=== PATIENT | female | born 1950 | race Caucasian/White ===

== ENCOUNTER 2019-07-22 17:00 | Emergency (ER) | payer MEDICARE, BC, SELFPAY ==
--- NOTE | ~2019-07-22 | XR_ITS ---
EXAMINATION: XR shoulder RT min 2V EXAM DATE: 07/22/2019 17:36 INDICATION: Initial encounter following injury, with pain of the right shoulder. Fell yesterday. TECHNIQUE: The following right shoulder projections obtained: frontal projection with internal rotati on, frontal projection with external rotation, Grashey, and scapular Y view (4+ views). Correlation i s made to chest x-ray from 2018. FINDINGS: No evidence of right shoulder rotator cuff calcific tendinosis. There is contour abnorm ality to the underside of the distal clavicle, suspicious for an acute distal clavicular closed postt raumatic fracture. This finding has been indicated, marked on the examination for review, clinical co rrelation. Glenohumeral joint is unremarkable. Sternotomy wires are present without findings to sugge st sternal dehiscence. IMPRESSION: Probable distal right clavicular fracture. Reviewed, dictated and finalized at location A.
--- NOTE | 2019-07-22 17:12 | ED.GENADULT ---
HPI - General Adult General Chief complaint: Extremity Injury, Upper Stated complaint: Injury to right shoulder Time Seen by Provider: 07/22/19 17:14 Source: patient Mode of arrival: ambulatory Limitations: no limitations History of Present Illness HPI narrative: 68-year-old female patient presents to the [facility] with complaints of right shoulder pain. Patient states that she fell yesterday. Patient states that she was trying to flop back in her recliner and missed and hit the arm of the chair and then fell over on the floor landing on her right shoulder. Patient does have a history of cerebral palsy and does have weakness of the right shoulder at baseline. Patient states it is more painful around the scapula and clavicle area on the right side. Patient states she has been taking some Tylenol which has helped a little with the pain along with heat. Patient states that the ice does make it worse. Related Data Home Medications Medication Instructions Recorded Confirmed citalopram 40 mg PO DAILY 07/22/19 07/22/19 insulin glargine [Lantus Solostar unit SUBCUT 07/22/19 U-100 Insulin] metoprolol tartrate 25 mg PO DAILY 07/22/19 07/22/19 Allergies Allergy/AdvReac Type Severity Reaction Status Date / Time Sulfa (Sulfonamide Allergy Mild Rash Verified 07/22/19 17:19 Antibiotics) Review of Systems Review of Systems: Narrative: CONSTITUTIONAL: Denies fever, chills, or sweats. EYES: Denies visual changes, redness, or discharge. ENT: Denies rhinorrhea, congestion, sore throat, or otalgia. CARDIOVASCULAR: Denies chest pain, palpitations, or edema. RESPIRATORY: Denies cough or dyspnea. GASTROINTESTINAL: Denies abdominal pain, nausea, vomiting, or diarrhea. GENITOURINARY: Denies dysuria or hematuria. SKIN: Denies rash or itching. MUSCULOSKELETAL: Denies back pain, joint pain, or myalgia. Positive right shoulder pain NEUROLOGIC: Denies headache, numbness, or weakness. PSYCHIATRIC: Denies anxiety or depression. FORMERLY [facility] Past Medical History Medical History (Updated 07/22/19 @ 18:01 by JUAN DAVID Cheek) Cerebral palsy Right side weak, right leg Heart attack Hypoglycemia Insulin pump status Retinopathy Type 1 diabetes Surgical History Surgical History (Updated 07/22/19 @ 17:17 by JUAN DAVID Cheek) H/O: hysterectomy Hx of CABG X6 in 1999, 6 vessels Family History Family History Other Family history of cardiovascular disease Family history of lung disease Family history of mental disorder Social History Social History Smoking status: Never smoker Alcohol intake: never Comments At the time of my signature I agree with nursing past medical history, surgical, social, and family history. There is no relevant family history pertinent to the presenting complaint. Exam Narrative: Exam Narrative: GENERAL: Well-appearing, well-nourished, and in no acute distress. HEAD: Normocephalic, atraumatic. EYES: PERRLA and EOMI. ENT: Nares clear, no rhinorrhea or epistaxis. Mucous membranes moist. NECK: Supple. No lymphadenopathy CHEST: Clear to auscultation. No respiratory distress. HEART: Regular rate and rhythm. No murmur heard. Normal peripheral pulses. ABDOMEN: Soft, nontender, nondistended, normal active bowel sounds. EXTREMITIES: The R shoulder is without obvious asymmetry or deformity when compared to the L shoulder. No surface trauma, ecchymosis, crepitus. No bony deformity or prominence of the humeral head No erythema, warmth, swelling. tenderness to palpation to right clavicle, no tenderness noted to the A to C joint, acromion, 100 is noted to palpation of the right scapula, no tenderness to the humeral head. No tenderness to palpation of the bicipital groove or soft tissues. No tenderness to palpation of the muscles of the sterncleidomastoid, pectorals, biceps/triceps, deltoid, trapezius, r
[2019-07-22 17:14] VITALS: BP 161/97; PULSE 99; RESP 18; TEMP 36.7; O2SAT 100
== END 2019-07-22 18:09 | disposition home or self-care (01) ==
PROVIDERS: Emergency Provider Nurse Practitioner Family; PCP Family Medicine
DX: S42.034A Nondisplaced fracture of lateral end of right clavicle, initial encounter for closed fracture (principal); W18.39XA Other fall on same level, initial encounter; G80.9 Cerebral palsy, unspecified; I25.2 Old myocardial infarction; E10.9 Type 1 diabetes mellitus without complications; Z95.1 Presence of aortocoronary bypass graft
CPT/HCPCS: 73030; 99214; A4565; G0463

== ENCOUNTER 2019-11-21 14:30 | Inpatient (IN) | payer MEDICARE, BC, SELFPAY ==
[2019-11-21] VITALS (8 sets, daily range): BP systolic 109–139; BP diastolic 54–83; PULSE 58–78; RESP 16–25; TEMP 36.4–37.1; O2SAT 96–100
--- NOTE | ~2019-11-21 | XR_ITS ---
EXAMINATION: XR chest 1V portable DATE: 11/21/2019 15:24 INDICATION: Coronary atherosclerosis. Diabetes. Preop. TECHNIQUE: A single frontal view of the chest was obtained. COMPARISON: Chest 2 views 12/17/2017 FINDINGS: The chest demonstrates clear lungs without pneumonia, pleural effusion, or pneumothorax. Th e heart size is normal. Median sternotomy wires and mediastinal surgical clips are seen, likely from prior coronary artery bypass grafting. Surgical clips in the right upper quadrant are likely from cho lecystectomy. IMPRESSION: 1. No acute cardiopulmonary disease. Reviewed, dictated and finalized at location B.
--- NOTE | ~2019-11-21 | XR_ITS ---
EXAMINATION: XR hip RT 2V w AP pelvis DATE: 11/21/2019 14:56 INDICATION: Right hip deformity. Fall. TECHNIQUE: An anteroposterior view of the pelvis and 3 views of right hip were obtained. COMPARISON: None. FINDINGS: There is a comminuted intertrochanteric and subtrochanteric fracture of proximal right femu r. The main distal fracture fragment demonstrates 1.8 cm anterior displacement and 18 degrees posteri or angulation. There is mild osteoarthritis of the hips. There is at least moderate lumbar spondylosi s. There are surgical clips in right thigh. IMPRESSION: 1. Comminuted intertrochanteric and subtrochanteric fracture of proximal right femur. 2. Mild osteoarthritis of the hips. Reviewed, dictated and finalized at location B.
--- NOTE | ~2019-11-21 | XR_ITS ---
EXAMINATION: XR hip LT 1V DATE: 11/21/2019 16:11 INDICATION: Pelvis injury. TECHNIQUE: A single view of left hip was obtained. COMPARISON: Pelvis and right hip radiographs 11/21/2019 FINDINGS: Bone alignment is normal. No fracture. There is mild left hip osteoarthritis. IMPRESSION: 1. Mild left hip osteoarthritis. Reviewed, dictated and finalized at location B.
--- NOTE | ~2019-11-21 | XR_ITS ---
EXAMINATION: XR surgery orthopedic DATE: 11/22/2019 13:26 INDICATION: Proximal right femur fracture. TECHNIQUE: 5 intraoperative fluoroscopic views of right femur were obtained. I was not present. Fluor oscopy exposure time was 334 seconds. COMPARISON: Right hip radiographs 11/21/2019 FINDINGS: There is a comminuted intertrochanteric and subtrochanteric fracture of proximal right femu r status post reduction internal fixation with long intramedullary cheryl, femoral head/neck screw, and 2 distal interlocking screws. There is mild right hip osteoarthritis. There are surgical clips in the thigh. IMPRESSION: 1. Comminuted intertrochanteric and subtrochanteric fracture of proximal right femur status post open reduction internal fixation. Reviewed, dictated and finalized at location A.
--- NOTE | ~2019-11-21 | XR_ITS ---
EXAMINATION: XR femur RT min 2V DATE: 11/22/2019 14:06 INDICATION: Proximal right femur fracture. TECHNIQUE: 2 views of right femur on 4 radiographs were obtained. COMPARISON: Right hip radiographs 11/21/2019 FINDINGS: There is a comminuted intertrochanteric and subtrochanteric fracture of proximal right femu r. The main distal fracture demonstrates near-anatomic alignment status post open reduction internal fixation with antegrade intramedullary cheryl, 2 distal interlocking screws, and femoral head/neck screw . There is mild right hip osteoarthritis. There is surgical clips in the medial thigh. There is gas i n the soft tissues, consistent with recent surgery. IMPRESSION: 1. Comminuted intertrochanteric and subtrochanteric fracture of proximal right femur status post open reduction internal fixation. 2. Mild right hip osteoarthritis. Reviewed, dictated and finalized at location A.
--- NOTE | 2019-11-21 15:09 | ECG_ITS ---
Measurements Intervals [place] Rate: 67 P: 7 [place]: 140 QRS: 10 QRSD: 109 T: 209 QT: 429 QTc: 455 Interpretive Statements SINUS RHYTHM LEFT VENTRICULAR HYPERTROPHY AND ST-T CHANGE ST-T WAVE ABNORMALITY IN ANTEROLAT/HIGH LAT LEADS- CONSIDER ISCHEMIA ABNORMAL ECG Electronically Signed On 11-21-2019 15:47:27 CDT by Gabriel Alvarado D.O.
[2019-11-21 15:42] LABS: Glucose Point of Care 250 (65-105)
[2019-11-21 15:45] LABS: Basophils Percent Auto 0.5 % (0.2-1.2); Eosinophils Absolute Auto 0.3 K/mm3 (0-0.3); Eosinophils Percent Auto 5.3 % (0-4.4); Hematocrit 31.1 % (37.0-47.0); Hemoglobin 10.5 g/dL (12.0-15.0); Immature Granulocyte Absolute 0.01 K/mm3 (0.00-0.031); Immature Granulocyte Percent A 0.2 % (0-0.5); Lymphocytes Absolute Auto 1.42 K/mm3 (0.9-3.2); Lymphocytes Percent Auto 23.6 % (18.3-44.2); Mean Corpuscular HGB Conc 33.8 g/dl (32-36); Mean Corpuscular Hemoglobin 30.1 pg (26-34); Mean Corpuscular Volume 89.1 fl (80-100); Mean Platelet Volume 8.8 fl (7.4-10.4); Monocytes Absolute Auto 0.5 K/mm3 (0.1-0.6); Monocytes Percent Auto 8.5 % (2.6-8.5); Neutrophils Absolute Auto 3.7 K/mm3 (1.3-6.7); Neutrophils Percent Auto 61.9 % (45.5-73.1); Platelet Count Result 228 k/mm3 (150-375); Red Blood Count 3.49 M/mm3 (4.2-5.4); Red Cell Distribution Width 12.6 % (11.5-14.5)
[2019-11-21 15:55] LABS: INR 1.2; Partial Thromboplastin Time 26.1 SECONDS (22.3-36.8); Prothrombin Time 14.8 Seconds (11.1-14.7)
[2019-11-21 15:56] LABS: Anion Gap 7 mmol/L (8-16); Blood Urea Nitrogen 31 mg/dL (7-17); Calcium 8.4 mg/dL (8.4-10.2); Carbon Dioxide 26 mmol/L (22-30); Chloride 97 mmol/L (98-107); Estimated CRCL calculation 47 ml/min; Estimated Glomerular Filt Rate > 60; Glucose 241 mg/dL (65-105); Potassium 4.5 mmol/L (3.4-5.0); Sodium 130 mmol/L (137-145)
--- NOTE | 2019-11-21 16:01 | ED.GENADULT ---
HPI - General Adult General Chief complaint: Fall Stated complaint: right hip injury - fall History of Present Illness HPI narrative: Patient is a 69-year-old female who presents ER with pain in her right hip. Patient was getting out of her car at a local store when she lost her balance and fell. Sudden onset pain the right hip. Unable to range at the hip due to pain. Patient has cerebral palsy that affects her right side and reports she cannot move her toes or ankle baseline. No new numbness or tingling. Did not strike her head or lose consciousness. Related Data Home Medications Medication Instructions Recorded Confirmed ascorbic acid (vitamin C) [Vitamin 100 mg PO DAILY 11/21/19 11/21/19 C] aspirin [Adult Low Dose Aspirin] 81 mg PO DAILY 11/21/19 11/21/19 carvedilol 12.5 mg PO BID 11/21/19 11/21/19 citalopram [Celexa] 40 mg PO DAILY 11/21/19 11/21/19 clopidogrel [Plavix] 75 mg PO DAILY 11/21/19 11/21/19 furosemide [Lasix] 40 mg PO DAILY 11/21/19 11/21/19 insulin glargine [Lantus U-100 23 unit SUBCUT DAILY 11/21/19 11/21/19 Insulin] insulin lispro [Humalog U-100 See Protocol SUBCUT ACHS 11/21/19 11/21/19 Insulin] isosorbide mononitrate 30 mg PO DAILY 11/21/19 11/21/19 losartan 12.5 mg PO DAILY 11/21/19 11/21/19 multivitamin with iron-mineral 1 tablet PO DAILY 11/21/19 11/21/19 ondansetron HCl [Zofran] 4 mg PO Q6H PRN 11/21/19 11/21/19 spironolactone 12.5 mg PO DAILY 11/21/19 11/21/19 Allergies Allergy/AdvReac Type Severity Reaction Status Date / Time Sulfa (Sulfonamide Allergy Mild Rash Verified 11/21/19 14:34 Antibiotics) Review of Systems Review of Systems: All systems reviewed & are unremarkable except as noted in HPI and below Constitutional: Constitutional: Denies chills, Denies fever(s) and Denies weakness ENT: Denies nasal congestion and Denies sore throat Respiratory: Respiratory: Denies cough and Denies dyspnea Gastrointestinal: Gastrointestinal: Denies abdominal pain, Denies nausea and Denies vomiting PMFSH Past Medical History Medical History (Updated 11/21/19 @ 23:23 by Aravind Zamora MD) Cerebral palsy Right side weak, right leg Heart attack Hypoglycemia Insulin pump status Retinopathy Type 1 diabetes Surgical History Surgical History (Updated 07/22/19 @ 17:17 by JUAN DAVID Cheek) H/O: hysterectomy Hx of CABG X6 in 1999, 6 vessels Social History Social History Smoking status: Never smoker Alcohol intake: never Substance use: never Spiritual care concerns: No Exam Narrative: Exam Narrative: GENERAL: Uncomfortable-appearing, well-nourished, and in mild distress. HEAD: Normocephalic, atraumatic. ENT: Mucous membranes moist. CHEST: Clear to auscultation. No respiratory distress. HEART: Regular rate and rhythm. Normal peripheral pulses. ABDOMEN: Soft, nontender, nondistended. EXTREMITIES: Right lower extremity shortened and externally rotated. Significant tenderness at the hip where there is a deformity. Patient has limited range of motion of the ankle and toes due to cerebral palsy at baseline. Sensation intact and normal distal pulses. SKIN: Warm, dry, no rash. NEURO: Alert and oriented x3. Course Course Emergency Course: Admit to hospitalist service. Cardiology consult ordered at request of fetus. Ortho feels comfortable caring for patient's injury here. Vital Signs Vital signs: Vital Signs Temperature 98.7 F 11/21/19 14:26 Pulse Rate 58 L 11/21/19 14:26 Respiratory Rate 25 H 11/21/19 14:26 Blood Pressure 121/66 11/21/19 14:26 Pulse Oximetry 97 11/21/19 14:26 Temperature 97.6 F 11/21/19 22:00 Pulse Rate 73 11/21/19 22:00 Respiratory Rate 20 11/21/19 22:00 Blood Pressure 109/63 11/21/19 22:00 Pulse Oximetry 96 11/21/19 22:00 Medical Decision Making Vital Signs Vital Signs: Vital Signs Temperature 98.7 F 11/21/19 14:26 Pulse Rate
--- NOTE | 2019-11-21 16:06 | PC.NURSE ---
ATTEMPTED TO CONTACT FAMILY AT THIS TIME FOR FURTHER MEDICAL HX, NO ANSWER BY PROVIDED NUMBER, VOICEMAIL LEFT TO CALL BACK TO ED.
[2019-11-21] MEDS: ONDANSETRON INJ 4 MG/2 ML VIAL IV PUSH ×3 (16:40→23:21)
--- NOTE | 2019-11-21 18:28 | PM.CNOR ---
Assessment and Plan Additional Plan Patient is a 69-year-old female who presents with a comminuted right intertrochanteric subtrochanteric femur fracture. This happened from a fall earlier today. X-rays demonstrate a comminuted subtrochanteric pattern with intertrochanteric extension minimal hip arthritis. She has a history of cerebral palsy that affects the right side. It is severe and she has minimal use of the right upper extremity and has distal paralysis of the right lower extremity. She has no active movement in the right foot or ankle. She has normal sensation clinically. The foot is of normal color there is no swelling in the leg her knee calf ankle foot are nontender and she has normal light touch sensation. Her pain is at the hip and proximal thigh on the right. She denies any other injury. She is alert and oriented. She lives with her niece who was present today. She has a trace posterior tibial artery pulse. I could not feel dorsalis pedis. Normal capillary refill. Her past medical history is significant for long history of heart disease. She states she had 6 way bypass in 1999 and did well until August of this year when she had a heart attack and had a stent placed in had some CHF complications associated with this. She has insulin dependent diabetes mellitus type 1.Retinopathy. Allergy to sulfa. She denies any history of thromboembolic problems. Impression: Patient has a severe subtroch intertroch fracture on the right. I have explained to her and her niece that open reduction and internal fixation of this fracture will be necessary. She was ambulatory before this. I have discussed that she is at increased risk for cardiac complications because of her history and we will need to have Cardiology see her and assess her cardiac risk and determine whether optimization is necessary before proceeding with surgery. She does take Plavix and we will hold this for today. Postoperatively we will use DVT prophylaxis with Lovenox and resume her Plavix. Her hemoglobin is only a 10.8 and it is very probable she will need transfusion at some point because of the blood loss that is associated with these fractures and we will check labs in the morning. I have discussed risks of complications from surgery such as infection blood clots nonunion and medical complications which can be severe. Her knees will not be able to provide 24/7 care for her and assist with transfers after surgery so patient will need to go to a rehabilitation facility for probably 8 weeks postoperatively. History of Present Illness HPI Consult date: 11/21/19 Chief complaint: hip fracture PMFSH Past Medical History Medical History (Updated 07/23/19 @ 00:00 by J Carlos Espinal) Cerebral palsy Right side weak, right leg Heart attack Hypoglycemia Insulin pump status Retinopathy Type 1 diabetes Surgical History Surgical History (Updated 07/22/19 @ 17:17 by JUAN DAVID Cheek) H/O: hysterectomy Hx of CABG X6 in 1999, 6 vessels Social History Social History Smoking status: Never smoker Alcohol intake: never Meds Home Medications and Allergies Home Medications Medication Instructions Recorded Confirmed Type carvedilol 12.5 mg PO BID 11/21/19 History citalopram [Celexa] 20 mg PO DAILY 11/21/19 History clopidogrel [Plavix] 75 mg PO DAILY 11/21/19 History furosemide [Lasix] 40 mg PO DAILY 11/21/19 History insulin glargine [Lantus U-100 23 unit SUBCUT DAILY 11/21/19 History Insulin] isosorbide mononitrate 30 mg PO DAILY 11/21/19 History lisinopril 5 mg PO DAILY 11/21/19 History losartan 12.5 mg PO DAILY 11/21/19 History ondansetron HCl [Zofran] 4 mg PO Q6H PRN 11/21/19 History Allergies Allergy/AdvReac Type Severity Reaction Status Date / Time Sulfa (Sulfonamide Allergy Mild Rash Verified 11/21/19 14:34 Antibiotics) Vital Signs Vital Signs - 24 hr 11/21/19 14:
--- NOTE | 2019-11-21 18:55 | ADMGEN ---
This patient, Ilana Kim, was admitted to [facility] Surg Room 325-01. Report received from KATHRINE Davis. Patient/family oriented to hospital policies and general routines including ID bracelet, bed and alarms, visiting hours, pain management, procedures, bathroom and other care routines, personal items, smoking policy, room service/diet, and visiting hours. Valuables list has been completed. Information on how to activate the Rapid Response Team has been discussed. Patient/Family are encouraged to report perceived risks to care and to ask questions if they do not understand what they are told or what they should do.
[2019-11-21 19:01] LABS: Glucose Point of Care 172 (65-105)
--- NOTE | 2019-11-21 19:42 | PM.CNCAR ---
Assessment and Plan Assessment and plan (1) Preop cardiovascular exam: Code(s): Z01.810 - Encounter for preprocedural cardiovascular examination Status: Acute Assessment and Plan: Preop Risk stratification- Risk profile: CAD/CABG/UT/stents, Mild LV systolic dysfunction, IDDM, hypertension. Surgical risk: Intermediate risk with hip surgery. Functional status <4 METs. Overall risk: Moderate cardiac risk. She is currently optimized for surgery and may proceed without further cardiac workup. Check Troponin. Hold Clopidogrel. Check EKG postop for any changes. (2) CAD (coronary artery disease), autologous vein bypass graft: Code(s): I25.810 - Atherosclerosis of coronary artery bypass graft(s) without angina pectoris Status: Acute (3) Systolic dysfunction: Code(s): I51.9 - Heart disease, unspecified Status: Acute (4) Hypertension: Code(s): I10 - Essential (primary) hypertension Status: Acute History of Present Illness History of Present Illness Consult date/time: 11/21/19 19:42 Reason for consult: Preop cardiovascular risk stratification 69 yr old woman admitted for right hip fracture. Most history obtained from chart and patient's niece who she lives with and is also her hearing healthcare practitioner. She has a history of CAD, CABG x 6 vessels in 1999 at [facility], [place] in August 2019 with 2 stent placement at [facility] in [place], [place], LV systolic dysfunction (Echocardiograms were done at [facility] in August 2019 showed EF 36%, then in October 2019 EF 45%, per patient's niece), IDDM, hypertension, cerebral palsy. Her regular jet inspector is Dr. Rea. She was doing some shopping today and as she exited her van she fell due to loss of balance, and had pain in right hip. It was found that she has a right hip fracture needing surgery and plan to have it done tomorrow with Dr. Price. She can normally walk up to 50 feet with a limp due to cerbral palsy before she has to rest due to fatigue or FRANKS. Denies chest pain, sob, orthopnea, PND, edema, palpitations, dizziness. She has right hip pain only if she moves or shifts her body. Reason For Visit: hip fracture Review of Systems Review of Systems: All systems reviewed & are unremarkable except as noted in HPI and below Constitutional: Constitutional: Reports as per HPI and Denies chills Cardiovascular: Cardiovascular: Reports as per HPI, Denies chest pain, Denies leg edema, Denies lightheadedness and Denies palpitations Respiratory: Respiratory: Reports as per HPI, Reports dyspnea on exertion and Denies wheezing Gastrointestinal: Gastrointestinal: Denies abdominal pain and Reports vomiting (In ED and again in her room) Comments: Belching this evening Genitourinary: Genitourinary: Reports as per HPI and Denies dysuria Musculoskeletal: Musculoskeletal: Reports as per HPI and Reports arthralgias Neurologic: Reports as per HPI and Denies confusion [facility] Past Medical History Medical History (Updated 11/21/19 @ 19:59 by Gabriel Alvarado DO) Cerebral palsy Right side weak, right leg Heart attack Hypoglycemia Insulin pump status Retinopathy Type 1 diabetes Surgical History Surgical History (Updated 07/22/19 @ 17:17 by JUAN DAVID Cheek) H/O: hysterectomy Hx of CABG X6 in 1999, 6 vessels Social History Social History Smoking status: Never smoker Alcohol intake: never Substance use: never Spiritual care concerns: No Meds Home Medications and Allergies Home Medications Medication Instructions Recorded Confirmed Type ascorbic acid (vitamin C) [Vitamin 100 mg PO DAILY 11/21/19 11/21/19 History C] aspirin [Adult Low Dose Aspirin] 81 mg PO DAILY 11/21/19 11/21/19 History carvedilol 12.5 mg PO BID 11/21/19 11/21/19 History citalopram [Celexa] 40 mg PO DAILY 11/21/19 11/21/19 History clopidogrel [Plavix] 75 mg PO DAILY 11/21/19 11/21/19 Histo
[2019-11-21 20:14] LABS: NT Pro B Type Natriuretic Pept 3890 PG/ML (5-100); Troponin I < 0.012 ng/mL (0.000-0.034)
[2019-11-21] MEDS: DEXTROSE 5%/0.45% SOD CHL 1,000 ML 100 ML IV CONT (20:45)
--- NOTE | 2019-11-21 23:40 | PM.IMHP ---
H&P: HPI History of Present Illness Date/Time: 11/21/19 23:40 Chief complaint: hip fracture Narrative: Ilana Kim is a 69 year old female who has a hx of cerebral palsy. And is weak on the right side. The patient recently started using a walker. The patient lives with her nephew and his . The patient stated that she was trying to get out of the car and was in her and did realize that she lost her balance. She said she saw that she had 1 ft from the other with somehow she lost her balance. She did not hit her head and is not on any blood thinners. She is answering questions without difficulty. She is belching and stated that she is nauseated at this time. She has severe pain in the right hip are. Patient had stated that she could not move her toes or ankle. She is a very brittle diabetic she is type 1 insulin-dependent. She also has systolic congestive heart failure with the EF of 45%. The niece was here earlier and was giving information to cardiology. She has has a history of having coronary artery disease with a 6 vessel CABG in 1999 at [facility]. She had a heart attack August of this year and had 2 more stents placed at [facility]. Dr. mann has seen the patient and evaluated the patient. He recommended that cardiology see the patient and she was evaluated by cardiology as well. The patient content Harlan walk approximately 50 ft before she has dyspnea on exertion. She currently has no chest pain or palpitations. She complained of no dizziness. No fever no chills. The hip and pelvis x-ray was read as comminuted intertrochanteric and subtrochanteric fracture of proximal right femur this is closed. Mild osteoarthritis of the hips. She was given morphine in the emergency room, for Zofran Tylenol. The patient was given Ancef and vancomycin per orthopedic physician. Approximately 1 hour in the patient's room. Date of service is 11/21/2019 Review of Systems Review of Systems: All systems reviewed & are unremarkable except as noted in HPI and below Constitutional: Constitutional: Reports as per HPI and Reports no additional constitutional complaints Eyes: Eyes: Reports as per HPI and Reports no additional eye complaints ENT: Reports system reviewed and no additional complaints, except as documented and Reports Normal hearing present Cardiovascular: Cardiovascular: Reports no additional cardiovascular complaints Respiratory: Respiratory: Reports no additional respiratory complaints and Reports no additional respiratory complaints Gastrointestinal: Gastrointestinal: Reports as per HPI and Reports no additional gastrointestinal complaints Musculoskeletal: Musculoskeletal: Reports no additional musculoskeletal complaints Integumentary/Breasts: Skin/Breast: Reports system reviewed and no additional complaints, except as docu and Reports as per HPI Neurologic: Reports system reviewed and no additional complaints, except as documented, Reports as per HPI and Reports Normal hearing present Psychiatric: Psychiatric: Reports no additional psychiatric complaints and Reports as per HPI Endocrine: Endocrine: Reports no additional endocrine complaints Hematologic/Lymphatic: Hematologic/Lymphatic: Reports no additional hematologic/lymphatic complaints Allergic/Immunologic: Allergic/Immunologic: Reports no additional allergic/immunologic complaints [facility] Past Medical History Medical History (Updated 11/22/19 @ 00:04 by Bre Garcia NP) Cerebral palsy Right side weak, right leg Depression Started after her of cancer and then she continued to take Celexa Heart attack Hypoglycemia Insulin pump status Retinopathy Type 1 diabetes Surgical History Surgical History (Updated 11/22/19 @ 00:01 by Bre Garcia NP) H/O: hysterectomy History of heart artery stent 2 cardiac stents 08/2019 Hx of CABG X6 in 1999, 6 vessels Family History Family
[2019-11-22] VITALS (19 sets, daily range): BP systolic 103–160; BP diastolic 38–86; PULSE 64–87; RESP 11–20; TEMP 36.1–37; O2SAT 90–100
[2019-11-22] MEDS: INSULIN ASPART (*BKC) 100 UNITS/ML SUB-Q ×2 (00:33→05:34)
[2019-11-22 00:39] LABS: Glucose Point of Care 257 (65-105)
[2019-11-22] MEDS: ONDANSETRON INJ 4 MG/2 ML VIAL IV PUSH ×2 (03:33→14:51)
[2019-11-22 06:01] LABS: Glucose Point of Care 318 (65-105)
[2019-11-22 07:03] LABS: Hematocrit 27.3 % (37.0-47.0); Hemoglobin 9.1 g/dL (12.0-15.0); Mean Corpuscular HGB Conc 33.3 g/dl (32-36); Mean Corpuscular Hemoglobin 29.8 pg (26-34); Mean Corpuscular Volume 89.5 fl (80-100); Mean Platelet Volume 9.5 fl (7.4-10.4); Platelet Count Result 180 k/mm3 (150-375); Red Blood Count 3.05 M/mm3 (4.2-5.4); Red Cell Distribution Width 12.6 % (11.5-14.5); White Blood Count 7.6 K/mm3 (4.5-10.0)
[2019-11-22 07:19] LABS: Alanine Aminotransferase 17 U/L (4-35); Albumin Level 3.3 g/dL (3.5-5.1); Alkaline Phosphatase 58 U/L (38-126); Anion Gap 7 mmol/L (8-16); Aspartate Amino Transferase 26 U/L (14-36); Bilirubin,Total 0.3 mg/dL (0.2-1.3); Blood Urea Nitrogen 36 mg/dL (7-17); Calcium 8.1 mg/dL (8.4-10.2); Carbon Dioxide 26 mmol/L (22-30); Chloride 97 mmol/L (98-107); Estimated CRCL calculation 39 ml/min; Estimated Glomerular Filt Rate 49; Glucose 284 mg/dL (65-105); Potassium 4.6 mmol/L (3.4-5.0); Sodium 130 mmol/L (137-145)
[2019-11-22] MEDS: DEXTROSE 5%/0.45% SOD CHL 1,000 ML 100 ML IV CONT (07:25)
[2019-11-22 08:11] LABS: Troponin I < 0.012 ng/mL (0.000-0.034)
[2019-11-22 08:15] LABS: Vitamin D 25 Hydroxy 47.9 ng/mL
[2019-11-22] MEDS: ISOSORBIDE MONONITRATE 30 MG TAB.ER.24H PO (08:28)
[2019-11-22] MEDS: LOSARTAN POTASSIUM 12.5 MG TABLET PO (08:28)
[2019-11-22] MEDS: CITALOPRAM HYDROBROMIDE 20 MG TABLET 40 MG PO (08:28)
[2019-11-22] MEDS: carvediloL 12.5 MG TABLET PO ×2 (08:28→17:12)
[2019-11-22] MEDS: SPIRONOLACTONE 12.5 MG TABLET PO (08:28)
[2019-11-22] MEDS: THERAPEUTIC MULTIVITAMINS/MINERALS TAB (*BKC) 1 TABLET PO (08:28)
[2019-11-22] MEDS: FUROSEMIDE 40 MG TABLET PO (08:28)
[2019-11-22] MEDS: INSULIN GLARGINE (*BKC) 100 UNITS/ML 23 UNITS SUB-Q (08:34)
[2019-11-22] MEDS: FAMOTIDINE 20 MG/2 ML VIAL IV PUSH (08:34)
--- NOTE | 2019-11-22 10:36 | WPDANESEPP ---
Anes - Eval Pre Procedure Procedure: Operation Date: 11/22/19 11:00 Proposed Procedures p Intertrochanteric Nail - Leif Price MD Date/Time: 11/22/19 10:36 Pre Op Diagnosis: hip fracture Patient Data Age: 69 Gender: F Height: 1.65 m Weight: 68.1 kg Last Vital Signs Temp 37.0 C 11/22/19 06:00 Pulse 84 11/22/19 08:28 Resp 20 11/22/19 06:00 BP 130/38 L 11/22/19 06:00 Pulse Ox 95 11/22/19 06:00 Allergies Allergy/AdvReac Type Severity Reaction Status Date / Time Sulfa (Sulfonamide Allergy Mild Rash Verified 11/21/19 14:34 Antibiotics) Home Medications Medication Instructions Recorded Confirmed Type ascorbic acid (vitamin C) [Vitamin 100 mg PO DAILY 11/21/19 11/21/19 History C] aspirin [Adult Low Dose Aspirin] 81 mg PO DAILY 11/21/19 11/21/19 History carvedilol 12.5 mg PO BID 11/21/19 11/21/19 History citalopram [Celexa] 40 mg PO DAILY 11/21/19 11/21/19 History clopidogrel [Plavix] 75 mg PO DAILY 11/21/19 11/21/19 History furosemide [Lasix] 40 mg PO DAILY 11/21/19 11/21/19 History insulin glargine [Lantus U-100 23 unit SUBCUT DAILY 11/21/19 11/21/19 History Insulin] insulin lispro [Humalog U-100 See Protocol SUBCUT ACHS 11/21/19 11/21/19 History Insulin] isosorbide mononitrate 30 mg PO DAILY 11/21/19 11/21/19 History losartan 12.5 mg PO DAILY 11/21/19 11/21/19 History multivitamin with iron-mineral 1 tablet PO DAILY 11/21/19 11/21/19 History ondansetron HCl [Zofran] 4 mg PO Q6H PRN 11/21/19 11/21/19 History spironolactone 12.5 mg PO DAILY 11/21/19 11/21/19 History Laboratory Tests 11/21/19 11/21/19 11/21/19 15:32 15:32 15:33 WBC 6.0 K/mm3 K/mm3 (4.5-10.0) RBC 3.49 M/mm3 L M/mm3 (4.2-5.4) Hgb 10.5 g/dL L g/dL (12.0-15.0) Hct 31.1 % L % (37.0-47.0) MCV 89.1 fl fl (80-100) MCH 30.1 pg pg (26-34) MCHC 33.8 g/dl g/dl (32-36) RDW 12.6 % % (11.5-14.5) Plt Count 228 k/mm3 k/mm3 (150-375) MPV 8.8 fl fl (7.4-10.4) Immature Gran % (Auto) 0.2 % % (0-0.5) Neut % (Auto) 61.9 % % (45.5-73.1) Lymph % (Auto) 23.6 % % (18.3-44.2) [place] % (Auto) 8.5 % % (2.6-8.5) Eos % (Auto) 5.3 % H % (0-4.4) Baso % (Auto) 0.5 % % (0.2-1.2) Lymph # (Auto) 1.42 K/mm3 K/mm3 (0.9-3.2) [place] # (Auto) 0.5 K/mm3 K/mm3 (0.1-0.6) Eos # (Auto) 0.3 K/mm3 K/mm3 (0-0.3) Baso # (Auto) 0.0 K/mm3 K/mm3 (0.0-0.1) Abs Immat Gran (auto) 0.01 K/mm3 K/mm3 (0.00-0.031) Absolute Neuts (auto) 3.7 K/mm3 K/mm3 (1.3-6.7) Absolute Nucleated RBC 0.0 K/mm3 K/mm3 (0.0-0.012) Nucleated RBC % 0.0 % % (0.0-0.2) PT INR APTT Sodium Potassium Chloride Carbon Dioxide Anion Gap BUN Creatinine Estim Creat Clear Calc Estimated GFR Glucose POC Capillary Glucose Hemoglobin A1c Calcium Total Bilirubin AST ALT Alkaline Phosphatase Troponin I < 0.012 ng/mL ng/mL (0.000-0.034) NT-Pro-B Natriuret Pep 3890 PG/ML H PG/ML Cancelled (5-100) Total Protein Albumin Vitamin D 25-Hydroxy Blood Type Antibody Screen 11/21/19 11/21/19 11/21/19 15:33 15:33 15:37 WBC RBC Hgb Hct MCV MCH MCHC RDW Plt Count MPV Immature Gran % (Auto) Neut % (Auto) Lymph % (Auto) [place] % (Auto) Eos % (Auto) Baso % (Auto) Lymph # (Auto) [place] # (Auto)
[2019-11-22 10:56] LABS: Hemoglobin A1C 8.9 % (<5.7)
--- NOTE | 2019-11-22 11:08 | PC.NURSE ---
Patient to pre-op at 1100.
--- NOTE | 2019-11-22 11:11 | P.PNAN_ITS ---
Anes - Eval Final PreProcedure Day of Procedure 11/22/19 11:11 Patient weight: normal Heart: regular rate and rhythm Lungs: decreased breath sounds Airway: Mallampati scale class II Neurological: other (alert) Last oral intake: >/= 8 hours ASA classification: III Emergent: no Anesthetic plan: proceed Anesthesia type and monitoring: general LMA and standard monitoring Informed Consent: The patient's anesthetic plan and its attendant risks and bene fits were discussed with the patient/family/POA. Questions were solicited and answers provided to the satisfaction of the patient/family/POA.
[2019-11-22] MEDS: LACTATED RINGERS 1,000 ML 30 ML IV CONT ×2 (11:20→13:54)
[2019-11-22] MEDS: ceFAZolin 2 GM/D5W 50 ML 2 GM/50 ML BAG IVPB (12:05)
[2019-11-22] MEDS: ceFAZolin SODIUM 1 GM VIAL IV PUSH (13:14)
--- NOTE | 2019-11-22 13:24 | PM.PROC ---
Procedure Note - Detailed Date of procedure: 11/22/19 Pre-op diagnosis: hip fracture Post-op diagnosis: same Procedure performed: open reduction internal fixation right intertrochanteric subtrochanteric femur fracture with long trochanteric nail device. Description of procedure: patient was brought to the operating room and general anesthesia was administered. She was carefully placed on the fracture table and the right foot padded with soft roll covered with Ioban placed in the traction boot the left hip flexed abducted out of the way. We scrubbed her lateral right hip and thigh with the chlorhexidine cloth before transferring her over and we brought in fluoro to assess the fracture. With longitudinal traction the fracture lined up nicely completely correcting the anterior translation of the shaft and giving very good congregational of alignment on the anterior posterior plane. The distal extent of the subtrochanteric comminution was more severe than I had thought. We placed the box with the 235 mm deep you troch nail over the thigh and with fluoro we could see that even with this long intermediate length nail, we would not have enough nail length to guarantee the secure stability and we decided a standard length full length intramedullary trochanteric cheryl was better. The right hip was prepped draped usual fashion. A 2-1/2 inch longitudinal incision was made proximal to the greater trochanter and a guide pin inserted into the tip of the greater trochanter under fluoroscopic guidance confirming the position on AP and lateral views and a starter Reamer was used to make a starter hole in the greater trochanter and a long guide cheryl inserted down the canal. The canal was reamed to 12.5 mm which gave significant chatter the proximal portion of the femur reamed to 16 mm and we chose the 36 cm by 11 mm tip you trochanteric nail device with the 130 degree neck angle and we inserted this. We could not get it fully inserted until we over reamed the proximal fragment another 0.5 mm and this allowed us to seat the nail to the appropriate depth. The nail was thoroughly irrigated with solution before insertion. She did received weight based vancomycin 2 g of Ancef preoperatively also. A guide pin was inserted into the center of the femoral head on the AP and lateral views and this was reamed and a 90 mm lag screw was inserted to about 7 mm some subchondral bone which left the screw prominent off the lateral cortex just a few mm the bevel up aligned appropriately we locked this with the locking screw tight and backed off half turn. We then distally interlocked with the freehand technique in the distal hole. To do the next more proximal hole we did abduct the leg a little bit. I should mention that we reduced the traction before placing the distal interlocking screw to eliminate any over distraction at the fracture site. A 2nd a interlocking screw was placed distally in the proximal aspect of the oval screw hole. Both interlocking screws obtained excellent purchase. Wounds were irrigated with antibiotic solution. The proximal wound was closed including the fascia opening with 0 Vicryl suture remaining incisions closed with to a subcutaneous Vicryl and skin glue EBL was 200 cc. There no complications. Anesthesia: GLMA Surgeon: Leif Price MD [place]: Low [place] Estimated blood loss (mL): 200 Drains: No Packing: No Pathology: none sent Complications: No immediate complications Condition: stable Disposition: PACU
[2019-11-22 13:58] LABS: Hepatitis B Surface Anti Res Negative
[2019-11-22 14:18] LABS: Glucose Point of Care 203 (65-105)
[2019-11-22 14:56] LABS: HIV 1/2 Ab P24 Ag Result Negative (Negative); Hepatitis C Virus Antibody Negative (Negative)
--- NOTE | 2019-11-22 15:10 | PC.NURSE ---
Back from PACU via bed . Report received from Ilnaa CHISHOLM
[2019-11-22 15:18] LABS: Hematocrit 24.7 % (37.0-47.0); Hemoglobin 8.3 g/dL (12.0-15.0)
[2019-11-22] MEDS: SODIUM CHLORIDE 0.9% IV 1,000 ML 125 ML IV CONT ×2 (15:39→23:52)
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
[2019-11-22] MEDS: SIMETHICONE 80 MG TAB.CHEW PO ×2 (17:08→21:17)
[2019-11-22] MEDS: ACETAMINOPHEN 500 MG TABLET 1000 MG PO ×2 (17:08→23:52)
[2019-11-22] MEDS: SENNA/DOCUSATE SODIUM TABLET 2 TAB PO (17:09)
[2019-11-22] MEDS: MORPHINE SULFATE 2 MG/ML INJ IV PUSH (17:14)
[2019-11-22 17:50] LABS: Glucose Point of Care 261 (65-105)
[2019-11-22 20:33] LABS: Glucose Point of Care 319 (65-105)
--- NOTE | 2019-11-22 21:15 | PC.NURSE ---
RN was present when blood pressure was taken
[2019-11-22] MEDS: FAMOTIDINE 20 MG TABLET PO (21:23)
--- NOTE | 2019-11-22 21:44 | PC.NURSE ---
Patient up to chair at 0. Tolerated well. Reports greatly reduced pain compared to pre surgery pain levels.
--- NOTE | 2019-11-22 22:13 | PC.NURSE ---
Patient returned to bed at 2210. Patient tolerated sitting and transfers well.
[2019-11-23] VITALS (19 sets, daily range): BP systolic 92–132; BP diastolic 26–62; PULSE 78–103; RESP 16–20; TEMP 36.5–37.1; O2SAT 93–100
[2019-11-23] MEDS: ACETAMINOPHEN 500 MG TABLET 1000 MG PO ×4 (06:09→23:54)
[2019-11-23] MEDS: SODIUM CHLORIDE 0.9% IV 500 ML 999 ML IV CONT (06:09)
[2019-11-23 06:32] LABS: Basophils Percent Auto 0.2 % (0.2-1.2); Immature Granulocyte Absolute 0.06 K/mm3 (0.00-0.031); Immature Granulocyte Percent A 0.6 % (0-0.5); Lymphocytes Absolute Auto 1.05 K/mm3 (0.9-3.2); Lymphocytes Percent Auto 10.6 % (18.3-44.2); Mean Corpuscular HGB Conc 33.5 g/dl (32-36); Mean Corpuscular Hemoglobin 29.9 pg (26-34); Mean Corpuscular Volume 89.3 fl (80-100); Mean Platelet Volume 9.4 fl (7.4-10.4); Monocytes Absolute Auto 1.3 K/mm3 (0.1-0.6); Monocytes Percent Auto 12.7 % (2.6-8.5); Neutrophils Absolute Auto 7.5 K/mm3 (1.3-6.7); Neutrophils Percent Auto 75.9 % (45.5-73.1); Platelet Count Result 155 k/mm3 (150-375); Red Blood Count 2.34 M/mm3 (4.2-5.4); Red Cell Distribution Width 12.9 % (11.5-14.5); White Blood Count 9.9 K/mm3 (4.5-10.0)
[2019-11-23 06:43] LABS: Anion Gap 6 mmol/L (8-16); Blood Urea Nitrogen 37 mg/dL (7-17); Calcium 7.6 mg/dL (8.4-10.2); Carbon Dioxide 23 mmol/L (22-30); Chloride 101 mmol/L (98-107); Estimated CRCL calculation 43 ml/min; Estimated Glomerular Filt Rate 55; Glucose 328 mg/dL (65-105); Magnesium 1.9 mg/dL (1.6-2.3); Potassium 4.7 mmol/L (3.4-5.0); Sodium 130 mmol/L (137-145)
--- NOTE | 2019-11-23 07:12 | PM.PNORT ---
Progress Note: A&P Additional Plan patient is now 1 day out after intramedullary cheryl fixation of comminuted right intertrochanteric and subtrochanteric femur fracture. She has had some what of a low blood pressure 92/28 earlier this morning and a 500 cc bolus was ordered. I suspect there is an element of significant anemia contributing to her hypotension and her labs this morning show a hemoglobin of 7.0. We will transfuse 1 unit of packed red blood cells this morning and check an H&H this afternoon. Platelets [id number]. Sodium remains unchanged at 130 creatinine is 1.0 GFR 55 creatinine clearance 43. On exam today she has moderate swelling in the proximal right thigh the wounds are dry dressings without drainage. Her foot is warm. She has a dopplerable dorsalis pedis pulse same as preoperatively. She reports she has sensation in the foot but she does have paralysis of the foot and ankle muscles because of her cerebral palsy. She is in very good spirits this morning cheerful and comfortable. She is alert and oriented. She denies feeling lightheaded or short of breath. She is supine in bed however. Impression acute postop anemia superimposed on chronic anemia inpatient on Plavix with comminuted femur fracture. We will order 1 unit of packed red blood cells today and check a hemoglobin this afternoon. We will try to keep her hemoglobin above 8 because of her cardiac history. Ambulation with 33% weight-bearing is going to be challenging because she has cerebral palsy involving the right upper extremity as well with significant lack of right hand function. She thinks she would be able to lean on the right forearm we will ask for a walker with forearm rest and see how that works for her. Subjective Subjective Date/Time Seen: 11/23/19 07:12 Objective Data Vital Signs Vital Signs: Vital Signs - 24 hr 11/22/19 08:00 11/22/19 08:28 11/22/19 13:41 Temperature 36.6 C Pulse Rate 77 84 64 Respiratory Rate 15 Blood Pressure 103/52 L Pulse Oximetry 100 11/22/19 14:00 11/22/19 14:15 11/22/19 14:30 Temperature 36.3 C L Pulse Rate 77 76 78 Respiratory Rate 14 16 18 Blood Pressure 137/66 140/47 L 140/80 Pulse Oximetry 100 95 95 11/22/19 14:45 11/22/19 15:10 11/22/19 15:25 Temperature 36.5 C 36.4 C L Pulse Rate 69 76 77 Respiratory Rate 11 L 16 18 Blood Pressure 160/53 H 140/82 106/50 L Pulse Oximetry 92 90 98 11/22/19 15:55 11/22/19 16:00 11/22/19 16:55 Temperature 36.4 C 36.1 C L Pulse Rate 72 69 70 Respiratory Rate 18 18 Blood Pressure 113/44 L 117/86 Pulse Oximetry 92 96 11/22/19 17:12 11/22/19 20:00 11/22/19 22:00 Temperature 37.0 C Pulse Rate 79 84 81 Respiratory Rate 16 Blood Pressure 115/41 L Pulse Oximetry 94 11/22/19 22:35 11/23/19 00:00 11/23/19 02:00 Temperature 36.7 C Pulse Rate 93 78 Respiratory Rate 18 Blood Pressure 127/53 L 123/62 Pulse Oximetry 93 11/23/19 04:00 11/23/19 06:43 11/23/19 06:44 Temperature 36.9 C Pulse Rate 95 88 Respiratory Rate 20 Blood Pressure 92/28 L 104/26 L Pulse Oximetry 94 Intake/Output Intake/Output: Intake & Output 11/20/19 11/21/19 11/22/19 11/23/19 23:59 23:59 23:59 23:59 Intake Total 100 3520 1050 Output Total 700 Balance 100 2820 1050 Meds/Results Medications: Active Medications Generic Name Dose Route Start Last Admin Trade Name Freq PRN Reason Stop Dose Admin Acetaminophen 1,000 mg 11/22/19 18:00 11/23/19 06:09 Tylenol Tablet PO 1,000 mg Q6HR VIKKI Administration Al Hydrox/Mg Hydrox/Simethicone 30 ml 11/22/19 15:03 Mylanta PO Q6H PRN Indigestion Aspirin 81 mg 11/23/19 09:00 Aspirin Ec PO DAILY [facility] Carvedilol 12.5 mg 11/22/19 09:00 11/22/19 17:12 Coreg PO 12.5 mg BID VIKKI Administration Citalopram Hydrobromide 40 mg 11/22/19 09:00 11/22/19 08:28 Celexa PO 40 mg DAILY [facility] Administration Clopidogrel Bisulfate 75 mg 11/22
[2019-11-23 07:14] LABS: Hematocrit 20.9 % (37.0-47.0)
--- NOTE | 2019-11-23 08:00 | ECG_ITS ---
Measurements Intervals [place] Rate: 94 P: 57 TN: 159 QRS: 19 QRSD: 106 T: 268 QT: 375 QTc: 471 Interpretive Statements SINUS RHYTHM LEFT VENTRICULAR HYPERTROPHY WITH ST-T CHANGE BORDERLINE ST-T WAVE ABNORMALITY- DIFFUSE LEADS BORDERLINE ECG Electronically Signed On 11-23-2019 8:09:28 CDT by Gabriel Alvarado D.O.
[2019-11-23] MEDS: ENOXAPARIN 40 MG/0.4 ML SYRINGE SUB-Q (09:14)
[2019-11-23] MEDS: THERAPEUTIC MULTIVITAMINS/MINERALS TAB (*BKC) 1 TABLET PO (09:15)
[2019-11-23] MEDS: ASPIRIN 81 MG ENTERIC TABLET PO (09:15)
[2019-11-23] MEDS: SENNA/DOCUSATE SODIUM TABLET 2 TAB PO ×2 (09:15→17:42)
[2019-11-23] MEDS: CITALOPRAM HYDROBROMIDE 20 MG TABLET 40 MG PO (09:15)
--- NOTE | 2019-11-23 09:15 | PM.PNCARD ---
Progress Note: A&P Assessment and Plan (1) CAD (coronary artery disease), autologous vein bypass graft: Code(s): I25.810 - Atherosclerosis of coronary artery bypass graft(s) without angina pectoris Status: Acute (2) Systolic dysfunction: Code(s): I51.9 - Heart disease, unspecified Status: Chronic Assessment and Plan: Mild with EF 45% in October at [facility] in [place], per patient's niece. (3) Hypertension: Code(s): I10 - Essential (primary) hypertension Status: Chronic (4) Anemia: Code(s): D64.9 - Anemia, unspecified Status: Acute (5) Preop cardiovascular exam: Code(s): Z01.810 - Encounter for preprocedural cardiovascular examination Status: Acute Assessment and Plan: Postop Day 1. Stable. EKG shows no acute changes. Relative hypotension. Could be related to blood loss and worsened anemia. Given IV fluids. Blood transfusion ordered and I agree to keep Hb>8. Will hold Losartan, Coreg and Spironolactone due to low BP. Will resume if BP trends back up. Subjective Date/time seen: 11/23/19 09:15 Denies chest pain or sob. No pain in her hip. Exam Const: General: comfortable and no acute distress Neck: Neck: no JVD Carotids: no bruits Resp: Auscultation: clear to auscultation bilaterally, no crackles, no rales, no rhonchi and no wheezes GI: Inspection: non-distended Extrem: Right lower extremity: no edema Left lower extremity: no edema Objective Data Vital Signs Vital Signs: Vital Signs - 24 hr 11/22/19 13:41 11/22/19 14:00 11/22/19 14:15 Temperature 98 F 97.3 F L Pulse Rate 64 77 76 Respiratory Rate 15 14 16 Blood Pressure 103/52 L 137/66 140/47 L Pulse Oximetry 100 100 95 11/22/19 14:30 11/22/19 14:45 11/22/19 15:10 Temperature 97.7 F Pulse Rate 78 69 76 Respiratory Rate 18 11 L 16 Blood Pressure 140/80 160/53 H 140/82 Pulse Oximetry 95 92 90 11/22/19 15:25 11/22/19 15:55 11/22/19 16:00 Temperature 97.5 F L 97.6 F Pulse Rate 77 72 69 Respiratory Rate 18 18 Blood Pressure 106/50 L 113/44 L Pulse Oximetry 98 92 11/22/19 16:55 11/22/19 17:12 11/22/19 20:00 Temperature 97.0 F L Pulse Rate 70 79 84 Respiratory Rate 18 Blood Pressure 117/86 Pulse Oximetry 96 11/22/19 22:00 11/22/19 22:35 11/23/19 00:00 Temperature 98.6 F Pulse Rate 81 93 Respiratory Rate 16 Blood Pressure 115/41 L 127/53 L Pulse Oximetry 94 11/23/19 02:00 11/23/19 04:00 11/23/19 06:43 Temperature 98.1 F 98.4 F Pulse Rate 78 95 88 Respiratory Rate 18 20 Blood Pressure 123/62 92/28 L Pulse Oximetry 93 94 11/23/19 06:44 11/23/19 07:25 Temperature Pulse Rate 94 Respiratory Rate 16 Blood Pressure 104/26 L 126/60 Pulse Oximetry 98 Intake/Output Intake/Output: Intake & Output 11/20/19 11/21/19 11/22/19 11/23/19 23:59 23:59 23:59 23:59 Intake Total 100 3520 1050 Output Total 700 Balance 100 2820 1050 Meds/Results Medications: Active Medications Generic Name Dose Route Start Last Admin Trade Name Freq PRN Reason Stop Dose Admin Acetaminophen 1,000 mg 11/22/19 18:00 11/23/19 06:09 Tylenol Tablet PO 1,000 mg Q6HR VIKKI Administration Al Hydrox/Mg Hydrox/Simethicone 30 ml 11/22/19 15:03 Mylanta PO Q6H PRN Indigestion Aspirin 81 mg 11/23/19 09:00 Aspirin Ec PO DAILY [facility] Carvedilol 12.5 mg 11/22/19 09:00 11/22/19 17:12 Coreg PO 12.5 mg BID VIKKI Administration Citalopram Hydrobromide 40 mg 11/22/19 09:00 11/22/19 08:28 Celexa PO 40 mg DAILY VIKKI Administration Clopidogrel Bisulfate 75 mg 11/23/19 09:00 Plavix PO DAILY [facility] Dextrose 12.5 gm 11/22/19 18:06 Dextrose 50% Syringe IV PUSH PRN PRN Hypoglycemia Protocol Enoxaparin Sodium 40 mg 11/23/19 09:00 Lovenox SUB-Q DAILY VIKKI Famotidine 20 mg 11/22/19 21:00 11/22/19 21:23 Pepcid PO 20 mg Q12HR VIKKI Admini
[2019-11-23] MEDS: CLOPIDOGREL BISULFATE 75 MG TABLET PO (09:16)
[2019-11-23] MEDS: FAMOTIDINE 20 MG TABLET PO ×2 (09:16→20:34)
[2019-11-23] MEDS: SODIUM CHLORIDE 0.9% IV 1,000 ML 75 ML IV CONT (09:19)
[2019-11-23] MEDS: polyethylene glycoL 3350 17 GM POWD.PACK PO (09:19)
[2019-11-23] MEDS: SIMETHICONE 80 MG TAB.CHEW PO ×4 (09:19→20:34)
[2019-11-23] MEDS: INSULIN ASPART (*BKC) 100 UNITS/ML SUB-Q ×2 (09:21→18:08)
[2019-11-23] MEDS: INSULIN GLARGINE (*BKC) 100 UNITS/ML 23 UNITS SUB-Q (09:26)
[2019-11-23 09:45] LABS: Glucose Point of Care 276 (65-105)
[2019-11-23] MEDS: SODIUM CHLORIDE 0.9% IV 250 ML 30 ML IV CONT (10:00)
--- NOTE | 2019-11-23 10:00 | WPDANESPN ---
Anes - Prog Note Post-Op Date/Time: 11/23/19 10:00 Cardiovascular status: normal Respiratory status: normal Airway patency: baseline Mental status: baseline Post-Op hydration status: normal Vital Signs: Last Vital Signs Temp 36.9 C 11/23/19 06:43 Pulse 94 11/23/19 07:25 Resp 16 11/23/19 07:25 BP 126/60 11/23/19 07:25 Pulse Ox 98 11/23/19 07:25 I/O: Intake & Output 11/22/19 11/23/19 11/23/19 23:59 07:59 15:59 Intake Total 1570 1050 400 Balance 1570 1050 400 Laboratory Tests 11/23/19 06:18 11/23/19 06:18 11/21/19 11/22/19 11/22/19 19:15 06:36 12:45 WBC RBC Hgb Hct MCV MCH MCHC RDW Plt Count MPV Immature Gran % (Auto) Neut % (Auto) Lymph % (Auto) [place] % (Auto) Eos % (Auto) Baso % (Auto) Lymph # (Auto) [place] # (Auto) Eos # (Auto) Baso # (Auto) Abs Immat Gran (auto) Absolute Neuts (auto) Absolute Nucleated RBC Nucleated RBC % Sodium Potassium Chloride Carbon Dioxide Anion Gap BUN Creatinine Estim Creat Clear Calc Estimated GFR Glucose POC Capillary Glucose Hemoglobin A1c 8.9 H Calcium Magnesium Hep Bs Antibody Negative Hepatitis C Ab Screen Negative HIV 1&2 Ab/P24 Ag 4thGn Negative SARS-CoV-2 RNA (RT-PCR) Blood Type O Positive Antibody Screen Negative Crossmatch See Detail 11/22/19 11/22/19 11/22/19 13:45 14:11 17:12 WBC RBC Hgb 8.3 L Hct 24.7 L MCV MCH MCHC RDW Plt Count MPV Immature Gran % (Auto) Neut % (Auto) Lymph % (Auto) [place] % (Auto) Eos % (Auto) Baso % (Auto) Lymph # (Auto) [place] # (Auto) Eos # (Auto) Baso # (Auto) Abs Immat Gran (auto) Absolute Neuts (auto) Absolute Nucleated RBC Nucleated RBC % Sodium Potassium Chloride Carbon Dioxide Anion Gap BUN Creatinine Estim Creat Clear Calc Estimated GFR Glucose POC Capillary Glucose 203 H 261 H Hemoglobin A1c Calcium Magnesium Hep Bs Antibody Hepatitis C Ab Screen HIV 1&2 Ab/P24 Ag 4thGn SARS-CoV-2 RNA (RT-PCR) Blood Type Antibody Screen Crossmatch 11/22/19 11/23/19 11/23/19 20:29 05:41 06:18 WBC 9.9 RBC 2.34 L Hgb 7.0 L Hct 20.9 L* MCV 89.3 MCH 29.9 MCHC 33.5 RDW 12.9 Plt Count 155 MPV 9.4 Immature Gran % (Auto) 0.6 H Neut % (Auto) 75.9 H Lymph % (Auto) 10.6 L [place] % (Auto) 12.7 H Eos % (Auto) 0.0 Baso % (Auto) 0.2 Lymph # (Auto) 1.05 [place] # (Auto) 1.3 H Eos # (Auto) 0.0 Baso # (Auto) 0.0 Abs Immat Gran (auto) 0.06 H Absolute Neuts (auto) 7.5 H Absolute Nucleated RBC 0.0 Nucleated RBC % 0.0 Sodium Potassium Chloride Carbon Dioxide Anion Gap BUN Creatinine Estim Creat Clear Calc Estimated GFR Glucose POC Capillary Glucose 319 H Hemoglobin A1c Calcium Magnesium Hep Bs Antibody Hepatitis C Ab Screen HIV 1&2 Ab/P24 Ag 4thGn SARS-CoV-2 RNA (RT-PCR) Pending Blood Type Antibody Screen Crossmatch 11/23/19 11/23/19 06:18 09:13 WBC RBC Hgb Hct MCV MCH MCHC RDW Plt Count MPV Immature Gran % (Auto) Neut % (Auto) Lymph % (Auto) [place] % (Auto) Eos % (Auto) Baso % (Auto) Lymph # (Auto) [place] # (Auto) Eos # (Auto) Baso # (Auto) Abs Immat Gran (auto) Absolute Neuts (auto) Absolute Nucleated RBC Nucleated RBC % Sodium 130 L Potassium 4.7 Chloride 101 Carbon Dioxide 23 Anion Gap 6 L BUN 37 H Creatinine 1.00 Estim Creat Clear Calc 43 Estimated GFR 55 L Glucose 328 H POC Capillary Glucose 276 H Hemoglobin A1c Calcium 7.6 L Magnesium 1.9 Hep Bs Antibody Hepatitis C Ab Screen HIV 1&2 Ab/P24 Ag 4thGn SARS-CoV-2 RNA (RT-PCR) Blood Type Antibody Screen
[2019-11-23] MEDS: VANCOMYCIN HCL 1,000 MG in SODIUM CHLORIDE 0.9% IV 250 ML 250 MG IVPB (10:30)
[2019-11-23 12:19] LABS: Glucose Point of Care 485 (65-105)
[2019-11-23] MEDS: FUROSEMIDE 40 MG TABLET PO (12:50)
[2019-11-23] MEDS: ceFAZolin 1 GM in SODIUM CHLORIDE 0.9% IV 50 ML IVPB (12:51)
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
[2019-11-23] MEDS: INSULIN ASPART (*BKC) 100 UNITS/ML 15 UNITS SUB-Q ×2 (13:25→16:12)
[2019-11-23 15:09] LABS: Hemoglobin 8.6 g/dL (12.0-15.0)
[2019-11-23 15:20] LABS: Anion Gap 8 mmol/L (8-16); Blood Urea Nitrogen 37 mg/dL (7-17); Calcium 7.5 mg/dL (8.4-10.2); Carbon Dioxide 21 mmol/L (22-30); Chloride 101 mmol/L (98-107); Estimated CRCL calculation 43 ml/min; Estimated Glomerular Filt Rate 55; Glucose 412 mg/dL (65-105); Potassium 4.3 mmol/L (3.4-5.0); Sodium 130 mmol/L (137-145)
[2019-11-23 15:25] LABS: Glucose Point of Care 423 (65-105)
[2019-11-23] MEDS: carvediloL 12.5 MG TABLET PO (17:43)
[2019-11-23 17:58] LABS: Glucose Point of Care 321 (65-105)
--- NOTE | 2019-11-23 18:59 | PC.NURSE ---
Patient ate all of her dinner. Tolerated well. IVF's dc'd per order.
[2019-11-23] MEDS: MORPHINE SULFATE 2 MG/ML INJ IV PUSH (20:35)
[2019-11-23 21:10] LABS: Glucose Point of Care 140 (65-105)
[2019-11-24] VITALS (18 sets, daily range): BP systolic 102–150; BP diastolic 43–72; PULSE 74–92; RESP 16; TEMP 36.4–37.1; O2SAT 96–100
[2019-11-24] MEDS: ACETAMINOPHEN 500 MG TABLET 1000 MG PO ×4 (05:46→23:56)
[2019-11-24 06:55] LABS: Basophils Percent Auto 0.3 % (0.2-1.2); Eosinophils Absolute Auto 0.2 K/mm3 (0-0.3); Eosinophils Percent Auto 2.1 % (0-4.4); Hematocrit 23.4 % (37.0-47.0); Hemoglobin 7.9 g/dL (12.0-15.0); Immature Granulocyte Absolute 0.04 K/mm3 (0.00-0.031); Immature Granulocyte Percent A 0.5 % (0-0.5); Lymphocytes Absolute Auto 1.43 K/mm3 (0.9-3.2); Mean Corpuscular HGB Conc 33.8 g/dl (32-36); Mean Corpuscular Hemoglobin 29.9 pg (26-34); Mean Corpuscular Volume 88.6 fl (80-100); Mean Platelet Volume 9.4 fl (7.4-10.4); Monocytes Absolute Auto 1.3 K/mm3 (0.1-0.6); Monocytes Percent Auto 16.4 % (2.6-8.5); Neutrophils Percent Auto 62.7 % (45.5-73.1); Platelet Count Result 151 k/mm3 (150-375); Red Blood Count 2.64 M/mm3 (4.2-5.4); Red Cell Distribution Width 13.9 % (11.5-14.5); White Blood Count 7.9 K/mm3 (4.5-10.0)
[2019-11-24 07:16] LABS: Anion Gap 4 mmol/L (8-16); Blood Urea Nitrogen 33 mg/dL (7-17); Calcium 7.6 mg/dL (8.4-10.2); Carbon Dioxide 25 mmol/L (22-30); Chloride 105 mmol/L (98-107); Estimated CRCL calculation 53 ml/min; Estimated Glomerular Filt Rate > 60; Glucose 59 mg/dL (65-105); Magnesium 2.1 mg/dL (1.6-2.3); Potassium 3.8 mmol/L (3.4-5.0); Sodium 134 mmol/L (137-145)
--- NOTE | 2019-11-24 08:01 | PM.PNCARD ---
Progress Note: A&P Assessment and Plan (1) CAD (coronary artery disease), autologous vein bypass graft: Code(s): I25.810 - Atherosclerosis of coronary artery bypass graft(s) without angina pectoris Status: Acute Assessment and Plan: Stable. (2) Systolic dysfunction: Code(s): I51.9 - Heart disease, unspecified Status: Chronic Assessment and Plan: Stable. Mild with EF 45% in October at [place], per patient's niece. (3) Hypertension: Code(s): I10 - Essential (primary) hypertension Status: Chronic Assessment and Plan: Stable. (4) Anemia: Code(s): D64.9 - Anemia, unspecified Status: Acute Assessment and Plan: Keep Hb>8 gm. (5) Preop cardiovascular exam: Code(s): Z01.810 - Encounter for preprocedural cardiovascular examination Status: Acute Assessment and Plan: Postop Day 2. Stable. EKG shows no acute changes. Resume home BP medications. Subjective Date/time seen: 11/24/19 08:01 Reports severe 10/10 right hip pain. No chest pain or sob. Exam Const: General: comfortable and no acute distress Neck: Neck: no JVD Carotids: no bruits Resp: Auscultation: clear to auscultation bilaterally, no crackles, no rales, no rhonchi and no wheezes Cardio: Rate: regular rate Rhythm: regular rhythm Heart sounds: no murmurs GI: Inspection: non-distended Neuro: Speech: normal speech Extrem: Right lower extremity: no edema Left lower extremity: no edema Objective Data Vital Signs Vital Signs: Vital Signs - 24 hr 11/23/19 09:55 11/23/19 10:15 11/23/19 11:15 Temperature 98.1 F 98.4 F 98.4 F Pulse Rate 92 97 94 Respiratory Rate 16 16 16 Blood Pressure 100/50 L 122/50 L 128/44 L Pulse Oximetry 97 100 98 11/23/19 12:00 11/23/19 12:15 11/23/19 12:50 Temperature 97.7 F 97.9 F Pulse Rate 100 103 H 99 Respiratory Rate 18 16 Blood Pressure 132/62 130/54 L Pulse Oximetry 98 100 11/23/19 14:00 11/23/19 16:00 11/23/19 16:48 Temperature 98.6 F 97.8 F Pulse Rate 103 H 100 91 Respiratory Rate 16 16 Blood Pressure 120/48 L 130/54 L Pulse Oximetry 98 99 11/23/19 17:43 11/23/19 20:00 11/23/19 22:00 Temperature 98.7 F Pulse Rate 91 89 86 Respiratory Rate 18 Blood Pressure 108/49 L Pulse Oximetry 99 11/24/19 00:00 11/24/19 04:00 11/24/19 06:00 Temperature 97.7 F Pulse Rate 83 88 83 Respiratory Rate 16 Blood Pressure 127/43 L Pulse Oximetry 99 Intake/Output Intake/Output: Intake & Output 11/21/19 11/22/19 11/23/19 11/24/19 23:59 23:59 23:59 23:59 Intake Total 100 3520 4749 250 Output Total 700 1025 500 Balance 100 2820 3724 -250 Meds/Results Medications: Active Medications Generic Name Dose Route Start Last Admin Trade Name Freq PRN Reason Stop Dose Admin Acetaminophen 1,000 mg 11/22/19 18:00 11/24/19 05:46 Tylenol Tablet PO 1,000 mg Q6HR VIKKI Administration Al Hydrox/Mg Hydrox/Simethicone 30 ml 11/22/19 15:03 Mylanta PO Q6H PRN Indigestion Aspirin 81 mg 11/23/19 09:00 11/23/19 09:15 Aspirin Ec PO 81 mg DAILY VIKKI Administration Carvedilol 12.5 mg 11/22/19 09:00 11/23/19 17:43 Coreg PO 12.5 mg BID VIKKI Administration Citalopram Hydrobromide 40 mg 11/22/19 09:00 11/23/19 09:15 Celexa PO 40 mg DAILY VIKKI Administration Clopidogrel Bisulfate 75 mg 11/23/19 09:00 11/23/19 09:16 Plavix PO 75 mg DAILY VIKKI Administration Dextrose 12.5 gm 11/22/19 18:06 Dextrose 50% Syringe IV PUSH PRN PRN Hypoglycemia Protocol Enoxaparin Sodium 40 mg 11/23/19 09:00 11/23/19 09:14 Lovenox SUB-Q 40 mg DAILY VIKKI Administration Famotidine 20 mg 11/22/19 21:00 11/23/19 20:34 Pepcid PO 20 mg Q12HR VIKKI Administration Furosemide 40 mg 11/22/19 09:00 11/23/19 12:50 Lasix Tablet PO 40 mg DAILY VIKKI Administration Glucagon 1 mg 11/22/19 18:06 Gluc
[2019-11-24] MEDS: FAMOTIDINE 20 MG TABLET PO ×2 (08:10→20:08)
[2019-11-24] MEDS: ASPIRIN 81 MG ENTERIC TABLET PO (08:10)
[2019-11-24] MEDS: CITALOPRAM HYDROBROMIDE 20 MG TABLET 40 MG PO (08:10)
[2019-11-24] MEDS: SENNA/DOCUSATE SODIUM TABLET 2 TAB PO ×2 (08:11→17:19)
[2019-11-24] MEDS: ENOXAPARIN 40 MG/0.4 ML SYRINGE SUB-Q (08:11)
[2019-11-24] MEDS: THERAPEUTIC MULTIVITAMINS/MINERALS TAB (*BKC) 1 TABLET PO (08:11)
[2019-11-24] MEDS: FUROSEMIDE 40 MG TABLET PO (08:11)
[2019-11-24] MEDS: CLOPIDOGREL BISULFATE 75 MG TABLET PO (08:12)
[2019-11-24 08:15] LABS: Glucose Point of Care 155 (65-105)
[2019-11-24] MEDS: INSULIN GLARGINE (*BKC) 100 UNITS/ML 23 UNITS SUB-Q (08:15)
[2019-11-24] MEDS: CEPHALEXIN 500 MG CAPSULE PO ×4 (09:38→23:56)
[2019-11-24] MEDS: carvediloL 12.5 MG TABLET PO ×2 (09:39→17:19)
[2019-11-24] MEDS: LOSARTAN POTASSIUM 12.5 MG TABLET PO (09:41)
[2019-11-24] MEDS: ISOSORBIDE MONONITRATE 30 MG TAB.ER.24H PO (09:41)
[2019-11-24] MEDS: SPIRONOLACTONE 12.5 MG TABLET PO (09:41)
[2019-11-24] MEDS: SIMETHICONE 80 MG TAB.CHEW PO ×4 (09:42→20:08)
[2019-11-24] MEDS: polyethylene glycoL 3350 17 GM POWD.PACK PO (09:45)
[2019-11-24] MEDS: SODIUM CHLORIDE 0.9% IV 250 ML 30 ML IV CONT (10:15)
[2019-11-24] MEDS: MORPHINE SULFATE 2 MG/ML INJ IV PUSH (10:27)
--- NOTE | 2019-11-24 11:31 | PM.PNORT ---
Progress Note: A&P Additional Plan POD 2 hgb-7.9pt getting unit of blood , mild to mod thigh swelling, wds-dry, pt working with PT, pain controlled.cont to follow <SRIKANTH Toure - Last Filed: 11/24/19 11:34> Subjective Subjective Date/Time Seen: 11/24/19 11:31 <SRIKANTH Toure - Last Filed: 11/24/19 11:34> Objective Data Vital Signs Vital Signs: Vital Signs - 24 hr 11/23/19 12:00 11/23/19 12:15 11/23/19 12:50 Temperature 36.5 C 36.6 C Pulse Rate 100 103 H 99 Respiratory Rate 18 16 Blood Pressure 132/62 130/54 L Pulse Oximetry 98 100 11/23/19 14:00 11/23/19 16:00 11/23/19 16:48 Temperature 37.0 C 36.6 C Pulse Rate 103 H 100 91 Respiratory Rate 16 16 Blood Pressure 120/48 L 130/54 L Pulse Oximetry 98 99 11/23/19 17:43 11/23/19 20:00 11/23/19 22:00 Temperature 37.1 C Pulse Rate 91 89 86 Respiratory Rate 18 Blood Pressure 108/49 L Pulse Oximetry 99 11/24/19 00:00 11/24/19 04:00 11/24/19 06:00 Temperature 36.5 C Pulse Rate 83 88 83 Respiratory Rate 16 Blood Pressure 127/43 L Pulse Oximetry 99 11/24/19 07:55 11/24/19 09:39 11/24/19 10:15 Temperature 36.7 C Pulse Rate 91 92 83 Respiratory Rate 16 16 Blood Pressure 150/60 H 128/56 L Pulse Oximetry 100 96 11/24/19 10:40 Temperature 36.8 C Pulse Rate 80 Respiratory Rate 16 Blood Pressure 116/46 L Pulse Oximetry 96 <SRIKANTH Toure - Last Filed: 11/24/19 11:34> Intake/Output Intake/Output: Intake & Output 11/21/19 11/22/19 11/23/19 11/24/19 23:59 23:59 23:59 23:59 Intake Total 100 3520 4749 250 Output Total 700 1025 500 Balance 100 2820 3724 -250 <SRIKANTH Toure - Last Filed: 11/24/19 11:34> Meds/Results Medications: Active Medications Generic Name Dose Route Start Last Admin Trade Name Freq PRN Reason Stop Dose Admin Acetaminophen 1,000 mg 11/22/19 18:00 11/24/19 05:46 Tylenol Tablet PO 1,000 mg Q6HR VIKKI Administration Al Hydrox/Mg Hydrox/Simethicone 30 ml 11/22/19 15:03 Mylanta PO Q6H PRN Indigestion Aspirin 81 mg 11/23/19 09:00 11/24/19 08:10 Aspirin Ec PO 81 mg DAILY VIKKI Administration Carvedilol 12.5 mg 11/22/19 09:00 11/24/19 09:39 Coreg PO 12.5 mg BID VIKKI Administration Cephalexin HCl 500 mg 11/24/19 08:35 11/24/19 09:38 Keflex Capsule PO 12/01/19 00:01 500 mg Q6HR VIKKI Administration Citalopram Hydrobromide 40 mg 11/22/19 09:00 11/24/19 08:10 Celexa PO 40 mg DAILY VIKKI Administration Clopidogrel Bisulfate 75 mg 11/23/19 09:00 11/24/19 08:12 Plavix PO 75 mg DAILY VIKKI Administration Dextrose 12.5 gm 11/22/19 18:06 Dextrose 50% Syringe IV PUSH PRN PRN Hypoglycemia Protocol Enoxaparin Sodium 40 mg 11/23/19 09:00 11/24/19 08:11 Lovenox SUB-Q 40 mg DAILY VIKKI Administration Famotidine 20 mg 11/22/19 21:00 11/24/19 08:10 Pepcid PO 20 mg Q12HR VIKKI Administration Furosemide 40 mg 11/22/19 09:00 11/24/19 08:11 Lasix Tablet PO 40 mg DAILY VIKKI Administration Glucagon 1 mg 11/22/19 18:06 Glucagon For Inj IM PRN PRN Hypoglycemia Protocol Glucose 15 gm 11/22/19 18:06 Glutose 15 PO PRN PRN Hypoglycemia Protocol Hydroxyzine HCl 50 mg 11/22/19 15:03 Atarax Tablet PO Q4H PRN Itching Dextrose 1,000 mls @ 100 mls/hr 11/22/19 18:06 Dextrose 5% 1,000 Ml IVPB PRN PRN Hypoglycemia Protocol Sodium Chloride 250 mls @ 30 mls/hr 11/24/19 08:25 11/24/19 10:15 Normal Saline Iv IV CONT 11/24/19 16:44 30 mls/hr .Q8H20M STA Administration Insulin Aspart 3 - 6 units 11/23/19 08:00 11/24/19 08:09 Novolog SUB-Q Not Given ACINSULIN [facility] Protocol Insulin Aspart 5 units 11/24/19 08:00 Novolog SUB-Q TIDWM [facility] Insulin Glargine 23 units 11/22/19 09:00 11/24/19 08:15 Lantus SUB-Q 23 units DAILY VIKKI
[2019-11-24 12:10] LABS: SARS-CoV-2 RNA PCR Negative
[2019-11-24] MEDS: GLUCOSE ORAL GEL 15 GM OF GLUCSE IN 37.5 GM TUBE PO (12:17)
--- NOTE | 2019-11-24 12:42 | P.CDI_ITS ---
CDI Query Clarification Request - bit hypotensive today, suspected from hypovolemia/blood loss documented - She has had some what of a low blood pressure 92/28 earlier this morning and a 500 cc bolus was ordered. I suspect there is an element of significant anemia contributing to her hypotension and her labs this morning show a hemoglobin of 7.0. We will transfuse 1 unit of packed red blood cells this morning and check an H&H this afternoon. documented by Dr Price. -11/20 H&H 10.5/31.1 EBL 200cc during OR 11/22 H&H 7.0/20.9 - 1 unit of blood transfused. Please clarify if there is a corresponding diagnosis for above findings: * Acute blood loss anemia * Acute anemia of other cause * Chronic anemia * Other * Unable to determine
[2019-11-24 12:44] LABS: Glucose Point of Care 254 (65-105)
[2019-11-24] MEDS: INSULIN ASPART (*BKC) 100 UNITS/ML SUB-Q ×3 (12:45→20:55)
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
[2019-11-24 17:56] LABS: Glucose Point of Care 326 (65-105)
[2019-11-24 20:43] LABS: Glucose Point of Care 362 (65-105)
[2019-11-25] VITALS: PULSE 76
[2019-11-25 00:01] LABS: Glucose Point of Care 275 (65-105)
[2019-11-25 04:00] VITALS: PULSE 76
[2019-11-25] MEDS: ACETAMINOPHEN 500 MG TABLET 1000 MG PO ×2 (05:26→12:26)
[2019-11-25] MEDS: CEPHALEXIN 500 MG CAPSULE PO ×2 (05:26→12:26)
[2019-11-25 06:00] VITALS: BP 132/76; PULSE 82; RESP 16; TEMP 36.8; O2SAT 100
[2019-11-25 06:40] LABS: Hematocrit 28.1 % (37.0-47.0); Hemoglobin 9.4 g/dL (12.0-15.0); Mean Corpuscular HGB Conc 33.5 g/dl (32-36); Mean Corpuscular Hemoglobin 29.9 pg (26-34); Mean Corpuscular Volume 89.5 fl (80-100); Mean Platelet Volume 9.9 fl (7.4-10.4); Platelet Count Result 191 k/mm3 (150-375); Red Blood Count 3.14 M/mm3 (4.2-5.4); Red Cell Distribution Width 14.6 % (11.5-14.5); White Blood Count 6.8 K/mm3 (4.5-10.0)
[2019-11-25 06:54] LABS: Anion Gap 4 mmol/L (8-16); Blood Urea Nitrogen 31 mg/dL (7-17); Calcium 7.8 mg/dL (8.4-10.2); Carbon Dioxide 26 mmol/L (22-30); Chloride 103 mmol/L (98-107); Estimated CRCL calculation 60 ml/min; Estimated Glomerular Filt Rate > 60; Glucose 245 mg/dL (65-105); Magnesium 2.2 mg/dL (1.6-2.3); Potassium 4.2 mmol/L (3.4-5.0); Sodium 133 mmol/L (137-145)
--- NOTE | 2019-11-25 07:54 | PM.PNCARD ---
Progress Note: A&P Assessment and Plan (1) CAD (coronary artery disease), autologous vein bypass graft: Code(s): I25.810 - Atherosclerosis of coronary artery bypass graft(s) without angina pectoris Status: Acute Assessment and Plan: Stable. (2) Systolic dysfunction: Code(s): I51.9 - Heart disease, unspecified Status: Chronic Assessment and Plan: Stable. Mild with EF 45% in October at [facility], per patient's niece. (3) Hypertension: Code(s): I10 - Essential (primary) hypertension Status: Chronic Assessment and Plan: Stable. (4) Anemia: Code(s): D64.9 - Anemia, unspecified Status: Acute Assessment and Plan: Keep Hb>8 gm. (5) Preop cardiovascular exam: Code(s): Z01.810 - Encounter for preprocedural cardiovascular examination Status: Acute Assessment and Plan: Postop Day 3. Stable. EKG shows no acute changes. Resumed home BP medications. Will sign off, please call with any questions. Keep regular f/u with her regular geodetic surveyor technologist, Dr. Rea at [facility] in [place] upon discharge. Subjective Date/time seen: 11/25/19 07:54 Denies chest pain or sob. No hip pain this morning. Exam Const: General: comfortable and no acute distress Neck: Neck: no JVD Carotids: no bruits Resp: Auscultation: clear to auscultation bilaterally, no crackles, no rales, no rhonchi and no wheezes Cardio: Rate: regular rate Rhythm: regular rhythm Heart sounds: no murmurs GI: Inspection: non-distended Neuro: Speech: normal speech Extrem: Right lower extremity: no edema Left lower extremity: no edema Objective Data Vital Signs Vital Signs: Vital Signs - 24 hr 11/24/19 07:55 11/24/19 08:00 11/24/19 09:39 Temperature Pulse Rate 91 91 92 Respiratory Rate 16 Blood Pressure 150/60 H Pulse Oximetry 100 11/24/19 10:15 11/24/19 10:40 11/24/19 11:40 Temperature 98.1 F 98.2 F 98.2 F Pulse Rate 83 80 75 Respiratory Rate 16 16 16 Blood Pressure 128/56 L 116/46 L 122/54 L Pulse Oximetry 96 96 100 11/24/19 12:00 11/24/19 12:40 11/24/19 12:55 Temperature 97.6 F 98.0 F Pulse Rate 80 74 92 Respiratory Rate 16 16 Blood Pressure 130/56 L 134/54 L Pulse Oximetry 100 100 11/24/19 14:00 11/24/19 16:00 11/24/19 17:15 Temperature 98.5 F Pulse Rate 84 87 89 Respiratory Rate 16 Blood Pressure 102/52 L 146/54 H Pulse Oximetry 96 11/24/19 17:19 11/24/19 20:00 11/24/19 22:00 Temperature 98.8 F Pulse Rate 89 84 79 Respiratory Rate 16 Blood Pressure 122/72 Pulse Oximetry 98 11/25/19 00:00 11/25/19 04:00 11/25/19 06:00 Temperature 98.3 F Pulse Rate 76 76 82 Respiratory Rate 16 Blood Pressure 132/76 Pulse Oximetry 100 Intake/Output Intake/Output: Intake & Output 11/22/19 11/23/19 11/24/19 11/25/19 23:59 23:59 23:59 23:59 Intake Total 3520 4749 1699 550 Output Total 700 1025 1500 500 Balance 2820 3724 199 50 Meds/Results Medications: Active Medications Generic Name Dose Route Start Last Admin Trade Name Freq PRN Reason Stop Dose Admin Acetaminophen 1,000 mg 11/22/19 18:00 11/25/19 05:26 Tylenol Tablet PO 1,000 mg Q6HR VIKKI Administration Al Hydrox/Mg Hydrox/Simethicone 30 ml 11/22/19 15:03 Mylanta PO Q6H PRN Indigestion Aspirin 81 mg 11/23/19 09:00 11/24/19 08:10 Aspirin Ec PO 81 mg DAILY VIKKI Administration Carvedilol 12.5 mg 11/22/19 09:00 11/24/19 17:19 Coreg PO 12.5 mg BID VIKKI Administration Cephalexin HCl 500 mg 11/24/19 08:35 11/25/19 05:26 Keflex Capsule PO 12/01/19 00:01 500 mg Q6HR VIKKI Administration Citalopram Hydrobromide 40 mg 11/22/19 09:00 11/24/19 08:10 Celexa PO 40 mg DAILY VIKKI Administration Clopidogrel Bisulfate 75 mg 11/23/19 09:00 11/24/19 08:12 Plavix PO 75 mg DAILY VIKKI Administration Dextrose 12.5 gm 11/22/19 18:06 Dextrose 50% Syri
[2019-11-25] MEDS: INSULIN GLARGINE (*BKC) 100 UNITS/ML 23 UNITS SUB-Q (08:17)
[2019-11-25] MEDS: INSULIN ASPART (*BKC) 100 UNITS/ML SUB-Q ×3 (08:19→12:26)
[2019-11-25 08:21] VITALS: PULSE 80
[2019-11-25] MEDS: CLOPIDOGREL BISULFATE 75 MG TABLET PO (08:21)
[2019-11-25] MEDS: SPIRONOLACTONE 12.5 MG TABLET PO (08:21)
[2019-11-25] MEDS: carvediloL 12.5 MG TABLET PO (08:21)
[2019-11-25] MEDS: CITALOPRAM HYDROBROMIDE 20 MG TABLET 40 MG PO (08:21)
[2019-11-25] MEDS: LOSARTAN POTASSIUM 12.5 MG TABLET PO (08:21)
[2019-11-25] MEDS: FUROSEMIDE 40 MG TABLET PO (08:22)
[2019-11-25] MEDS: ISOSORBIDE MONONITRATE 30 MG TAB.ER.24H PO (08:22)
[2019-11-25] MEDS: FAMOTIDINE 20 MG TABLET PO (08:22)
[2019-11-25] MEDS: THERAPEUTIC MULTIVITAMINS/MINERALS TAB (*BKC) 1 TABLET PO (08:22)
[2019-11-25] MEDS: SENNA/DOCUSATE SODIUM TABLET 2 TAB PO (08:22)
[2019-11-25] MEDS: ASPIRIN 81 MG ENTERIC TABLET PO (08:23)
[2019-11-25] MEDS: ENOXAPARIN 40 MG/0.4 ML SYRINGE SUB-Q (08:23)
[2019-11-25] MEDS: polyethylene glycoL 3350 17 GM POWD.PACK PO (08:23)
[2019-11-25] MEDS: SIMETHICONE 80 MG TAB.CHEW PO ×2 (08:24→13:40)
[2019-11-25 08:50] LABS: Glucose Point of Care 266 (65-105)
[2019-11-25 10:20] VITALS: O2SAT 93
--- NOTE | 2019-11-25 11:22 | PM.PNORT ---
Progress Note: A&P Additional Plan Patient is now postop day 3 after trochanteric long intramedullary cheryl fixation of comminuted right intertrochanteric subtrochanteric femur fracture. She was given her 2nd unit of packed red blood cells yesterday and her hemoglobin went up from 7.9 to 9.4. Her creatinine is down this 0.7 which is significantly better than preoperatively suggesting she is usually make and her GFR is now greater than 60. She has been afebrile with stable vital signs. O2 sat 100%. White count 6.8 1000 and platelets [id number]. Her 25 hydroxy vitamin-D level was normal at 47.9. Her albumin is slightly low at 3.3. Her hemoglobin A1c was markedly elevated at 8.9% which puts her at significantly elevated risk for infection and for this reason I have placed her on 1 week of Keflex prophylactically. She is doing very well today. She was able to get up with her walker with a forearm rest on the right side and take a couple of steps to get the chair today. Her pain is well controlled. Her incisions are dry no drainage on the dressings. She does have moderate swelling in the right hip and thigh and this is related to her acute blood-loss anemia which is currently stable. Transfer plans to rehabilitation facility are in progress. Subjective Subjective Date/Time Seen: 11/25/19 11:22 Objective Data Vital Signs Vital Signs: Vital Signs - 24 hr 11/24/19 11:40 11/24/19 12:00 11/24/19 12:40 Temperature 36.8 C 36.4 C Pulse Rate 75 80 74 Respiratory Rate 16 16 Blood Pressure 122/54 L 130/56 L Pulse Oximetry 100 100 11/24/19 12:55 11/24/19 14:00 11/24/19 16:00 Temperature 36.7 C 36.9 C Pulse Rate 92 84 87 Respiratory Rate 16 16 Blood Pressure 134/54 L 102/52 L Pulse Oximetry 100 96 11/24/19 17:15 11/24/19 17:19 11/24/19 20:00 Temperature Pulse Rate 89 89 84 Respiratory Rate Blood Pressure 146/54 H Pulse Oximetry 11/24/19 22:00 11/25/19 00:00 11/25/19 04:00 Temperature 37.1 C Pulse Rate 79 76 76 Respiratory Rate 16 Blood Pressure 122/72 Pulse Oximetry 98 11/25/19 06:00 11/25/19 08:21 11/25/19 10:20 Temperature 36.8 C Pulse Rate 82 80 Respiratory Rate 16 Blood Pressure 132/76 Pulse Oximetry 100 93 Intake/Output Intake/Output: Intake & Output 11/22/19 11/23/19 11/24/19 11/25/19 23:59 23:59 23:59 23:59 Intake Total 3520 4749 1699 670 Output Total 700 1025 1500 500 Balance 2820 3724 199 170 Meds/Results Medications: Active Medications Generic Name Dose Route Start Last Admin Trade Name Freq PRN Reason Stop Dose Admin Acetaminophen 1,000 mg 11/22/19 18:00 11/25/19 05:26 Tylenol Tablet PO 1,000 mg Q6HR VIKKI Administration Al Hydrox/Mg Hydrox/Simethicone 30 ml 11/22/19 15:03 Mylanta PO Q6H PRN Indigestion Aspirin 81 mg 11/23/19 09:00 11/25/19 08:23 Aspirin Ec PO 81 mg DAILY VIKKI Administration Carvedilol 12.5 mg 11/22/19 09:00 11/25/19 08:21 Coreg PO 12.5 mg BID VIKKI Administration Cephalexin HCl 500 mg 11/24/19 08:35 11/25/19 05:26 Keflex Capsule PO 12/01/19 00:01 500 mg Q6HR VIKKI Administration Citalopram Hydrobromide 40 mg 11/22/19 09:00 11/25/19 08:21 Celexa PO 40 mg DAILY VIKKI Administration Clopidogrel Bisulfate 75 mg 11/23/19 09:00 11/25/19 08:21 Plavix PO 75 mg DAILY VIKKI Administration Dextrose 12.5 gm 11/22/19 18:06 Dextrose 50% Syringe IV PUSH PRN PRN Hypoglycemia Protocol Enoxaparin Sodium 40 mg 11/23/19 09:00 11/25/19 08:23 Lovenox SUB-Q 40 mg DAILY VIKKI Administration Famotidine 20 mg 11/22/19 21:00 11/25/19 08:22 Pepcid PO 20 mg Q12HR VIKKI Administration Furosemide 40 mg 11/22/19 09:00 11/25/19 08:22 Lasix Tablet PO 40 mg DAILY VIKKI Administration Glucagon 1 mg 11/22/19 18:06 Glucagon For Inj IM PRN PRN Hypoglycemia Protocol Glucose 15 gm 11/22/19 18:06 11/24/19 12:17
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
[2019-11-25 12:59] LABS: Glucose Point of Care 290 (65-105)
[2019-11-25 14:00] VITALS: BP 117/53; PULSE 78; RESP 18; TEMP 36.8; O2SAT 99
== END 2019-11-25 15:20 | DRG 481 ==
LOC: ANHED 17:16 → ANH3MEDSUR 17:24
PROVIDERS: Family Medicine; Internal Medicine Cardiovascular Disease; Nurse Practitioner; Orthopaedic Surgery; Physician Assistant Surgical; Admitting Provider Family Medicine; Emergency Provider Emergency Medicine; PCP Family Medicine; Visit Provider Physician Assistant
PROC: 0QS636Z Reposition Right Upper Femur with Intramedullary Internal Fixation Device, Percutaneous Approach (ICD-10-PCS; CPT 27245; principal; 2019-11-22 11:00)
DX: S72.141A Displaced intertrochanteric fracture of right femur, initial encounter for closed fracture (principal); I25.810 Atherosclerosis of coronary artery bypass graft(s) without angina pectoris; D62 Acute posthemorrhagic anemia; E87.1 Hypo-osmolality and hyponatremia; I50.22 Chronic systolic (congestive) heart failure; S72.21XA Displaced subtrochanteric fracture of right femur, initial encounter for closed fracture; Z20.828 Contact with and (suspected) exposure to other viral communicable diseases; I11.0 Hypertensive heart disease with heart failure; G80.9 Cerebral palsy, unspecified; E10.319 Type 1 diabetes mellitus with unspecified diabetic retinopathy without macular edema; F32.9 Major depressive disorder, single episode, unspecified; Z95.1 Presence of aortocoronary bypass graft; Z95.5 Presence of coronary angioplasty implant and graft; I25.2 Old myocardial infarction; Z90.710 Acquired absence of both cervix and uterus; W17.89XA Other fall from one level to another, initial encounter
CPT/HCPCS: 36415; 36430; 51702; 71045; 73501; 73502; 73552; 80048; 80053; 82306; 82948; 83036; 83735; 83880; 84484; 85014; 85018; 85025; 85027; 85610; 85730; 86703; 86706; 86803; 86850; 86900; 86901; 86923; 87635; 93005; 96374; 96375; 96376; 97110; 97162; 97167; 97530; 97535; 99285; A9270; C1713; C1769; C9803; G0378; G0432; J0131; J0690; J1100; J1170; J1650; J1815; J2270; J2405; J2704; J3010; J3370; J7030; J7040; J7050; J7120; P9016; U0003

== ENCOUNTER 2020-04-06 11:26 | Emergency (ER) | payer MEDICARE, BC, SELFPAY ==
[2020-04-06] VITALS (19 sets, daily range): BP systolic 99–144; BP diastolic 50–110; PULSE 73–84; RESP 14–26; TEMP 36.6; O2SAT 96–100
--- NOTE | ~2020-04-06 | XR_ITS ---
XR chest 1V portable DATE: 04/06/2020 12:42 INDICATION: Cough TECHNIQUE: Portable upright AP chest on 04/06/2020 at 1236 hours COMPARISON: 11/21/2019 portable AP chest FINDINGS: Status post sternotomy/CABG. Status post cholecystectomy. Normal heart size. Aortic arch calcification. No pulmonary infiltrate or consolidation, pleural effusion or pulmonary vascular congestion or pneumo thorax. IMPRESSION: No active cardiopulmonary disease or significant change since 11/21/2019 Reviewed, dictated and finalized at location [facility]. ON LIBRARIAN IMPRESSION: No active cardiopulmonary disease or significant change since 2019
--- NOTE | ~2020-04-06 | CT_ITS ---
EXAMINATION: CTA chest PE protocol DATE: 04/06/2020 13:39 INDICATION: Shortness of breath TECHNIQUE: Computed tomography angiography (CTA) of the chest was performed with 100 mL Omnipaque-350 intravenous contrast timed to evaluate the pulmonary arteries. Coronal maximum intensity projection 3D-reconstructions were created by the technologist. Automated exposure control and iterative reconst ruction technique were employed. Exam dose: 270.99 mGy-cm total exam DLP. COMPARISON: 04/06/2020 portable AP chest FINDINGS: There is diagnostic contrast enhancement of the pulmonary arteries and no evidence of pulmo nary embolism. No thoracic aortic aneurysm. Normal heart size. No pericardial effusion. Status post sternotomy/coronary artery bypass graft surgery. Mild bilateral dependent lower lobe atelectasis. Nonspecific minimal bilateral hilar and mediastinal noel prominence. Degenerative changes of the thoracic spine. No suspicious osteolytic or osteoblastic lesions. IMPRESSION: No evidence of pulmonary embolism Bilateral lower lobe dependent atelectasis Status post sternotomy/CABG Reviewed, dictated and finalized at [facility]. Reviewed, dictated and finalized at location [facility]. ALE SECURITY OFFICER
--- NOTE | 2020-04-06 11:39 | ECG_ITS ---
Measurements Intervals [place] Rate: 83 P: 30 NV: 132 QRS: -22 QRSD: 154 T: 130 QT: 431 QTc: 508 Interpretive Statements SINUS RHYTHM LEFT BUNDLE BRANCH BLOCK BASELINE ARTIFACT- II, III, AVR, AVL, AVF, V1-V3 ABNORMAL ECG Electronically Signed On 04-06-2020 13:40:44 DOUGH MOLDER by Gabriel Alvarado D.O.
--- NOTE | 2020-04-06 12:09 | ED.GENADULT ---
HPI - General Adult General Chief complaint: Shortness of Breath/Dyspnea Stated complaint: SOB Time Seen by Provider: 04/06/20 11:34 Source: patient and EMS Mode of arrival: EMS Limitations: no limitations History of Present Illness HPI narrative: Patient is 69 years old white female came from longterm because of shortness of breath over the last 4 to 5 days. With intermittent sneezing and coughing. Patient is telling us that she was Covid +2 months ago. Patient denies any fever, chills, nausea, vomiting, diarrhea, chest pain, headache, sore throat. Patient is not on oxygen. Related Data Home Medications Medication Instructions Recorded Confirmed Lantus U-100 Insulin 23 unit SUBCUT DAILY 11/21/19 11/21/19 Vitamin C 100 mg PO DAILY 11/21/19 11/21/19 aspirin [Adult Low Dose Aspirin] 81 mg PO DAILY 11/21/19 11/21/19 carvedilol 12.5 mg PO BID 11/21/19 11/21/19 citalopram [Celexa] 40 mg PO DAILY 11/21/19 11/21/19 clopidogrel [Plavix] 75 mg PO DAILY 11/21/19 11/21/19 furosemide [Lasix] 40 mg PO DAILY 11/21/19 11/21/19 insulin lispro [Humalog U-100 See Protocol SUBCUT ACHS 11/21/19 11/21/19 Insulin] isosorbide mononitrate 30 mg PO DAILY 11/21/19 11/21/19 losartan 12.5 mg PO DAILY 11/21/19 11/21/19 multivitamin with iron-mineral 1 tablet PO DAILY 11/21/19 11/21/19 ondansetron HCl [Zofran] 4 mg PO Q6H PRN 11/21/19 11/21/19 spironolactone 12.5 mg PO DAILY 11/21/19 11/21/19 Allergies Allergy/AdvReac Type Severity Reaction Status Date / Time Sulfa (Sulfonamide Allergy Mild Rash Verified 04/06/20 13:15 Antibiotics) Review of Systems Review of Systems: Narrative: CONSTITUTIONAL: Denies fever, chills, or sweats. EYES: Denies visual changes, redness, or discharge. ENT: Denies rhinorrhea, congestion, sore throat, or otalgia. CARDIOVASCULAR: Denies chest pain, palpitations, or edema. RESPIRATORY: Shortness of breath and coughing GASTROINTESTINAL: Denies abdominal pain, nausea, vomiting, or diarrhea. GENITOURINARY: Denies dysuria or hematuria. SKIN: Denies rash or itching. MUSCULOSKELETAL: Denies back pain, joint pain, or myalgia. NEUROLOGIC: Denies headache, numbness, or weakness. PSYCHIATRIC: Denies anxiety or depression. [facility] Past Medical History Medical History Cerebral palsy Right side weak, right leg Depression Started after her of cancer and then she continued to take Celexa Heart attack Hypoglycemia Insulin pump status Retinopathy Type 1 diabetes Surgical History Surgical History H/O: hysterectomy History of heart artery stent 2 cardiac stents 08/2019 Hx of CABG X6 in 1999, 6 vessels Family History Family History Mother Cancer Father Asthma Sibling Lung cancer Lung disorder The other brother Other Family history of cardiovascular disease Family history of lung disease Family history of mental disorder Social History Social History Social History: The patient never had any children. She lives with her nephew aashish. Her her nephew Kb is her durable power claims attorney for healthcare. She desires to be a full code. She is lifelong nonsmoker does not drink greasy alcohol. No marijuana use Smoking status: Never smoker Alcohol intake: never Substance use: never Gender identity (if verbalized by the patient): Female Spiritual care concerns: No Exam Narrative: Exam Narrative: General appearance: Well-developed, well-nourished Skin: Normal color Head: Normocephalic, nontraumatic Eyes: Clear conjunctiva ENT: Oropharynx normal, ears normal, nose normal Neck: Supple, nontender Chest and respiratory: Airway patent, no respiratory distress, no accessory muscle use Heart: Regular rate/rhythm Abdomen: Soft, nontender, no organomegaly, quiet bowel
[2020-04-06 12:11] LABS: Basophils Percent Auto 0.3 % (0.2-1.2); Eosinophils Absolute Auto 0.3 K/mm3 (0-0.3); Eosinophils Percent Auto 3.3 % (0-4.4); Hematocrit 34.2 % (37.0-47.0); Hemoglobin 11.2 g/dL (12.0-15.0); Immature Granulocyte Absolute 0.05 K/mm3 (0.00-0.031); Immature Granulocyte Percent A 0.5 % (0-0.5); Lymphocytes Absolute Auto 0.85 K/mm3 (0.9-3.2); Mean Corpuscular HGB Conc 32.7 g/dl (32-36); Mean Corpuscular Hemoglobin 29.9 pg (26-34); Mean Corpuscular Volume 91.4 fl (80-100); Mean Platelet Volume 9.4 fl (7.4-10.4); Monocytes Absolute Auto 0.9 K/mm3 (0.1-0.6); Monocytes Percent Auto 9.4 % (2.6-8.5); Neutrophils Absolute Auto 7.3 K/mm3 (1.3-6.7); Neutrophils Percent Auto 77.5 % (45.5-73.1); Platelet Count Result 313 k/mm3 (150-375); Red Blood Count 3.74 M/mm3 (4.2-5.4); Red Cell Distribution Width 14.2 % (11.5-14.5); White Blood Count 9.5 K/mm3 (4.5-10.0)
[2020-04-06 12:21] LABS: INR 1.1; Prothrombin Time 15.1 Seconds (11.1-14.7)
[2020-04-06 12:22] LABS: Partial Thromboplastin Time 28.6 SECONDS (22.3-36.8)
[2020-04-06 12:23] LABS: Alveolar/Arterial O2 Gradient 30.6 mmHg; Base Excess ABG -1.2 mEq/l (+/-2.0); Fractional Inspired Oxygen 21 %; HCO3 ABG 22.8 mEq/l (22.0-26.0); Oxygen Content ABG 15.2 %vol (16.0-22.0); Oxygen Saturation ABG 95.7 % (95.0-100.0); Oxyhemoglobin 94.4 % THb (90.0-100.0); PCO2 ABG 35.5 mmHg (35.0-45.0); PO2 ABG 76.6 mmHg (80.0-100.0); PO2 FiO2 Ratio Arterial Blood 3.65 %; Total Hemoglobin 11.4 g/dL (12.0-18.0); pH ABG 7.425 (7.350-7.450)
[2020-04-06 12:24] LABS: Device ROOM AIR; Modified Allen's Test Pass; Site Drawn LEFT RADIAL
[2020-04-06 12:24] LABS: D Dimer 2.44 ug/mL (<0.48)
[2020-04-06 12:27] LABS: Alanine Aminotransferase 11 U/L (4-35); Albumin Level 3.4 g/dL (3.5-5.1); Alkaline Phosphatase 100 U/L (38-126); Anion Gap 6 mmol/L (8-16); Aspartate Amino Transferase 20 U/L (14-36); Bilirubin,Total 0.5 mg/dL (0.2-1.3); Blood Urea Nitrogen 28 mg/dL (7-17); CRP 0.5 mg/dL (<1.0); Calcium 8.4 mg/dL (8.4-10.2); Carbon Dioxide 29 mmol/L (22-30); Chloride 99 mmol/L (98-107); Estimated CRCL calculation 39 ml/min; Estimated Glomerular Filt Rate 49; Glucose 359 mg/dL (65-105); Potassium 4.2 mmol/L (3.4-5.0); Sodium 134 mmol/L (137-145)
[2020-04-06 12:38] LABS: NT Pro B Type Natriuretic Pept 4910 PG/ML (5-100)
[2020-04-06 12:42] LABS: Add Urine Microscopic? YES; Appearance Urine Clear (Clear); Bacteria Urine Trace /hpf; Bilirubin Urine Negative (Negative); Blood Urine Negative (Negative); Color Urine Yellow (Yellow); Glucose Urine UA 3+ mg/dL (Negative); Ketones Urine Negative (Negative); Leukocyte Esterase Ur Negative LEU/UL (Negative); Mucus Urine Rare /lpf; Nitrate Urine Negative (Negative); Protein Urine Negative (Negative); Specific Grav Ur 1.009 (1.001-1.035); Squamous Epithelial Cell Urine Rare /hpf (Few); Urobilinogen Urine Negative mg/dL (<2.0)
[2020-04-06 12:47] LABS: Lactic Acid Reflex 1.7 mmol/L (0.7-2.1)
[2020-04-06] MEDS: INSULIN HUMAN REGULAR (*BKC) 100 UNITS/ML 6 UNITS SUB-Q (14:36)
[2020-04-06 23:03] LABS: SARS-CoV-2 RNA PCR Negative
== END 2020-04-06 16:24 ==
PROVIDERS: Emergency Provider Emergency Medicine; PCP Family Medicine
DX: B34.9 Viral infection, unspecified (principal); E10.65 Type 1 diabetes mellitus with hyperglycemia; Z20.828 Contact with and (suspected) exposure to other viral communicable diseases; G80.9 Cerebral palsy, unspecified; I25.2 Old myocardial infarction; E10.319 Type 1 diabetes mellitus with unspecified diabetic retinopathy without macular edema; Z96.41 Presence of insulin pump (external) (internal); Z95.5 Presence of coronary angioplasty implant and graft; Z79.01 Long term (current) use of anticoagulants
CPT/HCPCS: 36415; 36600; 71045; 71275; 80053; 81001; 82805; 83605; 83880; 85025; 85380; 85610; 85730; 86140; 87040; 87635; 87804; 93005; 99284; C9803; J1815; Q9967; U0003

== ENCOUNTER 2020-04-30 12:28 | Outpatient (CLI) | payer MEDICARE, BC, MEDICAID, SELFPAY ==
--- NOTE | 2020-04-30 | ECHO_ITS ---
Patient Info Name: Ilana Kim Age: 69 years : 1950 Gender: Female Ht: 65 in Wt: 152 lbs BSA: 1.79 m2 HR: 81 bpm BP: 86 / 40 mmHg Technical Quality: Good Exam Date: 04/30/2020 1:18 PM Exam Location: [facility] Patient Status: Outpatient Admit Date: 04/30/2020 Staff Ordering Physician: Sudha Heart NP Sparmaker: Chrissy Saldivar RDCS Attending Provider: Sudha Heart NP Referring Physician: Una YEE; Exam Type: CA echo doppler color flow Study Info Indications R94.31 - Abnormal electrocardiogram ECG EKG R06.02 - Shortness of breath I50.9 - Heart failure, unspecified Complete two-dimensional, color flow and Doppler transthoracic echocardiogram is performed. Summary 1. Complete two-dimensional, color flow and Doppler transthoracic echocardiogram is performed. 2. Left ventricular chamber dimension is normal. 3. Left ventricular systolic function is moderately reduced, estimated at 40-45%. 4. There is moderately increased left ventricular wall thickness. 5. The left ventricular diastolic function is grade I diastolic dysfunction. 6. E/e' 9 is minimally elevated. 7. Global longitudinal strain is abnormal at -9.2%. 8. Left atrial chamber dimension is mildly enlarged. 9. The mitral valve has mildly calcified annulus. 10. There is mild mitral valve regurgitation. 11. There is trace tricuspid valve regurgitation. 12. No pulmonary hypertension, estimated pulmonary arterial systolic pressure is 27 mmHg. 13. Normal inferior vena cava with <50% collapse upon inspiration consistent with elevated right atrial pressure, 10 mmHg. 14. Rounded echogenic mass seen at the IVC and right atrial junction measured 1.1 cm x 1.4 cm which could be artifact. Consider CLIFFORD or Venogram for further evaluation if clinically indicated. Left Ventricle E/e' 9 is minimally elevated. Global longitudinal strain is abnormal at -9.2%. Left ventricular chamber dimension is normal. Left ventricular systolic function is moderately reduced, estimated at 40-45%. There is moderately increased left ventricular wall thickness. The left ventricular diastolic function is grade I diastolic dysfunction. Right Ventricle Right ventricular chamber dimension is normal. Right ventricular systolic function is normal. Left Atria Left atrial chamber dimension is mildly enlarged. Right Atria Right atrial chamber dimension is normal. Aortic Valve The aortic valve is trileaflet. There is no aortic valve stenosis. There is no aortic valve regurgitation. Pulmonic Valve There is no pulmonic regurgitation. Mitral Valve The mitral valve has mildly calcified annulus. There is no mitral valve stenosis. There is mild mitral valve regurgitation. Tricuspid Valve There is trace tricuspid valve regurgitation. No pulmonary hypertension, estimated pulmonary arterial systolic pressure is 27 mmHg. Pericardium/Pleural There is no pericardial effusion. Inferior Vena Cava Normal inferior vena cava with <50% collapse upon inspiration consistent with elevated right atrial pressure, 10 mmHg. Rounded echogenic mass seen at the IVC and right atrial junction measured 1.1 cm x 1.4 cm which could be artifact. Consider CLIFFORD or Venogram for further evaluation if clinically indicated. Aorta The aortic root size at the sinus of Valsalva is normal. Left Ventricular Outflow Tract Name
== END 2020-04-30 12:29 | disposition home or self-care (01) ==
PROVIDERS: Visit Provider Nurse Practitioner Family
DX: I50.9 Heart failure, unspecified (principal); R06.02 Shortness of breath; R94.31 Abnormal electrocardiogram [ECG] [EKG]; R93.1 Abnormal findings on diagnostic imaging of heart and coronary circulation
CPT/HCPCS: 93306

== ENCOUNTER 2020-09-26 21:31 | Inpatient (IN) | payer MEDICARE, BC, MEDICAID, SELFPAY ==
--- NOTE | ~2020-09-26 | XR_ITS ---
EXAMINATION: XR chest 2V DATE: 09/26/2020 22:39 INDICATION: Cough and shortness of breath TECHNIQUE: frontal and lateral views of the chest were obtained. COMPARISON: Chest radiograph and CT dated 04/06/2020 FINDINGS: Increased interstitial pattern in the bilateral lower lung zones. Additional linear and patchy airspa ce opacities in the lingula. Trace amount of pleural fluid along one of the major fissures. The cardi omediastinal silhouette is normal. Median sternotomy wires and mediastinal surgical clips are seen, l ikely from prior coronary artery bypass grafting. Cholecystectomy clips in the right upper quadrant. Severe lumbar spondylosis. IMPRESSION: 1. Opacities in the bilateral lower lung zones is prominent in the lingula which could represent pulm onary edema, atelectasis, pneumonia or some combination thereof. Reviewed, dictated and finalized at location A. IMPRESSION: 1. Opacities in the bilateral lower lung zones is prominent in the lingula whic h could represent pulmonary edema, atelectasis, pneumonia or some combination t hereof.
[2020-09-26 21:41] VITALS: BP 157/61; PULSE 93; RESP 36; TEMP 36.9; O2SAT 100
[2020-09-26 22:48] LABS: Basophils Percent Auto 0.5 % (0.2-1.2); Eosinophils Absolute Auto 0.5 K/mm3 (0-0.3); Hematocrit 34.4 % (37.0-47.0); Hemoglobin 11.2 g/dL (12.0-15.0); Immature Granulocyte Absolute 0.02 K/mm3 (0.00-0.031); Immature Granulocyte Percent A 0.3 % (0-0.5); Lymphocytes Percent Auto 21.7 % (18.3-44.2); Mean Corpuscular HGB Conc 32.6 g/dl (32-36); Mean Corpuscular Hemoglobin 29.2 pg (26-34); Mean Corpuscular Volume 89.6 fl (80-100); Mean Platelet Volume 8.7 fl (7.4-10.4); Monocytes Absolute Auto 0.6 K/mm3 (0.1-0.6); Monocytes Percent Auto 9.8 % (2.6-8.5); Neutrophils Absolute Auto 3.6 K/mm3 (1.3-6.7); Neutrophils Percent Auto 59.7 % (45.5-73.1); Platelet Count Result 247 k/mm3 (150-375); Red Blood Count 3.84 M/mm3 (4.2-5.4); Red Cell Distribution Width 13.3 % (11.5-14.5)
[2020-09-26 22:50] LABS: Fractional Inspired Oxygen 24 %
[2020-09-26 22:55] LABS: Device NASAL CANNULA; HCO3 VBG 20.5 mEq/l (24.0-30.0); PCO2 VBG 29.9 mmHg (42.0-48.0); PO2 VBG 71.3 mmHg (35.0-45.0); pH VBG 7.453 (7.300-7.400)
[2020-09-26 22:58] LABS: Alanine Aminotransferase 13 U/L (4-35); Albumin Level 3.4 g/dL (3.5-5.1); Alkaline Phosphatase 95 U/L (38-126); Anion Gap 7 mmol/L (8-16); Aspartate Amino Transferase 27 U/L (14-36); Bilirubin,Total 0.1 mg/dL (0.2-1.3); Blood Urea Nitrogen 33 mg/dL (7-17); Calcium 7.7 mg/dL (8.4-10.2); Carbon Dioxide 24 mmol/L (22-30); Chloride 105 mmol/L (98-107); Estimated CRCL calculation 42 ml/min; Estimated Glomerular Filt Rate 45; Glucose 169 mg/dL (65-105); Lipase 173 U/L (23-300); Potassium 3.5 mmol/L (3.4-5.0); Sodium 136 mmol/L (137-145)
[2020-09-26 23:17] VITALS: PULSE 85; RESP 20; O2SAT 100
[2020-09-26 23:18] VITALS: BP 131/49; PULSE 81; O2SAT 100
[2020-09-26 23:30] LABS: NT Pro B Type Natriuretic Pept 2320 pg/mL (5-100); Troponin I 0.161 ng/mL (0.000-0.034)
--- NOTE | 2020-09-26 23:40 | ED.SOB ---
HPI - SOB/Dyspnea General Chief Complaint: Shortness of Breath/Dyspnea Stated Complaint: CP/ SOB Time Seen by Provider: 09/26/20 21:47 Source: patient Mode of arrival: EMS Limitations: clinical condition History of Present Illness HPI Narrative: 69-year-old female She has multiple complaints Mainly she was short of breath earlier at her assisted living, however since oxygen was applied this has been greatly alleviated Very tired and fatigued and just does not feel good and has not for a long time She had complained of indigestion which is also relieved currently but she always feels bloated and burps a lot EMS reported her blood pressure was quite high on the order of 200/100 but here is about 150/60 History of diabetes, CHF, coronary artery disease with 2 stents placed a little over a year ago elsewhere Related Data Home Medications Medication Instructions Recorded Confirmed Lantus U-100 Insulin 23 unit SUBCUT DAILY 11/21/19 08/13/20 Vitamin C 100 mg PO DAILY 11/21/19 08/13/20 aspirin [Adult Low Dose Aspirin] 81 mg PO DAILY 11/21/19 08/13/20 carvedilol 12.5 mg PO BID 11/21/19 08/13/20 citalopram [Celexa] 40 mg PO DAILY 11/21/19 08/13/20 clopidogrel [Plavix] 75 mg PO DAILY 11/21/19 08/13/20 furosemide [Lasix] 40 mg PO DAILY 11/21/19 08/13/20 insulin lispro [Humalog U-100 See Protocol SUBCUT ACHS 11/21/19 08/13/20 Insulin] isosorbide mononitrate 30 mg PO DAILY 11/21/19 08/13/20 losartan 12.5 mg PO DAILY 11/21/19 08/13/20 multivitamin with iron-mineral 1 tablet PO DAILY 11/21/19 08/13/20 ondansetron HCl [Zofran] 4 mg PO Q6H PRN 11/21/19 08/13/20 spironolactone 12.5 mg PO DAILY 11/21/19 08/13/20 acetaminophen 325 mg capsule 325 mg PO Q6H PRN 08/13/20 08/13/20 albuterol sulfate 90 mcg/actuation 1 puff INHALATION Q4H g 05/07/21 05/07/21 aerosol inhaler budesonide-formoterol HFA 80 2 puff INHALATION Q12H 08/13/20 08/13/20 mcg-4.5 mcg/actuation aerosol inhaler simethicone 125 mg chewable tablet 125 mg PO BID PRN tablet 08/13/20 08/13/20 Allergies Allergy/AdvReac Type Severity Reaction Status Date / Time Sulfa (Sulfonamide Allergy Mild Rash Verified 08/13/20 14:27 Antibiotics) Review of Systems Review of Systems: All systems reviewed & are unremarkable except as noted in HPI and below Constitutional: Constitutional: Reports no additional constitutional complaints, Denies chills, Reports fatigue, Denies fever(s), Denies headache(s) and Reports weakness Eyes: Eyes: Reports no additional eye complaints and Denies change in vision ENT: Denies headache(s) and Denies sore throat Cardiovascular: Cardiovascular: Reports chest pain, Denies radiating jaw, neck or arm pain and Denies dyspnea Respiratory: Respiratory: Denies cough, Reports dyspnea and Denies wheezing Gastrointestinal: Gastrointestinal: Denies abdominal pain, Reports bloating, Denies constipation, Reports heartburn, Denies diarrhea, Reports nausea and Denies vomiting Genitourinary: Genitourinary: Denies urinary frequency, Reports nocturia and Denies dysuria Musculoskeletal: Musculoskeletal: Reports myalgias, Denies deformity, Denies arthralgias, Denies joint swelling and Denies numbness Integumentary/Breasts: Skin/Breast: Denies rash and Denies wounds Neurologic: Denies headache(s), Denies focal weakness, Reports numbness and Reports weakness Psychiatric: Psychiatric: Reports no additional psychiatric complaints Endocrine: Endocrine: Reports no additional endocrine complaints Hematologic/Lymphatic: Hematologic/Lymphatic: Reports no additional hematologic/lymphatic complaints Allergic/Immunologic: Allergic/Immunologic: Reports no additional allergic/immunologic complaints PMFSH Past Medical History Medical History Cerebral palsy Right side weak, right leg Depression Started after her of cancer and then she continued to take Celexa Heart attack Hypogly
--- NOTE | 2020-09-26 23:44 | ECG_ITS ---
Measurements Intervals [place] Rate: 81 P: 53 NV: 161 QRS: 23 QRSD: 106 T: 176 QT: 400 QTc: 466 Interpretive Statements SINUS RHYTHM LEFT VENTRICULAR HYPERTROPHY AND ST-T CHANGE BORDERLINE ST-T WAVE ABNORMALITY- LATERAL LEADS BASELINE ARTIFACT- I, II, III, AVF, V3-V6 BORDERLINE ECG Electronically Signed On 09-27-2020 6:21:54 CDT by Gabriel Alvaardo D.O.
[2020-09-27] VITALS (32 sets, daily range): BP systolic 106–157; BP diastolic 42–84; PULSE 72–93; RESP 14–21; TEMP 35.6–36.7; O2SAT 95–100; BMI 31.3
[2020-09-27] MEDS: NITROGLYCERIN OINTMENT 1 INCH DOSE TRANSDERM ×3 (00:01→17:20)
[2020-09-27] MEDS: ENOXAPARIN 80 MG/0.8 ML SYRINGE SUB-Q (00:01)
[2020-09-27] MEDS: ASPIRIN 81 MG CHEWABLE TABLET 324 MG PO (00:02)
[2020-09-27] MEDS: NITROGLYCERIN SL 0.4 MG TABLET SUBLINGUAL (00:02)
--- NOTE | 2020-09-27 01:06 | ADMGEN ---
This patient, Ilana Kim, was admitted to IMU Room 206-02. Patient/family oriented to hospital policies and general routines including ID bracelet, bed and alarms, visiting hours, pain management, procedures, bathroom and other care routines, personal items, smoking policy, room service/diet, and visiting hours. Information on how to activate the Rapid Response Team has been discussed. Patient/Family are encouraged to report perceived risks to care and to ask questions if they do not understand what they are told or what they should do.
[2020-09-27 01:23] LABS: Glucose Point of Care 112 mg/dl (65-105)
--- NOTE | 2020-09-27 02:21 | PM.IMHP ---
H&P: HPI History of Present Illness Date/Time: 09/27/20 02:21 Chief Complaint: Shortness of breath and chest pain Narrative: 69-year-old female who presents today with increasing shortness of breath since past 2 days. See also feels she has been having random chest pressors in her midsternal area radiating to her back and sometimes to her arm. She denies any increased swelling in her legs. She lives in an assisted living facility and does not use oxygen. See overall has not been feeling well since past few days with increased tiredness and weakness. EMS was called and her blood pressure was reported to be quite high at 200/100 mm Hg. She was brought to the ER for further evaluation. She has history of diabetes, congestive heart failure, coronary artery disease status post bypass x6 in 1999 with subsequent stent placement about 2 years ago. Review of Systems Review of Systems: Narrative: - CONSTITUTIONAL: Denies weight loss, fever and chills. - HEENT: Denies changes in vision and hearing - RESPIRATORY: Reports SOB and denies cough. - CV: Reports palpitations and CP. - GI: Denies abdominal pain, nausea, vomiting and diarrhea. - : Denies dysuria and urinary frequency. - MSK: Reports myalgia and joint pain. - SKIN: Denies rash and pruritus. - NEUROLOGICAL: Denies headache and syncope. - PSYCHIATRIC: Denies recent changes in mood. Denies anxiety and depression. All systems reviewed & are unremarkable except as noted in HPI and below Constitutional: Constitutional: Reports fatigue and Reports weakness Neurologic: Reports weakness Endocrine: Endocrine: Reports fatigue [facility] Past Medical History Medical History Cerebral palsy Right side weak, right leg Depression Started after her of cancer and then she continued to take Celexa Heart attack Hypoglycemia Insulin pump status Retinopathy Type 1 diabetes Surgical History Surgical History H/O: hysterectomy History of heart artery stent 2 cardiac stents 08/2019 Hx of CABG X6 in 1999, 6 vessels Family History Family History Mother Cancer Father Asthma Sibling Lung cancer Lung disorder The other brother Other Family history of cardiovascular disease Family history of lung disease Family history of mental disorder Social History Social History Social History: The patient never had any children. She lives with her nephew aashish. Her her nephew Kb is her durable power transactional attorney for healthcare. She desires to be a full code. She is lifelong nonsmoker does not drink greasy alcohol. No marijuana use Smoking status: Never smoker Alcohol intake: never Substance use: never Gender identity (if verbalized by the patient): Female Spiritual care concerns: No Meds Home Medications and Allergies Home Medications Medication Instructions Recorded Confirmed Type Lantus U-100 Insulin 23 unit SUBCUT DAILY 11/21/19 08/13/20 History Vitamin C 100 mg PO DAILY 11/21/19 08/13/20 History aspirin [Adult Low Dose Aspirin] 81 mg PO DAILY 11/21/19 08/13/20 History carvedilol 12.5 mg PO BID 11/21/19 08/13/20 History citalopram [Celexa] 40 mg PO DAILY 11/21/19 08/13/20 History clopidogrel [Plavix] 75 mg PO DAILY 11/21/19 08/13/20 History furosemide [Lasix] 40 mg PO DAILY 11/21/19 08/13/20 History insulin lispro [Humalog U-100 See Protocol SUBCUT ACHS 11/21/19 08/13/20 History Insulin] isosorbide mononitrate 30 mg PO DAILY 11/21/19 08/13/20 History losartan 12.5 mg PO DAILY 11/21/19 08/13/20 History multivitamin with iron-mineral 1 tablet PO DAILY 11/21/19 08/13/20 History ondansetron HCl [Zofran] 4 mg PO Q6H PRN 11/21/19 08/13/20 History spironolactone 12.5 mg PO DAILY 11/21/19
[2020-09-27 02:48] LABS: Troponin I 0.828 ng/mL (0.000-0.034)
[2020-09-27] MEDS: ONDANSETRON INJ 4 MG/2 ML VIAL IV PUSH (03:30)
[2020-09-27 07:27] LABS: Glucose Point of Care 186 mg/dl (65-105)
--- NOTE | 2020-09-27 07:41 | PM.CNCAR ---
Assessment and Plan Assessment and plan (1) Non-ST elevation DC (NSTEMI): Code(s): I21.4 - Non-ST elevation (NSTEMI) myocardial infarction Status: Acute Assessment and Plan: Troponin trending up, has not peaked at 1.2. On aspirin, Plavix, Coreg, Losartan, NTP, Lovenox dose at 11:49 pm last dose. Discussed risks/benefits/alternative treatment to left heart cath and she is agreeable for procedure. I will notify HCG for procedure today. Keep NPO. Echo today. (2) Systolic dysfunction: Code(s): I51.9 - Heart disease, unspecified Status: Chronic Assessment and Plan: Euvolemic. (3) CAD (coronary artery disease), autologous vein bypass graft: Code(s): I25.810 - Atherosclerosis of coronary artery bypass graft(s) without angina pectoris Status: Acute (4) Hypertension: Code(s): I10 - Essential (primary) hypertension Status: Chronic Assessment and Plan: Stable. (5) Dyslipidemia: Code(s): E78.5 - Hyperlipidemia, unspecified Status: Acute Assessment and Plan: Was on Pravastatin 10 mg daily. Start Atorvastatin 40 mg daily for NSTEMI. (6) Type 1 diabetes: Code(s): E10.9 - Type 1 diabetes mellitus without complications Status: Chronic Assessment and Plan: Managed per hospitalist. History of Present Illness History of Present Illness Consult date/time: 09/27/20 07:41 NSTEMI. 69 yr old woman who is my regular cardiology patient presents to ER with chest pain. She has a history of DM, hypertension, CAD/CABG x 6 vessels and subsequent stenting of SVG, cerebral palsy, covid infection in Feb 2020. Her regular paper roll machine operator was Dr. Rea. Reports that for the last 3 days she developed nausea and vomiting, and then yesterday she noted left arm pain and upper back pain associated with sob and sweating. She can normally walk up to 50 feet with a limp due to cerebral palsy and since her right hip fracture. Denies chest pain, sob, orthopnea, PND, edema, palpitations, dizziness. Cardiovascular Procedures [employer] Developer:: CABG x 6 vessel in 1999 at [facility] 08/25/19 [facility] in [place]: LM 100% occlusion, RCA 90-99% in mid vessel, 70% in prox segment 100% occluded PDA and 80% PL branch. TUTTLE to LAD patent, SVG to OM with prox 80% and distal 90-95%, SVG to PL and onto PDA are patent, SVG sequential from 1st to 2nd Diag are patent, PCI with stent to SVG supplying OM branch in distal and proximal segments of SVG graft. Echo/MUGA:: 04/30/20 Echo: EF 40-45%, mod LVH, grade I diastolic dysfunction (E/e' 9), mild LAE, mild MR, trace TR, round mass in RA/IVC junction, could be artifact. Electrophysiology:: 04/06/20 EKG: Sinus rhythm, LBBB. Reason For Visit: nstemi, chf Review of Systems Review of Systems: All systems reviewed & are unremarkable except as noted in HPI and below Constitutional: Constitutional: Reports as per HPI, Denies chills and Denies fever(s) Cardiovascular: Cardiovascular: Reports as per HPI, Denies irregular heart rhythm, Denies leg edema, Denies lightheadedness and Reports dyspnea Respiratory: Respiratory: Reports as per HPI and Reports dyspnea Gastrointestinal: Gastrointestinal: Reports as per HPI, Reports nausea and Reports vomiting Genitourinary: Genitourinary: Reports as per HPI and Denies dysuria Musculoskeletal: Musculoskeletal: Reports as per HPI and Reports arthralgias Neurologic: Reports as per HPI, Denies dizziness and Denies syncope PMFSH Past Medical History Medical History Cerebral palsy Right side weak, right leg Depression Started after her of cancer and then she continued to take Celexa Heart attack Hypoglycemia Insulin pump status Retinopathy Type 1 diabetes Surgical History Surgical History H/O: hysterectomy History of heart artery fredrick
[2020-09-27] MEDS: ISOSORBIDE MONONITRATE 30 MG TAB.ER.24H PO (08:59)
[2020-09-27] MEDS: ATORVASTATIN 40 MG TABLET PO (08:59)
[2020-09-27] MEDS: ASPIRIN 81 MG ENTERIC TABLET PO (08:59)
[2020-09-27] MEDS: LOSARTAN POTASSIUM 12.5 MG TABLET PO (08:59)
[2020-09-27] MEDS: CITALOPRAM HYDROBROMIDE 20 MG TABLET 40 MG PO (08:59)
[2020-09-27] MEDS: CLOPIDOGREL BISULFATE 75 MG TABLET PO (08:59)
[2020-09-27] MEDS: carvediloL 12.5 MG TABLET PO ×2 (08:59→17:20)
[2020-09-27] MEDS: FAMOTIDINE 20 MG/2 ML VIAL IV PUSH ×2 (08:59→20:27)
[2020-09-27] MEDS: POTASSIUM CHLORIDE 20 MEQ TABLET.ER PO (09:00)
--- NOTE | 2020-09-27 09:00 | PC.NURSE ---
Dr. Israel notified of Dr. Alvarado's request for cardiac cath. Dr. Beltre only does cardiac cath procedures on full code status patients. Spoke with patient regarding code status issue. Pt states I want the procedure done. I only want to be a DNR so if I , and become brain I'm not putting that burden on my nephew. I don't want to do that to him. I am willing to be a full code while I'm here so I can have the procedure done. Xochitl Perrin, RN in room with this RN to verify change in code status. Dr. Israel and Dr. Beltre notified of change in code status per pt request so that pt change proceed with cardiac cath.
--- NOTE | 2020-09-27 10:08 | PC.NURSE ---
[facility] flyer and cardiac catheterization information was given to patient.
--- NOTE | 2020-09-27 11:25 | WPDMODSED ---
Moderate Sedation Note-Pt Data Patient Data Diagnosis: Coronary artery disease Chest pain modest troponin elevation Previous coronary bypass grafting/previous PCI elsewhere Present Complaint: No active complaints Procedure to be performed/Plan: Left heart catheterization with coronary angiography and bypass graft angiography Allergies Allergy/AdvReac Type Severity Reaction Status Date / Time Sulfa (Sulfonamide Allergy Mild Rash Verified 08/13/20 14:27 Antibiotics) Home Medications Medication Instructions Recorded Confirmed Type Lantus U-100 Insulin 30 unit SUBCUT DAILY 11/21/19 09/27/20 History Vitamin C 500 mg PO DAILY 11/21/19 09/27/20 History aspirin [Adult Low Dose Aspirin] 81 mg PO DAILY 11/21/19 09/27/20 History carvedilol 12.5 mg PO BID 11/21/19 09/27/20 History citalopram [Celexa] 40 mg PO DAILY 11/21/19 09/27/20 History clopidogrel [Plavix] 75 mg PO DAILY 11/21/19 09/27/20 History furosemide [Lasix] 40 mg PO DAILY 11/21/19 09/27/20 History insulin lispro [Humalog U-100 See Protocol SUBCUT ACHS 11/21/19 09/27/20 History Insulin] isosorbide mononitrate 30 mg PO DAILY 11/21/19 09/27/20 History losartan 12.5 mg PO DAILY 11/21/19 09/27/20 History multivitamin with iron-mineral 1 tablet PO DAILY 11/21/19 09/27/20 History ondansetron HCl [Zofran] 4 mg PO Q6H PRN 11/21/19 09/27/20 History spironolactone 12.5 mg PO DAILY 11/21/19 09/27/20 History polyethylene glycol 3350 [Miralax] 17 g PO QAM #30 ea 11/25/19 09/27/20 Rx oxycodone 5 mg tablet 2.5 mg PO Q4H PRN #40 tablet 07/05/20 09/27/20 Rx acetaminophen 325 mg capsule 650 mg PO Q6H PRN 08/13/20 09/27/20 History albuterol sulfate 90 mcg/actuation 2 puff INHALATION Q4H PRN g 08/13/20 09/27/20 History aerosol inhaler budesonide-formoterol HFA 80 2 puff INHALATION Q12H 08/13/20 09/27/20 History mcg-4.5 mcg/actuation aerosol inhaler simethicone 125 mg chewable tablet 125 mg PO BID PRN tablet 08/13/20 09/27/20 History dextrose [Glucose Gel] 10 g PO Q15M PRN 09/27/20 09/27/20 History glucagon 1 mg IM ONCE 09/27/20 09/27/20 History insulin lispro 5 unit SUBCUT BID 09/27/20 09/27/20 History loperamide 2 mg PO Q4H PRN 09/27/20 09/27/20 History melatonin 1 mg PO HS 09/27/20 09/27/20 History jizgwbik-sriw-JG-calcium-mins 1 tablet PO DAILY 09/27/20 09/27/20 History [Thera M Plus (ferrous fumarat)] Current Medications: Active Medications Acetaminophen (Acetaminophen 325 Mg Tablet) 650 mg PO Q6H PRN PRN Reason: Fever Or Pain Albuterol (Albuterol Sulfate (*Sp) Aerosol 1 Puff) 2 puff INHALATION Q4H PRN PRN Reason: Shortness Of Breath Ascorbic Acid (Ascorbic Acid 500 Mg Tablet) 1,000 mg PO QAM [facility] Aspirin (Aspirin 81 Mg Enteric Tablet) 81 mg PO DAILY [facility] Last Admin: 09/27/20 08:59 Dose: 81 mg Documented by: Atorvastatin Calcium (Atorvastatin 40 Mg Tablet) 40 mg PO DAILY [facility] Last Admin: 09/27/20 08:59 Dose: 40 mg Documented by: Budesonide/Formoterol Fumarate (Budesonide/Form 80-4.5 Mcg (*Sp)) 2 puff INHALATION Q12HRT [facility] Last Admin: 09/27/20 08:54 Dose: 2 puff Documented by: Carvedilol (Carvedilol 12.5 Mg Tablet) 12.5 mg PO BIDWM [facility] Last Admin: 09/27/20 08:59 Dose: 12.5 mg Documented by: Citalopram Hydrobromide (Citalopram Hydrobromide 20 Mg Tablet) 40 mg PO DAILY [facility] Last Admin: 09/27/20 08:59 Dose: 40 mg Documented by: Clopidogrel Bisulfate (Clopidogrel Bisulfate 75 Mg Tablet) 75 mg PO DAILY [facility] Last Admin: 09/27/20 08:59 Dose: 75 mg Documented by: Dextrose (Dextrose 50% 25 Gm/50 Ml Syringe) 12.5 gm IV PUSH PRN PRN; Protocol PRN Reason: Hypoglycemia Famotidine (Famotidine 20 Mg/2 Ml Vial) 20 mg IV PUSH Q12HR [facility] Last Admin: 09/27/20 08:59 Dose: 20 mg Documented by: Furosemide (Furosemide 40 Mg Tablet) 40 mg PO DAILY [facility] Glucagon (Glucagon For Inj 1 Mg Vial) 1 mg IM PRN PRN; Protocol PRN Reason: Hypoglycemia Glucose (Glucose Oral Gel 15 Gm Of Glucse In 37.5 Gm Tube) 15 gm PO PRN PRN; Protocol PRN Reason: Hypoglycemia Dextros
--- NOTE | 2020-09-27 11:37 | PCOTNOTE ---
Attempted OT evaluation, per RN patient is going down for procedure, will complete evaluation tomorrow due to patient being on bed rest for the remainder of today.
--- NOTE | 2020-09-27 12:02 | PC.NURSE ---
Pt to lab systems analyst via stretcher
--- NOTE | 2020-09-27 12:44 | WPDCARDPROC ---
Cardiac Cath Procedure Note Date of procedure:: 09/27/20 Performing physician:: Rell Beltre MD Indication:: acute coronary syndrome Brief clinical history:: 69-year-old woman known to have coronary disease bypass grafting 20 years ago at another hospital. Patient underwent stenting of 1 of her vein grafts also at another hospital last year. She presents here with a variety of symptoms a my which include some interscapular back pain and left arm pain. There has been a modest troponin rise prompting the recommendation to perform an angiogram. Procedure Procedure performed:: Coronary angiography vein graft angiography internal mammary graft angiography Sedation/Medication given:: fentanyl 50 mg Versed 2 mg case start time 12:19 p.m. case end time 12:40 p.m. sedation provided by Ernestina Mcgill RN, trained observer Access site:: right femoral artery Estimated blood loss:: 10-15 cc Procedure note:: patient was brought to the cardiac catheterization lab in the postabsorptive state the right femoral triangle was prepared and draped in the usual fashion. Anesthesia was provided with 1% lidocaine infiltrated locally. Using the modified Seldinger technique a 5 Nigerien sheath was placed into the femoral artery. Left heart catheterization was then carried out. The patient has had recent echocardiography demonstrating mildly reduced LV systolic function. I elected to not perform an left ventriculogram during this procedure. The left coronary artery was engaged and injected using a standard 5 Nigerien FL4 catheter. The right coronary artery was engaged and injected using a standard 5 Nigerien JR4 catheter. The same JR4 catheter was used to inject the saphenous vein grafts as well as the internal mammary graft. Following this the cineangiograms were reviewed. An angiogram was done of the femoral artery through the sheath after which I elected to have the sheath removed with direct manual compression. Procedure was well tolerated without apparent complication. She left the cardiac catheterization lab with no evidence of a groin hematoma. Findings:: Central aortic pressure is 168/80 the left main coronary is small and diffusely disease there is about 70% stenosis in the mid left main the left anterior descending is 100% occluded after a very small proximal diagonal branch takes its origin. The LAD is extremely small and diffusely diseased the circumflex is also small and diffusely diseased and is 100% occluded about 10 mm from its origin. The right coronary artery is dominant to the posterior circulation it is diffusely diseased and very small. Proximally there is 80-90% RCA stenosis. In the 2nd portion there is 99% subtotal stenosis. Distal to this there is severe diffuse disease I do not see any antegrade filling into the RPDA and appears to be closed the RPL branches are diffusely diseased and very small. Arrington graft to the LAD: The left internal mammary is a smooth nice segment of arterial conduit with no degenerative lesions seen. Its anastomosis into the mid LAD is nicely patent the LAD to which it is anastomosed is a very small diffusely attenuated artery in all segments. Saphenous vein graft to the circumflex is a medium caliber segment of saphenous vein there is visible stent material in this graft from near the beginning down to near the end of the vessel. There is no stenosis in the trunk of the graft is remaining nicely patent following PCI 1 year ago. The obtuse marginal branches to which is anastomosed are small and diffusely diseased in all segments. Saphenous vein graft to the diagonal shows it to be a large segment of some saphenous vein without degenerative changes. It is anastomosed to 2 diagonal branches in a sequential fashion. Both of these diagonal branches are very small and diffusely diseased in all segments. Saphenous vein graft to the right coronary artery shows to be a relatively large segment
--- NOTE | 2020-09-27 13:00 | PCPTNOTE ---
Attempted PT eval. Pt gone for procedure. Will try again tomorrow.
--- NOTE | 2020-09-27 14:21 | PM.IMPN ---
Progress Note: A&P Assessment and Plan (1) Non-ST elevation SD (NSTEMI): Code(s): I21.4 - Non-ST elevation (NSTEMI) myocardial infarction Status: Acute Assessment and Plan: See below, pt is going for heart catheterization today (2) CHF (congestive heart failure): Code(s): I50.9 - Heart failure, unspecified Status: Acute (3) Dyslipidemia: Code(s): E78.5 - Hyperlipidemia, unspecified Status: Acute (4) CAD (coronary artery disease), autologous vein bypass graft: Code(s): I25.810 - Atherosclerosis of coronary artery bypass graft(s) without angina pectoris Status: Acute (5) Systolic dysfunction: Code(s): I51.9 - Heart disease, unspecified Status: Chronic (6) Hypertension: Code(s): I10 - Essential (primary) hypertension Status: Chronic (7) Depression: Code(s): F32.9 - Major depressive disorder, single episode, unspecified Status: Chronic (8) Type 1 diabetes: Code(s): E10.9 - Type 1 diabetes mellitus without complications Status: Chronic (9) Anemia: Code(s): D64.9 - Anemia, unspecified Status: Acute Additional Plan Non ST-elevation SD initial troponin 0.161. Will do serial cardiac enzymes. Cardiology consultation in a.m.. Chest pain free with nitroglycerin and nitro patch placed in the ER. Lovenox 80 mg subcu q.12 hours. Aspirin daily Plavix Hypertension Hyperlipidemia Congestive heart failure ejection fraction 40-45% 04/2020 with grade 1 diastolic dysfunction: BNP mildly elevated Cerebral palsy with right leg weakness Anxiety depression Coronary artery disease status post CABG x6 in 1999, cardiac stents 08/2019 Type 1 diabetes on insulin Retinopathy History of right hip fracture 2019 Subjective Date/time seen: 09/27/20 14:21 Interval history: She has history of diabetes, congestive heart failure, coronary artery disease status post bypass x6 in 1999 with subsequent stent placement about 2 years ago. Admitted with high BPs pt needs heart cath today. No chest pain described. Review of Systems Review of Systems: All systems reviewed & are unremarkable except as noted in HPI and below Exam Narrative: Exam Narrative: GENERAL: The patient is well developed HEENT: Nonicteric sclerae, PERRLA CHEST: Chest wall is nontender. HEART: Regular rate and rhythm without murmur, rubs, or gallops LUNGS: Clear to auscultation bilaterally. no respiratory distress ABDOMEN: Soft, positive bowel sounds, non-tender, no organomegaly. SKIN: No rash, no excessive bruising, petechiae, or purpura. NEUROLOGIC: Cranial nerves II-XII intact, alert and oriented x 3, no gross motor deficits EXTREMITIES: no edema, cyanosis or clubbing Objective Data Vital Signs Vital Signs: Vital Signs - 24 hr 09/26/20 21:41 09/26/20 23:17 09/26/20 23:18 Temperature 36.9 C Pulse Rate 93 85 81 Respiratory Rate 36 H 20 Blood Pressure 157/61 H 131/49 L Pulse Oximetry 100 100 100 09/27/20 00:57 09/27/20 01:10 09/27/20 01:15 Temperature 36.7 C 36.6 C Pulse Rate 81 85 84 Respiratory Rate 21 H 18 Blood Pressure 144/58 H 143/84 H Pulse Oximetry 100 100 09/27/20 02:00 09/27/20 04:00 09/27/20 06:00 Temperature 36.3 C L Pulse Rate 88 85 84 Respiratory Rate 16 Blood Pressure 106/42 L Pulse Oximetry 100 09/27/20 08:00 09/27/20 08:56 09/27/20 08:59 Temperature 36.7 C Pulse Rate 79 77 Respiratory Rate 16 Blood Pressure 128/50 L Pulse Oximetry 97 97 09/27/20 10:00 09/27/20 12:00 09/27/20 13:05 Temperature 35.6 C L Pulse Rate 78 78 76 Respiratory Rate 20 19 Blood Pressure 120/70 120/51 L Pulse Oximetry 100 95 09/27/20 13:11 09/27/20 13:15 09/27/20 13:20 Temperature Pulse Rate 75 77 76 Respiratory Rate 14 17 17 Blood Pressure 147/57 H 137/62 139/59 L Pulse Oximetry 97 95 95 09/27/20 13:25 09/27/20 13:30 09/27/20 13:35 Temperature Pulse Rate 77 77 76 Respiratory Rate 17
--- NOTE | 2020-09-27 14:38 | SUR.PHASEII ---
RN called report to Jaylin CHISHOLM on IMU
[2020-09-27 14:43] LABS: Glucose Point of Care 238 mg/dl (65-105)
--- NOTE | 2020-09-27 15:00 | PC.NURSE ---
Pt returned from cardiac cath lab technologist via bed
[2020-09-27] MEDS: SODIUM CHLORIDE 0.9% IV 1,000 ML 125 ML IV CONT (15:06)
[2020-09-27] MEDS: INSULIN ASPART (*BKC) 100 UNITS/ML SUB-Q (15:42)
[2020-09-27 17:54] LABS: Glucose Point of Care 257 mg/dl (65-105)
[2020-09-27 20:51] LABS: Glucose Point of Care > 500 mg/dl (65-105)
[2020-09-27] MEDS: INSULIN ASPART (*BKC) 100 UNITS/ML 6 UNITS SUB-Q (21:15)
[2020-09-27] MEDS: MELATONIN 3 MG TABLET PO (21:20)
[2020-09-27] MEDS: oxyCODONE HCL (*CRX) 2.5 MG TAB IR PO (21:29)
[2020-09-28] VITALS (13 sets, daily range): BP systolic 126–159; BP diastolic 56–70; PULSE 75–96; RESP 16–20; TEMP 36.1–36.6; O2SAT 95–100
--- NOTE | 2020-09-28 | ECHO_ITS ---
Patient Info Name: Ilana Kim Age: 69 years : 1950 Gender: Female Ht: 65 in Wt: 188 lbs BSA: 2.01 m2 HR: 90 bpm BP: 142 / 62 mmHg Exam Date: 09/28/2020 2:15 PM Exam Location: [facility] Patient Status: Inpatient Admit Date: 09/27/2020 Staff Ordering Physician: Gabriel Alvarado DO Breaker Machine Tender: Akil Johnson, AMBIKA, RT Attending Provider: Castro Hedrick MD Referring Physician: Christiano ANDREW; Exam Type: CA echo doppler color flow Study Info Indications I50.9 - Heart failure, unspecified Complete two-dimensional, color flow and Doppler transthoracic echocardiogram is performed. Summary 1. Complete two-dimensional, color flow and Doppler transthoracic echocardiogram is performed. 2. Left ventricular chamber dimension is mildly enlarged. 3. Left ventricular systolic function is mildly reduced, estimated at 45-50%. 4. The left ventricular diastolic function is abnormal. 5. E/e' 19 is elevated. 6. Global longitudinal strain is abnormal at -12.3%. 7. Right ventricular systolic function is mildly reduced with abnormal TAPSE 1.6 cm. 8. Left atrial chamber dimension is moderately enlarged. 9. The mitral valve has moderately calcified annulus. 10. There is moderate to severe mitral valve regurgitation. 11. There is trace tricuspid valve regurgitation. 12. There is mild pulmonic regurgitation. Left Ventricle E/e' 19 is elevated. Global longitudinal strain is abnormal at -12.3%. Left ventricular chamber dimension is mildly enlarged. Left ventricular systolic function is mildly reduced, estimated at 45-50%. The left ventricular diastolic function is abnormal. Right Ventricle Right ventricular systolic function is mildly reduced with abnormal TAPSE 1.6 cm. Right ventricular chamber dimension is not well visualized. Left Atria Left atrial chamber dimension is moderately enlarged. Right Atria Right atrial chamber dimension is normal. Aortic Valve The aortic valve is trileaflet. There is mild aortic valve sclerosis. There is no aortic valve stenosis. There is no aortic valve regurgitation. Pulmonic Valve There is mild pulmonic regurgitation. Mitral Valve The mitral valve has moderately calcified annulus. There is no mitral valve stenosis. There is moderate to severe mitral valve regurgitation. Tricuspid Valve RVSP is not calculated due to an inadequate TR jet. There is trace tricuspid valve regurgitation. Pericardium/Pleural There is no pericardial effusion. Inferior Vena Cava Normal inferior vena cava with >50% collapse upon inspiration consistent with normal right atrial pressure, 5 mmHg. Aorta The aortic root size at the sinus of Valsalva is normal. Left Ventricular Outflow Tract Name Value Normal LVOT 2D LVOT Diameter 1.9 cm LVOT Doppler LVOT Peak Velocity 102 cm/s LVOT Peak Gradient 4 mmHg LVOT Mean Gradient 2 mmHg LVOT VTI 23 cm LVOT VTI/AV VTI Ratio 0.6 LVOT Stroke Volume 64 ml
[2020-09-28] MEDS: NITROGLYCERIN OINTMENT 1 INCH DOSE TRANSDERM ×2 (00:57→05:43)
[2020-09-28 02:04] LABS: Glucose Point of Care 328 mg/dl (65-105)
[2020-09-28] MEDS: oxyCODONE HCL (*CRX) 2.5 MG TAB IR PO (03:27)
[2020-09-28 05:11] LABS: Potassium 4.8 mmol/L (3.4-5.0)
--- NOTE | 2020-09-28 06:50 | ECG_ITS ---
Measurements Intervals [place] Rate: 74 P: 13 MO: 152 QRS: 24 QRSD: 106 T: 227 QT: 434 QTc: 483 Interpretive Statements SINUS RHYTHM LEFT VENTRICULAR HYPERTROPHY WITH ST-T CHANGE BORDERLINE ST-T WAVE ABNORMALITY- DIFFUSE LEADS BORDERLINE ECG Electronically Signed On 09-28-2020 11:07:42 CDT by Gabriel Alvarado D.O.
--- NOTE | 2020-09-28 07:19 | P.CDI_ITS ---
CDI Query Clarification Request -CHF has been documented - ejection fraction 40-45% 04/2020 with grade 1 diastolic dysfunction: BNP mildly elevated has been documented Please further clarify type and acuity of CHF: * Systolic *Acute * Diastolic *Chronic * Both systolic and diastolic *Acute on chronic * Unable to determine *Unable to determine
--- NOTE | 2020-09-28 07:19 | WPDCDIQUERY2 ---
CDI Query Clarification Request -CHF has been documented - ejection fraction 40-45% 04/2020 with grade 1 diastolic dysfunction: BNP mildly elevated has been documented Please further clarify type and acuity of CHF: Systolic *Acute Diastolic *Chronic Both systolic and diastolic *Acute on chronic Unable to determine *Unable to determine
[2020-09-28 07:25] LABS: Anion Gap 7 mmol/L (8-16); Blood Urea Nitrogen 28 mg/dL (7-17); Calcium 8.8 mg/dL (8.4-10.2); Carbon Dioxide 22 mmol/L (22-30); Chloride 105 mmol/L (98-107); Estimated CRCL calculation 58 ml/min; Estimated Glomerular Filt Rate > 60; Glucose 337 mg/dL (65-105); Potassium 4.9 mmol/L (3.4-5.0); Sodium 134 mmol/L (137-145)
--- NOTE | 2020-09-28 07:46 | PM.PNCARD ---
Progress Note: A&P Assessment and Plan (1) Non-ST elevation [place] (NSTEMI): Code(s): I21.4 - Non-ST elevation (NSTEMI) myocardial infarction Status: Acute Assessment and Plan: Troponin trending up, has not peaked at 1.2. On aspirin, Plavix, Coreg, Losartan, NTP, Lovenox dose at 11:49 pm last dose. Discussed results of left heart cath which shows very small diffuse [place] coronaries with patient bypass grafts including TUTTLE to LAD, SVG to OM with long stent seen, SVG to Diag to Diag, SVG to right PL to right PDA. Echo today. Check Troponin and EKG today. Increase Isosorbide mononitrate 60 mg daily and aspirin EC 325 mg daily. Monitor on telemetry for 1 more day. (2) Systolic dysfunction: Code(s): I51.9 - Heart disease, unspecified Status: Chronic Assessment and Plan: Euvolemic. (3) CAD (coronary artery disease), autologous vein bypass graft: Code(s): I25.810 - Atherosclerosis of coronary artery bypass graft(s) without angina pectoris Status: Acute (4) Hypertension: Code(s): I10 - Essential (primary) hypertension Status: Chronic Assessment and Plan: Stable. (5) Dyslipidemia: Code(s): E78.5 - Hyperlipidemia, unspecified Status: Acute Assessment and Plan: Was on Pravastatin 10 mg daily. Start Atorvastatin 40 mg daily for NSTEMI. (6) Type 1 diabetes: Code(s): E10.9 - Type 1 diabetes mellitus without complications Status: Chronic Assessment and Plan: Managed per hospitalist. Subjective Date/time seen: 09/28/20 07:46 Denies chest pain or sob. Has upper back and left arm pain. Right groin cath access site without pain/tenderness/bruising. Exam Const: General: cooperative, healthy appearing and comfortable Resp: Auscultation: clear to auscultation bilaterally, no crackles, no rales, no rhonchi and no wheezes Cardio: Jugular venous distension: no JVD Rate: regular rate Rhythm: regular rhythm Heart sounds: no murmurs Peripheral pulses: dorsalis pedis present GI: GI Palp: No abdominal tenderness and Yes Soft to palpation Neuro: General: oriented to person, oriented to place and oriented to time Extrem: Right lower extremity: no edema Left lower extremity: no edema Objective Data Vital Signs Vital Signs: Vital Signs - 24 hr 09/27/20 08:00 09/27/20 08:56 09/27/20 08:59 Temperature 98.1 F Pulse Rate 79 77 Respiratory Rate 16 Blood Pressure 128/50 L Pulse Oximetry 97 97 09/27/20 10:00 09/27/20 12:00 09/27/20 13:05 Temperature 96.1 F L Pulse Rate 78 78 76 Respiratory Rate 20 19 Blood Pressure 120/70 120/51 L Pulse Oximetry 100 95 09/27/20 13:11 09/27/20 13:15 09/27/20 13:20 Temperature Pulse Rate 75 77 76 Respiratory Rate 14 17 17 Blood Pressure 147/57 H 137/62 139/59 L Pulse Oximetry 97 95 95 09/27/20 13:25 09/27/20 13:30 09/27/20 13:35 Temperature Pulse Rate 77 77 76 Respiratory Rate 17 16 16 Blood Pressure 147/60 H 144/59 H 145/57 H Pulse Oximetry 95 95 95 09/27/20 13:40 09/27/20 13:45 09/27/20 14:00 Temperature Pulse Rate 77 76 77 Respiratory Rate 15 16 15 Blood Pressure 146/55 H 157/59 H 142/62 H Pulse Oximetry 95 98 98 09/27/20 14:15 09/27/20 14:30 09/27/20 14:45 Temperature Pulse Rate 78 78 76 Respiratory Rate 16 16 16 Blood Pressure 142/55 H 153/68 H 141/67 H Pulse Oximetry 97 100 100 09/27/20 15:43 09/27/20 16:00 09/27/20 16:45 Temperature 97.5 F L 97.7 F 98 F Pulse Rate 81 81 76 Respiratory Rate 18 18 18 Blood Pressure 115/59 L 132/59 L 123/45 L Pulse Oximetry 100 98 98 09/27/20 17:20 09/27/20 17:57 09/27/20 20:00 Temperature 96.9 F L Pulse Rate 79 93 85 Respiratory Rate 18 Blood Pressure 147/59 H Pulse Oximetry 97 09/27/20 22:00 09/27/20 23:25 09/28/20 00:00 Temperature 97.1 F L Pulse Rate 93 92 89 Respiratory Rate 18 Blood Pressure 132/52 L Pulse Oximetry 95 95 09/28/20 02:00 09/28/20 03:53
[2020-09-28] MEDS: SPIRONOLACTONE 12.5 MG TABLET PO (08:14)
[2020-09-28] MEDS: ASPIRIN 325 MG ENTERIC TABLET PO (08:14)
[2020-09-28] MEDS: ASCORBIC ACID 500 MG TABLET 1000 MG PO (08:14)
[2020-09-28] MEDS: ISOSORBIDE MONONITRATE 60 MG TAB.ER.24H PO (08:14)
[2020-09-28] MEDS: CITALOPRAM HYDROBROMIDE 20 MG TABLET 40 MG PO (08:14)
[2020-09-28] MEDS: THERAPEUTIC MULTIVITAMINS/MINERALS TAB (*BKC) 1 TABLET PO (08:15)
[2020-09-28] MEDS: LOSARTAN POTASSIUM 12.5 MG TABLET PO (08:15)
[2020-09-28] MEDS: CLOPIDOGREL BISULFATE 75 MG TABLET PO (08:15)
[2020-09-28] MEDS: ATORVASTATIN 40 MG TABLET PO (08:16)
[2020-09-28] MEDS: FUROSEMIDE 40 MG TABLET PO (08:16)
[2020-09-28] MEDS: FAMOTIDINE 20 MG/2 ML VIAL IV PUSH ×2 (08:16→20:26)
[2020-09-28] MEDS: polyethylene glycoL 3350 17 GM POWD.PACK PO (08:16)
[2020-09-28] MEDS: carvediloL 12.5 MG TABLET PO ×2 (08:16→17:33)
[2020-09-28] MEDS: POTASSIUM CHLORIDE 20 MEQ TABLET.ER PO (08:16)
[2020-09-28 08:20] LABS: Glucose Point of Care 379 mg/dl (65-105)
[2020-09-28] MEDS: INSULIN GLARGINE (*BKC) 100 UNITS/ML 30 UNITS SUB-Q (08:22)
[2020-09-28] MEDS: INSULIN ASPART (*BKC) 100 UNITS/ML SUB-Q ×2 (08:23→17:33)
[2020-09-28 12:33] LABS: Glucose Point of Care 414 mg/dl (65-105)
[2020-09-28] MEDS: INSULIN GLARGINE (*BKC) 100 UNITS/ML 20 UNITS SUB-Q (13:02)
[2020-09-28] MEDS: INSULIN ASPART (*BKC) 100 UNITS/ML 15 UNITS SUB-Q (13:03)
--- NOTE | 2020-09-28 14:41 | PM.PNCARD ---
Progress Note: A&P Assessment and Plan (1) Non-ST elevation [place] (NSTEMI): Code(s): I21.4 - Non-ST elevation (NSTEMI) myocardial infarction Status: Acute Assessment and Plan: Admitted with SOB, noted to have elevated troponin. LHC performed yesterday revealed: 1. Severe 3 vessel coronary artery disease with moderate left main disease as well as 100% chronic occlusion of the proximal LAD and proximal circumflex 2. severe diffuse disease of the dominant right coronary artery with 99% stenosis in the 2nd portion, 100% stenosis of the RPDA severe diffuse disease throughout. 3. Patent TUTTLE to the LAD with no degenerative changes but anastomosed to a severely diffusely diseased and attenuated LAD .4 patent saphenous vein graft to the OM1/OM2 with visible stent material from previous PCI last year. This graft is nicely patent but the marginal branches to which it is anastomosed are small and diffusely diseased in all segments. 5. Patent saphenous vein graft to the diagonals which is a nice caliber segment of saphenous vein also anastomosed to 2 very small diffusely diseased diagonal branches 6. patent saphenous vein graft to the RCA sequentially to the RPDA into the RPL. There is 99% stenosis at the origin of the RPL at the point of the anastomosis. This is a very small diffusely diseased artery and the RPDA is also diffusely diseased but with ELLIE 3 flow in it. 7. There are no opportunities for further mechanical revascularization identified Patient today is free from chest pain. R groin catheter insertion site free from pain, bleeding, hematoma. On ASA, statin, Plavix as medical therapy for her CAD. She is being followed by Dr. Alvarado. We will sign off at this point. Subjective Date/time seen: 09/28/20 14:41 Cardiology follow up Date of service 09/28/2020: Patient is feeling fine today. She does not have any chest pain. She does say she has shortness of breath with exertion which she says is new for her. No pain, bleeding, hematoma at R groin catheter insertion site. She says Dr. Alvarado has ordered some more testing to be done on her today. Review of Systems Review of Systems: All systems reviewed & are unremarkable except as noted in HPI and below Constitutional: Constitutional: Denies fatigue and Denies weakness Eyes: Eyes: Denies blurry vision ENT: Reports Normal hearing present Cardiovascular: Cardiovascular: Denies chest pain, Denies pedal edema, Denies leg edema, Denies lightheadedness and Denies palpitations Respiratory: Respiratory: Denies dyspnea and Reports dyspnea on exertion Gastrointestinal: Gastrointestinal: Denies constipation, Denies diarrhea, Denies nausea and Denies vomiting Genitourinary: Genitourinary: Denies nocturia and Denies urinary urgency Musculoskeletal: Musculoskeletal: Denies back pain and Denies neck pain Neurologic: Denies confusion and Denies headache(s) Psychiatric: Psychiatric: Denies confusion Endocrine: Endocrine: Denies palpitations Exam Const: General: comfortable and no acute distress HENMT: Head: normal to inspection Eyes: General: appearance normal, both eyes and all related structures Sclera: sclerae normal Neck: Neck: supple and No no JVD Resp: Effort & Inspection: normal respiratory effort Auscultation: clear to auscultation bilaterally Cardio: Rate: regular rate Rhythm: regular rhythm GI: GI Palp: Yes Soft to palpation Auscultation: normal bowel sounds Skin: General skin exam: normal color Wounds: no wounds Neuro: Cognition (Neuro): normal cognition Extrem: General: normal to inspection, no edema and no pedal edema Psych: Mental Status: mental status grossly normal Affect: normal affect Objective Data Vital Signs Vital Signs: Vital Signs - 24 hr 09/27/20 14:45 09/27/20 15:43 09/27/20 16:00 Temperature 36.4 C L 36.5 C Pulse Rate 76 81 81 Respiratory Rate 16 18 18 Blood Pressure 141/67 H 115/59 L 132/59 L Puls
[2020-09-28 16:41] LABS: Glucose Point of Care 384 mg/dl (65-105)
--- NOTE | 2020-09-28 17:05 | PM.IMPN ---
Progress Note: A&P Assessment and Plan (1) Non-ST elevation [place] (NSTEMI): Code(s): I21.4 - Non-ST elevation (NSTEMI) myocardial infarction Status: Acute Assessment and Plan: See below, pt is going for heart catheterization today 09/28/20 17:[address]-elevation [place] initial troponin 0.161. Will do serial cardiac enzymes. Cardiology consultation in a.m.. Chest pain free with nitroglycerin and nitro patch placed in the ER. Lovenox 80 mg subcu q.12 hours. Aspirin daily Plavix Hypertension Hyperlipidemia Congestive heart failure ejection fraction 40-45% 04/2020 with grade 1 diastolic dysfunction: BNP mildly elevated Cerebral palsy with right leg weakness Anxiety depression Coronary artery disease status post CABG x6 in 1999, cardiac stents 08/2019 Type 1 diabetes on insulin Retinopathy History of right hip fracture 2019, patient had a cardiac catheterization which showed patient has severe diffuse coronary artery disease which is unamendable revascularization no further workup was recommended, will continue to monitor patient will be seen by her Dining Room Coordinator and further recommendation to follow. (2) CHF (congestive heart failure): Code(s): I50.9 - Heart failure, unspecified Status: Acute (3) Dyslipidemia: Code(s): E78.5 - Hyperlipidemia, unspecified Status: Acute (4) CAD (coronary artery disease), autologous vein bypass graft: Code(s): I25.810 - Atherosclerosis of coronary artery bypass graft(s) without angina pectoris Status: Acute (5) Systolic dysfunction: Code(s): I51.9 - Heart disease, unspecified Status: Chronic (6) Hypertension: Code(s): I10 - Essential (primary) hypertension Status: Chronic (7) Depression: Code(s): F32.9 - Major depressive disorder, single episode, unspecified Status: Chronic (8) Type 1 diabetes: Code(s): E10.9 - Type 1 diabetes mellitus without complications Status: Chronic (9) Anemia: Code(s): D64.9 - Anemia, unspecified Status: Acute Additional Plan Non ST-elevation NE initial troponin 0.161. Will do serial cardiac enzymes. Cardiology consultation in a.m.. Chest pain free with nitroglycerin and nitro patch placed in the ER. Lovenox 80 mg subcu q.12 hours. Aspirin daily Plavix Hypertension Hyperlipidemia Congestive heart failure ejection fraction 40-45% 04/2020 with grade 1 diastolic dysfunction: BNP mildly elevated Cerebral palsy with right leg weakness Anxiety depression Coronary artery disease status post CABG x6 in 1999, cardiac stents 08/2019 Type 1 diabetes on insulin Retinopathy History of right hip fracture 2019 Subjective Date/time seen: 09/28/20 17:[address]-elevation [place] initial troponin 0.161. Will do serial cardiac enzymes. Cardiology consultation in a.m.. Chest pain free with nitroglycerin and nitro patch placed in the ER. Lovenox 80 mg subcu q.12 hours. Aspirin daily Plavix Hypertension Hyperlipidemia Congestive heart failure ejection fraction 40-45% 04/2020 with grade 1 diastolic dysfunction: BNP mildly elevated Cerebral palsy with right leg weakness Anxiety depression Coronary artery disease status post CABG x6 in 1999, cardiac stents 08/2019 Type 1 diabetes on insulin Retinopathy History of right hip fracture 2019, patient had a cardiac catheterization which showed patient has severe diffuse coronary artery disease which is unamendable revascularization no further workup was recommended, will continue to monitor patient will be seen by her Dining Room Coordinator and further recommendation to follow. Review of Systems Review of Systems: All systems reviewed & are unremarkable except as noted in HPI and below Exam Narrative: Exam Narrative: elderly frail Patient is comfortable, NAD HEENT: eyes are clear and none icteric LUNGS:CTA HEART: RR S1S2 ABD: BS+, Soft and nontender Lower extremities: no edema SKIN: nonjaundiced Neuro: grossly in
[2020-09-28 21:12] LABS: Glucose Point of Care 299 mg/dl (65-105)
[2020-09-29] VITALS (7 sets, daily range): BP systolic 147–155; BP diastolic 71–80; PULSE 79–94; RESP 18; TEMP 36.2–36.4; O2SAT 95–98
[2020-09-29] MEDS: ACETAMINOPHEN 325 MG TABLET 650 MG PO (04:08)
--- NOTE | 2020-09-29 07:35 | PM.PNCARD ---
Progress Note: A&P Assessment and Plan (1) Non-ST elevation [place] (NSTEMI): Code(s): I21.4 - Non-ST elevation (NSTEMI) myocardial infarction Status: Acute Assessment and Plan: Mild. Troponin trending up, peaked at 1.2. On aspirin, Plavix, Coreg, Losartan. Discussed results of left heart cath which shows very small diffuse [place] coronaries with patient bypass grafts including TUTTLE to LAD, SVG to OM with long stent seen, SVG to Diag to Diag, SVG to right PL to right PDA. Echo shows EF improved to 45-50%, diastolic dysfunction (E/e' 19), mod LAE, mod-severe MR, trace TR, mild PI. May d/c home from cardiology standpoint and to f/u with me in 2 weeks. (2) Systolic dysfunction: Code(s): I51.9 - Heart disease, unspecified Status: Chronic Assessment and Plan: Euvolemic. Stop KCL as Potassium 4.9 today. (3) CAD (coronary artery disease), autologous vein bypass graft: Code(s): I25.810 - Atherosclerosis of coronary artery bypass graft(s) without angina pectoris Status: Acute (4) Hypertension: Code(s): I10 - Essential (primary) hypertension Status: Chronic Assessment and Plan: Mildly high. Increase Coreg 25 mg BID. (5) Dyslipidemia: Code(s): E78.5 - Hyperlipidemia, unspecified Status: Acute Assessment and Plan: On Atorvastatin 40 mg daily for NSTEMI. (6) Type 1 diabetes: Code(s): E10.9 - Type 1 diabetes mellitus without complications Status: Chronic Assessment and Plan: Managed per hospitalist. Subjective Date/time seen: 09/29/20 07:35 States back pain responded to Tylenol. No chest pain or sob. Exam Const: General: cooperative, healthy appearing and comfortable Resp: Auscultation: clear to auscultation bilaterally, no crackles, no rales, no rhonchi and no wheezes Cardio: Jugular venous distension: no JVD Rate: regular rate Rhythm: regular rhythm Heart sounds: no murmurs Peripheral pulses: dorsalis pedis present GI: GI Palp: No abdominal tenderness and Yes Soft to palpation Neuro: General: oriented to person, oriented to place and oriented to time Extrem: Right lower extremity: no edema Left lower extremity: no edema Objective Data Vital Signs Vital Signs: Vital Signs - 24 hr 09/28/20 08:00 09/28/20 08:16 09/28/20 12:00 Temperature 97.1 F L Pulse Rate 89 87 75 Respiratory Rate 16 Blood Pressure 159/64 H Pulse Oximetry 100 09/28/20 12:32 09/28/20 16:00 09/28/20 17:33 Temperature 97.4 F L 97.3 F L Pulse Rate 76 80 80 Respiratory Rate 20 18 Blood Pressure 126/70 135/56 L Pulse Oximetry 100 100 09/28/20 20:00 09/28/20 20:01 09/29/20 00:00 Temperature 96.9 F L Pulse Rate 84 93 84 Respiratory Rate 18 Blood Pressure 150/65 H Pulse Oximetry 99 09/29/20 04:00 09/29/20 04:29 Temperature 97.6 F Pulse Rate 93 90 Respiratory Rate 18 Blood Pressure 147/71 H Pulse Oximetry 98 Intake/Output Intake/Output: Intake & Output 09/26/20 09/27/20 09/28/20 09/29/20 23:59 23:59 23:59 23:59 Intake Total 2500.0 1320 Output Total 4350 700 900 Balance -1850.0 620 -900 Meds/Results Medications: Active Medications Generic Name Dose Route Start Last Admin Trade Name Freq PRN Reason Stop Dose Admin Acetaminophen 650 mg 09/27/20 02:35 09/29/20 04:08 Acetaminophen 325 Mg Tablet PO 650 mg Q6H PRN Administration Fever Or Pain Albuterol 2 puff 09/27/20 02:35 Albuterol Sulfate (*Sp) Aerosol 1 Puff INHALATION Q4H PRN Shortness Of Breath Ascorbic Acid 1,000 mg 09/27/20 09:00 09/28/20 08:14 Ascorbic Acid 500 Mg Tablet PO 1,000 mg QAM VIKKI Administration Aspirin 325 mg 09/28/20 09:00 09/28/20 08:14 Aspirin 325 Mg Enteric Tablet PO 325 mg QAM VIKKI Administration Atorvastatin Calcium 40 mg 09/27/20 09:00 09/28/20 08:16 Atorvastatin 40 Mg Tablet PO 40 mg DAILY VIKKI Administration Budesonide/Formoterol Fumar
[2020-09-29] MEDS: ASPIRIN 325 MG ENTERIC TABLET PO (08:01)
[2020-09-29] MEDS: ASCORBIC ACID 500 MG TABLET 1000 MG PO (08:01)
[2020-09-29] MEDS: FAMOTIDINE 20 MG/2 ML VIAL IV PUSH (08:02)
[2020-09-29] MEDS: CLOPIDOGREL BISULFATE 75 MG TABLET PO (08:02)
[2020-09-29] MEDS: CITALOPRAM HYDROBROMIDE 20 MG TABLET 40 MG PO (08:02)
[2020-09-29] MEDS: ATORVASTATIN 40 MG TABLET PO (08:02)
[2020-09-29] MEDS: LOSARTAN POTASSIUM 12.5 MG TABLET PO (08:03)
[2020-09-29] MEDS: FUROSEMIDE 40 MG TABLET PO (08:03)
[2020-09-29] MEDS: ISOSORBIDE MONONITRATE 60 MG TAB.ER.24H PO (08:03)
[2020-09-29] MEDS: SPIRONOLACTONE 12.5 MG TABLET PO (08:05)
[2020-09-29] MEDS: THERAPEUTIC MULTIVITAMINS/MINERALS TAB (*BKC) 1 TABLET PO (09:04)
[2020-09-29] MEDS: carvediloL 25 MG TABLET PO (09:05)
[2020-09-29] MEDS: INSULIN ASPART (*BKC) 100 UNITS/ML SUB-Q ×3 (09:06→11:49)
[2020-09-29] MEDS: INSULIN GLARGINE (*BKC) 100 UNITS/ML 30 UNITS SUB-Q (09:06)
[2020-09-29 09:17] LABS: Glucose Point of Care 128 mg/dl (65-105)
[2020-09-29 12:40] LABS: EDCOVIDSCREEN Negative (Negative)
--- NOTE | 2020-09-29 12:42 | PM.DS ---
DS: Admitting Diagnosis Admitting Diagnosis Admitting Diagnosis: Chief Complaint: Shortness of breath and chest pain DS: Discharge Diagnosis Discharge Diagnosis (1) Non-ST elevation [place] (NSTEMI): Code(s): I21.4 - Non-ST elevation (NSTEMI) myocardial infarction Status: Acute Assessment and Plan: See below, pt is going for heart catheterization today 09/28/20 17:[address]-elevation [place] initial troponin 0.161. Will do serial cardiac enzymes. Cardiology consultation in a.m.. Chest pain free with nitroglycerin and nitro patch placed in the ER. Lovenox 80 mg subcu q.12 hours. Aspirin daily Plavix Hypertension Hyperlipidemia Congestive heart failure ejection fraction 40-45% 04/2020 with grade 1 diastolic dysfunction: BNP mildly elevated Cerebral palsy with right leg weakness Anxiety depression Coronary artery disease status post CABG x6 in 1999, cardiac stents 08/2019 Type 1 diabetes on insulin Retinopathy History of right hip fracture 2019, patient had a cardiac catheterization which showed patient has severe diffuse coronary artery disease which is unamendable revascularization no further workup was recommended, will continue to monitor patient will be seen by her Die Barber and further recommendation to follow. (2) CHF (congestive heart failure): Code(s): I50.9 - Heart failure, unspecified Status: Acute (3) Dyslipidemia: Code(s): E78.5 - Hyperlipidemia, unspecified Status: Acute (4) CAD (coronary artery disease), autologous vein bypass graft: Code(s): I25.810 - Atherosclerosis of coronary artery bypass graft(s) without angina pectoris Status: Acute (5) Systolic dysfunction: Code(s): I51.9 - Heart disease, unspecified Status: Chronic (6) Hypertension: Code(s): I10 - Essential (primary) hypertension Status: Chronic (7) Depression: Code(s): F32.9 - Major depressive disorder, single episode, unspecified Status: Chronic (8) Type 1 diabetes: Code(s): E10.9 - Type 1 diabetes mellitus without complications Status: Chronic (9) Anemia: Code(s): D64.9 - Anemia, unspecified Status: Acute DS: Summary Hospital Course Reason for hospitalization: Chief Complaint: Shortness of breath and chest pain Narrative: 69-year-old female who presents today with increasing shortness of breath since past 2 days. See also feels she has been having random chest pressors in her midsternal area radiating to her back and sometimes to her arm. She denies any increased swelling in her legs. She lives in an assisted living facility and does not use oxygen. See overall has not been feeling well since past few days with increased tiredness and weakness. EMS was called and her blood pressure was reported to be quite high at 200/100 mm Hg. She was brought to the ER for further evaluation. Hospital Course: patient had a cardiac catheterization which showed patient has severe diffuse coronary artery disease which is unamendable revascularization no further workup was recommended, will continue to monitor patient will be seen by her Die Barber and further recommendation to follow. Patient is seen by her furnace helper, patient is clinically stable, will discharge back to her [place] today Status at Discharge Functional status at discharge: uses cane/walker Overall status at discharge: patient is back to baseline Time Spent with Patient Time attestation: Total time spent providing and/or coordinating discharge services:Patient was seen and examined at the time of the discharge Condition at discharge is stable Code status: Full code. Time spent preparing discharge summary, discharge medications, discussing discharge planning with mattress spring encaser and patient is 35 minutes. Time spent: Greater than 30 minutes Exam Narrative: Exam Narrative: elderly frail Patient is comfortable, NAD HEENT: eyes are clear and none icteric LUNGS:CTA HEART: RR
[2020-09-29 13:18] LABS: Glucose Point of Care 303 mg/dl (65-105)
[2020-09-29 14:22] LABS: Glucose Point of Care 271 mg/dl (65-105)
== END 2020-09-29 14:29 | DRG 282 ==
LOC: ANHED 09-27 00:04 → ANHIMU 09-27 02:30
PROVIDERS: Internal Medicine Cardiovascular Disease; Specialist; Admitting Provider Internal Medicine; Emergency Provider Emergency Medicine; PCP Family Medicine; Visit Provider Family Medicine
PROC: 4A023N7 Measurement of Cardiac Sampling and Pressure, Left Heart, Percutaneous Approach (ICD-10-PCS; principal; 2020-09-27 11:40)
DX: I21.4 Non-ST elevation (NSTEMI) myocardial infarction (principal); I25.10 Atherosclerotic heart disease of native coronary artery without angina pectoris; Z20.822 Contact with and (suspected) exposure to COVID-19; G80.9 Cerebral palsy, unspecified; I11.0 Hypertensive heart disease with heart failure; I50.9 Heart failure, unspecified; E10.319 Type 1 diabetes mellitus with unspecified diabetic retinopathy without macular edema; D64.9 Anemia, unspecified; E78.5 Hyperlipidemia, unspecified; F32.9 Major depressive disorder, single episode, unspecified; F41.9 Anxiety disorder, unspecified; Z66 Do not resuscitate; Z79.4 Long term (current) use of insulin; Z96.41 Presence of insulin pump (external) (internal); Z79.899 Other long term (current) drug therapy; Z88.2 Allergy status to sulfonamides; Z95.1 Presence of aortocoronary bypass graft; Z95.5 Presence of coronary angioplasty implant and graft
CPT/HCPCS: 36415; 71046; 80048; 80053; 82803; 82948; 83690; 83880; 84132; 84484; 85025; 87426; 93005; 93306; 93455; 94640; 96372; 97116; 97161; 97165; 97535; 99291; A9270; C1887; C1894; C9803; J0461; J1644; J1650; J1815; J2250; J2405; J3010; J7030; J7040

== ENCOUNTER 2022-10-25 06:57 | Inpatient (IN) | payer MEDICARE, BC, MEDICAID, SELFPAY ==
[2022-10-25] VITALS (14 sets, daily range): BP systolic 147–195; BP diastolic 56–97; PULSE 78–99; RESP 18–28; TEMP 35.6–36.6; O2SAT 91–96; BMI 29.9
--- NOTE | ~2022-10-25 | XR_ITS ---
EXAMINATION: XR chest 2V DATE: 10/25/2022 08:20 INDICATION: Cough. TECHNIQUE: Frontal and lateral views of the chest were obtained. COMPARISON: Chest 2 views 09/26/2020, chest CT 04/06/2020 FINDINGS: There are Zoie B-lines, consistent mild pulmonary edema. No pleural effusion or pneumotho rax. The heart size is normal. Median sternotomy wires and mediastinal surgical clips are seen, likel y from prior coronary artery bypass grafting. Surgical clips in the right upper quadrant are likely f rom cholecystectomy. IMPRESSION: 1. Mild pulmonary edema. Reviewed, dictated and finalized at location A. IMPRESSION: 1. Mild pulmonary edema.
--- NOTE | ~2022-10-25 | US_ITS ---
EXAMINATION: US renal BI DATE: 10/27/2022 12:17 INDICATION: Acute kidney injury. TECHNIQUE: Multiple ultrasound grayscale images of the kidneys were obtained. COMPARISON: Chest CT 04/06/2020 FINDINGS: The right kidney measures 10.6 x 4.8 x 5.8 cm. The left kidney measures 10.1 x 5.2 x 4.4 cm. The kidn eys demonstrate normal parenchymal echogenicity. There is no hydronephrosis. The bladder is decompres sed by a Warner catheter. IMPRESSION: 1. Normal kidneys. No hydronephrosis. Reviewed, dictated and finalized at location A.
--- NOTE | 2022-10-25 07:05 | ECG_ITS ---
Measurements Intervals [place] Rate: 83 P: 31 NV: 143 QRS: 18 QRSD: 100 T: -49 QT: 376 QTc: 442 Interpretive Statements SINUS RHYTHM CANNOT RULE OUT SEPTAL INFARCT, AGE INDETERMINATE BORDERLINE ST-T WAVE ABNORMALITY- INF/LAT LEADS ABNORMAL ECG COMPARED TO ECG 09/28/2020 11:05:12 MYOCARDIAL INFARCT FINDING NOW PRESENT Electronically Signed On 10-25-2022 7:41:46 CDT by Gabriel Alvarado D.O.
[2022-10-25 07:27] LABS: Basophils Absolute Auto 0.1 K/mm3 (0.0-0.1); Basophils Percent Auto 0.6 % (0.2-1.2); Eosinophils Absolute Auto 0.1 K/mm3 (0-0.3); Hematocrit 39.4 % (37.0-47.0); Hemoglobin 12.8 g/dL (12.0-15.0); Immature Granulocyte Absolute 0.02 K/mm3 (0.00-0.031); Immature Granulocyte Percent A 0.2 % (0-0.5); Lymphocytes Absolute Auto 0.75 K/mm3 (0.9-3.2); Lymphocytes Percent Auto 8.5 % (18.3-44.2); Mean Corpuscular HGB Conc 32.5 g/dl (32-36); Mean Corpuscular Hemoglobin 30.5 pg (26-34); Mean Platelet Volume 8.8 fl (7.4-10.4); Monocytes Absolute Auto 0.9 K/mm3 (0.1-0.6); Monocytes Percent Auto 10.5 % (2.6-8.5); Neutrophils Percent Auto 79.2 % (45.5-73.1); Platelet Count Result 207 k/mm3 (150-375); Red Blood Count 4.19 M/mm3 (4.2-5.4); Red Cell Distribution Width 12.7 % (11.5-14.5); White Blood Count 8.8 K/mm3 (4.5-10.0)
[2022-10-25] MEDS: IPRATROPIUM BR 0.02% INH SOLN 0.5 MG/2.5 ML VIAL INHALATION ×2 (07:28→20:30)
[2022-10-25] MEDS: ALBUTEROL SULFATE NEB 2.5 MG/3 ML INH INHALATION ×2 (07:29→20:30)
[2022-10-25 07:38] LABS: INR 1.1; Prothrombin Time 14.6 Seconds (11.1-14.7)
[2022-10-25 07:39] LABS: Partial Thromboplastin Time 29.3 SECONDS (22.3-36.8)
[2022-10-25 07:40] LABS: Alanine Aminotransferase 25 U/L (6-35); Albumin Level 4.2 g/dL (3.5-5.1); Alkaline Phosphatase 111 U/L (38-126); Anion Gap 4 mmol/L (8-16); Aspartate Amino Transferase 46 U/L (14-36); Bilirubin,Total 0.5 mg/dL (0.2-1.3); Blood Urea Nitrogen 32 mg/dL (7-17); Calcium 9.1 mg/dL (8.4-10.2); Carbon Dioxide 32 mmol/L (22-30); Chloride 101 mmol/L (98-107); Estimated CRCL calculation 41 ml/min; Estimated Glomerular Filt Rate 44; Glucose 187 mg/dL (65-110); Potassium 5.2 mmol/L (3.4-5.0); Sodium 137 mmol/L (137-145)
[2022-10-25 07:54] LABS: NT Pro B Type Natriuretic Pept 2210 pg/mL (19.9-100); Troponin I < 0.012 ng/mL (0.000-0.034)
[2022-10-25] MEDS: SODIUM CHLORIDE 0.9% IV 1,000 ML 999 ML IV CONT (07:55)
[2022-10-25] MEDS: ACETAMINOPHEN 325 MG TABLET 650 MG PO (07:55)
[2022-10-25] MEDS: FUROSEMIDE INJ 40 MG/4 ML VIAL IV PUSH ×2 (09:19→22:14)
--- NOTE | 2022-10-25 09:33 | ED.SOB ---
HPI - SOB/Dyspnea General Chief Complaint: Shortness of Breath/Dyspnea Stated Complaint: SOB, cough Time Seen by Provider: 10/25/22 07:01 History of Present Illness HPI Narrative: Patient is a 71-year-old female who presents ER with shortness of breath. Worsening over the last 2 days but worse today. No runny nose or sore throat. Has frequent cough related to the shortness of breath. Nonproductive. Patient has history of heart failure. No new swelling in her legs. She does endorse some orthopnea. No alleviating factors. Related Data Home Medications Medication Instructions Recorded Confirmed ascorbic acid (vitamin C) 100 mg 500 mg PO DAILY 11/21/19 10/25/22 tablet (Vitamin C) aspirin 81 mg tablet,delayed 81 mg PO DAILY 11/21/19 10/25/22 release (Adult Low Dose Aspirin) clopidogrel 75 mg tablet (Plavix) 75 mg PO DAILY 11/21/19 10/25/22 furosemide 40 mg tablet (Lasix) 40 mg PO DAILY 11/21/19 10/25/22 insulin glargine 100 unit/mL 28 unit subcut HS 11/21/19 10/25/22 subcutaneous solution (Lantus U-100 Insulin) isosorbide mononitrate 30 mg 30 mg PO DAILY 11/21/19 10/25/22 tablet,extended release 24 hr losartan 25 mg tablet 12.5 mg PO DAILY 11/21/19 10/25/22 multivitamin with iron-mineral 1 tablet PO DAILY 11/21/19 10/25/22 ondansetron HCl 4 mg tablet 4 mg PO Q8H PRN Nausea 11/21/19 10/25/22 (Zofran) spironolactone 25 mg tablet 12.5 mg PO DAILY 11/21/19 10/25/22 acetaminophen 325 mg capsule 1,000 mg PO Q6H PRN Fever Or Pain 08/13/20 10/25/22 budesonide-formoterol HFA 80 2 puff inhalation Q12H 08/13/20 10/25/22 mcg-4.5 mcg/actuation aerosol inhaler (Symbicort) simethicone 125 mg chewable tablet 125 mg PO BID 08/13/20 10/25/22 (Gas Relief (simethicone)) dextrose 40 % oral gel (Glucose 10 g PO Q15M PRN Hypoglycemia 09/27/20 10/25/22 Gel) glucagon 1 mg solution for 1 mg IM PRN PRN hypoglemcia 09/27/20 10/25/22 injection atorvastatin 40 mg tablet 40 mg PO HS 10/25/22 10/25/22 cetirizine 10 mg tablet (Zyrtec) 10 mg PO DAILY 10/25/22 10/25/22 cholecalciferol (vitamin D3) 125 125 mcg PO DAILY 10/25/22 10/25/22 mcg (5,000 unit) tablet cyclobenzaprine 5 mg tablet 5 mg PO DAILY PRN muscle spasms 10/25/22 10/25/22 escitalopram oxalate 20 mg tablet 20 mg PO DAILY 10/25/22 10/25/22 gabapentin 300 mg capsule 300 mg PO Q8H 10/25/22 10/25/22 guaifenesin 100 mg/5 mL oral syrup 300 mg PO Q6H PRN Cough 10/25/22 10/25/22 insulin aspart U-100 100 unit/mL 2 unit subcut QACDINNER 10/25/22 10/25/22 (3 mL) subcutaneous pen (Novolog FlexPen U-100 Insulin aspart) insulin aspart U-100 100 unit/mL 4 unit subcut QACBREAK 10/25/22 10/25/22 (3 mL) subcutaneous pen (Novolog FlexPen U-100 Insulin aspart) insulin aspart U-100 100 unit/mL See Rx Instructions .Route .COMPLEX 10/25/22 10/25/22 (3 mL) subcutaneous pen (Novolog FlexPen U-100 Insulin aspart) insulin aspart U-100 100 unit/mL See Rx Instructions .Route .COMPLEX 10/25/22 10/25/22 (3 mL) subcutaneous pen (Novolog FlexPen U-100 Insulin aspart) melatonin 10 mg tablet 10 mg PO HS 10/25/22 10/25/22 menthol 10 % topical cream 1 applic topical TID PRN Pain 10/25/22 10/25/22 (Biofreeze (menthol)) montelukast 10 mg tablet 10 mg PO HS 10/25/22 10/25/22 oxycodone 5 mg tablet 2.5 mg PO BID PRN Pain Rated 4-6 10/25/22 10/25/22 sodium chloride 0.65 % nasal spray 2 spray intranasal Q1H PRN 10/25/22 10/25/22 aerosol Congestion trazodone 50 mg tablet 50 mg PO HS 10/25/22 10/25/22 Allergies Allergy/AdvReac Type Severity Reaction Status Date / Time Sulfa (Sulfonamide Allergy Mild Rash Verified 10/25/22 11:32 Antibiotics) Review of Systems Review of Systems: All systems reviewed & are unremarkable except as noted in HPI and below Constitutional: Constitutional: Denies chills, Denies fatigue and Denies fever(s) Cardiovascular: Cardiovascular: Denies chest pain, Denies rapid heart rate and Denies radiating jaw, neck or arm pain Respiratory: Respiratory:
--- NOTE | 2022-10-25 11:19 | ADMGEN ---
This patient, Ilana Kim, was admitted to [facility] Surg Room 304-01. Patient/family oriented to hospital policies and general routines including ID bracelet, bed and alarms, visiting hours, pain management, procedures, bathroom and other care routines, personal items, smoking policy, room service/diet, and visiting hours. Information on how to activate the Rapid Response Team has been discussed. Patient/Family are encouraged to report perceived risks to care and to ask questions if they do not understand what they are told or what they should do.
[2022-10-25 11:28] LABS: Glucose Point of Care 115 mg/dl (65-105)
--- NOTE | 2022-10-25 12:49 | PM.IMHP ---
H&P: HPI History of Present Illness Date/Time: 10/25/22 12:49 Chief Complaint: Shortness of breath Narrative: This is a 71-year-old female patient who resides at [facility]. She has a history of congestive heart failure and COPD. She also has cerebral palsy and is wheelchair bound. The patient stated that she has had a significant cough but has been afebrile. Her potassium is mildly elevated at 5.2. BUN 32 and creatinine is 1.2. Her GFR is 44. Her blood glucose is 187. Her BNP is 2210. She denies any weight gain or edema to her lower extremities. Chest x-ray shows some mild pulmonary edema. The patient was given a nebulizer treatment, Tylenol and Lasix in the emergency room. The patient is being admitted to observation status on the date of service of 10/25/2022. Review of Systems Review of Systems: All systems reviewed & are unremarkable except as noted in HPI and below Constitutional: Constitutional: Reports as per HPI and Reports no additional constitutional complaints Eyes: Eyes: Reports as per HPI and Reports no additional eye complaints ENT: Reports system reviewed and no additional complaints, except as documented and Reports Normal hearing present Cardiovascular: Cardiovascular: Reports no additional cardiovascular complaints Respiratory: Respiratory: Reports no additional respiratory complaints and Reports no additional respiratory complaints Gastrointestinal: Gastrointestinal: Reports as per HPI and Reports no additional gastrointestinal complaints Musculoskeletal: Musculoskeletal: Reports no additional musculoskeletal complaints Integumentary/Breasts: Skin/Breast: Reports system reviewed and no additional complaints, except as docu and Reports as per HPI Neurologic: Reports system reviewed and no additional complaints, except as documented, Reports as per HPI and Reports Normal hearing present Psychiatric: Psychiatric: Reports no additional psychiatric complaints and Reports as per HPI Endocrine: Endocrine: Reports no additional endocrine complaints Hematologic/Lymphatic: Hematologic/Lymphatic: Reports no additional hematologic/lymphatic complaints Allergic/Immunologic: Allergic/Immunologic: Reports no additional allergic/immunologic complaints [facility] Past Medical History Medical History (Updated 10/25/22 @ 15:40 by Bre Garcia NP) Anxiety Cerebral palsy Right side weak, right leg COPD (chronic obstructive pulmonary disease) Depression Started after her of cancer and then she continued to take Celexa Heart attack Hypertension Hypoglycemia Retinopathy Right hip pain Type 1 diabetes Surgical History Surgical History H/O: hysterectomy History of heart artery stent 2 cardiac stents 08/2019 Hx of CABG X6 in 1999, 6 vessels Family History Family History Mother Cancer Father Asthma Sibling Lung cancer Lung disorder The other brother Other Family history of cardiovascular disease Family history of lung disease Family history of mental disorder Social History Social History (Updated 10/25/22 @ 15:41 by Bre Garcia NP) Social History: The patient never had any children. She is . She resides at [facility]. Her her nephew Kb is her durable power assistant district attorney for healthcare. She is lifelong nonsmoker does not drink any alcohol. No marijuana use. She is disabled. Code status DNR Smoking status: Never smoker Alcohol intake: never Substance use: never Lack of Transportation: No Lack of Food: Never True Current Housing: I Have Housing Concerned About Future Housing: No Difficulty Paying Gas/Electric Bills: No Difficulty Paying for Meds: No Currently Unemployed: No Education: Decline to Answer Difficulty w/ Childcare or Family Care: No Gender identity (if
[2022-10-25] MEDS: guaiFENesin/DEXTROMETHORPHAN 10 ML UDC PO ×2 (15:10→21:46)
[2022-10-25] MEDS: HYDROcodone/acetaminophen (*CRX) 5-325 MG TABLET 1 TAB PO (15:10)
[2022-10-25 16:45] LABS: Glucose Point of Care 296 mg/dl (65-105)
[2022-10-25] MEDS: INSULIN ASPART (*BKC) 100 UNITS/ML SUB-Q ×2 (17:05)
[2022-10-25] MEDS: SIMETHICONE 125 MG CHEW TAB PO (17:05)
--- NOTE | 2022-10-25 17:27 | PC.NURSE ---
Talked to director of rotc at [facility] to send over patient's advance directive to be put into paper chart. Per patient's POA and julienne Mota [place], patient is a DNR.
[2022-10-25] MEDS: carvediloL 25 MG TABLET PO (18:04)
[2022-10-25] MEDS: hydrALAZINE HCL 20 MG/ML VIAL 10 MG IV PUSH (18:05)
[2022-10-25] MEDS: FLUTICASONE/SALMETEROL 45-21 MCG INHALER 1 PUFF 2 PUFF INHALATION (20:30)
[2022-10-25 21:27] LABS: Glucose Point of Care 277 mg/dl (65-105)
[2022-10-25] MEDS: MELATONIN 5 MG TABLET 10 MG PO (21:56)
[2022-10-25] MEDS: ATORVASTATIN 40 MG TABLET PO (21:56)
[2022-10-25] MEDS: MONTELUKAST SODIUM 10 MG TABLET PO (21:57)
[2022-10-25] MEDS: GABAPENTIN 300 MG CAPSULE PO (21:57)
[2022-10-25] MEDS: traZODone HCL 50 MG TABLET PO (21:57)
[2022-10-25] MEDS: INSULIN GLARGINE (*BKC) 100 UNITS/ML 28 UNITS SUB-Q (22:16)
[2022-10-26] VITALS (11 sets, daily range): BP systolic 102–124; BP diastolic 48–59; PULSE 80–87; RESP 18–20; TEMP 36.5–37.2; O2SAT 93–98
--- NOTE | 2022-10-26 | ECHO_ITS ---
Patient Info Name: Ilana Kim Age: 71 years : 1950 Gender: Female Ht: 65 in Wt: 186 lbs BSA: 2.00 m2 HR: 84 bpm BP: 112 / 59 mmHg Heart Rhythm: Sinus Rhythm Technical Quality: Fair Exam Date: 10/26/2022 8:15 AM Exam Location: [facility]monary Patient Status: Outpatient Admit Date: 10/25/2022 Staff Ordering Physician: Bre Garcia NP Housekeeper And Laundry Assistant: Bhavya Gagnon RDCS Attending Provider: Zack Oreilly MD Referring Physician: Jose FISH; Exam Type: CA echo doppler color flow Study Info Indications - chf Complete two-dimensional, color flow and Doppler transthoracic echocardiogram is performed. Summary 1. Complete two-dimensional, color flow and Doppler transthoracic echocardiogram is performed. 2. Left ventricular chamber dimension is normal. 3. Left ventricular systolic function is normal, estimated at 55-60%. 4. There is mild concentric increased left ventricular wall thickness. 5. The left ventricular diastolic function is grade I diastolic dysfunction. 6. E/e' 17 is elevated. 7. Global longitudinal strain is abnormal at -12.0%. 8. Right ventricular systolic function is reduced based on abnormal TAPSE 1.6 cm. 9. There is mild aortic valve sclerosis. 10. The mitral valve has moderately calcified annulus. 11. There is mild mitral valve regurgitation. 12. No pulmonary hypertension, estimated pulmonary arterial systolic pressure is 28 mmHg. Left Ventricle E/e' 17 is elevated. Global longitudinal strain is abnormal at -12.0%. Left ventricular chamber dimension is normal. Left ventricular systolic function is normal, estimated at 55-60%. There is mild concentric increased left ventricular wall thickness. The left ventricular diastolic function is grade I diastolic dysfunction. Right Ventricle Right ventricular chamber dimension is not well visualized. Right ventricular systolic function is reduced based on abnormal TAPSE 1.6 cm. Left Atria Left atrial chamber dimension is normal. Right Atria Right atrial chamber dimension is normal. Aortic Valve The aortic valve is trileaflet. There is mild aortic valve sclerosis. There is no aortic valve stenosis. There is no aortic valve regurgitation. Pulmonic Valve There is no pulmonic regurgitation. Mitral Valve The mitral valve has moderately calcified annulus. There is no mitral valve stenosis. There is mild mitral valve regurgitation. Tricuspid Valve There is no tricuspid valve regurgitation. No pulmonary hypertension, estimated pulmonary arterial systolic pressure is 28 mmHg. Pericardium/Pleural There is no pericardial effusion. Inferior Vena Cava Normal inferior vena cava with >50% collapse upon inspiration consistent with normal right atrial pressure, 5 mmHg. Aorta The aortic root size at the sinus of Valsalva is normal. Left Ventricular Outflow Tract Name Value Normal LVOT 2D LVOT Diameter 2.0 cm LVOT Doppler LVOT Peak Gradient 3 mmHg LVOT Mean Gradient 2 mmHg LVOT VTI 15 cm LVOT VTI/AV VTI Ratio 0.6 LVOT Stroke Volume 45 ml LVOT CO
[2022-10-26 02:10] LABS: Glucose Point of Care 253 mg/dl (65-105)
[2022-10-26] MEDS: IPRATROPIUM BR 0.02% INH SOLN 0.5 MG/2.5 ML VIAL INHALATION ×4 (02:20→20:07)
[2022-10-26] MEDS: ALBUTEROL SULFATE NEB 2.5 MG/3 ML INH INHALATION ×4 (02:20→20:07)
[2022-10-26 06:17] LABS: Basophils Percent Auto 0.5 % (0.2-1.2); Eosinophils Percent Auto 0.7 % (0-4.4); Hemoglobin 12.9 g/dL (12.0-15.0); Immature Granulocyte Absolute 0.02 K/mm3 (0.00-0.031); Immature Granulocyte Percent A 0.4 % (0-0.5); Lymphocytes Absolute Auto 1.19 K/mm3 (0.9-3.2); Lymphocytes Percent Auto 21.2 % (18.3-44.2); Mean Corpuscular HGB Conc 33.1 g/dl (32-36); Mean Corpuscular Hemoglobin 30.5 pg (26-34); Mean Corpuscular Volume 92.2 fl (80-100); Mean Platelet Volume 9.3 fl (7.4-10.4); Monocytes Percent Auto 17.3 % (2.6-8.5); Neutrophils Absolute Auto 3.4 K/mm3 (1.3-6.7); Neutrophils Percent Auto 59.9 % (45.5-73.1); Platelet Count Result 208 k/mm3 (150-375); Red Blood Count 4.23 M/mm3 (4.2-5.4); Red Cell Distribution Width 13.2 % (11.5-14.5); White Blood Count 5.6 K/mm3 (4.5-10.0)
[2022-10-26] MEDS: guaiFENesin/DEXTROMETHORPHAN 10 ML UDC PO ×3 (06:19→20:50)
[2022-10-26] MEDS: GABAPENTIN 300 MG CAPSULE PO ×3 (06:20→21:09)
[2022-10-26 06:33] LABS: Alanine Aminotransferase 29 U/L (6-35); Albumin Level 3.9 g/dL (3.5-5.1); Alkaline Phosphatase 92 U/L (38-126); Anion Gap 6 mmol/L (8-16); Aspartate Amino Transferase 68 U/L (14-36); Bilirubin,Total 0.5 mg/dL (0.2-1.3); Blood Urea Nitrogen 30 mg/dL (7-17); Calcium 8.8 mg/dL (8.4-10.2); Carbon Dioxide 31 mmol/L (22-30); Chloride 100 mmol/L (98-107); Estimated CRCL calculation 45 ml/min; Estimated Glomerular Filt Rate 49; Glucose 217 mg/dL (65-110); Potassium 3.8 mmol/L (3.4-5.0); Sodium 137 mmol/L (137-145)
[2022-10-26 08:04] LABS: Glucose Point of Care 222 mg/dl (65-105)
[2022-10-26] MEDS: INSULIN ASPART (*BKC) 100 UNITS/ML SUB-Q ×4 (09:13→16:55)
[2022-10-26] MEDS: polyethylene glycoL 3350 17 GM POWD.PACK PO (09:19)
[2022-10-26] MEDS: LOSARTAN POTASSIUM 12.5 MG TABLET PO (09:22)
[2022-10-26] MEDS: FAMOTIDINE 20 MG TABLET PO (09:22)
[2022-10-26] MEDS: ASPIRIN 81 MG ENTERIC TABLET PO (09:23)
[2022-10-26] MEDS: SPIRONOLACTONE 12.5 MG TABLET PO (09:24)
[2022-10-26] MEDS: LORATADINE 10 MG TABLET PO (09:24)
[2022-10-26] MEDS: ISOSORBIDE MONONITRATE 30 MG TAB.ER.24H PO (09:24)
[2022-10-26] MEDS: CLOPIDOGREL BISULFATE 75 MG TABLET PO (09:24)
[2022-10-26] MEDS: CHOLECALCIFEROL 1,000 UNITS TABLET 5000 UNITS PO (09:25)
[2022-10-26] MEDS: carvediloL 25 MG TABLET PO ×2 (09:25→20:48)
[2022-10-26] MEDS: SIMETHICONE 125 MG CHEW TAB PO ×2 (09:25→16:53)
[2022-10-26] MEDS: ESCITALOPRAM OXALATE 10 MG TABLET 20 MG PO (09:25)
[2022-10-26] MEDS: ASCORBIC ACID 500 MG TABLET PO (09:26)
[2022-10-26] MEDS: THERAPEUTIC MULTIVITAMINS/MINERALS TAB (*BKC) 1 TABLET PO (09:26)
[2022-10-26] MEDS: FUROSEMIDE INJ 40 MG/4 ML VIAL IV PUSH ×2 (09:29→20:49)
[2022-10-26] MEDS: FLUTICASONE/SALMETEROL 45-21 MCG INHALER 1 PUFF 2 PUFF INHALATION ×2 (09:51→20:06)
[2022-10-26 10:33] LABS: SARS-CoV-2 RNA PCR Negative (Negative)
--- NOTE | 2022-10-26 11:07 | PM.IMPN ---
Progress Note: A&P Assessment and Plan (1) CHF (congestive heart failure): Code(s): I50.9 - Heart failure, unspecified Status: Acute Assessment and Plan: Patient presents with shortness of breath. Chest x-ray shows mild pulmonary edema. Pro-BNP was 2210. Was started on IV Lasix. Recent echocardiogram reviewed. Echocardiogram has been repeated with results pending. COVID test was negative. Renal function stable. Continue IV diuretics. Etiology of her acute flare is unclear. Continue with Coreg, Spironolactone and losartan. (2) COPD (chronic obstructive pulmonary disease): Code(s): J44.9 - Chronic obstructive pulmonary disease, unspecified Status: Acute Assessment and Plan: Some wheezing. She is a lifelong nonsmoker. Asthma? Continue with inhalers and nebulizer treatments. Consider steroids. (3) Hypertension: Code(s): I10 - Essential (primary) hypertension Status: Chronic Assessment and Plan: Patient's blood pressure was reviewed on 10/26 Blood pressure was elevated but better this morning. Will continue to monitor (4) Type 1 diabetes: Code(s): E10.9 - Type 1 diabetes mellitus without complications Status: Chronic Assessment and Plan: The patient's blood glucose was reviewed on 10/26 Glucose remains elevated Continue AccuCheks covering with sliding scale. Hypoglycemia protocol available as needed. Continue current medications. Resume breakfast insulin. Check A1c. Diabetic diet (5) Depression with anxiety: Code(s): F41.8 - Other specified anxiety disorders Status: Acute Assessment and Plan: Mood stable. Continue with Lexapro and trazodone Subjective Date/time seen: 10/26/22 11:07 Interval history: 71yo female with CHF, COPD, DM and cerebral palsy here for shortness of breath. Assuming care. Chart reviewed. Patient does have a nonproductive cough over the past week. She was given cough medicines but no antibiotics. She presents here with shortness of breath. She states her shortness of breath is better today. No chest pain. She does not wear oxygen home. She does not wear CPAP. She has no history of sleep apnea. She does not smoke. She has been compliant with her Lasix at the facility. She denies that she has had any dietary indiscretions recently. Exam Narrative: AF 98.0 112/59 84 20 93% ra Gen - NARD Chest - expiratory wheezes with inspiratory rhonchi. nml RR CV - RRR S1/S2 Abd - Soft, NT/ND, Positive BS Ext - No pedal edema. Negative Homans Psych - Nml mood and affect Skin - Warm and dry Objective Data Vital Signs Vital Signs: Vital Signs - 24 hr 10/25/22 11:10 10/25/22 13:43 10/25/22 14:00 Temperature 96.0 F L 96.5 F L Pulse Rate 85 87 Respiratory Rate 20 18 Blood Pressure 170/97 H 184/67 H Pulse Oximetry 95 93 Oxygen Delivery Room Air 10/25/22 17:39 10/25/22 20:30 10/25/22 20:30 Temperature Pulse Rate 95 95 Respiratory Rate 20 Blood Pressure 195/70 H Pulse Oximetry 91 Oxygen Delivery Room Air 10/25/22 20:40 10/25/22 21:50 10/26/22 02:20 Temperature 97.8 F Pulse Rate 92 99 87 Respiratory Rate 20 24 H 20 Blood Pressure 160/72 H Pulse Oximetry 91 Oxygen Delivery 10/26/22 02:35 10/26/22 06:00 10/26/22 09:25 Temperature 98.0 F Pulse Rate 85 84 80 Respiratory Rate 20 20 Blood Pressure 112/59 L Pulse Oximetry 96 Oxygen Delivery 10/26/22 09:51 10/26/22 09:56 10/26/22 10:03 Temperature Pulse Rate 81 81 84 Respiratory Rate 18 18 20 Blood Pressure Pulse Oximetry 93 Oxygen Delivery Room Air Intake/Output Intake/Output: Intake & Output 10/23/22 10/24/22 10/25/22 10/26/22 23:59 23:59 23:59 23:59 Intake Total 1712 300 Output Total 400 500 Balance 1312 -200 Meds/Results Medications: Active Medications Generic Name Dose Route Start Last Admin Trade Name Freq PRN Gisel
[2022-10-26 11:33] LABS: Glucose Point of Care 335 mg/dl (65-105)
[2022-10-26 16:47] LABS: Glucose Point of Care 350 mg/dl (65-105)
[2022-10-26] MEDS: ATORVASTATIN 40 MG TABLET PO (20:48)
[2022-10-26] MEDS: MELATONIN 5 MG TABLET 10 MG PO (20:48)
[2022-10-26] MEDS: MONTELUKAST SODIUM 10 MG TABLET PO (20:48)
[2022-10-26] MEDS: traZODone HCL 50 MG TABLET PO (20:49)
[2022-10-26] MEDS: INSULIN GLARGINE (*BKC) 100 UNITS/ML 28 UNITS SUB-Q (21:09)
[2022-10-26 21:20] LABS: Glucose Point of Care 158 mg/dl (65-105)
[2022-10-27] VITALS (13 sets, daily range): BP systolic 102–134; BP diastolic 48–72; PULSE 77–87; RESP 18; TEMP 36.2–36.8; O2SAT 92–100
[2022-10-27] MEDS: IPRATROPIUM BR 0.02% INH SOLN 0.5 MG/2.5 ML VIAL INHALATION ×4 (00:47→19:51)
[2022-10-27] MEDS: ALBUTEROL SULFATE NEB 2.5 MG/3 ML INH INHALATION ×4 (00:48→19:51)
[2022-10-27] MEDS: FLUTICASONE/SALMETEROL 45-21 MCG INHALER 1 PUFF 2 PUFF INHALATION ×2 (07:05→19:51)
[2022-10-27 07:46] LABS: Glucose Point of Care 94 mg/dl (65-105)
[2022-10-27 07:46] LABS: Alanine Aminotransferase 30 U/L (6-35); Albumin Level 3.7 g/dL (3.5-5.1); Alkaline Phosphatase 80 U/L (38-126); Anion Gap 9 mmol/L (8-16); Aspartate Amino Transferase 73 U/L (14-36); Bilirubin,Total 0.5 mg/dL (0.2-1.3); Blood Urea Nitrogen 51 mg/dL (7-17); Calcium 8.6 mg/dL (8.4-10.2); Carbon Dioxide 30 mmol/L (22-30); Chloride 97 mmol/L (98-107); Estimated CRCL calculation 19 ml/min; Estimated Glomerular Filt Rate 18; Glucose 111 mg/dL (65-110); Magnesium 2.4 mg/dL (1.6-2.3); Potassium 4.4 mmol/L (3.4-5.0); Sodium 136 mmol/L (137-145)
[2022-10-27] MEDS: polyethylene glycoL 3350 17 GM POWD.PACK PO (08:44)
[2022-10-27] MEDS: CHOLECALCIFEROL 1,000 UNITS TABLET 5000 UNITS PO (08:46)
[2022-10-27] MEDS: carvediloL 25 MG TABLET PO ×2 (08:46→21:03)
[2022-10-27] MEDS: LORATADINE 10 MG TABLET PO (08:46)
[2022-10-27] MEDS: FAMOTIDINE 20 MG TABLET PO (08:46)
[2022-10-27] MEDS: ISOSORBIDE MONONITRATE 30 MG TAB.ER.24H PO (08:47)
[2022-10-27] MEDS: ASCORBIC ACID 500 MG TABLET PO (08:47)
[2022-10-27] MEDS: ESCITALOPRAM OXALATE 10 MG TABLET 20 MG PO (08:47)
[2022-10-27] MEDS: THERAPEUTIC MULTIVITAMINS/MINERALS TAB (*BKC) 1 TABLET PO (08:47)
[2022-10-27] MEDS: LOSARTAN POTASSIUM 12.5 MG TABLET PO (08:47)
[2022-10-27] MEDS: SIMETHICONE 125 MG CHEW TAB PO ×2 (08:47→16:44)
[2022-10-27] MEDS: CLOPIDOGREL BISULFATE 75 MG TABLET PO (08:47)
[2022-10-27] MEDS: ASPIRIN 81 MG ENTERIC TABLET PO (08:47)
[2022-10-27] MEDS: SPIRONOLACTONE 12.5 MG TABLET PO (08:48)
[2022-10-27] MEDS: FUROSEMIDE INJ 40 MG/4 ML VIAL IV PUSH (08:50)
[2022-10-27] MEDS: SODIUM CHLORIDE 0.9% IV 1,000 ML 100 ML IV CONT (09:07)
[2022-10-27 10:30] LABS: Hemoglobin A1C 9.1 % (<5.7)
--- NOTE | 2022-10-27 10:31 | PM.IMPN ---
Progress Note: A&P Assessment and Plan (1) BLADE (acute kidney injury): Code(s): N17.9 - Acute kidney failure, unspecified Status: Acute Assessment and Plan: Renal function doubled with Cr 1.1 yesterday and now 2.6. Could be related to HARRIS and/or over diuresis. Stop Lasix. Hold Aldactone and Cozaar. Check renal US. NS x 1Liter. Repeat renal function later today. (2) CHF (congestive heart failure): Code(s): I50.9 - Heart failure, unspecified Status: Acute Assessment and Plan: Patient presents with shortness of breath felt to have acute/chronic diastolic CHF. Chest x-ray shows mild pulmonary edema. Pro-BNP was 2210. Was started on IV Lasix. Echo with 55% with Grade I diastolic dysfunction. COVID test was negative. Renal function much worse. Stop IV diuretics. Etiology of her acute flare is unclear. Continue with Coreg but hold Spironolactone and losartan. (3) Urine retention: Code(s): R33.9 - Retention of urine, unspecified Status: Acute Assessment and Plan: Urine retention noted and Warner placed. Not on anti-cholenergic meds. Warner voiding trial in a few days. Increase activity (4) COPD (chronic obstructive pulmonary disease): Code(s): J44.9 - Chronic obstructive pulmonary disease, unspecified Status: Acute Assessment and Plan: Some wheezing. She is a lifelong nonsmoker. Asthma? Continue with inhalers and nebulizer treatments. (5) Hypertension: Code(s): I10 - Essential (primary) hypertension Status: Chronic Assessment and Plan: Patient's blood pressure was reviewed on 10/27 Blood pressure better Will continue to monitor (6) Type 1 diabetes: Code(s): E10.9 - Type 1 diabetes mellitus without complications Status: Chronic Assessment and Plan: A1c 9.1. The patient's blood glucose was reviewed on 10/27 Glucose remains elevated Continue AccuCheks covering with sliding scale. Hypoglycemia protocol available as needed. Continue current medications. (7) Depression with anxiety: Code(s): F41.8 - Other specified anxiety disorders Status: Acute Assessment and Plan: Mood stable. Continue with Lexapro and trazodone Subjective Date/time seen: 10/27/22 10:31 Interval history: 71yo female with CHF, COPD, DM and cerebral palsy here for shortness of breath. Patient slept well. Cough is better. She had urine retention overnight with poor urine output. She had a Warner catheter placed this morning with 900 mL in bladder. No history of urine retention. Exam Narrative: AF 98.3 118/72 811 8 93% ra Gen - NARD Chest - Left base inspiratory crackles. Otherwise clear. CV - RRR S1/S2 Abd - Soft, NT/ND, Positive BS Ext - No pedal edema Psych - Nml mood and affect Skin - Warm and dry Objective Data Vital Signs Vital Signs: Vital Signs - 24 hr 10/26/22 14:04 10/26/22 14:00 10/26/22 20:08 Temperature 97.7 F Pulse Rate 82 80 84 Respiratory Rate 18 18 18 Blood Pressure 102/48 L Pulse Oximetry 98 Oxygen Delivery 10/26/22 22:00 10/27/22 00:49 10/27/22 00:50 Temperature 98.9 F Pulse Rate 80 86 84 Respiratory Rate 18 18 18 Blood Pressure 124/55 L Pulse Oximetry 96 93 Oxygen Delivery Room Air 10/27/22 06:00 10/27/22 07:05 10/27/22 07:05 Temperature 98.3 F Pulse Rate 77 82 82 Respiratory Rate 18 18 18 Blood Pressure 118/72 Pulse Oximetry 98 93 Oxygen Delivery Room Air 10/27/22 07:15 10/27/22 08:46 Temperature Pulse Rate 84 81 Respiratory Rate 18 Blood Pressure Pulse Oximetry Oxygen Delivery Intake/Output Intake/Output: Intake & Output 10/24/22 10/25/22 10/26/22 10/27/22 23:59 23:59 23:59 23:59 Intake Total 1712 980 Output Total 400 600 50 Balance 1312 380 -50 Meds/Results Medications: Active Medications Generic Name Dose Route Start Last Admin Trade Name Freq PRN [place]
[2022-10-27 11:20] LABS: Glucose Point of Care 244 mg/dl (65-105)
[2022-10-27] MEDS: INSULIN ASPART (*BKC) 100 UNITS/ML SUB-Q ×3 (12:18→17:20)
--- NOTE | 2022-10-27 13:05 | PCCCNOTE ---
On 10/27/22, the student, [Michelle Cristina ], provided care and [facility]. I have reviewed the student's documentation and agree with the findings.
[2022-10-27] MEDS: GABAPENTIN 300 MG CAPSULE PO ×2 (14:29→21:02)
[2022-10-27 17:02] LABS: Glucose Point of Care 371 mg/dl (65-105)
[2022-10-27] MEDS: MELATONIN 5 MG TABLET 10 MG PO (21:02)
[2022-10-27] MEDS: traZODone HCL 50 MG TABLET PO (21:02)
[2022-10-27] MEDS: MONTELUKAST SODIUM 10 MG TABLET PO (21:02)
[2022-10-27] MEDS: ATORVASTATIN 40 MG TABLET PO (21:03)
[2022-10-27] MEDS: INSULIN GLARGINE (*BKC) 100 UNITS/ML 28 UNITS SUB-Q (21:03)
[2022-10-27] MEDS: guaiFENesin/DEXTROMETHORPHAN 10 ML UDC PO (21:04)
[2022-10-27 21:11] LABS: Glucose Point of Care 304 mg/dl (65-105)
[2022-10-28] VITALS (12 sets, daily range): BP systolic 122–138; BP diastolic 44–50; PULSE 77–86; RESP 16–20; TEMP 36.6–37.1; O2SAT 90–96
[2022-10-28 00:11] LABS: Glucose Point of Care 298 mg/dl (65-105)
[2022-10-28] MEDS: ALBUTEROL SULFATE NEB 2.5 MG/3 ML INH INHALATION ×4 (02:25→20:12)
[2022-10-28] MEDS: IPRATROPIUM BR 0.02% INH SOLN 0.5 MG/2.5 ML VIAL INHALATION ×4 (02:25→20:12)
[2022-10-28] MEDS: GABAPENTIN 300 MG CAPSULE PO ×3 (06:23→21:51)
[2022-10-28 06:51] LABS: Hematocrit 34.4 % (37.0-47.0); Hemoglobin 11.6 g/dL (12.0-15.0); Mean Corpuscular HGB Conc 33.7 g/dl (32-36); Mean Corpuscular Hemoglobin 30.5 pg (26-34); Mean Corpuscular Volume 90.5 fl (80-100); Mean Platelet Volume 9.6 fl (7.4-10.4); Platelet Count Result 190 k/mm3 (150-375); Red Cell Distribution Width 12.7 % (11.5-14.5); White Blood Count 7.5 K/mm3 (4.5-10.0)
[2022-10-28 07:05] LABS: Alanine Aminotransferase 40 U/L (6-35); Albumin Level 3.7 g/dL (3.5-5.1); Alkaline Phosphatase 100 U/L (38-126); Anion Gap 9 mmol/L (8-16); Aspartate Amino Transferase 104 U/L (14-36); Bilirubin,Total 0.6 mg/dL (0.2-1.3); Blood Urea Nitrogen 46 mg/dL (7-17); Calcium 8.2 mg/dL (8.4-10.2); Carbon Dioxide 25 mmol/L (22-30); Chloride 98 mmol/L (98-107); Estimated CRCL calculation 35 ml/min; Estimated Glomerular Filt Rate 37; Glucose 246 mg/dL (65-110); Potassium 4.5 mmol/L (3.4-5.0); Sodium 132 mmol/L (137-145)
[2022-10-28 07:34] LABS: Glucose Point of Care 236 mg/dl (65-105)
[2022-10-28] MEDS: FLUTICASONE/SALMETEROL 45-21 MCG INHALER 1 PUFF 2 PUFF INHALATION ×2 (07:47→20:12)
[2022-10-28] MEDS: INSULIN ASPART (*BKC) 100 UNITS/ML SUB-Q ×5 (09:14→16:52)
[2022-10-28] MEDS: ASCORBIC ACID 500 MG TABLET PO (09:17)
[2022-10-28] MEDS: CLOPIDOGREL BISULFATE 75 MG TABLET PO (09:17)
[2022-10-28] MEDS: ESCITALOPRAM OXALATE 10 MG TABLET 20 MG PO (09:17)
[2022-10-28] MEDS: ISOSORBIDE MONONITRATE 30 MG TAB.ER.24H PO (09:17)
[2022-10-28] MEDS: CHOLECALCIFEROL 1,000 UNITS TABLET 5000 UNITS PO (09:18)
[2022-10-28] MEDS: FAMOTIDINE 20 MG TABLET PO (09:18)
[2022-10-28] MEDS: THERAPEUTIC MULTIVITAMINS/MINERALS TAB (*BKC) 1 TABLET PO (09:18)
[2022-10-28] MEDS: ASPIRIN 81 MG ENTERIC TABLET PO (09:19)
[2022-10-28] MEDS: LORATADINE 10 MG TABLET PO (09:19)
[2022-10-28] MEDS: carvediloL 25 MG TABLET PO ×2 (09:19→21:51)
[2022-10-28] MEDS: SIMETHICONE 125 MG CHEW TAB PO ×2 (09:19→16:51)
[2022-10-28 11:22] LABS: Glucose Point of Care 344 mg/dl (65-105)
--- NOTE | 2022-10-28 15:45 | PM.IMPN ---
Progress Note: A&P Assessment and Plan (1) BLADE (acute kidney injury): Code(s): N17.9 - Acute kidney failure, unspecified Status: Acute Assessment and Plan: Renal function doubled to 2.6. Could be related to HARRIS and/or over diuresis. Lasix, Aldactone and Cozaar on hold. Renal US was normal. NS x 1Liter given. Repeat renal function better. If normal tomorrow, resume some of her home meds. (2) CHF (congestive heart failure): Code(s): I50.9 - Heart failure, unspecified Status: Acute Assessment and Plan: Patient presents with shortness of breath felt to have acute/chronic diastolic CHF. Chest x-ray shows mild pulmonary edema. Pro-BNP was 2210. Was started on IV Lasix. Echo with 55% with Grade I diastolic dysfunction. COVID test was negative. Renal function much worse so IV diuretics stopped. Continue with Coreg but continue to hold Spironolactone and losartan. Irregular rhythm - check EKG. (3) Urine retention: Code(s): R33.9 - Retention of urine, unspecified Status: Acute Assessment and Plan: Urine retention noted and Warner placed. Not on anti-cholenergic meds. Warner voiding trial in a few days. Increase activity. Add Flomax. Plan for discharge with Warner. (4) COPD (chronic obstructive pulmonary disease): Code(s): J44.9 - Chronic obstructive pulmonary disease, unspecified Status: Acute Assessment and Plan: She had some wheezing. She is a lifelong nonsmoker. Asthma? Wheezing resolved. Continue with inhalers and nebulizer treatments. (5) Hypertension: Code(s): I10 - Essential (primary) hypertension Status: Chronic Assessment and Plan: Patient's blood pressure was reviewed on 10/28 Blood pressure well controlled Will continue to monitor (6) Type 1 diabetes: Code(s): E10.9 - Type 1 diabetes mellitus without complications Status: Chronic Assessment and Plan: A1c 9.1. The patient's blood glucose was reviewed on 10/28 Glucose remains elevated at times Continue AccuCheks covering with sliding scale. Hypoglycemia protocol available as needed. Continue current medications. (7) Depression with anxiety: Code(s): F41.8 - Other specified anxiety disorders Status: Acute Assessment and Plan: Mood stable. Continue with Lexapro and trazodone Subjective Date/time seen: 10/28/22 15:45 Interval history: 71yo female with CHF, COPD, DM and cerebral palsy here for shortness of breath. Feels well. No CP or SOB. Up to the chair. Exam Narrative: AF 98.8 122/44 79 18 96% ra Gen - NARD lying almost flat in bed Chest - bibasilar inspiratory crackles. Otherwise clear. CV - irregularly irregular Abd - Soft, NT/ND, Positive BS - Warner secured draining clear yellow urine Ext - No pedal edema Psych - Nml mood and affect Skin - Warm and dry Objective Data Vital Signs Vital Signs: Vital Signs - 24 hr 10/27/22 19:53 10/27/22 19:53 10/27/22 22:00 Temperature 97.1 F L Pulse Rate 86 86 87 Respiratory Rate 18 18 18 Blood Pressure 134/56 L Pulse Oximetry 93 94 Oxygen Delivery Room Air 10/28/22 02:27 10/27/22 20:15 10/28/22 06:00 Temperature 98 F Pulse Rate 84 82 84 Respiratory Rate 18 18 20 Blood Pressure 137/50 L Pulse Oximetry 90 Oxygen Delivery 10/28/22 07:49 10/28/22 07:49 10/28/22 08:05 Temperature Pulse Rate 80 85 Respiratory Rate 18 18 Blood Pressure Pulse Oximetry 90 Oxygen Delivery Room Air 10/28/22 09:19 10/28/22 08:00 10/28/22 13:51 Temperature Pulse Rate 85 77 Respiratory Rate 18 Blood Pressure Pulse Oximetry Oxygen Delivery Room Air 10/28/22 14:01 10/28/22 13:53 Temperature 98.8 F Pulse Rate 79 77 Respiratory Rate 18 18 Blood Pressure 122/44 L Pulse Oximetry 96 Oxygen Delivery Intake/Output Intake/Output: Intake & Output 10/25/22 10/26/22 10/27/22 10/28/22
--- NOTE | 2022-10-28 15:53 | ECG_ITS ---
Measurements Intervals [place] Rate: 82 P: 20 [place]: 176 QRS: 3 QRSD: 94 T: 215 QT: 378 QTc: 443 Interpretive Statements SINUS RHYTHM WITH SINUS ARRHYTHMIA LEFT VENTRICULAR HYPERTROPHY AND ST-T CHANGE CANNOT RULE OUT SEPTAL INFARCT, AGE INDETERMINATE BORDERLINE ST-T WAVE ABNORMALITY- INF/LAT LEADS ABNORMAL ECG COMPARED TO ECG 10/25/2022 07:07:49 SINUS ARRHYTHMIA NOW PRESENT Electronically Signed On 10-28-2022 21:54:52 CDT by Gabriel Alvarado D.O.
[2022-10-28 16:31] LABS: Glucose Point of Care 401 mg/dl (65-105)
[2022-10-28] MEDS: TAMSULOSIN HCL 0.4 MG CAPSULE PO (21:50)
[2022-10-28] MEDS: guaiFENesin/DEXTROMETHORPHAN 10 ML UDC PO (21:50)
[2022-10-28] MEDS: MONTELUKAST SODIUM 10 MG TABLET PO (21:50)
[2022-10-28] MEDS: INSULIN GLARGINE (*BKC) 100 UNITS/ML 28 UNITS SUB-Q (21:51)
[2022-10-28] MEDS: MELATONIN 5 MG TABLET 10 MG PO (21:51)
[2022-10-28] MEDS: traZODone HCL 50 MG TABLET PO (21:51)
[2022-10-28 23:00] LABS: Glucose Point of Care 399 mg/dl (65-105)
[2022-10-29] VITALS (9 sets, daily range): BP systolic 140–147; BP diastolic 39–57; PULSE 72–92; RESP 16–18; TEMP 36.3–36.4; O2SAT 96–100
[2022-10-29] MEDS: IPRATROPIUM BR 0.02% INH SOLN 0.5 MG/2.5 ML VIAL INHALATION ×3 (02:29→13:33)
[2022-10-29] MEDS: ALBUTEROL SULFATE NEB 2.5 MG/3 ML INH INHALATION ×3 (02:29→13:33)
[2022-10-29] MEDS: GABAPENTIN 300 MG CAPSULE PO ×2 (06:07→13:00)
[2022-10-29 07:17] LABS: Alanine Aminotransferase 39 U/L (6-35); Albumin Level 3.5 g/dL (3.5-5.1); Alkaline Phosphatase 98 U/L (38-126); Anion Gap 8 mmol/L (8-16); Aspartate Amino Transferase 83 U/L (14-36); Bilirubin,Total 0.5 mg/dL (0.2-1.3); Blood Urea Nitrogen 42 mg/dL (7-17); Calcium 8.5 mg/dL (8.4-10.2); Carbon Dioxide 27 mmol/L (22-30); Chloride 98 mmol/L (98-107); Estimated CRCL calculation 49 ml/min; Estimated Glomerular Filt Rate 55; Glucose 328 mg/dL (65-110); Potassium 4.5 mmol/L (3.4-5.0); Sodium 133 mmol/L (137-145)
[2022-10-29] MEDS: FLUTICASONE/SALMETEROL 45-21 MCG INHALER 1 PUFF 2 PUFF INHALATION (07:28)
[2022-10-29 07:34] LABS: Glucose Point of Care 343 mg/dl (65-105)
[2022-10-29] MEDS: INSULIN GLARGINE (*BKC) 100 UNITS/ML 8 UNITS SUB-Q (08:22)
[2022-10-29] MEDS: INSULIN ASPART (*BKC) 100 UNITS/ML SUB-Q ×3 (08:22→12:19)
[2022-10-29] MEDS: ISOSORBIDE MONONITRATE 30 MG TAB.ER.24H PO (08:23)
[2022-10-29] MEDS: CLOPIDOGREL BISULFATE 75 MG TABLET PO (08:23)
[2022-10-29] MEDS: polyethylene glycoL 3350 17 GM POWD.PACK PO (08:23)
[2022-10-29] MEDS: ASPIRIN 81 MG ENTERIC TABLET PO (08:23)
[2022-10-29] MEDS: CHOLECALCIFEROL 1,000 UNITS TABLET 5000 UNITS PO (08:23)
[2022-10-29] MEDS: FAMOTIDINE 20 MG TABLET PO (08:24)
[2022-10-29] MEDS: ASCORBIC ACID 500 MG TABLET PO (08:24)
[2022-10-29] MEDS: SIMETHICONE 125 MG CHEW TAB PO (08:24)
[2022-10-29] MEDS: ESCITALOPRAM OXALATE 10 MG TABLET 20 MG PO (08:24)
[2022-10-29] MEDS: carvediloL 25 MG TABLET PO (08:24)
[2022-10-29] MEDS: THERAPEUTIC MULTIVITAMINS/MINERALS TAB (*BKC) 1 TABLET PO (08:24)
[2022-10-29] MEDS: LORATADINE 10 MG TABLET PO (08:24)
[2022-10-29 09:41] LABS: SARS-CoV-2 RNA PCR Negative (Negative)
[2022-10-29 12:19] LABS: Glucose Point of Care 356 mg/dl (65-105)
--- NOTE | 2022-10-29 12:23 | PM.DS ---
DS: Admitting Diagnosis Discharge Date 10/29/22 Admitting Diagnosis Shortness of breath DS: Discharge Diagnosis Discharge Diagnosis (1) BLADE (acute kidney injury): Code(s): N17.9 - Acute kidney failure, unspecified Status: Acute (2) CHF (congestive heart failure): Code(s): I50.9 - Heart failure, unspecified Status: Acute (3) Urine retention: Code(s): R33.9 - Retention of urine, unspecified Status: Acute (4) COPD (chronic obstructive pulmonary disease): Code(s): J44.9 - Chronic obstructive pulmonary disease, unspecified Status: Acute (5) Hypertension: Code(s): I10 - Essential (primary) hypertension Status: Chronic (6) Type 1 diabetes: Code(s): E10.9 - Type 1 diabetes mellitus without complications Status: Chronic (7) Depression with anxiety: Code(s): F41.8 - Other specified anxiety disorders Status: Acute DS: Summary Hospital Course Reason for hospitalization: 71yo female with CHF, COPD, DM and cerebral palsy here for shortness of breath. Please see H&P for details Hospital Course: Patient presented with shortness of breath felt to have acute/chronic diastolic CHF.? Chest x-ray shows mild pulmonary edema.? Pro-BNP was 2210.? She was started on IV Lasix.? Echo with 55% with Grade I diastolic dysfunction. COVID test was negative.? We continued Coreg but had to hold Spironolactone and losartan due to worsening renal function. Cr was 1.2 on admission and jumped to 2.6. IV diuretics were stopped.?Urine retention noted and Warner placed. Not on anti-cholenergic meds.? Added Flomax. BLADE could be related to HARRIS and/or over diuresis. Lasix, Aldactone and Cozaar were held. Renal US was normal. Repeat renal function normalized quickly so suspect abrupt change in renal function related to obstruction. She has Type 1 diabetes with A1c 9.1. The patient's blood glucose was moniotred closely with AccuCheks covering with sliding scale.? Hypoglycemia protocol was available as needed.? She overall did well and was able to be discharged on 10/29/22. Status at Discharge Cognitive/behavioral status at discharge: stable Time Spent with Patient Time attestation: Total time spent providing and/or coordinating discharge services: 36 minutes Time spent: Greater than 30 minutes Exam Narrative: AF 97.4 147/57 88 18 96% ra Gen - NARD lying almost flat in bed Chest - few bibasilar inspiratory crackles CV - RRR S1/S2 Abd - Soft, NT/ND, Positive BS - Warner secured draining clear yellow urine Ext - No pedal edema Psych - Nml mood and affect Skin - Warm and dry DS: Data Data Completed and Pending Labs on day of discharge: Labs from last 24 hours 10/29/22 10/29/22 10/29/22 12:15 08:59 07:27 Sodium Potassium Chloride Carbon Dioxide Anion Gap BUN Creatinine Estim Creat Clear Calc Estimated GFR Glucose POC Capillary Glucose 356 H 343 H Calcium Total Bilirubin AST ALT Alkaline Phosphatase Total Protein Albumin SARS-CoV-2 RNA (RT-PCR) Negative 10/29/22 10/28/22 10/28/22 06:14 21:04 16:27 Sodium 133 L Potassium 4.5 Chloride 98 Carbon Dioxide 27 Anion Gap 8 BUN 42 H Creatinine 1.00 Estim Creat Clear Calc 49 Estimated GFR 55 L Glucose 328 H POC Capillary Glucose 399 H 401 H Calcium 8.5 Total Bilirubin 0.5 AST 83 H ALT 39 H Alkaline Phosphatase 98 Total Protein 6.0 L Albumin 3.5 SARS-CoV-2 RNA (RT-PCR) Discharge Plan Discharge Attending physician on discharge: Michael Couch Discharging Clinician: Michael Couch Anticipated Discharge Date/Time: 10/29/22 13:03 Patient Disposition: [facility] Activity: as tolerated Diet: heart healthy and diabetic Discharge Instructions: Please check glucose before meals and before bed. Record for the doctor's rev
[2022-10-29] MEDS: guaiFENesin/DEXTROMETHORPHAN 10 ML UDC PO (14:19)
[2022-10-29 16:44] LABS: Glucose Point of Care 312 mg/dl (65-105)
== END 2022-10-29 17:05 | DRG 291 ==
LOC: ANHED 07:45 → ANH3MEDSUR 10:27
PROVIDERS: Nurse Practitioner; Admitting Provider Family Medicine; Emergency Provider Emergency Medicine; PCP Family Medicine; Visit Provider Internal Medicine
DX: I11.0 Hypertensive heart disease with heart failure (principal); I50.33 Acute on chronic diastolic (congestive) heart failure; N17.9 Acute kidney failure, unspecified; D64.9 Anemia, unspecified; R33.9 Retention of urine, unspecified; E10.319 Type 1 diabetes mellitus with unspecified diabetic retinopathy without macular edema; F32.9 Major depressive disorder, single episode, unspecified; F41.8 Other specified anxiety disorders; G80.9 Cerebral palsy, unspecified; I25.2 Old myocardial infarction; J44.9 Chronic obstructive pulmonary disease, unspecified; Z90.710 Acquired absence of both cervix and uterus; Z95.1 Presence of aortocoronary bypass graft; Z95.5 Presence of coronary angioplasty implant and graft; Z66 Do not resuscitate; Z99.3 Dependence on wheelchair; Z20.822 Contact with and (suspected) exposure to COVID-19; Z79.4 Long term (current) use of insulin
CPT/HCPCS: 36415; 71046; 76775; 80053; 82948; 83036; 83735; 83880; 84100; 84443; 84484; 85025; 85027; 85610; 85730; 87635; 93005; 93306; 94640; 96361; 96374; 96375; 96376; 99285; A9270; G0378; J0360; J1815; J1940; J7030

== ENCOUNTER 2022-10-30 18:54 | Inpatient (IN) | payer MEDICARE, BC, MEDICAID, SELFPAY ==
[2022-10-30] VITALS (11 sets, daily range): BP systolic 100–172; BP diastolic 41–60; PULSE 88–110; RESP 17–26; TEMP 36.4–38.5; O2SAT 94–100
--- NOTE | ~2022-10-30 | XR_ITS ---
Portable chest x-ray Comparison: 10/26/2022 Clinical History: Shortness of breath Findings: There is mild bilateral perihilar haziness, with minimal diffuse interstitial prominence. Cardiomediastinal silhouette is stable. Bones and soft tissues are unremarkable. Impression: Bilateral perihilar haziness and mild interstitial prominence. Findings could reflect mild pulmonary edema versus infection. Correlate clinically. Reviewed, dictated and finalized at location . Impression: Bilateral perihilar haziness and mild interstitial prominence. Findings could r eflect mild pulmonary edema versus infection. Correlate clinically.
--- NOTE | ~2022-10-30 | CT_ITS ---
Non-contrast CT scan of the Abdomen and Pelvis Clinical indication: Abdominal pain Technique: 2.5 mm axial scans were obtained through the abdomen and pelvis without intravenous or or al contrast. Dose reduction technique was used on this scan by utilizing automated exposure control a nd iterative reconstruction technique. The dose-length product (DLP) was 863.93 mGy-cm. COMPARISON: 10/30/2022 Findings: Images through the lung bases reveal worsening bibasilar pulmonary consolidation, consiste nt with bibasilar pneumonia, left lower lobe worse than right.. The liver, spleen, pancreas, kidneys, and adrenals appear normal. Cholecystectomy clips are present. There are atherosclerotic calcifications of the aorta. There is no evidence of bowel obstruction. Images through the pelvis were performed. There is probable trace pelvic ascites. Warner catheter in p lace. No adnexal mass seen. Impression: Bilateral lower lobe pneumonia, worsened from prior exam. Trace pelvic ascites, nonspecific. Reviewed, dictated and finalized at location . Impression: Bilateral lower lobe pneumonia, worsened from prior exam. Trace pelvic ascites, nonspecific.
--- NOTE | ~2022-10-30 | XR_ITS ---
Portable chest x-ray Comparison: 10/31/2029 Clinical History: Pneumonia Findings: Left perihilar airspace consolidation is present. There is probable discoid right mid lung atelectasis. Probable minimal central congestive changes. Cardiomediastinal silhouette is stable. B ones and soft tissues are unremarkable. Impression: New left perihilar airspace consolidation. Correlate for pneumonia versus possibly pulmonary edema or atelectasis. Mild central congestive changes and linear right midlung atelectasis. Reviewed, dictated and finalized at [facility]. Impression: New left perihilar airspace consolidation. Correlate for pneumonia versus possi kadeem pulmonary edema or atelectasis. Mild central congestive changes and linear right midlung atelectasis.
--- NOTE | ~2022-10-30 | CT_ITS ---
CT of the Abdomen and Pelvis: Indication: Abdominal pain Technique: 2.5 mm axial scans were obtained through the abdomen and pelvis following intravenous adm inistration of 100 cc of Omnipaque 350. Dose reduction technique was used on this scan by utilizing a utomated exposure control and iterative reconstruction technique. The dose-length product (DLP) was 1 072.32 mGy-cm. Findings: Scans through the lung bases demonstrate patchy bilateral lower lobe airspace consolidatio n, left worse than right.. The liver, spleen, pancreas, adrenals and kidneys are within normal limits. Cholecystectomy clips are present. There are atherosclerotic calcifications of the aorta. No lymphadenopathy. No bowel obstruction or bowel wall thickening. There is no evidence to suggest acute appendicitis. Images through the pelvis were performed. Urinary bladder unremarkable. No pelvic mass evident. There is mild streak artifact from right hip arthroplasty. Impression: Bilateral lower lobe pneumonia, as detailed above. Reviewed, dictated and finalized at [facility]. Impression: Bilateral lower lobe pneumonia, as detailed above.
--- NOTE | ~2022-10-30 | XR_ITS ---
Portable chest x-ray Comparison: 10/25/2022 Clinical History: Altered mental status Findings: There is mild haziness in the left infrahilar region/left lower lobe. Right lung clear. C ardiomediastinal silhouette is stable. Bones and soft tissues are unremarkable. Impression: Mild haziness at the left lower lobe/left perihilar region. Correlate for pneumonia versus asymmetric pulmonary edema. Reviewed, dictated and finalized at location . Impression: Mild haziness at the left lower lobe/left perihilar region. Correlate for pneum onia versus asymmetric pulmonary edema.
--- NOTE | ~2022-10-30 | XR_ITS ---
EXAMINATION: XR chest 1V portable DATE: 10/31/2022 13:09 INDICATION: Shortness of breath TECHNIQUE: frontal view of the chest was obtained. COMPARISON: Chest radiograph and CT abdomen and pelvis dated 10/30/2022 FINDINGS: Persistent mild patchy airspace opacities in bilateral lower lung zones consistent with pneumonia. No pleural effusion or pneumothorax. Heart size is normal. Coronary artery stenting and median sternoto my wires and mediastinal surgical clips are seen, likely from prior coronary artery bypass grafting. IMPRESSION: 1. Persistent patchy airspace opacities in bilateral lower lung zones consistent with pneumonia. Reviewed, dictated and finalized at location A. IMPRESSION: 1. Persistent patchy airspace opacities in bilateral lower lung zones consisten t with pneumonia.
--- NOTE | 2022-10-30 19:20 | ECG_ITS ---
Measurements Intervals [place] Rate: 107 P: 33 [place]: 149 QRS: 15 QRSD: 93 T: 204 QT: 307 QTc: 411 Interpretive Statements SINUS TACHYCARDIA LEFT VENTRICULAR HYPERTROPHY AND ST-T CHANGE BORDERLINE ST-T WAVE ABNORMALITY- INFERIOR LEADS ABNORMAL ECG COMPARED TO ECG 10/28/2022 16:17:01 SINUS TACHYCARDIA NOW PRESENT Electronically Signed On 10-31-2022 6:49:49 CDT by Gabriel Alvarado D.O.
--- NOTE | 2022-10-30 19:32 | ED.AMS ---
HPI - Altered Mental Status General Chief Complaint: Altered Mental Status Stated Complaint: AMS, FEVER Time Seen by Provider: 10/30/22 19:05 History of Present Illness HPI narrative: HPI limited due to patient's altered mental status This is a 71-year-old female, with past history of diastolic heart failure, type 1 diabetes and urinary retention, just discharged from this facility after a acute on chronic CHF exacerbation, who returns to the emergency department from her snf ([facility]) for increased confusion and fever. The patient complains of chest and abdominal pain, and repeatedly apologizes. Related Data Home Medications Medication Instructions Recorded Confirmed ascorbic acid (vitamin C) 100 mg 500 mg PO DAILY 11/21/19 10/30/22 tablet (Vitamin C) aspirin 81 mg tablet,delayed 81 mg PO DAILY 11/21/19 10/30/22 release (Adult Low Dose Aspirin) clopidogrel 75 mg tablet (Plavix) 75 mg PO DAILY 11/21/19 10/30/22 furosemide 40 mg tablet (Lasix) 40 mg PO DAILY 11/21/19 10/30/22 insulin glargine 100 unit/mL 28 unit subcut HS 11/21/19 10/30/22 subcutaneous solution (Lantus U-100 Insulin) isosorbide mononitrate 30 mg 30 mg PO DAILY 11/21/19 10/30/22 tablet,extended release 24 hr losartan 25 mg tablet 12.5 mg PO DAILY 11/21/19 10/30/22 multivitamin with iron-mineral 1 tablet PO DAILY 11/21/19 10/30/22 ondansetron HCl 4 mg tablet 4 mg PO Q8H PRN Nausea 11/21/19 10/30/22 (Zofran) spironolactone 25 mg tablet 12.5 mg PO DAILY 11/21/19 10/30/22 acetaminophen 325 mg capsule 1,000 mg PO Q6H PRN Pain (Scale 08/13/20 10/30/22 Score 1-3) budesonide-formoterol HFA 80 2 puff inhalation Q12H 08/13/20 10/30/22 mcg-4.5 mcg/actuation aerosol inhaler (Symbicort) simethicone 125 mg chewable tablet 125 mg PO BID 08/13/20 10/30/22 (Gas Relief (simethicone)) dextrose 40 % oral gel (Glucose 10 g PO Q15M PRN Hypoglycemia 09/27/20 10/30/22 Gel) glucagon 1 mg solution for 1 mg IM PRN PRN hypoglemcia 09/27/20 10/30/22 injection atorvastatin 40 mg tablet 40 mg PO HS 10/25/22 10/30/22 cetirizine 10 mg tablet (Zyrtec) 10 mg PO DAILY 10/25/22 10/30/22 cholecalciferol (vitamin D3) 125 125 mcg PO DAILY 10/25/22 10/30/22 mcg (5,000 unit) tablet cyclobenzaprine 5 mg tablet 5 mg PO DAILY PRN muscle spasms 10/25/22 10/30/22 escitalopram oxalate 20 mg tablet 20 mg PO DAILY 10/25/22 10/30/22 gabapentin 300 mg capsule 300 mg PO Q8H 10/25/22 10/30/22 guaifenesin 100 mg/5 mL oral syrup 300 mg PO Q6H PRN Cough 10/25/22 10/30/22 insulin aspart U-100 100 unit/mL 2 unit subcut QACDINNER 10/25/22 10/30/22 (3 mL) subcutaneous pen (Novolog FlexPen U-100 Insulin aspart) insulin aspart U-100 100 unit/mL 4 unit subcut QACBREAK 10/25/22 10/30/22 (3 mL) subcutaneous pen (Novolog FlexPen U-100 Insulin aspart) insulin aspart U-100 100 unit/mL See Rx Instructions .Route .COMPLEX 10/25/22 10/30/22 (3 mL) subcutaneous pen (Novolog FlexPen U-100 Insulin aspart) insulin aspart U-100 100 unit/mL See Rx Instructions .Route .COMPLEX 10/25/22 10/30/22 (3 mL) subcutaneous pen (Novolog FlexPen U-100 Insulin aspart) melatonin 10 mg tablet 10 mg PO HS 10/25/22 10/30/22 menthol 10 % topical cream 1 applic topical TID PRN Pain 10/25/22 10/30/22 (Biofreeze (menthol)) montelukast 10 mg tablet 10 mg PO HS 10/25/22 10/30/22 sodium chloride 0.65 % nasal spray 2 spray intranasal Q1H PRN 10/25/22 10/30/22 aerosol Congestion trazodone 50 mg tablet 50 mg PO HS 10/25/22 10/30/22 carvedilol 25 mg tablet (Coreg) 25 mg PO BID 10/30/22 10/30/22 Allergies Allergy/AdvReac Type Severity Reaction Status Date / Time Sulfa (Sulfonamide Allergy Mild Rash Verified 10/25/22 11:32 Antibiotics) Review of Systems Review of Systems: Review of systems limited due to patient's altered mental status CONSTITUTIONAL: Fever denies chills, or sweats. CARDIOVASCULAR: Chest pain RESPIRATORY: Dyspnea GASTROINTESTINAL: Abdominal pain GENITOURINARY: Dys
[2022-10-30] MEDS: SODIUM CHLORIDE 0.9% IV 1,000 ML 999 ML IV CONT ×2 (19:38→21:30)
[2022-10-30 19:39] LABS: Hematocrit 36.2 % (37.0-47.0); Hemoglobin 12.1 g/dL (12.0-15.0); Mean Corpuscular HGB Conc 33.4 g/dl (32-36); Mean Corpuscular Hemoglobin 30.3 pg (26-34); Mean Corpuscular Volume 90.5 fl (80-100); Mean Platelet Volume 9.6 fl (7.4-10.4); Platelet Count Result 258 k/mm3 (150-375); Red Cell Distribution Width 12.4 % (11.5-14.5); White Blood Count 15.1 K/mm3 (4.5-10.0)
[2022-10-30] MEDS: ACETAMINOPHEN 500 MG TABLET 1000 MG PO (19:39)
[2022-10-30 19:55] LABS: Lactic Acid Reflex 1.7 mmol/L (0.7-2.0)
[2022-10-30 19:57] LABS: Alanine Aminotransferase 48 U/L (6-35); Albumin Level 4.4 g/dL (3.5-5.1); Alkaline Phosphatase 122 U/L (38-126); Anion Gap 10 mmol/L (8-16); Aspartate Amino Transferase 84 U/L (14-36); Bilirubin,Total 0.6 mg/dL (0.2-1.3); Blood Urea Nitrogen 39 mg/dL (7-17); Calcium 9.4 mg/dL (8.4-10.2); Carbon Dioxide 28 mmol/L (22-30); Chloride 96 mmol/L (98-107); Estimated CRCL calculation 44 ml/min; Estimated Glomerular Filt Rate 44; Glucose 265 mg/dL (65-110); Potassium 4.6 mmol/L (3.4-5.0); Sodium 134 mmol/L (137-145)
[2022-10-30 20:02] LABS: INR 1.1; Prothrombin Time 14.3 Seconds (11.1-14.7)
[2022-10-30 20:03] LABS: Partial Thromboplastin Time 27.5 SECONDS (22.3-36.8)
[2022-10-30 20:06] LABS: Troponin I < 0.012 ng/mL (0.000-0.034)
[2022-10-30] MEDS: CEFEPIME 2 GM/NS 50 ML 2 GM/50 ML BAG IVPB (20:15)
[2022-10-30 20:18] LABS: Band Neutrophils Percent 6 % (0-6); Eosinophils Percent Manual 2 % (0-4); Monocytes Absolute Manual 0.75 K/mm3 (0.1-0.90); Monocytes Percent Manual 5 % (3-9); Neutrophils Absolute Manual 13.74 K/mm3 (1.7-7.2); Neutrophils Percent Manual 85 % (46-73); Platelet Estimate Adequate (Adequate); Total Cells Counted 100
[2022-10-30 20:19] LABS: Schistocytes None Seen (NORMAL)
--- NOTE | 2022-10-30 20:50 | ECG_ITS ---
Measurements Intervals [place] Rate: 99 P: 57 [place]: 171 QRS: 11 QRSD: 110 T: 196 QT: 347 QTc: 445 Interpretive Statements SINUS RHYTHM LEFT VENTRICULAR HYPERTROPHY WITH ST-T CHANGE ST-T WAVE ABNORMALITY IN ANTEROLATERAL LEADS- CONSIDER ISCHEMIA ABNORMAL ECG COMPARED TO ECG 10/30/2022 19:26:25 SINUS RHYTHM NOW PRESENT Electronically Signed On 10-31-2022 6:51:13 CDT by Gabriel Alvarado D.O.
[2022-10-30] MEDS: VANCOMYCIN 1,000 MG/NS 250 ML 1,000 MG/250 ML BAG 250 MG IVPB (21:05)
--- NOTE | 2022-10-30 21:15 | ECG_ITS ---
Measurements Intervals [place] Rate: 96 P: 52 VT: 164 QRS: 3 QRSD: 110 T: 138 QT: 348 QTc: 440 Interpretive Statements SINUS RHYTHM POSTERIOR PRECORDIAL LEAD PLACEMENT LEFT VENTRICULAR HYPERTROPHY AND ST-T CHANGE BORDERLINE ECG COMPARED TO ECG 10/30/2022 20:55:45 NO SIGNIFICANT CHANGES Electronically Signed On 10-31-2022 6:52:40 CDT by Gabriel Alvarado D.O.
[2022-10-30 21:22] LABS: Appearance Urine Clear (Clear); Bacteria Urine None Seen /hpf; Bilirubin Urine Negative (Negative); Blood Urine Negative (Negative); Color Urine Yellow (Yellow); Glucose Urine UA 1+ mg/dL (Negative); Ketones Urine Negative (Negative); Leukocyte Esterase Ur 1+ LEU/UL (Negative); Need Manual Microscopic Reviewed; Nitrate Urine Negative (Negative); Non Pathogenic Casts 0-2; Protein Urine Negative (Negative); RBC Urine 0-2 /hpf (0-2); Specific Grav Ur 1.017 (1.001-1.035); Squamous Epithelial Cell Urine None seen /hpf (Few); Urobilinogen Urine 0.2 mg/dL (<2.0); WBC Urine 0-5 /hpf
--- NOTE | 2022-10-30 21:22 | PM.IMHP ---
H&P: HPI History of Present Illness Date/Time: 10/30/22 21:22 Chief Complaint: Altered mental status Narrative: This is a 71-year-old female with past medical history significant for congestive heart failure, coronary artery disease, hypertension, diabetes mellitus, insulin dependent, cerebral palsy, she has a assisted resident and [facility]. patient was brought for evaluation to the emergency room due to concerns for confusion and fever discharged the day before from the hospital after being treated for shortness of breath ,congestive heart failure COPD exacerbation and acute kidney injury. Patient is unable to give much history she is oriented to person and place however can not tell why she is in the hospital and has no recollection of been admitted to the hospital and discharged from hospital. Upon arrival to emergency room patient was found to have a temp of 101? preliminary workup was significant for patient found to have some urinary retention however small volume of urine, CT of abdomen and pelvis was significant for bilateral base infiltrates of the lungs a chest x-ray also showed haziness on the left lower lobe. Patient is been admitted for further evaluation management and treatment. CT of the Abdomen and Pelvis: Indication: Abdominal pain Technique:? 2.5 mm axial scans were obtained through the abdomen and pelvis following intravenous administration of 100 cc of Omnipaque 350. Dose reduction technique was used on this scan by utilizing automated exposure control and iterative reconstruction technique. The dose-length product (DLP) was 1072.32 mGy-cm. Findings:? Scans through the lung bases demonstrate patchy bilateral lower lobe airspace consolidation, left worse than right.. The liver, spleen, pancreas, adrenals and kidneys are within normal limits. Cholecystectomy clips are present. There are atherosclerotic calcifications of the aorta.? No lymphadenopathy. No bowel obstruction or bowel wall thickening. There is no evidence to suggest acute appendicitis. Images through the pelvis were performed. Urinary bladder unremarkable. No pelvic mass evident. There is mild streak artifact from right hip arthroplasty. Impression: Bilateral lower lobe pneumonia, as detailed above. Portable chest x-ray Comparison: 10/25/2022 Clinical History: Altered mental status Findings:? There is mild haziness in the left infrahilar region/left lower lobe. Right lung clear.? Cardiomediastinal silhouette is stable. Bones and soft tissues are unremarkable. ? Impression: ? Mild haziness at the left lower lobe/left perihilar region. Correlate for pneumonia versus asymmetric pulmonary edema. Review of Systems Review of Systems: ROS unobtainable: Yes unobtainable due to mental status (confusion, delirium.) [facility] Past Medical History Medical History Anxiety Cerebral palsy Right side weak, right leg COPD (chronic obstructive pulmonary disease) Depression Started after her of cancer and then she continued to take Celexa Heart attack Hypertension Hypoglycemia Retinopathy Right hip pain Type 1 diabetes Surgical History Surgical History H/O: hysterectomy History of heart artery stent 2 cardiac stents 08/2019 Hx of CABG X6 in 1999, 6 vessels Family History Family History Mother Cancer Father Asthma Sibling Lung cancer Lung disorder The other brother Other Family history of cardiovascular disease Family history of lung disease Family history of mental disorder Social History Social History Social History: The patient never had any children. She is . She resides at [facility]. Her her nephew Kb is her durable power attor
[2022-10-30 21:23] LABS: Add Urine Microscopic? YES
[2022-10-30] MEDS: AZITHROMYCIN 500 MG/NS 250 ML 500 MG/250 ML BAG 250 MG IVPB (22:19)
[2022-10-30] MEDS: VANCOMYCIN 1,250 MG/NS 250 ML 1,250 MG/250 ML BAG 166.67 MG IVPB (23:41)
[2022-10-31] VITALS (14 sets, daily range): BP systolic 116–147; BP diastolic 37–76; PULSE 84–94; RESP 16–20; TEMP 36.5–36.8; O2SAT 93–100
[2022-10-31 00:40] LABS: Troponin I < 0.012 ng/mL (0.000-0.034)
[2022-10-31 01:53] LABS: Troponin I 0.015 ng/mL (0.000-0.034)
[2022-10-31 04:49] LABS: Basophils Percent Auto 0.2 % (0.2-1.2); Eosinophils Percent Auto 0.2 % (0-4.4); Hematocrit 30.3 % (37.0-47.0); Immature Granulocyte Absolute 0.14 K/mm3 (0.00-0.031); Immature Granulocyte Percent A 0.8 % (0-0.5); Lymphocytes Percent Auto 7.1 % (18.3-44.2); Mean Corpuscular Hemoglobin 30.4 pg (26-34); Mean Corpuscular Volume 92.1 fl (80-100); Mean Platelet Volume 9.4 fl (7.4-10.4); Monocytes Absolute Auto 1.7 K/mm3 (0.1-0.6); Monocytes Percent Auto 10.3 % (2.6-8.5); Neutrophils Absolute Auto 13.8 K/mm3 (1.3-6.7); Neutrophils Percent Auto 81.4 % (45.5-73.1); Platelet Count Result 211 k/mm3 (150-375); Red Blood Count 3.29 M/mm3 (4.2-5.4); Red Cell Distribution Width 12.5 % (11.5-14.5)
[2022-10-31 04:58] LABS: Anion Gap 8 mmol/L (8-16); Blood Urea Nitrogen 31 mg/dL (7-17); Carbon Dioxide 22 mmol/L (22-30); Chloride 104 mmol/L (98-107); Estimated CRCL calculation 274 ml/min; Estimated Glomerular Filt Rate 55; Glucose 152 mg/dL (65-110); Potassium 4.2 mmol/L (3.4-5.0); Sodium 134 mmol/L (137-145)
[2022-10-31 07:42] LABS: Glucose Point of Care 134 mg/dl (65-105)
[2022-10-31] MEDS: polyethylene glycoL 3350 17 GM POWD.PACK PO (09:53)
[2022-10-31] MEDS: ASPIRIN 81 MG ENTERIC TABLET PO (09:54)
[2022-10-31] MEDS: THERAPEUTIC MULTIVITAMINS/MINERALS TAB (*BKC) 1 TABLET PO (09:54)
[2022-10-31] MEDS: FAMOTIDINE 20 MG TABLET PO (09:54)
[2022-10-31] MEDS: GABAPENTIN 300 MG CAPSULE PO ×3 (09:54→21:53)
[2022-10-31] MEDS: CLOPIDOGREL BISULFATE 75 MG TABLET PO (09:54)
[2022-10-31] MEDS: LORATADINE 10 MG TABLET PO (09:55)
[2022-10-31] MEDS: ASCORBIC ACID 500 MG TABLET PO (09:55)
[2022-10-31] MEDS: SIMETHICONE 125 MG CHEW TAB PO ×2 (09:56→16:52)
[2022-10-31] MEDS: CHOLECALCIFEROL 1,000 UNITS TABLET 5000 UNITS PO (09:56)
[2022-10-31] MEDS: ISOSORBIDE MONONITRATE 30 MG TAB.ER.24H PO (09:57)
[2022-10-31] MEDS: ESCITALOPRAM OXALATE 10 MG TABLET 20 MG PO (09:58)
[2022-10-31] MEDS: EMPAGLIFLOZIN 10 MG TABLET PO (09:59)
[2022-10-31] MEDS: SPIRONOLACTONE 12.5 MG TABLET PO (10:33)
[2022-10-31] MEDS: FUROSEMIDE 40 MG TABLET PO (10:34)
[2022-10-31] MEDS: LOSARTAN POTASSIUM 12.5 MG TABLET PO (10:34)
[2022-10-31 11:58] LABS: Glucose Point of Care 250 mg/dl (65-105)
[2022-10-31] MEDS: INSULIN ASPART (*BKC) 100 UNITS/ML SUB-Q ×2 (12:31→16:51)
[2022-10-31] MEDS: ONDANSETRON HCL ODT 4 MG TABLET PO (12:31)
[2022-10-31 13:34] LABS: Alveolar/Arterial O2 Gradient 74.2 mmHg; Base Excess ABG -1.1 mEq/l (+/-2.0); Fractional Inspired Oxygen 28 %; HCO3 ABG 20.6 mEq/l (22.0-26.0); Oxygen Content ABG 15.6 %vol (16.0-22.0); Oxyhemoglobin 96.6 % THb (90.0-100.0); PCO2 ABG 25.7 mmHg (35.0-45.0); PO2 ABG 95.1 mmHg (80.0-100.0); Total Hemoglobin 11.4 g/dL (12.0-18.0)
[2022-10-31 13:35] LABS: pH ABG 7.522 (7.350-7.450)
[2022-10-31 13:36] LABS: Device NASAL CANNULA; Modified Allen's Test Pass; Site Drawn RIGHT RADIAL
[2022-10-31] MEDS: ALPRAZolam (*CRX) 0.25 MG TABLET PO (14:06)
[2022-10-31] MEDS: FUROSEMIDE 20 MG TABLET PO (14:12)
--- NOTE | 2022-10-31 14:37 | WPDPN ---
Progress Note: A&P Assessment and Plan (1) Sepsis: Qualifiers: Sepsis acute organ dysfunction status: unspecified Sepsis type: sepsis due to unspecified organism Qualified Code(s): A41.9 - Sepsis, unspecified organism Code(s): A41.9 - Sepsis, unspecified organism Status: Acute Assessment and Plan: admit to IMU elevated lactic acid source is lungs bilateral bibasilar pneumonia altered mental status early goal-directed therapy ongoing supportive care continue to monitor 10/31/2022 interval history: 71-year-old female was just discharged to nursing and presented with fever and found to have pneumonia patient is being treated with Cefepime, doxycycline and vancomycin, earlier today patient was tachypneic repeat chest x-ray showed pneumonia an ABG showed respiratory alkalosis most likely patient is anxious will give the patient Xanax 0.25 mg times and monitor, will follow-up on the blood and sputum culture and further recommendation to follow, will have a PT OT evaluate the patient (2) Altered mental status: Qualifiers: Altered mental status type: delirium Qualified Code(s): R41.0 - Disorientation, unspecified Code(s): R41.82 - Altered mental status, unspecified Status: Acute Assessment and Plan: likely secondary to above supportive care continue to monitor (3) BLADE (acute kidney injury): Code(s): N17.9 - Acute kidney failure, unspecified Status: Acute Assessment and Plan: will hold diuretics will hold losartan gentle hydration daily intake and output continue to monitor (4) Urine retention: Code(s): R33.9 - Retention of urine, unspecified Status: Acute Assessment and Plan: straight cath as needed urinalysis was clean (5) Depression with anxiety: Code(s): F41.8 - Other specified anxiety disorders Status: Acute Assessment and Plan: continue home meds follow-up in outpatient setting (6) COPD (chronic obstructive pulmonary disease): Code(s): J44.9 - Chronic obstructive pulmonary disease, unspecified Status: Acute Assessment and Plan: continue budesonide p.r.n. breathing treatments q.6 hours (7) Type 1 diabetes: Code(s): E10.9 - Type 1 diabetes mellitus without complications Status: Chronic Assessment and Plan: Accu-Cheks AC and HS continue insulin regimen (8) CAD (coronary artery disease), autologous vein bypass graft: Code(s): I25.810 - Atherosclerosis of coronary artery bypass graft(s) without angina pectoris Status: Acute Assessment and Plan: chest pain-free restart home meds as needed patient had episode of hypotension Subjective Date/time seen: 10/31/22 14:37 Interval history: Altered mental status Narrative: ?This is a 71-year-old female with past medical history significant for congestive heart failure, coronary artery disease, hypertension, diabetes mellitus, insulin dependent, cerebral palsy, she has a [facility] resident and [facility]. patient was brought for evaluation to the emergency room due to concerns for confusion and fever discharged the day before from the hospital after being treated for shortness of breath ,congestive heart failure COPD exacerbation and acute kidney injury.? Patient is unable to give much history she is oriented to person and place however can not tell why she is in the hospital and has no recollection of been admitted to the hospital and discharged from hospital.? Upon arrival to emergency room patient was found to have a temp of 101? preliminary workup was significant for patient found to have some urinary retention however small volume of urine, CT of abdomen and pelvis was significant for bilateral base infiltrates of the lungs a chest x-ray also showed haziness on the left lower lobe.? Patient is been admitted for further evaluation management and treatment. 10/31/2022
[2022-10-31] MEDS: DOXYCYCLINE 100 MG/NS 100 ML 100 MG/100 ML BAG IVPB (14:54)
[2022-10-31] MEDS: CEFEPIME 2 GM/NS 50 ML 2 GM/50 ML BAG IVPB (14:55)
[2022-10-31 16:26] LABS: Glucose Point of Care 282 mg/dl (65-105)
--- NOTE | 2022-10-31 18:01 | PCRCNOTE ---
Window of time for administration has passed. See next scheduled administration.
[2022-10-31] MEDS: ATORVASTATIN 40 MG TABLET PO (19:59)
[2022-10-31] MEDS: MONTELUKAST SODIUM 10 MG TABLET PO (19:59)
[2022-10-31] MEDS: traZODone HCL 50 MG TABLET PO (19:59)
[2022-10-31] MEDS: MELATONIN 5 MG TABLET 10 MG PO (19:59)
[2022-10-31] MEDS: TAMSULOSIN HCL 0.4 MG CAPSULE PO (19:59)
[2022-10-31 20:17] LABS: Glucose Point of Care 347 mg/dl (65-105)
[2022-10-31] MEDS: INSULIN GLARGINE (*BKC) 100 UNITS/ML 13 UNITS SUB-Q (20:19)
[2022-10-31] MEDS: FLUTICASONE/SALMETEROL 45-21 MCG INHALER 1 PUFF 2 PUFF INHALATION (20:44)
[2022-11-01] VITALS (14 sets, daily range): BP systolic 122–150; BP diastolic 42–58; PULSE 79–98; RESP 18; TEMP 36.4–38.1; O2SAT 92–100
[2022-11-01] MEDS: CEFEPIME 2 GM/NS 50 ML 2 GM/50 ML BAG IVPB ×2 (03:39→14:23)
[2022-11-01] MEDS: DOXYCYCLINE 100 MG/NS 100 ML 100 MG/100 ML BAG IVPB ×2 (03:39→15:22)
[2022-11-01 04:57] LABS: Hematocrit 31.3 % (37.0-47.0); Mean Corpuscular HGB Conc 31.9 g/dl (32-36); Mean Corpuscular Hemoglobin 29.9 pg (26-34); Mean Corpuscular Volume 93.4 fl (80-100); Mean Platelet Volume 9.7 fl (7.4-10.4); Platelet Count Result 259 k/mm3 (150-375); Red Blood Count 3.35 M/mm3 (4.2-5.4); Red Cell Distribution Width 12.8 % (11.5-14.5); White Blood Count 15.3 K/mm3 (4.5-10.0)
[2022-11-01 05:08] LABS: Anion Gap 6 mmol/L (8-16); Blood Urea Nitrogen 33 mg/dL (7-17); Calcium 8.2 mg/dL (8.4-10.2); Carbon Dioxide 25 mmol/L (22-30); Chloride 101 mmol/L (98-107); Estimated CRCL calculation 41 ml/min; Estimated Glomerular Filt Rate 40; Glucose 277 mg/dL (65-110); Magnesium 2.3 mg/dL (1.6-2.3); Potassium 4.7 mmol/L (3.4-5.0); Sodium 132 mmol/L (137-145)
[2022-11-01] MEDS: HYDROmorphone HCL INJ (*CRX) 1 MG/ML SYR 0.5 MG IV PUSH (06:13)
[2022-11-01] MEDS: GABAPENTIN 300 MG CAPSULE PO ×3 (06:13→21:30)
[2022-11-01 06:30] LABS: Lactic Acid Reflex 1.2 mmol/L (0.7-2.0)
[2022-11-01 07:55] LABS: Glucose Point of Care 276 mg/dl (65-105)
[2022-11-01] MEDS: FLUTICASONE/SALMETEROL 45-21 MCG INHALER 1 PUFF 2 PUFF INHALATION ×2 (08:27→20:30)
[2022-11-01] MEDS: ASCORBIC ACID 500 MG TABLET PO (10:08)
[2022-11-01] MEDS: INSULIN ASPART (*BKC) 100 UNITS/ML SUB-Q ×3 (10:08→17:18)
[2022-11-01] MEDS: CHOLECALCIFEROL 1,000 UNITS TABLET 5000 UNITS PO (10:08)
[2022-11-01] MEDS: SIMETHICONE 125 MG CHEW TAB PO ×2 (10:08→17:17)
[2022-11-01] MEDS: ESCITALOPRAM OXALATE 10 MG TABLET 20 MG PO (10:08)
[2022-11-01] MEDS: LOSARTAN POTASSIUM 12.5 MG TABLET PO (10:08)
[2022-11-01] MEDS: ASPIRIN 81 MG ENTERIC TABLET PO (10:09)
[2022-11-01] MEDS: SPIRONOLACTONE 12.5 MG TABLET PO (10:09)
[2022-11-01] MEDS: FUROSEMIDE 40 MG TABLET PO (10:09)
[2022-11-01] MEDS: ISOSORBIDE MONONITRATE 30 MG TAB.ER.24H PO (10:09)
[2022-11-01] MEDS: LORATADINE 10 MG TABLET PO (10:09)
[2022-11-01] MEDS: THERAPEUTIC MULTIVITAMINS/MINERALS TAB (*BKC) 1 TABLET PO (10:09)
[2022-11-01] MEDS: EMPAGLIFLOZIN 10 MG TABLET PO (10:09)
[2022-11-01] MEDS: CLOPIDOGREL BISULFATE 75 MG TABLET PO (10:09)
[2022-11-01] MEDS: FAMOTIDINE 20 MG TABLET PO (10:09)
[2022-11-01] MEDS: polyethylene glycoL 3350 17 GM POWD.PACK PO (10:10)
[2022-11-01 12:06] LABS: Glucose Point of Care 329 mg/dl (65-105)
[2022-11-01] MEDS: INSULIN GLARGINE (*BKC) 100 UNITS/ML 10 UNITS SUB-Q (12:21)
[2022-11-01] MEDS: FUROSEMIDE 20 MG TABLET PO (14:23)
[2022-11-01] MEDS: CYCLOBENZAPRINE HCL 5 MG TABLET PO (15:22)
--- NOTE | 2022-11-01 17:10 | WPDPN ---
Progress Note: A&P Assessment and Plan (1) Sepsis: Qualifiers: Sepsis acute organ dysfunction status: unspecified Sepsis type: sepsis due to unspecified organism Qualified Code(s): A41.9 - Sepsis, unspecified organism Code(s): A41.9 - Sepsis, unspecified organism Status: Acute Assessment and Plan: admit to IMU elevated lactic acid source is lungs bilateral bibasilar pneumonia altered mental status early goal-directed therapy ongoing supportive care continue to monitor 11/01/2022 interval history: 71-year-old female was just discharged to nursing and presented with fever and found to have pneumonia patient is being treated with Cefepime, doxycycline and vancomycin, on 10/31 patient was tachypneic repeat chest x-ray showed pneumonia an ABG showed respiratory alkalosis most likely patient is anxious gave patient Xanax 0.25 mg 1x and monitor, today patient continued to complain epigastric with cough CT scan of the abdomen showed worsening pneumonia, discussed with ID pharmacist will discontinue vancomycin and cefepime and add Zosyn will follow-up on the blood and sputum culture and further recommendation to follow, will have a PT OT evaluate the patient (2) Altered mental status: Qualifiers: Altered mental status type: delirium Qualified Code(s): R41.0 - Disorientation, unspecified Code(s): R41.82 - Altered mental status, unspecified Status: Acute Assessment and Plan: likely secondary to above supportive care continue to monitor (3) BLADE (acute kidney injury): Code(s): N17.9 - Acute kidney failure, unspecified Status: Acute Assessment and Plan: will hold diuretics will hold losartan gentle hydration daily intake and output continue to monitor (4) Urine retention: Code(s): R33.9 - Retention of urine, unspecified Status: Acute Assessment and Plan: straight cath as needed urinalysis was clean (5) Depression with anxiety: Code(s): F41.8 - Other specified anxiety disorders Status: Acute Assessment and Plan: continue home meds follow-up in outpatient setting (6) COPD (chronic obstructive pulmonary disease): Code(s): J44.9 - Chronic obstructive pulmonary disease, unspecified Status: Acute Assessment and Plan: continue budesonide p.r.n. breathing treatments q.6 hours (7) Type 1 diabetes: Code(s): E10.9 - Type 1 diabetes mellitus without complications Status: Chronic Assessment and Plan: Accu-Cheks AC and HS continue insulin regimen (8) CAD (coronary artery disease), autologous vein bypass graft: Code(s): I25.810 - Atherosclerosis of coronary artery bypass graft(s) without angina pectoris Status: Acute Assessment and Plan: chest pain-free restart home meds as needed patient had episode of hypotension Subjective Date/time seen: 11/01/22 17:10 Interval history: Altered mental status Narrative: ?This is a 71-year-old female with past medical history significant for congestive heart failure, coronary artery disease, hypertension, diabetes mellitus, insulin dependent, cerebral palsy, she has [facility] and [facility]. patient was brought for evaluation to the emergency room due to concerns for confusion and fever discharged the day before from the hospital after being treated for shortness of breath ,congestive heart failure COPD exacerbation and acute kidney injury.? Patient is unable to give much history she is oriented to person and place however can not tell why she is in the hospital and has no recollection of been admitted to the hospital and discharged from hospital.? Upon arrival to emergency room patient was found to have a temp of 101? preliminary workup was significant for patient found to have some urinary retention however small volume of urine, CT of abdomen and pelvis was significant for bilateral ba
[2022-11-01] MEDS: oxyCODONE HCL (*CRX) 2.5 MG TAB IR PO (17:17)
[2022-11-01] MEDS: PIPERACILLIN/TAZ 4.5G/NS 100ML 4.5 GM/100 ML BAG IVPB (17:18)
[2022-11-01 17:23] LABS: Glucose Point of Care 291 mg/dl (65-105)
[2022-11-01 20:20] LABS: Glucose Point of Care 298 mg/dl (65-105)
[2022-11-01] MEDS: ACETAMINOPHEN 500 MG TABLET 1000 MG PO (21:05)
[2022-11-01] MEDS: MONTELUKAST SODIUM 10 MG TABLET PO (21:05)
[2022-11-01] MEDS: MELATONIN 5 MG TABLET 10 MG PO (21:05)
[2022-11-01] MEDS: ATORVASTATIN 40 MG TABLET PO (21:05)
[2022-11-01] MEDS: TAMSULOSIN HCL 0.4 MG CAPSULE PO (21:05)
[2022-11-01] MEDS: traZODone HCL 50 MG TABLET PO (21:05)
[2022-11-01] MEDS: INSULIN GLARGINE (*BKC) 100 UNITS/ML 13 UNITS SUB-Q (21:11)
[2022-11-02] VITALS (12 sets, daily range): BP systolic 126–143; BP diastolic 48–99; PULSE 69–97; RESP 16–20; TEMP 36.1–36.9; O2SAT 90–100
[2022-11-02] MEDS: PIPERACILLIN/TAZ 4.5G/NS 100ML 4.5 GM/100 ML BAG IVPB ×5 (00:14→23:10)
[2022-11-02] MEDS: DOXYCYCLINE 100 MG/NS 100 ML 100 MG/100 ML BAG IVPB ×2 (02:58→16:42)
[2022-11-02 05:15] LABS: Hematocrit 33.4 % (37.0-47.0); Mean Corpuscular HGB Conc 32.9 g/dl (32-36); Mean Corpuscular Hemoglobin 30.2 pg (26-34); Mean Corpuscular Volume 91.8 fl (80-100); Mean Platelet Volume 9.6 fl (7.4-10.4); Platelet Count Result 302 k/mm3 (150-375); Red Blood Count 3.64 M/mm3 (4.2-5.4); Red Cell Distribution Width 12.3 % (11.5-14.5); White Blood Count 12.9 K/mm3 (4.5-10.0)
[2022-11-02 05:28] LABS: Potassium 4.4 mmol/L (3.4-5.0)
[2022-11-02 05:34] LABS: Anion Gap 10 mmol/L (8-16); Blood Urea Nitrogen 35 mg/dL (7-17); Calcium 8.8 mg/dL (8.4-10.2); Carbon Dioxide 29 mmol/L (22-30); Chloride 97 mmol/L (98-107); Estimated CRCL calculation 33 ml/min; Estimated Glomerular Filt Rate 32; Glucose 193 mg/dL (65-110); Magnesium 2.4 mg/dL (1.6-2.3); Sodium 136 mmol/L (137-145)
[2022-11-02] MEDS: GABAPENTIN 300 MG CAPSULE PO ×3 (05:50→20:55)
[2022-11-02] MEDS: oxyCODONE HCL (*CRX) 2.5 MG TAB IR PO (05:52)
[2022-11-02 07:46] LABS: Glucose Point of Care 194 mg/dl (65-105)
[2022-11-02] MEDS: FLUTICASONE/SALMETEROL 45-21 MCG INHALER 1 PUFF 2 PUFF INHALATION ×2 (08:31→20:39)
[2022-11-02] MEDS: CHOLECALCIFEROL 1,000 UNITS TABLET 5000 UNITS PO (09:13)
[2022-11-02] MEDS: ISOSORBIDE MONONITRATE 30 MG TAB.ER.24H PO (09:13)
[2022-11-02] MEDS: polyethylene glycoL 3350 17 GM POWD.PACK PO (09:13)
[2022-11-02] MEDS: THERAPEUTIC MULTIVITAMINS/MINERALS TAB (*BKC) 1 TABLET PO (09:13)
[2022-11-02] MEDS: LOSARTAN POTASSIUM 12.5 MG TABLET PO (09:13)
[2022-11-02] MEDS: ASCORBIC ACID 500 MG TABLET PO (09:13)
[2022-11-02] MEDS: CLOPIDOGREL BISULFATE 75 MG TABLET PO (09:13)
[2022-11-02] MEDS: ESCITALOPRAM OXALATE 10 MG TABLET 20 MG PO (09:13)
[2022-11-02] MEDS: SPIRONOLACTONE 12.5 MG TABLET PO (09:13)
[2022-11-02] MEDS: SIMETHICONE 125 MG CHEW TAB PO ×2 (09:13→16:42)
[2022-11-02] MEDS: EMPAGLIFLOZIN 10 MG TABLET PO (09:14)
[2022-11-02] MEDS: LORATADINE 10 MG TABLET PO (09:14)
[2022-11-02] MEDS: ASPIRIN 81 MG ENTERIC TABLET PO (09:14)
[2022-11-02] MEDS: FAMOTIDINE 20 MG TABLET PO (09:14)
[2022-11-02] MEDS: FUROSEMIDE 40 MG TABLET PO (09:14)
[2022-11-02 12:04] LABS: Glucose Point of Care 317 mg/dl (65-105)
[2022-11-02] MEDS: INSULIN ASPART (*BKC) 100 UNITS/ML SUB-Q ×2 (12:30→16:41)
[2022-11-02] MEDS: FUROSEMIDE 20 MG TABLET PO (16:00)
--- NOTE | 2022-11-02 17:35 | WPDPN ---
Progress Note: A&P Assessment and Plan (1) Sepsis: Qualifiers: Sepsis acute organ dysfunction status: unspecified Sepsis type: sepsis due to unspecified organism Qualified Code(s): A41.9 - Sepsis, unspecified organism Code(s): A41.9 - Sepsis, unspecified organism Status: Acute Assessment and Plan: admit to IMU elevated lactic acid source is lungs bilateral bibasilar pneumonia altered mental status early goal-directed therapy ongoing supportive care continue to monitor 11/02/2022 interval history: 71-year-old female was just discharged to nursing and presented with fever and found to have pneumonia patient is being treated with Cefepime, doxycycline and vancomycin, on 10/31 patient was tachypneic repeat chest x-ray showed pneumonia an ABG showed respiratory alkalosis most likely patient is anxious gave patient Xanax 0.25 mg 1x and monitor, on 11/01 patient continued to complain epigastric with cough CT scan of the abdomen showed worsening pneumonia, discussed with ID pharmacist discontinued vancomycin and cefepime and added Zosyn and continued doxy, today patient stats feeling better and not requring any oxygen while at rest, the blood is growing Streptococcus haemolytics and epidermidis most likely contamination, will monitor and further recommendation to follow, will have a PT OT evaluate the patient (2) Altered mental status: Qualifiers: Altered mental status type: delirium Qualified Code(s): R41.0 - Disorientation, unspecified Code(s): R41.82 - Altered mental status, unspecified Status: Acute Assessment and Plan: likely secondary to above supportive care continue to monitor (3) BLADE (acute kidney injury): Code(s): N17.9 - Acute kidney failure, unspecified Status: Acute Assessment and Plan: will hold diuretics will hold losartan gentle hydration daily intake and output continue to monitor (4) Urine retention: Code(s): R33.9 - Retention of urine, unspecified Status: Acute Assessment and Plan: straight cath as needed urinalysis was clean (5) Depression with anxiety: Code(s): F41.8 - Other specified anxiety disorders Status: Acute Assessment and Plan: continue home meds follow-up in outpatient setting (6) COPD (chronic obstructive pulmonary disease): Code(s): J44.9 - Chronic obstructive pulmonary disease, unspecified Status: Acute Assessment and Plan: continue budesonide p.r.n. breathing treatments q.6 hours (7) Type 1 diabetes: Code(s): E10.9 - Type 1 diabetes mellitus without complications Status: Chronic Assessment and Plan: Accu-Cheks AC and HS continue insulin regimen (8) CAD (coronary artery disease), autologous vein bypass graft: Code(s): I25.810 - Atherosclerosis of coronary artery bypass graft(s) without angina pectoris Status: Acute Assessment and Plan: chest pain-free restart home meds as needed patient had episode of hypotension Subjective Date/time seen: 11/02/22 17:35 Interval history: Altered mental status Narrative: ?This is a 71-year-old female with past medical history significant for congestive heart failure, coronary artery disease, hypertension, diabetes mellitus, insulin dependent, cerebral palsy, she has a [facility] resident and [facility]. patient was brought for evaluation to the emergency room due to concerns for confusion and fever discharged the day before from the hospital after being treated for shortness of breath ,congestive heart failure COPD exacerbation and acute kidney injury.? Patient is unable to give much history she is oriented to person and place however can not tell why she is in the hospital and has no recollection of been admitted to the hospital and discharged from hospital.? Upon arrival to emergency room patient was found to have a temp of 101? prelimin
[2022-11-02 17:39] LABS: Glucose Point of Care 274 mg/dl (65-105)
--- NOTE | 2022-11-02 18:45 | ADMGEN ---
This patient, Ilana Kim, was admitted to 2 Medical Room 256-. Patient/family oriented to hospital policies and general routines including ID bracelet, bed and alarms, visiting hours, pain management, procedures, bathroom and other care routines, personal items, smoking policy, room service/diet, and visiting hours. Information on how to activate the Rapid Response Team has been discussed. Patient/Family are encouraged to report perceived risks to care and to ask questions if they do not understand what they are told or what they should do.
[2022-11-02] MEDS: ATORVASTATIN 40 MG TABLET PO (20:54)
[2022-11-02] MEDS: guaiFENesin/DEXTROMETHORPHAN 10 ML UDC PO (20:54)
[2022-11-02] MEDS: INSULIN GLARGINE (*BKC) 100 UNITS/ML 13 UNITS SUB-Q (20:54)
[2022-11-02] MEDS: MELATONIN 5 MG TABLET 10 MG PO (20:55)
[2022-11-02] MEDS: traZODone HCL 50 MG TABLET PO (20:55)
[2022-11-02] MEDS: TAMSULOSIN HCL 0.4 MG CAPSULE PO (20:55)
[2022-11-02] MEDS: MONTELUKAST SODIUM 10 MG TABLET PO (20:55)
[2022-11-02 21:08] LABS: Glucose Point of Care 360 mg/dl (65-105)
[2022-11-03] VITALS (13 sets, daily range): BP systolic 90–140; BP diastolic 44–70; PULSE 80–94; RESP 12–20; TEMP 35.8–37.6; O2SAT 92–100
[2022-11-03] MEDS: DOXYCYCLINE 100 MG/NS 100 ML 100 MG/100 ML BAG IVPB (02:28)
[2022-11-03] MEDS: PIPERACILLIN/TAZ 4.5G/NS 100ML 4.5 GM/100 ML BAG IVPB ×4 (05:39→23:08)
[2022-11-03] MEDS: GABAPENTIN 300 MG CAPSULE PO ×3 (05:39→21:06)
[2022-11-03 06:32] LABS: Hematocrit 33.5 % (37.0-47.0); Hemoglobin 11.1 g/dL (12.0-15.0); Mean Corpuscular HGB Conc 33.1 g/dl (32-36); Mean Corpuscular Hemoglobin 30.2 pg (26-34); Mean Platelet Volume 9.4 fl (7.4-10.4); Platelet Count Result 358 k/mm3 (150-375); Red Blood Count 3.68 M/mm3 (4.2-5.4); Red Cell Distribution Width 12.4 % (11.5-14.5); White Blood Count 13.1 K/mm3 (4.5-10.0)
[2022-11-03 06:44] LABS: Anion Gap 11 mmol/L (8-16); Blood Urea Nitrogen 33 mg/dL (7-17); Calcium 8.6 mg/dL (8.4-10.2); Carbon Dioxide 25 mmol/L (22-30); Chloride 98 mmol/L (98-107); Estimated CRCL calculation 36 ml/min; Estimated Glomerular Filt Rate 37; Glucose 207 mg/dL (65-110); Magnesium 2.3 mg/dL (1.6-2.3); Sodium 134 mmol/L (137-145)
[2022-11-03] MEDS: FLUTICASONE/SALMETEROL 45-21 MCG INHALER 1 PUFF 2 PUFF INHALATION ×2 (07:54→21:19)
[2022-11-03 08:26] LABS: Glucose Point of Care 213 mg/dl (65-105)
[2022-11-03] MEDS: INSULIN ASPART (*BKC) 100 UNITS/ML SUB-Q ×3 (08:52→17:18)
[2022-11-03] MEDS: FAMOTIDINE 20 MG TABLET PO (10:35)
[2022-11-03] MEDS: CLOPIDOGREL BISULFATE 75 MG TABLET PO (10:35)
[2022-11-03] MEDS: EMPAGLIFLOZIN 10 MG TABLET PO (10:35)
[2022-11-03] MEDS: ASPIRIN 81 MG ENTERIC TABLET PO (10:35)
[2022-11-03] MEDS: ASCORBIC ACID 500 MG TABLET PO (10:35)
[2022-11-03] MEDS: ESCITALOPRAM OXALATE 10 MG TABLET 20 MG PO (10:35)
[2022-11-03] MEDS: THERAPEUTIC MULTIVITAMINS/MINERALS TAB (*BKC) 1 TABLET PO (10:35)
[2022-11-03] MEDS: SIMETHICONE 125 MG CHEW TAB PO ×2 (10:36→17:14)
[2022-11-03] MEDS: LORATADINE 10 MG TABLET PO (10:36)
[2022-11-03] MEDS: polyethylene glycoL 3350 17 GM POWD.PACK PO (10:36)
[2022-11-03] MEDS: CHOLECALCIFEROL 1,000 UNITS TABLET 5000 UNITS PO (10:36)
[2022-11-03] MEDS: FUROSEMIDE 40 MG TABLET PO (10:48)
[2022-11-03] MEDS: ISOSORBIDE MONONITRATE 30 MG TAB.ER.24H PO (10:48)
[2022-11-03 12:06] LABS: Glucose Point of Care 296 mg/dl (65-105)
--- NOTE | 2022-11-03 13:08 | WPDPN ---
Progress Note: A&P Assessment and Plan (1) Sepsis: Qualifiers: Sepsis acute organ dysfunction status: unspecified Sepsis type: sepsis due to unspecified organism Qualified Code(s): A41.9 - Sepsis, unspecified organism Code(s): A41.9 - Sepsis, unspecified organism Status: Acute Assessment and Plan: admit to IMU elevated lactic acid source is lungs bilateral bibasilar pneumonia altered mental status early goal-directed therapy ongoing supportive care continue to monitor 11/03/2022 interval history: 71-year-old female was just discharged to nursing and presented with fever and found to have pneumonia patient is being treated with Cefepime, doxycycline and vancomycin, on 10/31 patient was tachypneic repeat chest x-ray showed pneumonia an ABG showed respiratory alkalosis most likely patient is anxious gave patient Xanax 0.25 mg 1x and monitor, on 11/01 patient continued to complain epigastric with cough CT scan of the abdomen showed worsening pneumonia, discussed with ID pharmacist discontinued vancomycin and cefepime and added Zosyn and continued doxy, repeat chest x-ray still showed persistent pneumonia and pulmonary edema, will continue IV antibiotic and diuresis the patient, today patient stats does not feel better and and has a wet cough, the blood is growing Streptococcus haemolytics and epidermidis most likely contamination, will monitor and further recommendation to follow, today patient participated in physical therapy, patient will benefit going to rehab t (2) Altered mental status: Qualifiers: Altered mental status type: delirium Qualified Code(s): R41.0 - Disorientation, unspecified Code(s): R41.82 - Altered mental status, unspecified Status: Acute Assessment and Plan: likely secondary to above supportive care continue to monitor (3) BLADE (acute kidney injury): Code(s): N17.9 - Acute kidney failure, unspecified Status: Acute Assessment and Plan: will hold diuretics will hold losartan gentle hydration daily intake and output continue to monitor (4) Urine retention: Code(s): R33.9 - Retention of urine, unspecified Status: Acute Assessment and Plan: straight cath as needed urinalysis was clean (5) Depression with anxiety: Code(s): F41.8 - Other specified anxiety disorders Status: Acute Assessment and Plan: continue home meds follow-up in outpatient setting (6) COPD (chronic obstructive pulmonary disease): Code(s): J44.9 - Chronic obstructive pulmonary disease, unspecified Status: Acute Assessment and Plan: continue budesonide p.r.n. breathing treatments q.6 hours (7) Type 1 diabetes: Code(s): E10.9 - Type 1 diabetes mellitus without complications Status: Chronic Assessment and Plan: Accu-Cheks AC and HS continue insulin regimen (8) CAD (coronary artery disease), autologous vein bypass graft: Code(s): I25.810 - Atherosclerosis of coronary artery bypass graft(s) without angina pectoris Status: Acute Assessment and Plan: chest pain-free restart home meds as needed patient had episode of hypotension Subjective Date/time seen: 11/03/22 13:08 Interval history: Altered mental status Narrative: ?This is a 71-year-old female with past medical history significant for congestive heart failure, coronary artery disease, hypertension, diabetes mellitus, insulin dependent, cerebral palsy, she has a retirement resident and [facility]. patient was brought for evaluation to the emergency room due to concerns for confusion and fever discharged the day before from the hospital after being treated for shortness of breath ,congestive heart failure COPD exacerbation and acute kidney injury.? Patient is unable to give much history she is oriented to person and place however can not tell why she is in the hospital and h
[2022-11-03] MEDS: FUROSEMIDE 20 MG TABLET PO (15:10)
[2022-11-03 17:15] LABS: Glucose Point of Care 383 mg/dl (65-105)
[2022-11-03] MEDS: ONDANSETRON HCL ODT 4 MG TABLET PO (18:31)
[2022-11-03] MEDS: guaiFENesin/DEXTROMETHORPHAN 10 ML UDC PO (18:31)
[2022-11-03 20:14] LABS: Glucose Point of Care 425 mg/dl (65-105)
[2022-11-03] MEDS: traZODone HCL 50 MG TABLET PO (21:06)
[2022-11-03] MEDS: TAMSULOSIN HCL 0.4 MG CAPSULE PO (21:06)
[2022-11-03] MEDS: ATORVASTATIN 40 MG TABLET PO (21:06)
[2022-11-03] MEDS: DOXYCYCLINE HYCLATE 100 MG TABLET PO (21:06)
[2022-11-03] MEDS: INSULIN GLARGINE (*BKC) 100 UNITS/ML 13 UNITS SUB-Q (21:06)
[2022-11-03] MEDS: MONTELUKAST SODIUM 10 MG TABLET PO (21:06)
[2022-11-03] MEDS: MELATONIN 5 MG TABLET 10 MG PO (21:06)
[2022-11-04] VITALS (11 sets, daily range): BP systolic 109–144; BP diastolic 43–70; PULSE 82–95; RESP 16–20; TEMP 36.4–37.1; O2SAT 94–98
[2022-11-04] MEDS: GABAPENTIN 300 MG CAPSULE PO ×3 (05:21→21:18)
[2022-11-04] MEDS: PIPERACILLIN/TAZ 4.5G/NS 100ML 4.5 GM/100 ML BAG IVPB ×3 (05:21→17:51)
[2022-11-04 06:01] LABS: Hematocrit 32.5 % (37.0-47.0); Hemoglobin 10.7 g/dL (12.0-15.0); Mean Corpuscular HGB Conc 32.9 g/dl (32-36); Mean Corpuscular Hemoglobin 29.7 pg (26-34); Mean Corpuscular Volume 90.3 fl (80-100); Mean Platelet Volume 9.4 fl (7.4-10.4); Platelet Count Result 362 k/mm3 (150-375); Red Cell Distribution Width 12.4 % (11.5-14.5); White Blood Count 13.8 K/mm3 (4.5-10.0)
[2022-11-04 06:26] LABS: Anion Gap 7 mmol/L (8-16); Blood Urea Nitrogen 39 mg/dL (7-17); Calcium 8.9 mg/dL (8.4-10.2); Carbon Dioxide 28 mmol/L (22-30); Chloride 95 mmol/L (98-107); Estimated CRCL calculation 32 ml/min; Estimated Glomerular Filt Rate 32; Glucose 300 mg/dL (65-110); Magnesium 2.4 mg/dL (1.6-2.3); Sodium 130 mmol/L (137-145)
--- NOTE | 2022-11-04 08:33 | PM.IMPN ---
Progress Note: A&P Assessment and Plan (1) Sepsis: Qualifiers: Sepsis acute organ dysfunction status: unspecified Sepsis type: sepsis due to unspecified organism Qualified Code(s): A41.9 - Sepsis, unspecified organism Code(s): A41.9 - Sepsis, unspecified organism Status: Acute Assessment and Plan: admit to IMU elevated lactic acid source is lungs bilateral bibasilar pneumonia altered mental status early goal-directed therapy ongoing supportive care continue to monitor 11/03/2022 interval history: 71-year-old female was just discharged to nursing and presented with fever and found to have pneumonia patient is being treated with Cefepime, doxycycline and vancomycin, on 10/31 patient was tachypneic repeat chest x-ray showed pneumonia an ABG showed respiratory alkalosis most likely patient is anxious gave patient Xanax 0.25 mg 1x and monitor, on 11/01 patient continued to complain epigastric with cough CT scan of the abdomen showed worsening pneumonia, discussed with ID pharmacist discontinued vancomycin and cefepime and added Zosyn and continued doxy, repeat chest x-ray still showed persistent pneumonia and pulmonary edema, will continue IV antibiotic and diuresis the patient, today patient stats does not feel better and and has a wet cough, the blood is growing Streptococcus haemolytics and epidermidis most likely contamination, will monitor and further recommendation to follow, today patient participated in physical therapy, patient will benefit going to rehab t 11/04/2022: 71-year-old female just discharged to nursing facility presented back with fever found to have pneumonia. Patient being treated with cefepime doxycycline and vancomycin. On 10/31 patient was tachypneic repeat chest x-ray showed pneumonia on ABG showed respiratory alkalosis most likely patient is anxious give patient Xanax 0.25 mg x 1 and monitored. On 11/01 patient continued to complain of epigastric pain with cough. CT scan of the abdomen showed worsening pneumonia. Discontinued vancomycin and cefepime and added Zosyn and continue doxycycline. Repeat chest x-ray still showed persistent pneumonia and pulmonary edema. Will continue IV antibiotics and started on diuresis. Blood culture is growing Streptococcus haemolyticus and epidermidis which is most likely contamination. However was positive in both bottles patient participating in physical therapy. Remains afebrile overnight. Vitals stable. Remains on 1 L oxygen by nasal cannula. Labs were reviewed. Mild leukocytosis of 13.8. Has underlying CKD stage 3 creatinine 1.6 ranging in between 1.3-1.6. Renal ultrasound with normal kidneys with no hydronephrosis on 10/27/2022. Mild hyponatremia noted chronic. Blood glucose were reviewed. CT scan reviewed. Bilateral lower lobe pneumonia versus asymmetric pulmonary edema on the left perihilar area. On Lantus. Diuresis with 40 mg in a.m. and 20 mg in the evening. Zosyn and doxycycline to continue. Speech to see to rule out aspiration add incentive spirometry. Check BNP will repeat blood culture pending. (2) Altered mental status: Qualifiers: Altered mental status type: delirium Qualified Code(s): R41.0 - Disorientation, unspecified Code(s): R41.82 - Altered mental status, unspecified Status: Acute Assessment and Plan: likely secondary to above supportive care continue to monitor (3) BLADE (acute kidney injury): Code(s): N17.9 - Acute kidney failure, unspecified Status: Acute Assessment and Plan: will hold diuretics will hold losartan gentle hydration daily intake and output continue to monitor (4) Urine retention: Code(s): R33.9 - Retention of urine, unspecified Status: Acute Assessment and Plan: straight cath as needed urinalysis was clean (5) Depression with anxiety: Code(s): F41.8 - Other specified anxiety disorders Status:
[2022-11-04 09:08] LABS: Glucose Point of Care 258 mg/dl (65-105)
[2022-11-04] MEDS: FUROSEMIDE 40 MG TABLET PO (09:34)
[2022-11-04] MEDS: SPIRONOLACTONE 12.5 MG TABLET PO (09:34)
[2022-11-04] MEDS: ASPIRIN 81 MG ENTERIC TABLET PO (09:34)
[2022-11-04] MEDS: THERAPEUTIC MULTIVITAMINS/MINERALS TAB (*BKC) 1 TABLET PO (09:34)
[2022-11-04] MEDS: LORATADINE 10 MG TABLET PO (09:34)
[2022-11-04] MEDS: CLOPIDOGREL BISULFATE 75 MG TABLET PO (09:34)
[2022-11-04] MEDS: DOXYCYCLINE HYCLATE 100 MG TABLET PO ×2 (09:35→21:18)
[2022-11-04] MEDS: ISOSORBIDE MONONITRATE 30 MG TAB.ER.24H PO (09:35)
[2022-11-04] MEDS: ASCORBIC ACID 500 MG TABLET PO (09:35)
[2022-11-04] MEDS: FAMOTIDINE 20 MG TABLET PO (09:35)
[2022-11-04] MEDS: EMPAGLIFLOZIN 10 MG TABLET PO (09:35)
[2022-11-04] MEDS: LOSARTAN POTASSIUM 12.5 MG TABLET PO (09:35)
[2022-11-04] MEDS: SIMETHICONE 125 MG CHEW TAB PO ×2 (09:35→17:51)
[2022-11-04] MEDS: polyethylene glycoL 3350 17 GM POWD.PACK PO (09:35)
[2022-11-04] MEDS: ESCITALOPRAM OXALATE 10 MG TABLET 20 MG PO (09:35)
[2022-11-04] MEDS: INSULIN ASPART (*BKC) 100 UNITS/ML SUB-Q (09:39)
[2022-11-04] MEDS: CHOLECALCIFEROL 1,000 UNITS TABLET 5000 UNITS PO (09:39)
[2022-11-04 09:57] LABS: NT Pro B Type Natriuretic Pept 2070 pg/mL (19.9-100)
[2022-11-04] MEDS: FLUTICASONE/SALMETEROL 45-21 MCG INHALER 1 PUFF 2 PUFF INHALATION ×2 (10:52→20:21)
--- NOTE | 2022-11-04 11:21 | PCSTNOTE ---
Bedside swallowing evaluation. Patient seen sitting upright in chair at side of bed. Oral peripheral examination completed, results within functional limits. Trials of thin liquid by spoon, cup, and straw were within normal limits, no signs of aspiration, also no signs of aspiration with mildly thickened liquids by cup, pureed consistency by spoon, and solid consistency by hand. Swallowing functional ability appears to be within functional limits. Patient was observed to be coughing when I entered her room before we began the evaluation. There was one episode of coughing during the evaluation that was not during or following swallowing. Per nursing, patient coughs at times but there appears to be no correlation with swallowing. A modified barium swallow study can evaluate whether aspiration is occurring. Silent aspiration cannot be ruled out at bedside. Recommendations: regular diet texture with thin liquids. Thank you for the referral of this patient.
[2022-11-04 12:17] LABS: Glucose Point of Care 492 mg/dl (65-105)
[2022-11-04 12:17] LABS: Glucose Point of Care > 500 mg/dl (65-105)
[2022-11-04] MEDS: INSULIN ASPART (*BKC) 100 UNITS/ML 15 UNITS SUB-Q ×2 (12:49→17:51)
[2022-11-04] MEDS: FUROSEMIDE 20 MG TABLET PO (14:56)
[2022-11-04 15:05] LABS: Glucose Point of Care 452 mg/dl (65-105)
--- NOTE | 2022-11-04 17:19 | PC.NURSE ---
Talked to Dr. Cummings and Dr. Renee and they decided to hold the second unit of blood until tomorrow morning.
[2022-11-04 17:21] LABS: Glucose Point of Care 367 mg/dl (65-105)
[2022-11-04] MEDS: INSULIN GLARGINE (*BKC) 100 UNITS/ML 20 UNITS SUB-Q (21:17)
[2022-11-04] MEDS: ATORVASTATIN 40 MG TABLET PO (21:17)
[2022-11-04] MEDS: MELATONIN 5 MG TABLET 10 MG PO (21:18)
[2022-11-04] MEDS: TAMSULOSIN HCL 0.4 MG CAPSULE PO (21:18)
[2022-11-04] MEDS: traZODone HCL 50 MG TABLET PO (21:18)
[2022-11-04] MEDS: MONTELUKAST SODIUM 10 MG TABLET PO (21:18)
[2022-11-04 21:28] LABS: Glucose Point of Care 215 mg/dl (65-105)
[2022-11-04 22:23] LABS: Glucose Point of Care 190 mg/dl (65-105)
[2022-11-05] VITALS (15 sets, daily range): BP systolic 98–136; BP diastolic 42–55; PULSE 77–96; RESP 16–20; TEMP 36.1–36.8; O2SAT 93–99
[2022-11-05] MEDS: PIPERACILLIN/TAZ 4.5G/NS 100ML 4.5 GM/100 ML BAG IVPB ×4 (01:19→17:55)
[2022-11-05] MEDS: GABAPENTIN 300 MG CAPSULE PO ×3 (05:15→21:47)
[2022-11-05 05:51] LABS: Basophils Absolute Auto 0.1 K/mm3 (0.0-0.1); Basophils Percent Auto 0.4 % (0.2-1.2); Eosinophils Absolute Auto 0.4 K/mm3 (0-0.3); Eosinophils Percent Auto 2.5 % (0-4.4); Hematocrit 35.4 % (37.0-47.0); Hemoglobin 11.5 g/dL (12.0-15.0); Immature Granulocyte Absolute 0.17 K/mm3 (0.00-0.031); Immature Granulocyte Percent A 1.1 % (0-0.5); Lymphocytes Absolute Auto 1.85 K/mm3 (0.9-3.2); Lymphocytes Percent Auto 12.1 % (18.3-44.2); Mean Corpuscular HGB Conc 32.5 g/dl (32-36); Mean Corpuscular Hemoglobin 29.7 pg (26-34); Mean Corpuscular Volume 91.5 fl (80-100); Mean Platelet Volume 9.1 fl (7.4-10.4); Monocytes Absolute Auto 1.6 K/mm3 (0.1-0.6); Monocytes Percent Auto 10.6 % (2.6-8.5); Neutrophils Absolute Auto 11.2 K/mm3 (1.3-6.7); Neutrophils Percent Auto 73.3 % (45.5-73.1); Platelet Count Result 411 k/mm3 (150-375); Red Blood Count 3.87 M/mm3 (4.2-5.4); Red Cell Distribution Width 12.3 % (11.5-14.5); White Blood Count 15.3 K/mm3 (4.5-10.0)
[2022-11-05 06:06] LABS: Anion Gap 7 mmol/L (8-16); Blood Urea Nitrogen 48 mg/dL (7-17); Carbon Dioxide 33 mmol/L (22-30); Chloride 97 mmol/L (98-107); Estimated CRCL calculation 26 ml/min; Estimated Glomerular Filt Rate 25; Glucose 132 mg/dL (65-110); Magnesium 2.4 mg/dL (1.6-2.3); Potassium 3.7 mmol/L (3.4-5.0); Sodium 137 mmol/L (137-145)
[2022-11-05] MEDS: FLUTICASONE/SALMETEROL 45-21 MCG INHALER 1 PUFF 2 PUFF INHALATION ×2 (08:08→23:11)
[2022-11-05 08:44] LABS: Glucose Point of Care 182 mg/dl (65-105)
[2022-11-05] MEDS: EMPAGLIFLOZIN 10 MG TABLET PO (08:54)
[2022-11-05] MEDS: DOXYCYCLINE HYCLATE 100 MG TABLET PO (08:54)
[2022-11-05] MEDS: FAMOTIDINE 20 MG TABLET PO (08:54)
[2022-11-05] MEDS: ASCORBIC ACID 500 MG TABLET PO (08:54)
[2022-11-05] MEDS: CHOLECALCIFEROL 1,000 UNITS TABLET 5000 UNITS PO (08:54)
[2022-11-05] MEDS: ASPIRIN 81 MG ENTERIC TABLET PO (08:54)
[2022-11-05] MEDS: CLOPIDOGREL BISULFATE 75 MG TABLET PO (08:54)
[2022-11-05] MEDS: THERAPEUTIC MULTIVITAMINS/MINERALS TAB (*BKC) 1 TABLET PO (08:55)
[2022-11-05] MEDS: SIMETHICONE 125 MG CHEW TAB PO ×2 (08:55→17:55)
[2022-11-05] MEDS: ESCITALOPRAM OXALATE 10 MG TABLET 20 MG PO (08:55)
[2022-11-05] MEDS: ISOSORBIDE MONONITRATE 30 MG TAB.ER.24H PO (08:55)
[2022-11-05] MEDS: LORATADINE 10 MG TABLET PO (08:55)
[2022-11-05] MEDS: INSULIN ASPART (*BKC) 100 UNITS/ML 8 UNITS SUB-Q ×3 (08:57→17:45)
[2022-11-05 12:11] LABS: Glucose Point of Care 247 mg/dl (65-105)
[2022-11-05] MEDS: INSULIN ASPART (*BKC) 100 UNITS/ML SUB-Q (12:18)
--- NOTE | 2022-11-05 14:31 | PM.IMPN ---
Progress Note: A&P Assessment and Plan (1) Sepsis: Qualifiers: Sepsis acute organ dysfunction status: unspecified Sepsis type: sepsis due to unspecified organism Qualified Code(s): A41.9 - Sepsis, unspecified organism Code(s): A41.9 - Sepsis, unspecified organism Status: Acute Assessment and Plan: admit to IMU elevated lactic acid source is lungs bilateral bibasilar pneumonia altered mental status early goal-directed therapy ongoing supportive care continue to monitor 11/03/2022 interval history: 71-year-old female was just discharged to nursing and presented with fever and found to have pneumonia patient is being treated with Cefepime, doxycycline and vancomycin, on 10/31 patient was tachypneic repeat chest x-ray showed pneumonia an ABG showed respiratory alkalosis most likely patient is anxious gave patient Xanax 0.25 mg 1x and monitor, on 11/01 patient continued to complain epigastric with cough CT scan of the abdomen showed worsening pneumonia, discussed with ID pharmacist discontinued vancomycin and cefepime and added Zosyn and continued doxy, repeat chest x-ray still showed persistent pneumonia and pulmonary edema, will continue IV antibiotic and diuresis the patient, today patient stats does not feel better and and has a wet cough, the blood is growing Streptococcus haemolytics and epidermidis most likely contamination, will monitor and further recommendation to follow, today patient participated in physical therapy, patient will benefit going to rehab t 11/04/2022: 71-year-old female just discharged to nursing facility presented back with fever found to have pneumonia. Patient being treated with cefepime doxycycline and vancomycin. On 10/31 patient was tachypneic repeat chest x-ray showed pneumonia on ABG showed respiratory alkalosis most likely patient is anxious give patient Xanax 0.25 mg x 1 and monitored. On 11/01 patient continued to complain of epigastric pain with cough. CT scan of the abdomen showed worsening pneumonia. Discontinued vancomycin and cefepime and added Zosyn and continue doxycycline. Repeat chest x-ray still showed persistent pneumonia and pulmonary edema. Will continue IV antibiotics and started on diuresis. Blood culture is growing Streptococcus haemolyticus and epidermidis which is most likely contamination. However was positive in both bottles patient participating in physical therapy. Remains afebrile overnight. Vitals stable. Remains on 1 L oxygen by nasal cannula. Labs were reviewed. Mild leukocytosis of 13.8. Has underlying CKD stage 3 creatinine 1.6 ranging in between 1.3-1.6. Renal ultrasound with normal kidneys with no hydronephrosis on 10/27/2022. Mild hyponatremia noted chronic. Blood glucose were reviewed. CT scan reviewed. Bilateral lower lobe pneumonia versus asymmetric pulmonary edema on the left perihilar area. On Lantus. Diuresis with 40 mg in a.m. and 20 mg in the evening. Zosyn and doxycycline to continue. Speech to see to rule out aspiration add incentive spirometry. Check BNP will repeat blood culture pending. 11/05/2022:71-year-old female just discharged to nursing facility presented back with fever found to have pneumonia. Patient being treated with cefepime doxycycline and vancomycin. On 10/31 patient was tachypneic repeat chest x-ray showed pneumonia on ABG showed respiratory alkalosis most likely patient is anxious give patient Xanax 0.25 mg x 1 and monitored. On 11/01 patient continued to complain of epigastric pain with cough. CT scan of the abdomen showed worsening pneumonia. Discontinued vancomycin and cefepime and added Zosyn and continue doxycycline. Repeat chest x-ray still showed persistent pneumonia and pulmonary edema. Will continue IV antibiotics and started on diuresis. Blood culture is growing Streptococcus haemolyticus and epidermidis which is most likely contamination. However was positive in both bottles patient participati
[2022-11-05 17:23] LABS: Glucose Point of Care 198 mg/dl (65-105)
[2022-11-05] MEDS: ATORVASTATIN 40 MG TABLET PO (21:46)
[2022-11-05] MEDS: traZODone HCL 50 MG TABLET PO (21:47)
[2022-11-05] MEDS: MELATONIN 5 MG TABLET 10 MG PO (21:47)
[2022-11-05] MEDS: INSULIN GLARGINE (*BKC) 100 UNITS/ML 20 UNITS SUB-Q (21:47)
[2022-11-05] MEDS: TAMSULOSIN HCL 0.4 MG CAPSULE PO (21:47)
[2022-11-05] MEDS: MONTELUKAST SODIUM 10 MG TABLET PO (21:47)
[2022-11-05 22:06] LABS: Glucose Point of Care 269 mg/dl (65-105)
[2022-11-06] VITALS (13 sets, daily range): BP systolic 102–152; BP diastolic 47–65; PULSE 78–101; RESP 17–20; TEMP 36.2–37.1; O2SAT 94–100
[2022-11-06] MEDS: PIPERACILLIN/TAZ 4.5G/NS 100ML 4.5 GM/100 ML BAG IVPB ×3 (00:50→12:19)
[2022-11-06] MEDS: GABAPENTIN 300 MG CAPSULE PO ×3 (05:19→21:10)
[2022-11-06 06:01] LABS: Hematocrit 32.1 % (37.0-47.0); Hemoglobin 10.7 g/dL (12.0-15.0); Mean Corpuscular HGB Conc 33.3 g/dl (32-36); Mean Corpuscular Hemoglobin 30.3 pg (26-34); Mean Corpuscular Volume 90.9 fl (80-100); Platelet Count Result 403 k/mm3 (150-375); Red Blood Count 3.53 M/mm3 (4.2-5.4); Red Cell Distribution Width 12.3 % (11.5-14.5); White Blood Count 11.1 K/mm3 (4.5-10.0)
[2022-11-06 06:13] LABS: Anion Gap 3 mmol/L (8-16); Blood Urea Nitrogen 44 mg/dL (7-17); Calcium 8.4 mg/dL (8.4-10.2); Carbon Dioxide 30 mmol/L (22-30); Chloride 96 mmol/L (98-107); Estimated CRCL calculation 30 ml/min; Estimated Glomerular Filt Rate 30; Glucose 211 mg/dL (65-110); Magnesium 2.4 mg/dL (1.6-2.3); Potassium 3.6 mmol/L (3.4-5.0); Sodium 129 mmol/L (137-145)
[2022-11-06 08:52] LABS: Glucose Point of Care 173 mg/dl (65-105)
[2022-11-06] MEDS: FLUTICASONE/SALMETEROL 45-21 MCG INHALER 1 PUFF 2 PUFF INHALATION ×2 (09:05→20:05)
[2022-11-06] MEDS: INSULIN ASPART (*BKC) 100 UNITS/ML 8 UNITS SUB-Q ×3 (09:31→17:42)
[2022-11-06] MEDS: ISOSORBIDE MONONITRATE 30 MG TAB.ER.24H PO (09:32)
[2022-11-06] MEDS: ASPIRIN 81 MG ENTERIC TABLET PO (09:32)
[2022-11-06] MEDS: FAMOTIDINE 20 MG TABLET PO (09:32)
[2022-11-06] MEDS: ESCITALOPRAM OXALATE 10 MG TABLET 20 MG PO (09:32)
[2022-11-06] MEDS: ASCORBIC ACID 500 MG TABLET PO (09:32)
[2022-11-06] MEDS: THERAPEUTIC MULTIVITAMINS/MINERALS TAB (*BKC) 1 TABLET PO (09:32)
[2022-11-06] MEDS: CLOPIDOGREL BISULFATE 75 MG TABLET PO (09:32)
[2022-11-06] MEDS: CHOLECALCIFEROL 1,000 UNITS TABLET 5000 UNITS PO (09:32)
[2022-11-06] MEDS: SIMETHICONE 125 MG CHEW TAB PO ×2 (09:32→17:42)
[2022-11-06] MEDS: EMPAGLIFLOZIN 10 MG TABLET PO (09:33)
[2022-11-06] MEDS: LORATADINE 10 MG TABLET PO (09:33)
[2022-11-06 12:10] LABS: Glucose Point of Care 178 mg/dl (65-105)
[2022-11-06 16:55] LABS: Glucose Point of Care 179 mg/dl (65-105)
--- NOTE | 2022-11-06 19:42 | PC.NURSE ---
Spoke with RN from [facility] about patient's urinary catheter as we have orders to discontinue it. She said it is not a chronic anglin. RN will discontinue.
[2022-11-06] MEDS: INSULIN GLARGINE (*BKC) 100 UNITS/ML 20 UNITS SUB-Q (21:10)
[2022-11-06] MEDS: MONTELUKAST SODIUM 10 MG TABLET PO (21:10)
[2022-11-06] MEDS: AMOXICILLIN/CLAVULANATE K 875-125 MG TAB 1 TABLET PO (21:10)
[2022-11-06] MEDS: traZODone HCL 50 MG TABLET PO (21:11)
[2022-11-06] MEDS: ATORVASTATIN 40 MG TABLET PO (21:11)
[2022-11-06] MEDS: TAMSULOSIN HCL 0.4 MG CAPSULE PO (21:11)
[2022-11-06] MEDS: MELATONIN 5 MG TABLET 10 MG PO (21:11)
[2022-11-07] VITALS (8 sets, daily range): BP systolic 123–149; BP diastolic 48–63; PULSE 94–104; RESP 16–18; TEMP 36.2–36.4; O2SAT 96–100
[2022-11-07 04:00] LABS: Glucose Point of Care 195 mg/dl (65-105)
[2022-11-07] MEDS: GABAPENTIN 300 MG CAPSULE PO ×2 (05:32→14:19)
[2022-11-07 05:36] LABS: Basophils Percent Auto 0.4 % (0.2-1.2); Eosinophils Absolute Auto 0.5 K/mm3 (0-0.3); Eosinophils Percent Auto 4.8 % (0-4.4); Hematocrit 33.6 % (37.0-47.0); Hemoglobin 11.2 g/dL (12.0-15.0); Immature Granulocyte Absolute 0.12 K/mm3 (0.00-0.031); Immature Granulocyte Percent A 1.1 % (0-0.5); Lymphocytes Absolute Auto 1.24 K/mm3 (0.9-3.2); Lymphocytes Percent Auto 11.6 % (18.3-44.2); Mean Corpuscular HGB Conc 33.3 g/dl (32-36); Mean Corpuscular Hemoglobin 30.3 pg (26-34); Mean Corpuscular Volume 90.8 fl (80-100); Monocytes Percent Auto 9.5 % (2.6-8.5); Neutrophils Absolute Auto 7.8 K/mm3 (1.3-6.7); Neutrophils Percent Auto 72.6 % (45.5-73.1); Platelet Count Result 439 k/mm3 (150-375); Red Cell Distribution Width 11.8 % (11.5-14.5); White Blood Count 10.7 K/mm3 (4.5-10.0)
[2022-11-07 05:51] LABS: Alanine Aminotransferase 23 U/L (6-35); Albumin Level 3.3 g/dL (3.5-5.1); Alkaline Phosphatase 142 U/L (38-126); Anion Gap 4 mmol/L (8-16); Aspartate Amino Transferase 32 U/L (14-36); Bilirubin,Total 0.4 mg/dL (0.2-1.3); Blood Urea Nitrogen 31 mg/dL (7-17); Calcium 8.6 mg/dL (8.4-10.2); Carbon Dioxide 29 mmol/L (22-30); Chloride 97 mmol/L (98-107); Estimated CRCL calculation 42 ml/min; Estimated Glomerular Filt Rate 44; Glucose 197 mg/dL (65-110); Magnesium 2.4 mg/dL (1.6-2.3); Sodium 130 mmol/L (137-145)
--- NOTE | 2022-11-07 08:50 | PCNWS ---
Weekly nutritional screen. Patient is tolerating current diet with adequate intake. No weight loss reported. No nutritional needs at this time.
[2022-11-07 08:57] LABS: Glucose Point of Care 209 mg/dl (65-105)
[2022-11-07] MEDS: FLUTICASONE/SALMETEROL 45-21 MCG INHALER 1 PUFF 2 PUFF INHALATION (09:05)
[2022-11-07] MEDS: ESCITALOPRAM OXALATE 10 MG TABLET 20 MG PO (09:30)
[2022-11-07] MEDS: LORATADINE 10 MG TABLET PO (09:30)
[2022-11-07] MEDS: CLOPIDOGREL BISULFATE 75 MG TABLET PO (09:30)
[2022-11-07] MEDS: LOSARTAN POTASSIUM 12.5 MG TABLET PO (09:30)
[2022-11-07] MEDS: FUROSEMIDE 40 MG TABLET PO (09:31)
[2022-11-07] MEDS: ASCORBIC ACID 500 MG TABLET PO (09:31)
[2022-11-07] MEDS: THERAPEUTIC MULTIVITAMINS/MINERALS TAB (*BKC) 1 TABLET PO (09:31)
[2022-11-07] MEDS: ISOSORBIDE MONONITRATE 30 MG TAB.ER.24H PO (09:31)
[2022-11-07] MEDS: FAMOTIDINE 20 MG TABLET PO (09:31)
[2022-11-07] MEDS: AMOXICILLIN/CLAVULANATE K 875-125 MG TAB 1 TABLET PO (09:32)
[2022-11-07] MEDS: EMPAGLIFLOZIN 10 MG TABLET PO (09:32)
[2022-11-07] MEDS: CHOLECALCIFEROL 1,000 UNITS TABLET 5000 UNITS PO (09:33)
[2022-11-07] MEDS: ASPIRIN 81 MG ENTERIC TABLET PO (09:33)
[2022-11-07] MEDS: SIMETHICONE 125 MG CHEW TAB PO (09:35)
[2022-11-07] MEDS: INSULIN ASPART (*BKC) 100 UNITS/ML SUB-Q ×2 (09:37→12:17)
[2022-11-07] MEDS: INSULIN ASPART (*BKC) 100 UNITS/ML 8 UNITS SUB-Q ×2 (09:37→12:17)
[2022-11-07 12:02] LABS: Glucose Point of Care 220 mg/dl (65-105)
[2022-11-07] MEDS: FUROSEMIDE 20 MG TABLET PO (14:19)
[2022-11-07 15:02] LABS: SARS-CoV-2 RNA PCR Negative (Negative)
--- NOTE | 2022-11-07 15:17 | P.DS_ITS ---
DS: Admitting Diagnosis Discharge Date 11/03/2022 Admitting Diagnosis Altered mental status DS: Discharge Diagnosis Discharge Diagnosis (1) Sepsis: Qualifiers: Sepsis acute organ dysfunction status: unspecified Sepsis type: sepsis due to unspecified organism Qualified Code(s): A41.9 - Sepsis, unspecified organism Code(s): A41.9 - Sepsis, unspecified organism Status: Acute Assessment and Plan: admit to IMU elevated lactic acid source is lungs bilateral bibasilar pneumonia altered mental status early goal-directed therapy ongoing supportive care continue to monitor 11/03/2022 interval history: 71-year-old female was just discharged to nursing and presented with fever and found to have pneumonia patient is being treated with Cefepime, doxycycline and vancomycin, on 10/31 patient was tachypneic repeat chest x-ray showed pneumonia an ABG showed respiratory alkalosis most likely patient is anxious gave patient Xanax 0.25 mg 1x and monitor, on 11/01 patient continued to complain epigastric with cough CT scan of the abdomen showed worsening pneumonia, discussed with ID pharmacist discontinued vancomycin and c efepime and added Zosyn and continued doxy, repeat chest x-ray still showed persistent pneumonia and pulmonary edema, will continue IV antibiotic and diuresis the patient, today patient stats does not feel better and and has a wet cough, the blood is growing Streptococcus haemolytics and epidermidis most likely contamination, will monitor and further recommendation to follow, today patient participated in physical therapy, patient will benefit going to rehab t 11/04/2022: 71-year-old female just discharged to nursing facility presented back with fever found to have pneumonia. Patient being treated with cefepime doxycycline and vancomycin. On 10/31 patient was tachypneic repeat chest x-ray showed pneumonia on ABG showed respiratory alkalosis most likely patient is anxious give patient Xanax 0.25 mg x 1 and monitored. On 11/01 patient continued to complain of epigastric pain with cough. CT scan of the abdomen showed worsening pneumonia. Discontinued vancomycin and cefepime and added Zosyn and continue doxycycline. Repeat chest x-ray still showed persistent pneumonia and pulmonary edema. Will continue IV antibiotics and started on diuresis. Blood culture is growing Streptococcus haemolyticus and epidermidis which is most likely contamination. However was positive in both bottles patient participating in physical therapy. Remains afebrile overnight. Vitals stable. Remains on 1 L oxygen by nasal cannula. Labs were reviewed. Mild leukocytosis of 13.8. Has underlying CKD stage 3 creatinine 1.6 ranging in between 1.3-1.6. Renal ultrasound with normal kidneys with no hydronephrosis on 10/27/2022. Mild hyponatremia noted chronic. Blood glucose were reviewed. CT scan reviewed. Bilateral lower lobe pneumonia versus asymmetric pulmonary edema on the left perihilar area. On Lantus. Diuresis with 40 mg in a.m. and 20 mg in the evening. Zosyn and doxycycline to continue. Speech to see to rule out aspiration add incentive spirometry. Check BNP will repeat blood culture pending. 11/05/2022:71-year-old female just discharged to nursing facility presented back with fever found to have pneumonia. Patient being treated with cefepime doxycycline and vancomycin. On 10/31 patient was tachypneic repeat chest x-ray showed pneumonia on ABG showed respiratory alkalosis most likely patient is anxious give patient Xanax 0.25 mg x 1 and monitored. On 11/01 patient continued to complain of epigastric pain with cough. CT scan of the abdomen showed worsening pneumonia. Discontinued vancomycin a
[2022-11-07 16:45] LABS: Glucose Point of Care 243 mg/dl (65-105)
== END 2022-11-07 17:00 | DRG 871 ==
LOC: ANHED 19:40 → ANHIMU 22:12 → ANH2MED 11-02 18:42
PROVIDERS: Internal Medicine; Admitting Provider Internal Medicine; Emergency Provider Preventive Medicine Aerospace Medicine; PCP Family Medicine; Visit Provider Family Medicine
DX: A41.9 Sepsis, unspecified organism (principal); J18.9 Pneumonia, unspecified organism; I50.32 Chronic diastolic (congestive) heart failure; J44.0 Chronic obstructive pulmonary disease with (acute) lower respiratory infection; E87.1 Hypo-osmolality and hyponatremia; I13.0 Hypertensive heart and chronic kidney disease with heart failure and stage 1 through stage 4 chronic kidney disease, or unspecified chronic kidney disease; N17.9 Acute kidney failure, unspecified; N18.30 Chronic kidney disease, stage 3 unspecified; E10.22 Type 1 diabetes mellitus with diabetic chronic kidney disease; E10.319 Type 1 diabetes mellitus with unspecified diabetic retinopathy without macular edema; Y95 Nosocomial condition; R33.9 Retention of urine, unspecified; G80.9 Cerebral palsy, unspecified; F32.A Depression, unspecified; F41.9 Anxiety disorder, unspecified; Z20.822 Contact with and (suspected) exposure to COVID-19; I25.2 Old myocardial infarction; Z95.5 Presence of coronary angioplasty implant and graft; Z95.1 Presence of aortocoronary bypass graft; Z79.4 Long term (current) use of insulin; Z79.02 Long term (current) use of antithrombotics/antiplatelets; Z79.82 Long term (current) use of aspirin
CPT/HCPCS: 36415; 36600; 71045; 74176; 74177; 80048; 80053; 81001; 82805; 82948; 83605; 83735; 83880; 84484; 85025; 85027; 85610; 85730; 86140; 87040; 87081; 87147; 87181; 87186; 87635; 92610; 93005; 94640; 96361; 96365; 96367; 96375; 96376; 97110; 97161; 97165; 97530; 99285; A9270; G0378; J0456; J0692; J1170; J1815; J2543; J3370; J7030; Q9967

== ENCOUNTER 2025-03-05 08:01 | Inpatient (IN) | payer MEDICARE, MEDICAID, SELFPAY ==
[2025-03-05] VITALS (25 sets, daily range): BP systolic 87–158; BP diastolic 40–78; PULSE 71–93; RESP 12–25; TEMP 36.4–36.6; O2SAT 85–100; BMI 32.5
--- NOTE | ~2025-03-05 | XR_ITS ---
Examination: XR chest 1V portable Clinical History: Hypoxia, CHF Comparison: Earlier same day Technique: Portable AP Findings: Heart size normal. Developing diffuse interstitial markings. Left basilar opacity persists. No acute bony abnormality. IMPRESSION: 1. Developing interstitial pulmonary edema and/or pneumonitis. 2. Persistent retrocardiac atelectasis and/or airspace disease. Reviewed, dictated and finalized at location R. E ENGINEER
--- NOTE | ~2025-03-05 | XR_ITS ---
EXAMINATION: XR chest 2V, 03/05/2025 9:03 WEB MARKETING ASSISTANT HISTORY: weak, confusion COMPARISON: No comparisons available. Technique: 2 views obtained. Findings: Mild pulmonary venous congestion. Small basilar infiltrates. No pneumothorax. Mild cardiomegaly. Mediastinal and hilar contours are within normal limits. Post sternotomy. Impression: CHF. Reviewed, dictated and finalized at location P. MARKETING ASSISTANT Impression: CHF.
--- NOTE | 2025-03-05 08:15 | ECG_ITS ---
Test Date: 2025-03-05 08:22:50 Measurements Intervals [place] Rate: 81 P: 28 ME: 180 QRS: 4 QRSD: 98 T: -24 QT: 360 QTc: 418 Interpretive Statements SINUS RHYTHM WITH SINUS ARRHYTHMIA NONSPECIFIC ST AND T-WAVE ABNORMALITY ABNORMAL ECG No previous ECG available for comparison Electronically Signed On 03-05-2025 08:54:34 [employer] by Huy Buckner M.D.
[2025-03-05 08:40] LABS: Hematocrit 38.9 % (37.0-47.0); Hemoglobin 12.6 g/dL (12.0-15.0); Immature Granulocyte Percent A 0.2 % (0-0.5); Lymphocytes Absolute Auto 0.99 K/mm3 (0.9-3.2); Mean Corpuscular HGB Conc 32.4 g/dl (32-36); Mean Corpuscular Hemoglobin 31.0 pg (26-34); Mean Corpuscular Volume 95.8 fl (80-100); Nucleated Red Blood Cells Absolute Auto 0.000 K/mm3 (0.0-0.012); Nucleated Red Blood Cells Perc 0.0 % (0.0-0.2); Platelet Count Result 233 k/mm3 (150-375); Red Blood Count 4.06 M/mm3 (4.2-5.4); White Blood Count 8.9 K/mm3 (4.5-10.0)
[2025-03-05 08:53] LABS: Alanine Aminotransferase 23 U/L (6-35); Albumin Level 4.4 g/dL (3.5-5.1); Alkaline Phosphatase 183 U/L (38-126); Anion Gap 8 mmol/L (4-12); Aspartate Amino Transferase 32 U/L (14-36); Bilirubin,Total 0.6 mg/dL (0.2-1.3); Blood Urea Nitrogen 67 mg/dL (7-17); Calcium 9.2 mg/dL (8.4-10.2); Carbon Dioxide 28 mmol/L (22-30); Chloride 98 mmol/L (98-107); Estimated CRCL calculation 19 ml/min; Estimated Glomerular Filt Rate 18; Glucose 313 mg/dL (65-110); Potassium 4.9 mmol/L (3.4-5.0); Sodium 134 mmol/L (137-145); Total Protein 7.8 g/dL (6.3-8.2)
[2025-03-05 09:11] LABS: Add Urine Microscopic? YES; Appearance Urine Clear (Clear); Glucose Urine UA 3+ mg/dL (Negative); Leukocyte Esterase Ur 2+ LEU/UL (Negative); Need Manual Microscopic Reviewed; Nitrate Urine Positive (Negative); Non Pathogenic Casts 0-2; Specific Grav Ur 1.023 (1.001-1.035)
[2025-03-05] MEDS: LACTATED RINGERS 1,000 ML 150 ML IV CONT (09:52)
[2025-03-05] MEDS: LACTATED RINGERS 1,000 ML 999 ML IV CONT (09:53)
--- NOTE | 2025-03-05 09:54 | ED.GENADULT ---
HPI - General Adult General Chief complaint: Recheck/Abnormal Lab/Rx Stated complaint: abnormal labs Time Seen by Provider: 03/05/25 08:03 History of Present Illness HPI narrative: This is a 74-year-old female presenting ED for abnormal labs. She was sent from detention because they had noticed an up trending in her sugar despite insulin administration. Additionally she was having episodes of hypoxia and hypotension. The patient herself is A&O x3 and complaining of dysuria. She is denying fevers chest pain difficulty breathing abdominal pain nausea vomiting or diarrhea. She is requesting water. Related Data Home Medications ?Medication ?Instructions ?Recorded ?Confirmed ?Last Taken ?Type ascorbic acid (vitamin C) 100 mg 500 mg PO DAILY 11/21/19 01/18/25 10/24/22 08:00 History tablet (Vitamin C) aspirin 81 mg tablet,delayed 81 mg PO DAILY 11/21/19 01/18/25 10/24/22 08:00 History release (Adult Low Dose Aspirin) clopidogrel 75 mg tablet (Plavix) 75 mg PO DAILY 11/21/19 01/18/25 10/24/22 08:04 History furosemide 40 mg tablet (Lasix) 40 mg PO DAILY 11/21/19 01/18/25 10/24/22 08:04 History isosorbide mononitrate 30 mg 30 mg PO DAILY 11/21/19 01/18/25 10/24/22 08:04 History tablet,extended release 24 hr losartan 25 mg tablet 12.5 mg PO DAILY 11/21/19 01/18/25 10/24/22 08:04 History ondansetron HCl 4 mg tablet 4 mg PO Q8H PRN Nausea 11/21/19 01/18/25 10/20/22 12:23 History (Zofran) spironolactone 25 mg tablet 12.5 mg PO DAILY 11/21/19 01/18/25 10/24/22 08:04 History acetaminophen 325 mg capsule 1,000 mg PO Q6H PRN Pain (Scale 08/13/20 01/18/25 10/25/22 05:56 History Score 1-3) simethicone 125 mg chewable tablet 125 mg PO BID 08/13/20 01/18/25 10/24/22 09:25 History (Gas Relief (simethicone)) dextrose 40 % oral gel (Glucose 10 g PO Q15M PRN Hypoglycemia 09/27/20 01/18/25 10/05/22 06:23 History Gel) glucagon 1 mg solution for 1 mg IM PRN PRN hypoglemcia 09/27/20 01/18/25 07/01/22 04:53 History injection atorvastatin 40 mg tablet 40 mg PO HS 10/25/22 01/18/25 10/24/22 21:25 History cetirizine 10 mg tablet (Zyrtec) 10 mg PO DAILY 10/25/22 01/18/25 10/24/22 08:04 History escitalopram oxalate 20 mg tablet 20 mg PO DAILY 10/25/22 01/18/25 10/24/22 08:04 History insulin aspart U-100 100 unit/mL 2 unit subcut QACDINNER 10/25/22 01/18/25 10/24/22 17:10 History (3 mL) subcutaneous pen (Novolog FlexPen U-100 Insulin aspart) insulin aspart U-100 100 unit/mL See Rx Instructions .Route .COMPLEX 10/25/22 01/18/25 10/24/22 17:10 History (3 mL) subcutaneous pen (Novolog FlexPen U-100 Insulin aspart) insulin aspart U-100 100 unit/mL See Rx Instructions .Route .COMPLEX 10/25/22 01/18/25 10/24/22 21:39 History (3 mL) subcutaneous pen (Novolog FlexPen U-100 Insulin aspart) menthol 10 % topical cream 1 applic topical TID PRN Pain 10/25/22 01/18/25 10/23/22 23:10 History (Biofreeze (menthol)) montelukast 10 mg tablet 10 mg PO HS 10/25/22 01/18/25 10/24/22 21:25 History sodium chloride 0.65 % nasal spray 2 spray intranasal Q1H PRN 10/25/22 01/18/25 06/30/22 20:31 History aerosol Congestion carvedilol 25 mg tablet (Coreg) 25 mg PO BID 10/30/22 01/18/25 Unknown History buspirone 7.5 mg tablet 7.5 mg PO BID 01/14/24 01/18/25 Unknown History melatonin 5 mg capsule 5 mg PO QHS 01/14/24 01/18/25 Unknown History trazodone 100 mg tablet 100 mg PO QHS PRN 01/14/24 01/18/25 Unknown History benzocaine 20 %-menthol 0.26 ea mucous membrane 01/15/25 01/18/25 Unknown History %-zinc chloride 0.15 % mucosal gel (Orajel 3X Toothache-Gum) bupropion HCl 100 mg tablet 100 mg PO BID 01/15/25 01/18/25 Unknown History dextromethorphan-guaifenesin ER 60 1 tablet PO Q12H 01/15/25 01/18/25 Unknown History mg-1,200 mg tab,extend release,12hr (Mucinex DM) duloxetine 60 mg capsule,delayed 60 mg PO DAILY 01/15/25 01/18/25 Unknown History release empagliflozin 25 mg tablet 25 mg PO DAILY 01/15/25 01/18/25 Unknown History fluticasone fur. 100 mcg-umeclid 1 inh inhalation DAILY 01/15/25 01/18/25 Unknown History 62.5 mcg-vilant 25 mcg inhalat.powder (Trelegy Ellipta) gabapentin 300 mg capsule 600 mg PO TID 01/15/25 01/18/25 Unknown History insulin aspart U-100 100 unit/mL 6 unit subcut QACBREAK 01/15/25 01/18/25 Unknown History (3 mL) subcutaneous pen (Novolog FlexPen U-100 Insulin aspart) insulin glargine 100 unit/mL 36 unit subcut HS 01/15/25 01/18/25 Unknown History subcutaneous solution (Lantus U-100 Insulin) multivitamin with iron 1 tablet PO DAILY 01/15/25 01/18/25 Unknown History tizanidine 2 mg tablet 2 mg PO TID PRN 01/15/25 01/18/25 Unknown History Allergies Allergy/AdvReac Type Severity Reaction Status Date / Time Sulfa (Sulfonamide Allergy Mild Rash Verified 01/15/25 11:59 Antibiotics) [facility] Past Medical History Medical History Right hip pain Anxiety COPD (chronic obstructive pulmonary disease) Depression Started after her of cancer and then she continued to take Celexa Hypertension Hypoglycemia Type 1 diabetes Heart attack Cerebral palsy Right side weak, right leg Retinopathy Surgical History Surgical History History of heart artery stent 2 cardiac stents 08/2019 H/O: hysterectomy Hx of CABG X6 in 1999, 6 vessels Family History Family History Mother Cancer Father Asthma Sibling Lung cancer Lung disorder The other brother Other Family history of cardiovascular disease Family history of lung disease Family history of mental disorder Social History Social History Social History: The patient never had any children. She is . She resides at [facility]. Her her nephew Kb is her durable power attorney general for healthcare. She is lifelong nonsmoker does not drink any alcohol. No marijuana use. She is disabled. Code status DNR Smoking status: Never smoker Alcohol intake: never Substance use: never Lack of Transportation: No Lack of Food: Never True Current Housing: I Have Housing Concerned About Future Housing: No Difficulty Paying Gas/Electric Bills: No Difficulty Paying for Meds: No Currently Unemployed: No Education: High School Diploma/GED Difficulty w/ Childcare or Family Care: No Gender identity (if verbalized by the patient): Female Spiritual care concerns: No Exam Narrative: APPEARANCE: No apparent distress. A&O x3. Head: Dry mucous membranes EYES: EOMI, NOSE: Atraumatic NECK: Trachea midline RESPIRATORY: No increased rate of breathing clear to auscultation CARDIOVASCULAR: RRR, no peripheral edema ABDOMINAL: Non-distended soft nontender MUSCULOSKELETAl: No obvious deformities NEURO: Alert. Moving 4/4 extremities SKIN:: Warm, dry. Normal color PSYCHIATRIC: Normal affect Course Vital Signs Vital signs: Vital Signs Temperature 97.9 F 03/05/25 07:57 Pulse Rate 82 03/05/25 07:57 Respiratory Rate 15 03/05/25 07:57 Blood Pressure 113/41 L 03/05/25 07:57 Pulse Oximetry 94 03/05/25 07:57 Oxygen Delivery Room Air 03/05/25 07:57 Temperature 97.9 F 03/05/25 07:57 Pulse Rate 83 03/05/25 09:46 Respiratory Rate 13 03/05/25 09:46 Blood Pressure 114/46 L 03/05/25 09:46 Pulse Oximetry 93 03/05/25 09:46 Oxygen Delivery Room Air 03/05/25 07:57 Medical Decision Making MDM Narrative Medical decision making narrative: -Course: 74-year-old female presenting detention for abnormal labs including elevated glucose, abnormal UA and intermittent low blood pressures and hypoxia. Patient's blood pressure in triage was 87/60 although this improved 110/80 without intervention. Patient has dry mucous membranes and no peripheral edema. Clinically she is trying we will trial L LR and start on 150 cc maintenance given her history of diastolic heart failure. Sepsis workup obtained. Patient found have a urinary tract infection which was treated with ceftriaxone. She also has acute kidney injury with a creatinine of 2.62 from a very baseline of 1.2-1.8 issues. Glucose is elevated but no evidence of DKA/HHS. Patient was monitored throughout her stay in the ED and was having intermittent episodes of hypoxia into the 80s although when I evaluated her she was 95% on room air with no clear respiratory distress. She will be placed on 2 L nasal cannula. Case was discussed with Dr. Couch. Will add doxycycline to cover pneumonia. BNP and procalcitonin added. Further management per the inpatient team. -DDX includes but is not limited to:uti, sepsis, pna dehydration Vital Signs Vital Signs: Vital Signs Temperature 97.9 F 03/05/25 07:57 Pulse Rate 82 03/05/25 07:57 Respiratory Rate 15 03/05/25 07:57 Blood Pressure 113/41 L 03/05/25 07:57 Pulse Oximetry 94 03/05/25 07:57 Oxygen Delivery Room Air 03/05/25 07:57 Temperature 97.9 F 03/05/25 07:57 Pulse Rate 83 03/05/25 09:46 Respiratory Rate 13 03/05/25 09:46 Blood Pressure 114/46 L 03/05/25 09:46 Pulse Oximetry 93 03/05/25 09:46 Oxygen Delivery Room Air 03/05/25 07:57 Lab Data 03/05/25 08:32 03/05/25 08:32 Labs: Lab Results 03/05/25 03/05/25 03/05/25 Range/Units 08:16 08:32 08:38 WBC 8.9 (4.5-10.0) K/mm3 RBC 4.06 L (4.2-5.4) M/mm3 Hgb 12.6 (12.0-15.0) g/dL Hct 38.9 (37.0-47.0) % MCV 95.8 (80-100) fl MCH 31.0 (26-34) pg MCHC 32.4 (32-36) g/dl RDW 13.0 (11.5-14.5) % Plt Count 233 (150-375) k/mm3 MPV 9.3 (7.4-10.4) fl Immature Gran % (Auto) 0.2 (0-0.5) % Neut % (Auto) 79.5 H (45.5-73.1) % Lymph % (Auto) 11.1 L (18.3-44.2) % [place] % (Auto) 5.8 (2.6-8.5) % Eos % (Auto) 3.1 (0-4.4) % Baso % (Auto) 0.3 (0.2-1.2) % Lymph # (Auto) 0.99 (0.9-3.2) K/mm3 [place] # (Auto) 0.5 (0.1-0.6) K/mm3 Eos # (Auto) 0.3 (0-0.3) K/mm3 Baso # (Auto) 0.0 (0.0-0.1) K/mm3 Abs Immat Gran (auto) 0.02 (0.00-0.031) K/mm3 Absolute Neuts (auto) 7.1 H (1.3-6.7) K/mm3 Absolute Nucleated RBC 0.000 (0.0-0.012) K/mm3 Nucleated RBC % 0.0 (0.0-0.2) % Sodium 134 L (137-145) mmol/L Potassium 4.9 (3.4-5.0) mmol/L Chloride 98 (98-107) mmol/L Carbon Dioxide 28 (22-30) mmol/L Anion Gap 8 (4-12) mmol/L BUN 67 H D (7-17) mg/dL Creatinine 2.62 H (0.7-1.0) mg/dL Estim Creat Clear Calc 19 ml/min Estimated GFR 18 L (59 - ) Glucose 313 H (65-110) mg/dL POC Capillary Glucose 349 H (65-105) mg/dl Lactic Acid 1.2 (0.7-2.0) mmol/L Calcium 9.2 (8.4-10.2) mg/dL Total Bilirubin 0.6 (0.2-1.3) mg/dL AST 32 (14-36) U/L ALT 23 (6-35) U/L Alkaline Phosphatase 183 H (38-126) U/L Total Protein 7.8 (6.3-8.2) g/dL Albumin 4.4 (3.5-5.1) g/dL Urine Color Yellow (Yellow) Urine Appearance Clear (Clear) Urine pH 5.0 (5.0-9.0) Ur Specific [place] 1.023 (1.001-1.035) Urine Protein Negative (Negative) mg/dL Urine Glucose (UA) 3+ H (Negative) mg/dL Urine Ketones Trace H (Negative) mg/dL Ur Blood (Man) Negative (Negative) Urine Nitrate Positive H (Negative) Urine Bilirubin Negative (Negative) Urine Urobilinogen 1.0 (<2.0) mg/dL Add Ur Microanalysis Reviewed Leukocyte Esterase Rfl 2+ H (Negative) ANDER/UL Urine RBC 0-2 (0-2) /hpf Urine WBC 51-100 H (0-3) /hpf Ur Squamous Epith Cells Few (Few) /hpf Urine Bacteria 3+ H /hpf Urine Casts 0-2 Hyaline Casts 0-2 (None) /lpf Discharge Plan Discharge Clinical Impression: Acute UTI, Hypoxic respiratory failure, Dehydration, Acute kidney injury Patient Disposition: Still a Patient Condition: Stable Patient Language: German Prescriptions: No Action acetaminophen 325 mg capsule 1,000 mg PO Q6H PRN (Reason: Pain (Scale Score 1-3)) simethicone [Gas Relief (simethicone)] 125 mg tablet,chewable 125 mg PO BID buspirone 7.5 mg tablet 7.5 mg PO BID melatonin 5 mg capsule 5 mg PO QHS trazodone 100 mg tablet 100 mg PO QHS PRN bupropion HCl 100 mg tablet 100 mg PO BID duloxetine 60 mg capsule,delayed release(DR/EC) 60 mg PO DAILY empagliflozin 25 mg tablet 25 mg PO DAILY insulin glargine [Lantus U-100 Insulin] 100 unit/mL solution 36 unit SUBCUT HS tizanidine 2 mg tablet 2 mg PO TID PRN multivitamin with iron Tablet 1 tablet PO DAILY Trelegy Ellipta 100-62.5-25 mcg blister with device 1 inh inhalation DAILY Orajel 3X Toothache-Gum 20-0.26-0.15 % gel mucous membrane dextromethorphan-guaifenesin [Mucinex DM] 60-1,200 mg tablet extended release 12 hr 1 tablet PO Q12H dextrose [Glucose Gel] 40 % Gel 10 g PO Q15M PRN (Reason: Hypoglycemia) Rx Instructions: if blood sugar 50 or below glucagon 1 mg Recon Soln 1 mg IM PRN PRN (Reason: hypoglemcia) nitroglycerin [Nitrostat] 0.4 mg Tablet, Sublingual 0.4 mg sublingual Q5MIN PRN (Reason: Chest Pain) Qty: 25 0RF famotidine [Pepcid] 20 mg tablet 20 mg PO DAILY Qty: 30 0RF furosemide [Lasix] 40 mg Tablet 40 mg PO DAILY ondansetron HCl [Zofran] 4 mg Tablet 4 mg PO Q8H PRN (Reason: Nausea) isosorbide mononitrate 30 mg Tablet Extended Release 24 Hr 30 mg PO DAILY clopidogrel [Plavix] 75 mg Tablet 75 mg PO DAILY losartan 25 mg Tablet 12.5 mg PO DAILY aspirin [Adult Low Dose Aspirin] 81 mg Tablet,Delayed Release (Dr/Ec) 81 mg PO DAILY spironolactone 25 mg Tablet 12.5 mg PO DAILY Vitamin C 100 mg Tablet 500 mg PO DAILY polyethylene glycol 3350 [Miralax] 17 gram Powder In Packet 17 g PO QAM Qty: 30 0RF cetirizine [Zyrtec] 10 mg Tablet 10 mg PO DAILY montelukast 10 mg tablet 10 mg PO HS escitalopram oxalate 20 mg tablet 20 mg PO DAILY insulin aspart U-100 [Novolog FlexPen U-100 Insulin] 100 unit/mL (3 mL) insulin pen See Rx Instructions .ROUTE .COMPLEX Rx Instructions: if blood sugar 200-249, give 3 units. 250-300 give 6 units. 301-350 give 9 units. 351-400 give 12 units. 401-450 give 15 units. if greater than 450 give 20 units and call MD insulin aspart U-100 [Novolog FlexPen U-100 Insulin] 100 unit/mL (3 mL) insulin pen 2 unit SUBCUT QACDINNER insulin aspart U-100 [Novolog FlexPen U-100 Insulin] 100 unit/mL (3 mL) insulin pen See Rx Instructions .ROUTE .COMPLEX Rx Instructions: per sliding scale, at bedtime, if BS less than 60, call MD. if blood sugar 250-300 give 3 units. 301-350 give 6 units. 351-400 give 9 units. if 401-450, give 12 units sodium chloride 0.65 % Aerosol,[place] 2 spray INTRANASAL Q1H PRN (Reason: Congestion) Biofreeze (menthol) 10 % Cream 1 applic TOPICAL TID PRN (Reason: Pain) Rx Instructions: apply to painful areas atorvastatin 40 mg tablet 40 mg PO HS tamsulosin 0.4 mg Capsule 0.4 mg PO HS Qty: 30 0RF furosemide 20 mg tablet 20 mg PO 1400 Qty: 30 0RF gabapentin 300 mg capsule 600 mg PO TID insulin aspart U-100 [Novolog FlexPen U-100 Insulin] 100 unit/mL (3 mL) insulin pen 6 unit SUBCUT QACBREAK Rx Instructions: along with SSI carvedilol [Coreg] 25 mg tablet 25 mg PO BID oxycodone 5 mg tablet 5 mg PO Q8H Qty: 90 0RF Follow-up/Referrals: Todd Lobo MD [Primary Care Provider, Family Practice]
[2025-03-05] MEDS: DOXYCYCLINE IV 100 MG in SODIUM CHLORIDE 0.9% IV 100 ML IVPB ×2 (10:19→21:26)
--- NOTE | 2025-03-05 11:03 | PC.NURSE ---
pt intermittently goes hypoxic and drops to 88% on room air but goes back up to 90s. EDP aware, verbal order for 2L NC. pt fighting and attempting to hit this RN when attempting to put oxygen on pt. EDP aware, no oxygen administered at this time. pt belligerent and wants to go back to [facility], this RN educated the pt that she needs to be admitted due to her illness.
--- NOTE | 2025-03-05 11:06 | WPCEDHO ---
ED Hand Off Checklist All vitals saved: yes IV Site documented: yes All med administrations documented: yes Triage Note Triage Note pt to ED from [facility] via 03/05/25 07:57 [facility] for c/o increased blood sugars since Sunday and lethargic. facility reports her BG has been running in the 400s, today it was 330, facility gave 15units insulin sliding scale. facility also reports a BP of 88/ 50 at 0730 and O2 87% on room air . facility says pt had labs done yesterday and found a UTI, >1000 BG. EMS reports a BG of 377 and VSS. pt is A&OX3 HX T1DM, heart failure, COPD, HTN Allergies Sulfa (Sulfonamide Antibiotics) Allergy (Mild, Verified 01/15/25 11:59) Rash Family History (Last Reviewed 01/15/25 @ 12:18 by Keegan Smith MD) Mother Cancer Father Asthma Sibling Lung cancer Lung disorder Other Family history of cardiovascular disease Family history of lung disease Family history of mental disorder Active Medications including assessments/comments Lactated Ringer's (Lr - Lactated Ringers Iv) 1,000 mls @ 150 mls/hr IV CONT .Q6H40M STA Stop: 03/05/25 16:23 Last Admin: 03/05/25 09:52 Dose: 150 mls/hr Documented By: JASON Infusion/Titration Document 03/05/25 09:52 JASON (Rec: 03/05/25 09:53 JASON [id number]) Intake IV Site Peripheral Access Right Wrist Container Volume 1,000 Waste Amount 0 Dosing Infusion Rate 150 Cumulative Dose Not Applicable Increase/Decrease Started Elapsed Time Elapsed Time ( 0m minutes) Administered/Completed Medications Discontinued Medications Lactated Ringer's (Lr - Lactated Ringers Iv) 1,000 mls @ 999 mls/hr IV CONT .Q1H1M STA Stop: 03/05/25 10:44 Last Infusion: 03/05/25 10:54 Dose: Infused Documented By: Admin: 03/05/25 09:53 Dose: 999 mls/hr Documented By: JASON Doxycycline Hyclate 100 mg/ (Sodium Chloride) 100 mls @ 100 mls/hr IVPB ONCE STA Stop: 03/05/25 11:06 Last Admin: 03/05/25 10:19 Dose: 100 mls/hr Documented By: JASON Notes 03/05/25 11:03 Nurse Note by Alesia Aponte pt intermittently goes hypoxic and drops to 88% on room air but goes back up to 90s. EDP aware, verbal order for 2L NC. pt fighting and attempting to hit this RN when attempting to put oxygen on pt. EDP aware, no oxygen administered at this time. pt belligerent and wants to go back to [facility], this RN educated the pt that she needs to be admitted due to her illness. Initialized on 03/05/25 11:03 - END OF NOTE Interventions/Assessments Cardiac Monitoring Start: 03/05/25 09:55 Freq: Status: Active Protocol: Document 03/05/25 09:55 KNW (Rec: 03/05/25 09:55 KNW [id number]) Computer Discovery Teacher Assessment Computer Discovery Teacher Yes Applied Pulse Rate (60-100 82 beats/min) EKG Rythm Sinus Rhythm General Assessment Start: 03/05/25 07:53 Freq: Status: Active Protocol: Document 03/05/25 08:46 KNW (Rec: 03/05/25 08:47 KNW [id number]) GA Neurological Assessment Neurological No Assessment WNL Level of Drowsy Consciousness Arousable to Verbal Orientation Oriented to Person,Disoriented to Place,Disoriented to Time Behavior Cooperative Patient Unable to Comprehend Comprehension IV / Saline Lock, Insert Start: 03/05/25 08:15 Freq: ONCE Status: Active Protocol: Document 03/05/25 09:53 KNW (Rec: 03/05/25 09:53 KNW [id number]) IV Assessment Peripheral Access Left Wrist IV Catheter Access Initiated IV Insertion Date 03/05/25 IV Insertion Time 09:53 Catheter Gauge 18 IV Insertion 1 Attempts Ultrasound Used for No Placement IV Site Assessment WNL IV Care and WNL Maintenance Last Vital Signs Temperature 97.9 F 03/05/25 07:57 Pulse Rate 78 03/05/25 10:02 Respiratory Rate 15 03/05/25 10:02 Pulse Oximetry 93 03/05/25 10:02 Blood Pressure 103/78 03/05/25 10:02 Blood Pressure Mean 86 03/05/25 10:02 Blood Pressure Position Supine 03/05/25 08:17 Oxygen Delivery Room Air 03/05/25 09:54 Weight 86 kg 03/05/25 07:57 Last Result - Abnormals Only RBC 4.06 M/mm3 (4.2-5.4) L 03/05/25 08:32 Neut % (Auto) 79.5 % (45.5-73.1) H 03/05/25 08:32 Lymph % (Auto) 11.1 % (18.3-44.2) L 03/05/25 08:32 Absolute Neuts (auto) 7.1 K/mm3 (1.3-6.7) H 03/05/25 08:32 Sodium 134 mmol/L (137-145) L 03/05/25 08:32 BUN 67 mg/dL (7-17) H D 03/05/25 08:32 Creatinine 2.62 mg/dL (0.7-1.0) H 03/05/25 08:32 Estimated GFR 18 (59-) L 03/05/25 08:32 Glucose 313 mg/dL (65-110) H 03/05/25 08:32 POC Capillary Glucose 349 mg/dl (65-105) H 03/05/25 08:16 Alkaline Phosphatase 183 U/L (38-126) H 03/05/25 08:32 Urine Glucose (UA) 3+ mg/dL (Negative) H 03/05/25 08:38 Urine Ketones Trace mg/dL (Negative) H 03/05/25 08:38 Urine Nitrate Positive (Negative) H 03/05/25 08:38 Leukocyte Esterase Rfl 2+ ANDER/UL (Negative) H 03/05/25 08:38 Urine WBC 51-100 /hpf (0-3) H 03/05/25 08:38 Urine Bacteria 3+ /hpf H 03/05/25 08:38
[2025-03-05 11:11] LABS: NT Pro B Type Natriuretic Pept 2450 pg/mL (19.9-100)
[2025-03-05 11:30] LABS: Procalcitonin 0.6 ng/mL
--- NOTE | 2025-03-05 11:39 | ADMGEN ---
This patient, Ilana Kim, was admitted to 2 Medical Room 253-01. Patient/family oriented to hospital policies and general routines including ID bracelet, bed and alarms, visiting hours, pain management, procedures, bathroom and other care routines, personal items, smoking policy, room service/diet, and visiting hours. Information on how to activate the Rapid Response Team has been discussed. Patient/Family are encouraged to report perceived risks to care and to ask questions if they do not understand what they are told or what they should do.
--- NOTE | 2025-03-05 12:20 | P.HP_ITS ---
H&P: HPI History of Present Illness Date/Time: 03/05/25 12:20 Chief Complaint: Hyperglycemia Narrative: 74-year-old female past medical history of CABG, presents to hospital with hyperglycemia. Patient was at a assisted may notice that her sugars were trending up even though she was getting her insulin. They also found that she was hypoxic and hypotensive so they called EMS. HPI is limited as patient is severely confused. On bedside assessment patient's breath sounds are diminished and she has 1+ pedal edema. Patient denies all complaints Lab work in the ED shows normal white count and hemoglobin, sodium of 134, BUN of 67, creatinine of 2.62 with previous creatinine is being under 2, GFR 18, glucose of 113, lactic acid of 1.2, proBNP of 2450, UA positive for nitrates 2+ leukocyte esterase 50-100 wbc's and 3 pelvis bacteria. Chest x-ray shows mild pulmonary venous congestion and small infiltrates, EKG shows sinus rhythm with sinus arrhythmia rate of 81, blood cultures and urine cultures pending patient was started on doxy and Rocephin. Review of Systems Review of Systems: ROS unobtainable: Yes unobtainable due to mental status PMF Past Medical History Medical History Right hip pain Anxiety COPD (chronic obstructive pulmonary disease) Depression Started after her of cancer and then she continued to take Celexa Hypertension Hypoglycemia Type 1 diabetes Heart attack Cerebral palsy Right side weak, right leg Retinopathy Surgical History Surgical History History of heart artery stent 2 cardiac stents 08/2019 H/O: hysterectomy Hx of CABG X6 in 1999, 6 vessels Family History Family History Mother Cancer Father Asthma Sibling Lung cancer Lung disorder The other brother Other Family history of cardiovascular disease Family history of lung disease Family history of mental disorder Social History Social History Social History: The patient never had any children. She is . She resides at he [facility]. Her her nephew Kb is her durable power transactional attorney for healthcare. She is lifelong nonsmoker does not drink any alcohol. No marijuana use. She is disabled. Code status DNR Smoking status: Never smoker Alcohol intake: never Substance use: never Lack of Transportation: No Lack of Food: Never True Current Housing: I Have Housing Concerned About Future Housing: No Difficulty Paying Gas/Electric Bills: No Difficulty Paying for Meds: No Currently Unemployed: No Education: High School Diploma/GED Difficulty w/ Childcare or Family Care: No Gender identity (if verbalized by the patient): Female Spiritual care concerns: No Meds Home Medications and Allergies Home Medications ?Medication ?Instructions ?Recorded ?Confirmed ?Type ascorbic acid (vitamin C) 100 mg 500 mg PO DAILY 11/2003/05/25 History tablet (Vitamin C) aspirin 81 mg tablet,delayed 81 mg PO DAILY 11/21/1905/05/24 History release (Adult Low Dose Aspirin) clopidogrel 75 mg tablet (Plavix) 75 mg PO DAILY 11/2003/05/25 History furosemide 40 mg tablet (Lasix) 40 mg PO DAILY 0 03/05/25 History isosorbide mononitrate 30 mg 30 mg PO DAILY 11/21/1905/05/24 History tablet,extended release 24 hr losartan 25 mg tablet 12.5 mg PO DAILY 11/21/19 History ondansetron HCl 4 mg tablet 4 mg PO Q8H PRN Nausea 03/05/25 History (Zofran) spironolactone 25 mg tablet 12.5 mg PO DAILY 11/21/19 03/05/25 History polyethylene glycol 3350 17 gram 17 g PO QAM #30 ea 03/05/25 Rx oral powder packet (Miralax) acetaminophen 325 mg capsule 650 mg PO Q6H PRN Pain (S danish 08/13/20 03/05/25 History Score 1-3) simethicone 125 mg chewable tablet 125 mg PO BID 08/1303/05/25 History (Gas Relief (simethicone)) dextrose 40 % oral gel (Glucose 10 g PO Q15M PRN Hypog lycemia 09/27/20 03/05/25 History Gel) glucagon 1 mg solution for 1 mg IM PRN PRN hypoglemcia 09/27/20 03/05/25 History injection famotidine 20 mg tablet (Pepcid) 20 mg PO DAILY #30 ta bs 09/29/20 03/05/25 Rx nitroglycerin 0.4 mg sublingual 0.4 mg sublingual Q5MI N PRN Chest 09/29/20 03/05/25 Rx tablet (Nitrostat) Pain #25 tabs atorvastatin 40 mg tablet 40 mg PO HS 10/25/22 5 History cetirizine 10 mg tablet (Zyrtec) 10 mg PO DAILY 03/05/25 History insulin aspart U-100 100 unit/mL 2 unit subcut QACDINN ER 10/25/22 03/05/25 History (3 mL) subcutaneous pen (Novolog FlexPen U-100 Insulin aspart) insulin aspart U-100 100 unit/mL See Rx Instructions . Route .COMPLEX 10/25/22 03/05/25 History (3 mL) subcutaneous pen (Novolog FlexPen U-100 Insulin aspart) insulin aspart U-100 100 unit/mL See Rx Instructions . Route .COMPLEX 10/25/22 03/05/25 History (3 mL) subcutaneous pen (Novolog FlexPen U-100 Insulin aspart) menthol 10 % topical cream 1 applic topical TID PRN Pa in 10/25/22 03/05/25 History (Biofreeze (menthol)) montelukast 10 mg tablet 10 mg PO HS 10/25/22 5 History sodium chloride 0.65 % nasal spray 2 spray intranasal Q1H PRN 10/25/22 03/05/25 History aerosol Congestion furosemide 20 mg tablet 20 mg PO 1400 #30 tabs 10/2903/05/25 Rx tamsulosin 0.4 mg capsule 0.4 mg PO HS #30 caps 03/05/25 Rx carvedilol 25 mg tablet (Coreg) 25 mg PO BID 10/30/22 03/05/25 History buspirone 7.5 mg tablet 7.5 mg PO BID 01/14/2403/05 History melatonin 5 mg capsule 5 mg PO QHS 01/14/24 5 History trazodone 100 mg tablet 100 mg PO QHS PRN insomnia 1 03/05/25 History benzocaine 20 %-menthol 0.26 See Rx Instructions mucou s 01/15/25 03/05/25 History %-zinc chloride 0.15 % mucosal gel membrane .COMPLEX P RN gum (Orajel 3X Toothache-Gum) discomfort bupropion HCl 100 mg tablet 100 mg PO .q12hr 01/15/25 03/05/25 History duloxetine 60 mg capsule,delayed 60 mg PO DAILY 03/05/25 History release empagliflozin 25 mg tablet 25 mg PO DAILY 01/15/25 History fluticasone fur. 100 mcg-umeclid 1 inh inhalation VANNESSA Y 01/15/25 03/05/25 History 62.5 mcg-vilant 25 mcg inhalat.powder (Trelegy Ellipta) gabapentin 300 mg capsule 600 mg PO TID 01/15/2503/05 History insulin aspart U-100 100 unit/mL 6 unit subcut QACBREA K 01/15/25 03/05/25 History (3 mL) subcutaneous pen (Novolog FlexPen U-100 Insulin aspart) insulin glargine 100 unit/mL 36 unit subcut HS 5 03/05/25 History subcutaneous solution (Lantus U-100 Insulin) multivitamin with iron 1 tablet PO DAILY 01/15/25 1 05/05/24 History tizanidine 2 mg tablet 2 mg PO TID PRN muscle spast icity 01/15/25 03/05/25 History insulin aspart U-100 100 unit/mL 2 unit subcut QACLUNC H 03/05/25 03/05/25 History subcutaneous solution (Novolog U-100 Insulin aspart) oxycodone 5 mg tablet 5 mg PO Q6H pain 03/05/25 History Allergies Allergy/AdvReac Type Severity Reaction Status Date / Time Sulfa (Sulfonamide Allergy Mild Rash Verified 03/05/25 11:55 Antibiotics) Vital Signs Vital Signs - 24 hr 03/05/25 07:57 03/05/25 08:11 03/05/25 08:16 Temperature 97.9 F Pulse Rate 82 78 81 Respiratory Rate 15 13 12 Blood Pressure 113/41 L 113/41 L 87/47 L Pulse Oximetry 94 96 93 Oxygen Delivery Room Air 03/05/25 08:17 03/05/25 08:31 03/05/25 08:46 Temperature Pulse Rate 81 79 81 Respiratory Rate 25 H 14 17 Blood Pressure 87/47 L 103/41 L 105/52 L Pulse Oximetry 93 93 100 Oxygen Delivery 03/05/25 08:58 03/05/25 09:01 03/05/25 09:29 Temperature Pulse Rate 78 79 82 Respiratory Rate 13 12 18 Blood Pressure 105/40 L 107/41 L 100/40 L Pulse Oximetry 91 94 90 Oxygen Delivery 03/05/25 09:31 03/05/25 09:46 03/05/25 09:54 Temperature Pulse Rate 83 83 Respiratory Rate 14 13 Blood Pressure 109/44 L 114/46 L Pulse Oximetry 89 L 93 95 Oxygen Delivery Room Air 03/05/25 09:55 03/05/25 10:01 03/05/25 10:02 Temperature Pulse Rate 82 82 78 Respiratory Rate 17 15 Blood Pressure 103/78 103/78 Pulse Oximetry 90 93 Oxygen Delivery 03/05/25 11:19 Temperature Pulse Rate 77 Respiratory Rate 16 Blood Pressure 107/61 Pulse Oximetry 92 Oxygen Delivery Exam Narrative: General: Chronically ill-appearing HEENT: normocephalic, atraumatic. Mucous membranes moist. EOMI, PERRLA, bilateral sclera anicteric, no conjunctival injection. Neck supple without JVD, lymphadenopathy, or bruit. Respiratory: Diminished. Cardiovascular: Regular rate and rhythm, normal S1-S2. No murmurs, rubs, or clicks. PMI is nondisplaced, capillary refill less than 3 second. Abdomen: Soft, round, no pulsatile masses, nondistended and nontender. No rebound, no guarding. Bowel sounds present to all four quadrants. No high pitch or tinkling sounds, resonant to percussion. Extremities: No cyanosis, clubbing, or edema present. Pulses are palpable 2/2. Active ROM to all four extremities. 1+ pedal edema Neuro: Alert and orientated x 1. PERRLA. Cranial nerves 2-12 intact without focal deficit. Skin: Warm, dry, and intact, without rash, erythema, or lesion. Psych: pleasant, cooperative, normal speech, normal affect, no hallucinations, no dysarthia H&P: Results Labs Labs: Short CBC 03/05/25 Range/Units 08:32 WBC 8.9 (4.5-10.0) K/mm3 Hgb 12.6 (12.0-15.0) g/dL Hct 38.9 (37.0-47.0) % Plt Count 233 (150-375) k/mm3 BMP 03/05/25 08:32 Sodium 134 L Potassium 4.9 Chloride 98 Carbon Dioxide 28 BUN 67 H D Creatinine 2.62 H Glucose 313 H Calcium 9.2 Liver Function 03/05/25 Range/Units 08:32 Total Bilirubin 0.6 (0.2-1.3) mg/dL AST 32 (14-36) U/L ALT 23 (6-35) U/L Alkaline Phosphatase 183 H (38-126) U/L Albumin 4.4 (3.5-5.1) g/dL Urine 03/05/25 Range/Units 08:38 Urine Color Yellow (Yellow) Urine Appearance Clear (Clear) Urine pH 5.0 (5.0-9.0) Ur Specific [place] 1.023 (1.001-1.035) Urine Protein Negative (Negative) mg/dL Urine Glucose (UA) 3+ H (Negative) mg/dL Assessment and Plan Assessment and plan (1) Systolic dysfunction: Code(s): I51.9 - Heart disease, unspecified Status: Chronic Assessment and Plan: Monitor for fluid overload Patient does have some pulmonary edema on x-ray however she looks dry due to infection so she was given fluids in the emergency room Patient hypoxic on floor will repeat chest x-ray with worsening pulmonary edema No IV fluids due to overload IV Lasix x1 Reassess fluid status in a.m. to determine if patient needs IV or p.o. Lasix (2) Acute UTI: Code(s): N39.0 - Urinary tract infection, site not specified Status: Acute Assessment and Plan: IV Rocephin No IV fluids due to CHF on chest x-ray and pedal edema Culture and sensitivity pending (3) BLADE (acute kidney injury): Code(s): N17.9 - Acute kidney failure, unspecified Status: Acute Assessment and Plan: Currently holding home Lasix due to BLADE Gentle hydration A.m. labs Avoid nephrotoxic medications Holding gabapentin for now (4) CAD (coronary artery disease), autologous vein bypass graft: Code(s): I25.810 - Atherosclerosis of coronary artery bypass graft(s) without angina pectoris Status: Acute Assessment and Plan: Continue Plavix, aspirin, Coreg and Lipitor (5) Type 2 diabetes mellitus without complications: Code(s): E11.9 - Type 2 diabetes mellitus without complications Status: Acute Assessment and Plan: Varsha-Fermin guamancPamela HS Home dose Lantus SSI Diabetic diet (6) COPD (chronic obstructive pulmonary disease): Code(s): J44.9 - Chronic obstructive pulmonary disease, unspecified Status: Acute Assessment and Plan: Continue home inhalers (7) Hypertension: Code(s): I10 - Essential (primary) hypertension Status: Chronic Assessment and Plan: Continue home antihypertensives (8) Depression: Code(s): F32.9 - Major depressive disorder, single episode, unspecified Status: Chronic Assessment and Plan: Continue home medications Quality VTE Prophylaxis VTE prophylaxis: mechanical ordered and pharmacologic ordered Hospitalist MIPS Advance Care Plan I have confirmed that the patient's Advanced Care Plan is present, code status is documented, or surrogate decision maker is listed in patient medical record.: Yes Medication Reconciliation I have utilized all available resources to obtain, update and review the patients current medications (includes all prescriptions, OTC, herbals, cannabis, and nutritional supplements).: Yes
[2025-03-05] MEDS: IPRATROPIUM 0.5 MG/ALBUTEROL SULFATE 2.5 MG (BASE) AMPUL.NEB 3 ML INHALATION ×2 (14:20→21:05)
[2025-03-05] MEDS: GABAPENTIN 300 MG CAPSULE 600 MG PO (14:29)
[2025-03-05] MEDS: cefTRIAXone 1 GM in SODIUM CHLORIDE 0.9% IV 50 ML 100 ML IVPB (14:29)
[2025-03-05] MEDS: busPIRone HCL 2.5 MG TABLET PO (17:25)
[2025-03-05] MEDS: DOCUSATE SODIUM 100 MG CAPSULE PO (17:25)
[2025-03-05] MEDS: INSULIN ASPART (*BKC) 100 UNITS/ML SUB-Q (17:25)
[2025-03-05] MEDS: TAMSULOSIN HCL 0.4 MG CAPSULE PO (21:19)
[2025-03-05] MEDS: MELATONIN 5 MG TABLET PO (21:20)
[2025-03-05] MEDS: ATORVASTATIN 40 MG TABLET PO (21:25)
[2025-03-05] MEDS: buPROPion HCL SR (12HR) 100 MG TABCR PO (21:25)
[2025-03-05] MEDS: guaiFENesin 12 HR 600 MG TABCR 1200 MG PO (21:25)
[2025-03-05] MEDS: INSULIN GLARGINE (*BKC) 100 UNITS/ML 29 UNITS SUB-Q (21:26)
[2025-03-05] MEDS: FUROSEMIDE INJ 40 MG/4 ML VIAL IV PUSH (22:57)
[2025-03-06] VITALS (8 sets, daily range): BP systolic 128–143; BP diastolic 61–73; PULSE 86–88; RESP 14–20; TEMP 36.2–36.7; O2SAT 88–100
[2025-03-06] MEDS: IPRATROPIUM 0.5 MG/ALBUTEROL SULFATE 2.5 MG (BASE) AMPUL.NEB 3 ML INHALATION ×2 (02:07→08:24)
[2025-03-06 05:08] LABS: Hematocrit 40.2 % (37.0-47.0); Hemoglobin 13.2 g/dL (12.0-15.0); Immature Granulocyte Percent A 0.3 % (0-0.5); Lymphocytes Absolute Auto 1.11 K/mm3 (0.9-3.2); Mean Corpuscular HGB Conc 32.8 g/dl (32-36); Mean Corpuscular Hemoglobin 30.4 pg (26-34); Mean Corpuscular Volume 92.6 fl (80-100); Nucleated Red Blood Cells Absolute Auto 0.000 K/mm3 (0.0-0.012); Nucleated Red Blood Cells Perc 0.0 % (0.0-0.2); Platelet Count Result 222 k/mm3 (150-375); Red Blood Count 4.34 M/mm3 (4.2-5.4); White Blood Count 6.5 K/mm3 (4.5-10.0)
[2025-03-06 05:28] LABS: Anion Gap 6 mmol/L (4-12); Blood Urea Nitrogen 48 mg/dL (7-17); Calcium 9.0 mg/dL (8.4-10.2); Carbon Dioxide 28 mmol/L (22-30); Chloride 104 mmol/L (98-107); Estimated CRCL calculation 28 ml/min; Estimated Glomerular Filt Rate 29; Glucose 193 mg/dL (65-110); Potassium 4.4 mmol/L (3.4-5.0); Sodium 138 mmol/L (137-145)
[2025-03-06] MEDS: FLUTICASONE/UMECLIDIN/VILANTER 100-62.5-25 MCG ELLIPTA 1 PUFF INHALATION (08:24)
[2025-03-06] MEDS: INSULIN ASPART (*BKC) 100 UNITS/ML SUB-Q ×3 (08:26→17:02)
[2025-03-06] MEDS: CLOPIDOGREL BISULFATE 75 MG TABLET PO (08:27)
[2025-03-06] MEDS: guaiFENesin 12 HR 600 MG TABCR 1200 MG PO ×2 (08:27→20:05)
[2025-03-06] MEDS: ASPIRIN 81 MG ENTERIC TABLET PO (08:30)
[2025-03-06] MEDS: DOCUSATE SODIUM 100 MG CAPSULE PO ×2 (08:30→17:03)
[2025-03-06] MEDS: LOSARTAN POTASSIUM 12.5 MG TABLET PO (08:30)
[2025-03-06] MEDS: busPIRone HCL 2.5 MG TABLET PO ×2 (08:30→17:03)
[2025-03-06] MEDS: ISOSORBIDE MONONITRATE 30 MG TAB.ER.24H PO (08:30)
[2025-03-06] MEDS: buPROPion HCL SR (12HR) 100 MG TABCR PO ×2 (08:30→20:05)
[2025-03-06] MEDS: DULoxetine HCL 60 MG CAPSULE.DR PO (08:30)
[2025-03-06] MEDS: LORATADINE 10 MG TABLET PO (08:31)
[2025-03-06] MEDS: FAMOTIDINE 20 MG TABLET PO (08:32)
[2025-03-06] MEDS: DOXYCYCLINE IV 100 MG in SODIUM CHLORIDE 0.9% IV 100 ML IVPB ×2 (11:10→21:16)
[2025-03-06] MEDS: cefTRIAXone 1 GM in SODIUM CHLORIDE 0.9% IV 50 ML 100 ML IVPB (12:35)
--- NOTE | 2025-03-06 13:41 | P.PNIM_ITS ---
Progress Note: A&P Assessment and Plan (1) Systolic dysfunction: Code(s): I51.9 - Heart disease, unspecified Status: Chronic Assessment and Plan: Monitor for fluid overload Patient does have some pulmonary edema on x-ray however she looks dry due to infection so she was given fluids in the emergency room received 1 L bolus in the ED Patient hypoxic on floor repeat chest x-ray with worsening pulmonary edema No IV fluids due to overload Received IV Lasix x1 03/05/2025 Resume oral Lasix home doses (2) Acute UTI: Code(s): N39.0 - Urinary tract infection, site not specified Status: Acute Assessment and Plan: IV Rocephi No IV fluids due to CHF on chest x-ray and pedal edema Culture and sensitivity pending (3) BLADE (acute kidney injury): Code(s): N17.9 - Acute kidney failure, unspecified Status: Acute Assessment and Plan: Currently holding home Lasix due to BLADE Received IV fluid bolus 1 L 03/05/2025 Creatinine improving Baseline creatinine mid 1s Avoid nephrotoxic medications Holding gabapentin for now (4) CAD (coronary artery disease), autologous vein bypass graft: Code(s): I25.810 - Atherosclerosis of coronary artery bypass graft(s) without angina pectoris Status: Acute Assessment and Plan: Continue Plavix, aspirin, Coreg and Lipitor (5) Type 2 diabetes mellitus without complications: Code(s): E11.9 - Type 2 diabetes mellitus without complications Status: Acute Assessment and Plan: Varsha-Fermin da silva HS Home dose Lantus SSI Diabetic diet (6) COPD (chronic obstructive pulmonary disease): Code(s): J44.9 - Chronic obstructive pulmonary disease, unspecified Status: Acute Assessment and Plan: Continue home inhalers L (7) Hypertension: Code(s): I10 - Essential (primary) hypertension Status: Chronic Assessment and Plan: Continue home antihypertensives (8) Depression: Code(s): F32.9 - Major depressive disorder, single episode, unspecified Status: Chronic Assessment and Plan: Continue home medications L Subjective Date/time seen: 03/06/25 13:41 Interval history: Feels well. No new complaints. Wants to go back home. Review of Systems Review of Systems: All systems reviewed & are unremarkable except as noted in HPI and below Exam Narrative: General: Chronically ill-appearing not in acute distress HEENT: normocephalic, atraumatic. Mucous membranes moist. Respiratory: Diminished breath sounds bilaterally. No respiratory distress. Cardiovascular: Regular rate and rhythm, normal S1-S2. No murmurs, rubs, or clicks. Abdomen: Soft, round, no pulsatile masses, nondistended and nontender. Extremities: No cyanosis, clubbing, or edema present. Pulses are palpable 2/2. Active ROM to all four extremities. 1+ pedal edema Neuro: Alert and orientated x 1. PERRLA. Cranial nerves 2-12 intact without focal deficit. Skin: Warm, dry, and intact, without rash, erythema, or lesion. Psych: pleasant, cooperative, normal speech, normal affect, no hallucinations, no dysarthia Objective Data Vital Signs Vital Signs: Vital Signs - 24 hr 03/05/25 14:22 03/05/25 14:24 03/05/25 14:28 Temperature Pulse Rate 78 77 Respiratory Rate 18 18 Blood Pressure Pulse Oximetry 91 Oxygen Delivery Room Air Oxygen Flow Rate Fraction of Inspired Oxygen 03/05/25 19:34 03/05/25 20:00 03/05/25 21:05 Temperature 97.6 F Pulse Rate 88 93 Respiratory Rate 18 18 Blood Pressure 158/55 H Pulse Oximetry 94 93 85 L Oxygen Delivery Nasal Cannula Room Air Oxygen Flow Rate 1 Fraction of Inspired Oxygen 21 03/05/25 21:05 03/05/25 21:06 03/05/25 23:00 Temperature Pulse Rate 93 Respiratory Rate 16 Blood Pressure Pulse Oximetry 95 91 Oxygen Delivery Room Air Oxygen Flow Rate 2 Fraction of Inspired Oxygen 03/06/25 02:07 03/06/25 02:07 03/06/25 04:45 Temperature 97.6 F Pulse Rate 88 88 86 Respiratory Rate 14 14 18 Blood Pressure 128/73 Pulse Oximetry 88 L 100 Oxygen Delivery Room Air Oxygen Flow Rate Fraction of Inspired Oxygen 21 03/06/25 08:00 03/06/25 08:26 03/06/25 08:26 Temperature Pulse Rate 86 86 Respiratory Rate 20 20 Blood Pressure Pulse Oximetry 93 Oxygen Delivery Room Air Room Air Oxygen Flow Rate Fraction of Inspired Oxygen 21 03/06/25 08:30 03/06/25 08:31 Temperature Pulse Rate 86 86 Respiratory Rate 20 Blood Pressure Pulse Oximetry Oxygen Delivery Oxygen Flow Rate Fraction of Inspired Oxygen Intake/Output Intake/Output: Intake & Output 03/03/25 03/04/25 03/05/25 03/06/25 23:59 23:59 23:59 23:59 Intake Total 1632 240 Output Total 400 3100 Balance 3472 -0580 Meds/Results Medications: Active Medications Generic Name Dose Route Start Last Admin Trade Name Freq PRN Reason Stop Dose Admin Acetaminophen 650 mg 03/05/25 12:30 Acetaminophen 325 Mg Tablet PO Q4H PRN Mild Pain (1-3) or Fever Albuterol/Ipratropium 3 ml 03/06/25 12:36 Ipratropium 0.5 Mg/Albuterol Sulfate 2.5 Mg (Base) Ampul.Neb 3 Ml INHALATION Q6HRT PRN Wheezing Aspirin 81 mg 03/06/25 09:00 03/06/25 08:30 Aspirin 81 Mg Enteric Tablet PO 81 mg DAILY VIKKI Administration Atorvastatin Calcium 40 mg 03/05/25 21:00 03/05/25 21:25 Atorvastatin 40 Mg Tablet PO 40 mg HS VIKKI Administration Bupropion HCl 100 mg 03/05/25 21:00 03/06/25 08:30 Bupropion Hcl Sr (12hr) 100 Mg Tabcr PO 100 mg Q12HR VIKKI Administration Buspirone HCl 2.5 mg 03/05/25 17:00 03/06/25 08:30 Buspirone Hcl 2.5 Mg Tablet PO 2.5 mg BID VIKKI Administration Buspirone HCl 5 mg 03/05/25 17:00 03/06/25 08:30 Buspirone Hcl 5 Mg Tablet PO 5 mg BID VIKKI Administration Carvedilol 25 mg 03/05/25 21:00 03/06/25 08:30 Carvedilol 25 Mg Tablet PO 25 mg Q12HR VIKKI Administration Clopidogrel Bisulfate 75 mg 03/06/25 09:00 03/06/25 08:27 Clopidogrel Bisulfate 75 Mg Tablet PO 75 mg DAILY VIKKI Administration Dextrose 12.5 gm 03/05/25 12:28 Dextrose 50% 25 Gm/50 Ml Syringe IV PUSH PRN PRN Hypoglycemia Protocol Docusate Sodium 100 mg 03/05/25 17:00 03/06/25 08:30 Docusate Sodium 100 Mg Capsule PO 100 mg BID VIKKI Administration Duloxetine HCl 60 mg 03/06/25 09:00 03/06/25 08:30 Duloxetine Hcl 60 Mg Capsule.Dr PO 60 mg DAILY VIKKI Administration Famotidine 20 mg 03/06/25 09:00 03/06/25 08:32 Famotidine 20 Mg Tablet PO 20 mg DAILY VIKKI Administration Fluticasone/Umeclidinium/Vilanterol 1 puff 03/06/25 08:00 03/06/25 08:24 Fluticasone/Umeclidin/Vilanter 100-62.5-25 Mcg Ellipta INHALATION 1 puff DAILYRT VIKKI Administration Gabapentin 600 mg 03/05/25 13:00 03/05/25 17:10 Gabapentin 300 Mg Capsule PO Not Given On Hold: 03/05/25 17:01 TID VIKKI Glucagon 1 mg 03/05/25 12:28 Glucagon For Inj 1 Mg Vial IM PRN PRN Hypoglycemia Protocol Glucose 15 gm 03/05/25 12:28 Glucose Oral Gel 15 Gm Of Glucse In 37.5 Gm Tube PO PRN PRN Hypoglycemia Protocol Guaifenesin 1,200 mg 03/05/25 21:00 03/06/25 08:27 Guaifenesin 12 Hr 600 Mg Tabcr PO 1,200 mg Q12HR VIKKI Administration Doxycycline Hyclate 100 mg/ 100 mls @ 100 mls/hr 03/05/25 22:00 03/06/25 11:10 Sodium Chloride IVPB 03/09/25 22:59 100 mls/hr Q12H VIKKI Administration Ceftriaxone Sodium 1 gm/ 50 mls @ 100 mls/hr 03/06/25 13:00 03/06/25 12:35 Sodium Chloride IVPB 100 mls/hr QAM VIKKI Administration Dextrose 1,000 mls @ 100 mls/hr 03/05/25 12:28 Dextrose 5% 1,000 Ml IVPB PRN PRN Hypoglycemia Protocol Insulin Aspart 3 - 6 units 03/05/25 17:00 03/06/25 12:35 Insulin Aspart (*Bkc) 100 Units/Ml SUB-Q 4 units TIDWM VIKKI Administration Protocol Insulin Glargine 29 units 03/05/25 21:00 03/05/25 21:26 Insulin Glargine (*Bkc) 100 Units/Ml SUB-Q 29 units HS VIKKI Administration Isosorbide Mononitrate 30 mg 03/06/25 09:00 03/06/25 08:30 Isosorbide Mononitrate 30 Mg Tab.Er.24h PO 30 mg DAILY VIKKI Administration Loratadine 10 mg 03/06/25 09:00 03/06/25 08:31 Loratadine 10 Mg Tablet PO 10 mg QAM VIKKI Administration Losartan Potassium 12.5 mg 03/06/25 09:00 03/06/25 08:30 Losartan Potassium 12.5 Mg Tablet PO 12.5 mg DAILY VIKKI Administration Melatonin 5 mg 03/05/25 21:00 03/05/25 21:20 Melatonin 5 Mg Tablet PO 5 mg QHS VIKKI Administration Nitroglycerin 0.4 mg 03/05/25 12:30 Nitroglycerin Sl 0.4 Mg Tablet SUBLINGUAL Q5MIN PRN Chest Pain Oxycodone HCl 5 mg 03/05/25 12:30 Oxycodone Hcl (*Crx) 5 Mg Tab Ir PO Q6H PRN Moderate Pain (4-6) Polyethylene Glycol 17 gm 03/06/25 09:00 03/06/25 08:27 Polyethylene Glycol 3350 17 Gm Powd.Pack PO 17 gm QAM VIKKI Administration Tamsulosin HCl 0.4 mg 03/05/25 21:00 03/05/25 21:19 Tamsulosin Hcl 0.4 Mg Capsule PO 0.4 mg HS VIKKI Administration Tizanidine HCl 2 mg 03/05/25 12:30 Tizanidine Hcl 2 Mg Tablet PO TID PRN Muscle Spasticity Trazodone HCl 100 mg 03/05/25 12:30 Trazodone Hcl 50 Mg Tablet PO QHS PRN Insomnia Radiology Results: ITS Impressions Chest X-Ray 03/06/25 06:22 IMPRESSION: 1. Developing interstitial pulmonary edema and/or pneumonitis. 2. Persistent retrocardiac atelectasis and/or airspace disease. Labs Labs: Laboratory Results - last 24 hr 03/05/25 03/05/25 03/06/25 17:08 19:39 04:43 WBC 6.5 RBC 4.34 Hgb 13.2 Hct 40.2 MCV 92.6 MCH 30.4 MCHC 32.8 RDW 12.9 Plt Count 222 MPV 9.2 Immature Gran % (Auto) 0.3 Neut % (Auto) 68.9 Lymph % (Auto) 17.1 L [place] % (Auto) 10.6 H Eos % (Auto) 2.8 Baso % (Auto) 0.3 Lymph # (Auto) 1.11 [place] # (Auto) 0.7 H Eos # (Auto) 0.2 Baso # (Auto) 0.0 Abs Immat Gran (auto) 0.02 Absolute Neuts (auto) 4.5 Absolute Nucleated RBC 0.000 Nucleated RBC % 0.0 Sodium 138 Potassium 4.4 Chloride 104 Carbon Dioxide 28 Anion Gap 6 BUN 48 H D Creatinine 1.72 H Estim Creat Clear Calc 28 Estimated GFR 29 L Glucose 193 H POC Capillary Glucose 273 H 322 H Calcium 9.0 03/06/25 03/06/25 07:39 11:36 WBC RBC Hgb Hct MCV MCH MCHC RDW Plt Count MPV Immature Gran % (Auto) Neut % (Auto) Lymph % (Auto) [place] % (Auto) Eos % (Auto) Baso % (Auto) Lymph # (Auto) [place] # (Auto) Eos # (Auto) Baso # (Auto) Abs Immat Gran (auto) Absolute Neuts (auto) Absolute Nucleated RBC Nucleated RBC % Sodium Potassium Chloride Carbon Dioxide Anion Gap BUN Creatinine Estim Creat Clear Calc Estimated GFR Glucose POC Capillary Glucose 220 H 284 H Calcium
[2025-03-06] MEDS: FUROSEMIDE 20 MG TABLET PO (14:40)
[2025-03-06] MEDS: INSULIN ASPART (*BKC) 100 UNITS/ML 6 UNITS SUB-Q (17:02)
[2025-03-06] MEDS: oxyCODONE HCL (*CRX) 5 MG TAB IR PO (20:04)
[2025-03-06] MEDS: MELATONIN 5 MG TABLET PO (20:05)
[2025-03-06] MEDS: MONTELUKAST SODIUM 10 MG TABLET PO (20:05)
[2025-03-06] MEDS: TAMSULOSIN HCL 0.4 MG CAPSULE PO (20:05)
[2025-03-06] MEDS: ATORVASTATIN 40 MG TABLET PO (20:05)
[2025-03-06] MEDS: INSULIN GLARGINE (*BKC) 100 UNITS/ML 29 UNITS SUB-Q (20:08)
[2025-03-06] MEDS: SALINE 0.65% NAS SOLN 44 ML BTL 2 SPRAY NASAL (20:10)
[2025-03-07 05:15] VITALS: BP 141/68; PULSE 79; RESP 17; TEMP 36.3; O2SAT 98
[2025-03-07 05:40] LABS: Hematocrit 41.3 % (37.0-47.0); Hemoglobin 13.4 g/dL (12.0-15.0); Immature Granulocyte Percent A 0.2 % (0-0.5); Lymphocytes Absolute Auto 1.37 K/mm3 (0.9-3.2); Mean Corpuscular HGB Conc 32.4 g/dl (32-36); Mean Corpuscular Hemoglobin 30.2 pg (26-34); Mean Corpuscular Volume 93.2 fl (80-100); Nucleated Red Blood Cells Absolute Auto 0.000 K/mm3 (0.0-0.012); Nucleated Red Blood Cells Perc 0.0 % (0.0-0.2); Platelet Count Result 226 k/mm3 (150-375); Red Blood Count 4.43 M/mm3 (4.2-5.4); White Blood Count 6.5 K/mm3 (4.5-10.0)
[2025-03-07 06:06] LABS: Alanine Aminotransferase 16 U/L (6-35); Albumin Level 3.6 g/dL (3.5-5.1); Alkaline Phosphatase 151 U/L (38-126); Anion Gap 4 mmol/L (4-12); Aspartate Amino Transferase 28 U/L (14-36); Bilirubin,Total 0.6 mg/dL (0.2-1.3); Blood Urea Nitrogen 38 mg/dL (7-17); Calcium 8.9 mg/dL (8.4-10.2); Carbon Dioxide 31 mmol/L (22-30); Chloride 102 mmol/L (98-107); Estimated CRCL calculation 35 ml/min; Estimated Glomerular Filt Rate 38; Glucose 112 mg/dL (65-110); Magnesium 2.5 mg/dL (1.6-2.3); Potassium 3.8 mmol/L (3.4-5.0); Sodium 137 mmol/L (137-145); Total Protein 6.7 g/dL (6.3-8.2)
[2025-03-07] MEDS: FLUTICASONE/UMECLIDIN/VILANTER 100-62.5-25 MCG ELLIPTA 1 PUFF INHALATION (08:05)
[2025-03-07 08:07] VITALS: PULSE 84; RESP 18; O2SAT 95
[2025-03-07] MEDS: INSULIN ASPART (*BKC) 100 UNITS/ML 6 UNITS SUB-Q ×3 (08:58→17:08)
[2025-03-07] MEDS: ASPIRIN 81 MG ENTERIC TABLET PO (08:59)
[2025-03-07] MEDS: DULoxetine HCL 60 MG CAPSULE.DR PO (09:00)
[2025-03-07] MEDS: busPIRone HCL 2.5 MG TABLET PO ×2 (09:00→17:09)
[2025-03-07] MEDS: buPROPion HCL SR (12HR) 100 MG TABCR PO ×2 (09:00→20:50)
[2025-03-07 09:02] VITALS: PULSE 85
[2025-03-07] MEDS: cefTRIAXone 1 GM in SODIUM CHLORIDE 0.9% IV 50 ML 100 ML IVPB (09:02)
[2025-03-07] MEDS: guaiFENesin 12 HR 600 MG TABCR 1200 MG PO ×2 (09:03→20:49)
[2025-03-07] MEDS: FAMOTIDINE 20 MG TABLET PO (09:03)
[2025-03-07] MEDS: CLOPIDOGREL BISULFATE 75 MG TABLET PO (09:03)
[2025-03-07] MEDS: FUROSEMIDE 40 MG TABLET PO (09:03)
[2025-03-07] MEDS: DOCUSATE SODIUM 100 MG CAPSULE PO (09:03)
[2025-03-07] MEDS: ISOSORBIDE MONONITRATE 30 MG TAB.ER.24H PO (09:04)
[2025-03-07] MEDS: LOSARTAN POTASSIUM 12.5 MG TABLET PO (09:04)
[2025-03-07] MEDS: LORATADINE 10 MG TABLET PO (09:04)
[2025-03-07] MEDS: THERAPEUTIC MULTIVITAMINS/MINERALS TAB (*BKC) 1 TABLET PO (09:04)
[2025-03-07] MEDS: DOXYCYCLINE IV 100 MG in SODIUM CHLORIDE 0.9% IV 100 ML IVPB ×2 (11:00→21:23)
[2025-03-07] MEDS: ONDANSETRON HCL ODT 4 MG TABLET PO ×2 (11:28→20:48)
[2025-03-07] MEDS: INSULIN ASPART (*BKC) 100 UNITS/ML SUB-Q ×2 (12:20→17:07)
--- NOTE | 2025-03-07 12:33 | P.PNIM_ITS ---
Progress Note: A&P Assessment and Plan (1) Systolic dysfunction: Code(s): I51.9 - Heart disease, unspecified Status: Chronic Assessment and Plan: Monitor for fluid overload Patient does have some pulmonary edema on x-ray however she looks dry due to infection so she was given fluids in the emergency room received 1 L bolus in the ED Patient hypoxic on floor repeat chest x-ray with worsening pulmonary edema No IV fluids due to overload Received IV Lasix x1 03/05/2025 Resume oral Lasix home doses (2) Acute UTI: Code(s): N39.0 - Urinary tract infection, site not specified Status: Acute Assessment and Plan: IV Rocephin No IV fluids due to CHF on chest x-ray and pedal edema Culture and sensitivity pending (3) BLADE (acute kidney injury): Code(s): N17.9 - Acute kidney failure, unspecified Status: Acute Assessment and Plan: Currently holding home Lasix due to BLADE Received IV fluid bolus 1 L 03/05/2025 Creatinine improving Baseline creatinine mid 1s Avoid nephrotoxic medications Holding gabapentin for now Back to baseline (4) CAD (coronary artery disease), autologous vein bypass graft: Code(s): I25.810 - Atherosclerosis of coronary artery bypass graft(s) without angina pectoris Status: Acute Assessment and Plan: Continue Plavix, aspirin, Coreg and Lipitor (5) Type 2 diabetes mellitus without complications: Code(s): E11.9 - Type 2 diabetes mellitus without complications Status: Acute Assessment and Plan: John DAILEY Home dose Lantus SSI Diabetic diet (6) COPD (chronic obstructive pulmonary disease): Code(s): J44.9 - Chronic obstructive pulmonary disease, unspecified Status: Acute Assessment and Plan: Continue home inhalers (7) Hypertension: Code(s): I10 - Essential (primary) hypertension Status: Chronic Assessment and Plan: Continue home antihypertensives (8) Depression: Code(s): F32.9 - Major depressive disorder, single episode, unspecified Status: Chronic Assessment and Plan: Continue home medications Subjective Date/time seen: 03/07/25 12:33 Interval history: No overnight events. Feels well. Wants to go back home. Review of Systems Review of Systems: All systems reviewed & are unremarkable except as noted in HPI and below Exam Narrative: General: Chronically ill-appearing not in acute distress HEENT: normocephalic, atraumatic. Mucous membranes moist. Respiratory: Diminished breath sounds bilaterally. No respiratory distress. Cardiovascular: Regular rate and rhythm, normal S1-S2. No murmurs, rubs, or clicks. Abdomen: Soft, round, no pulsatile masses, nondistended and nontender. Extremities: No cyanosis, clubbing, or edema present. Pulses are palpable 2/2. Active ROM to all four extremities. 1+ pedal edema Neuro: Alert and orientated x 1. PERRLA. Cranial nerves 2-12 intact without focal deficit. Skin: Warm, dry, and intact, without rash, erythema, or lesion. Psych: pleasant, cooperative, normal speech, normal affect, no hallucinations, no dysarthia Objective Data Vital Signs Vital Signs: Vital Signs - 24 hr 03/06/25 14:00 03/06/25 19:57 03/06/25 20:04 Temperature 97.2 F L 98.0 F Pulse Rate 86 87 86 Respiratory Rate 18 17 Blood Pressure 143/66 H 130/61 Pulse Oximetry 95 97 Oxygen Delivery 03/07/25 05:15 03/07/25 08:07 03/07/25 08:07 Temperature 97.4 F L Pulse Rate 79 84 84 Respiratory Rate 17 18 Blood Pressure 141/68 H Pulse Oximetry 98 95 Oxygen Delivery Room Air 03/07/25 09:02 Temperature Pulse Rate 85 Respiratory Rate Blood Pressure Pulse Oximetry Oxygen Delivery Intake/Output Intake/Output: Intake & Output 03/04/25 03/05/25 03/06/25 03/07/25 23:59 23:59 23:59 23:59 Intake Total 1632 830 390 Output Total 400 4200 Balance 1232 -2240 390 Meds/Results Medications: Active Medications Generic Name Dose Route Start Last Admin Trade Name Freq PRN Reason Stop Dose Admin Acetaminophen 650 mg 03/05/25 12:30 Acetaminophen 325 Mg Tablet PO Q4H PRN Mild Pain (1-3) or Fever Albuterol/Ipratropium 3 ml 03/06/25 12:36 Ipratropium 0.5 Mg/Albuterol Sulfate 2.5 Mg (Base) Ampul.Neb 3 Ml INHALATION Q6HRT PRN Wheezing Aspirin 81 mg 03/06/25 09:00 03/07/25 08:59 Aspirin 81 Mg Enteric Tablet PO 81 mg DAILY VIKKI Administration Atorvastatin Calcium 40 mg 03/05/25 21:00 03/06/25 20:05 Atorvastatin 40 Mg Tablet PO 40 mg HS VIKKI Administration Bupropion HCl 100 mg 03/05/25 21:00 03/07/25 09:00 Bupropion Hcl Sr (12hr) 100 Mg Tabcr PO 100 mg Q12HR VIKKI Administration Buspirone HCl 2.5 mg 03/05/25 17:00 03/07/25 09:00 Buspirone Hcl 2.5 Mg Tablet PO 2.5 mg BID VIKKI Administration Buspirone HCl 5 mg 03/05/25 17:00 03/07/25 08:59 Buspirone Hcl 5 Mg Tablet PO 5 mg BID VIKKI Administration Carvedilol 25 mg 03/05/25 21:00 03/07/25 09:02 Carvedilol 25 Mg Tablet PO 25 mg Q12HR VIKKI Administration Clopidogrel Bisulfate 75 mg 03/06/25 09:00 03/07/25 09:03 Clopidogrel Bisulfate 75 Mg Tablet PO 75 mg DAILY VIKKI Administration Dextrose 12.5 gm 03/05/25 12:28 Dextrose 50% 25 Gm/50 Ml Syringe IV PUSH PRN PRN Hypoglycemia Protocol Docusate Sodium 100 mg 03/05/25 17:00 03/07/25 09:03 Docusate Sodium 100 Mg Capsule PO 100 mg BID VIKKI Administration Duloxetine HCl 60 mg 03/06/25 09:00 03/07/25 09:00 Duloxetine Hcl 60 Mg Capsule.Dr PO 60 mg DAILY VIKKI Administration Famotidine 20 mg 03/06/25 09:00 03/07/25 09:03 Famotidine 20 Mg Tablet PO 20 mg DAILY VIKKI Administration Fluticasone/Umeclidinium/Vilanterol 1 puff 03/06/25 08:00 03/07/25 08:05 Fluticasone/Umeclidin/Vilanter 100-62.5-25 Mcg Ellipta INHALATION 1 puff DAILYRT VIKKI Administration Furosemide 40 mg 03/07/25 09:00 03/07/25 09:03 Furosemide 40 Mg Tablet PO 40 mg DAILY VIKKI Administration Furosemide 20 mg 03/06/25 14:00 03/06/25 14:40 Furosemide 20 Mg Tablet PO 20 mg 1400 VIKKI Administration Gabapentin 600 mg 03/05/25 13:00 03/05/25 17:10 Gabapentin 300 Mg Capsule PO Not Given On Hold: 03/05/25 17:01 TID VIKKI Glucagon 1 mg 03/05/25 12:28 Glucagon For Inj 1 Mg Vial IM PRN PRN Hypoglycemia Protocol Glucose 15 gm 03/05/25 12:28 Glucose Oral Gel 15 Gm Of Glucse In 37.5 Gm Tube PO PRN PRN Hypoglycemia Protocol Guaifenesin 1,200 mg 03/05/25 21:00 03/07/25 09:03 Guaifenesin 12 Hr 600 Mg Tabcr PO 1,200 mg Q12HR VIKKI Administration Doxycycline Hyclate 100 mg/ 100 mls @ 100 mls/hr 03/05/25 22:00 03/07/25 11:00 Sodium Chloride IVPB 03/09/25 22:59 100 mls/hr Q12H VIKKI Administration Ceftriaxone Sodium 1 gm/ 50 mls @ 100 mls/hr 03/06/25 13:00 03/07/25 09:02 Sodium Chloride IVPB 100 mls/hr QAM VIKKI Administration Dextrose 1,000 mls @ 100 mls/hr 03/05/25 12:28 Dextrose 5% 1,000 Ml IVPB PRN PRN Hypoglycemia Protocol Insulin Aspart 3 - 6 units 03/05/25 17:00 03/07/25 12:20 Insulin Aspart (*Bkc) 100 Units/Ml SUB-Q 5 units TIDWM VIKKI Administration Protocol Insulin Aspart 6 units 03/06/25 17:00 03/07/25 12:21 Insulin Aspart (*Bkc) 100 Units/Ml SUB-Q 6 units TIDWM VIKKI Administration Insulin Glargine 29 units 03/05/25 21:00 03/06/25 20:08 Insulin Glargine (*Bkc) 100 Units/Ml SUB-Q 29 units HS VIKKI Administration Isosorbide Mononitrate 30 mg 03/06/25 09:00 03/07/25 09:04 Isosorbide Mononitrate 30 Mg Tab.Er.24h PO 30 mg DAILY VIKKI Administration Loratadine 10 mg 03/06/25 09:00 03/07/25 09:04 Loratadine 10 Mg Tablet PO 10 mg QAM VIKKI Administration Losartan Potassium 12.5 mg 03/06/25 09:00 03/07/25 09:04 Losartan Potassium 12.5 Mg Tablet PO 12.5 mg DAILY VIKKI Administration Melatonin 5 mg 03/05/25 21:00 03/06/25 20:05 Melatonin 5 Mg Tablet PO 5 mg QHS VIKKI Administration Montelukast Sodium 10 mg 03/06/25 21:00 03/06/25 20:05 Montelukast Sodium 10 Mg Tablet PO 10 mg HS VIKKI Administration Multivitamins/Calcium 1 tablet 03/07/25 09:00 03/07/25 09:04 Therapeutic Multivitamins/Minerals Tab (*Bkc) PO 1 tablet DAILY VIKKI Administration Nitroglycerin 0.4 mg 03/05/25 12:30 Nitroglycerin Sl 0.4 Mg Tablet SUBLINGUAL Q5MIN PRN Chest Pain Ondansetron HCl 4 mg 03/06/25 13:46 03/07/25 11:28 Ondansetron Hcl Odt 4 Mg Tablet PO 4 mg Q8H PRN Administration Nausea Oxycodone HCl 5 mg 03/05/25 12:30 03/06/25 20:04 Oxycodone Hcl (*Crx) 5 Mg Tab Ir PO 5 mg Q6H PRN Administration Moderate Pain (4-6) Polyethylene Glycol 17 gm 03/06/25 09:00 03/07/25 09:17 Polyethylene Glycol 3350 17 Gm Powd.Pack PO 17 gm QAM VIKKI Administration Simethicone 125 mg 03/06/25 13:46 Simethicone 125 Mg Chew Tab PO BID PRN gas pain Sodium Chloride 2 spray 03/06/25 13:46 03/06/25 20:10 Saline 0.65% Ramon Soln 44 Ml Btl NASAL 2 spray Q1H PRN Administration Congestion Spironolactone 12.5 mg 03/07/25 09:00 03/07/25 09:04 Spironolactone 12.5 Mg Tablet PO 12.5 mg DAILY VIKKI Administration Tamsulosin HCl 0.4 mg 03/05/25 21:00 03/06/25 20:05 Tamsulosin Hcl 0.4 Mg Capsule PO 0.4 mg HS VIKKI Administration Tizanidine HCl 2 mg 03/05/25 12:30 Tizanidine Hcl 2 Mg Tablet PO TID PRN Muscle Spasticity Trazodone HCl 100 mg 03/05/25 12:30 03/06/25 22:46 Trazodone Hcl 50 Mg Tablet PO 100 mg QHS PRN Administration Insomnia Radiology Results: ITS Impressions Chest X-Ray 03/06/25 06:22 IMPRESSION: 1. Developing interstitial pulmonary edema and/or pneumonitis. 2. Persistent retrocardiac atelectasis and/or airspace disease. Labs Labs: Laboratory Results - last 24 hr 03/06/25 03/06/25 03/07/25 16:01 19:54 05:18 WBC 6.5 RBC 4.43 Hgb 13.4 Hct 41.3 MCV 93.2 MCH 30.2 MCHC 32.4 RDW 12.8 Plt Count 226 MPV 9.1 Immature Gran % (Auto) 0.2 Neut % (Auto) 57.6 Lymph % (Auto) 21.2 [place] % (Auto) 13.9 H Eos % (Auto) 6.8 H Baso % (Auto) 0.3 Lymph # (Auto) 1.37 [place] # (Auto) 0.9 H Eos # (Auto) 0.4 H Baso # (Auto) 0.0 Abs Immat Gran (auto) 0.01 Absolute Neuts (auto) 3.7 Absolute Nucleated RBC 0.000 Nucleated RBC % 0.0 Sodium 137 Potassium 3.8 Chloride 102 Carbon Dioxide 31 H Anion Gap 4 BUN 38 H D Creatinine 1.37 H Estim Creat Clear Calc 35 Estimated GFR 38 L Glucose 112 H POC Capillary Glucose 250 H 227 H Calcium 8.9 Magnesium 2.5 H Total Bilirubin 0.6 AST 28 ALT 16 Alkaline Phosphatase 151 H Total Protein 6.7 Albumin 3.6 03/07/25 03/07/25 08:04 12:08 WBC RBC Hgb Hct MCV MCH MCHC RDW Plt Count MPV Immature Gran % (Auto) Neut % (Auto) Lymph % (Auto) [place] % (Auto) Eos % (Auto) Baso % (Auto) Lymph # (Auto) [place] # (Auto) Eos # (Auto) Baso # (Auto) Abs Immat Gran (auto) Absolute Neuts (auto) Absolute Nucleated RBC Nucleated RBC % Sodium Potassium Chloride Carbon Dioxide Anion Gap BUN Creatinine Estim Creat Clear Calc Estimated GFR Glucose POC Capillary Glucose 119 H 342 H Calcium Magnesium Total Bilirubin AST ALT Alkaline Phosphatase Total Protein Albumin
[2025-03-07 14:00] VITALS: BP 105/46; PULSE 87; RESP 20; TEMP 36.5; O2SAT 98
[2025-03-07] MEDS: FUROSEMIDE 20 MG TABLET PO (14:39)
[2025-03-07 19:37] VITALS: BP 118/43; PULSE 86; RESP 12; TEMP 36.2; O2SAT 98
[2025-03-07 20:50] VITALS: PULSE 86
[2025-03-07] MEDS: ATORVASTATIN 40 MG TABLET PO (20:50)
[2025-03-07] MEDS: MELATONIN 5 MG TABLET PO (20:50)
[2025-03-07] MEDS: MONTELUKAST SODIUM 10 MG TABLET PO (20:50)
[2025-03-07] MEDS: TAMSULOSIN HCL 0.4 MG CAPSULE PO (20:50)
[2025-03-07] MEDS: INSULIN GLARGINE (*BKC) 100 UNITS/ML 29 UNITS SUB-Q (20:52)
[2025-03-08 04:47] VITALS: BP 146/61; PULSE 91; RESP 12; TEMP 36.6; O2SAT 100
[2025-03-08] MEDS: FLUTICASONE/UMECLIDIN/VILANTER 100-62.5-25 MCG ELLIPTA 1 PUFF INHALATION (07:55)
[2025-03-08] MEDS: INSULIN ASPART (*BKC) 100 UNITS/ML 6 UNITS SUB-Q ×3 (08:33→17:17)
[2025-03-08] MEDS: buPROPion HCL SR (12HR) 100 MG TABCR PO (08:34)
[2025-03-08] MEDS: ASPIRIN 81 MG ENTERIC TABLET PO (08:34)
[2025-03-08] MEDS: busPIRone HCL 2.5 MG TABLET PO ×2 (08:34→17:18)
[2025-03-08 08:36] VITALS: PULSE 93
[2025-03-08] MEDS: cefTRIAXone 1 GM in SODIUM CHLORIDE 0.9% IV 50 ML 100 ML IVPB (08:37)
[2025-03-08] MEDS: DULoxetine HCL 60 MG CAPSULE.DR PO (08:38)
[2025-03-08] MEDS: FAMOTIDINE 20 MG TABLET PO (08:39)
[2025-03-08] MEDS: FUROSEMIDE 40 MG TABLET PO (08:39)
[2025-03-08] MEDS: ISOSORBIDE MONONITRATE 30 MG TAB.ER.24H PO (08:39)
[2025-03-08] MEDS: LORATADINE 10 MG TABLET PO (08:39)
[2025-03-08] MEDS: guaiFENesin 12 HR 600 MG TABCR 1200 MG PO (08:39)
[2025-03-08] MEDS: LOSARTAN POTASSIUM 12.5 MG TABLET PO (08:40)
[2025-03-08] MEDS: THERAPEUTIC MULTIVITAMINS/MINERALS TAB (*BKC) 1 TABLET PO (08:40)
[2025-03-08] MEDS: CLOPIDOGREL BISULFATE 75 MG TABLET PO (08:53)
[2025-03-08] MEDS: DOXYCYCLINE IV 100 MG in SODIUM CHLORIDE 0.9% IV 100 ML IVPB (09:35)
[2025-03-08] MEDS: ONDANSETRON INJ 4 MG/2 ML VIAL IV PUSH (10:29)
[2025-03-08] MEDS: INSULIN ASPART (*BKC) 100 UNITS/ML SUB-Q ×2 (11:56→17:17)
--- NOTE | 2025-03-08 12:17 | P.DS_ITS ---
DS: Admitting Diagnosis Discharge Date 03/08/2025 Admitting Diagnosis Hyperglycemia DS: Discharge Diagnosis Discharge Diagnosis (1) Systolic dysfunction: Code(s): I51.9 - Heart disease, unspecified Status: Chronic (2) Acute UTI: Code(s): N39.0 - Urinary tract infection, site not specified Status: Acute (3) BLADE (acute kidney injury): Code(s): N17.9 - Acute kidney failure, unspecified Status: Acute (4) CAD (coronary artery disease), autologous vein bypass graft: Code(s): I25.810 - Atherosclerosis of coronary artery bypass graft(s) without angina pectoris Status: Acute (5) Type 2 diabetes mellitus without complications: Code(s): E11.9 - Type 2 diabetes mellitus without complications Status: Acute (6) COPD (chronic obstructive pulmonary disease): Code(s): J44.9 - Chronic obstructive pulmonary disease, unspecified Status: Acute (7) Hypertension: Code(s): I10 - Essential (primary) hypertension Status: Chronic (8) Depression: Code(s): F32.9 - Major depressive disorder, single episode, unspecified Status: Chronic DS: Summary Hospital Course Hospital Course: # Systolic dysfunction: Monitor for fluid overload Patient does have some pulmonary edema on x-ray however she looks dry due to infection so she was given fluids in the emergency room received 1 L bolus in the ED Patient hypoxic on floor repeat chest x-ray with worsening pulmonary edema No IV fluids due to overload Received IV Lasix x1 03/05/2025 Resume oral Lasix home doses # Acute UTI: IV Rocephin No IV fluids due to CHF on chest x-ray and pedal edema Culture and sensitivity pending still pending at discrge but patient improved and wants to go will switch to oral cefdinir for discahrge home # BLADE (acute kidney injury): Currently holding home Lasix due to BLADE Received IV fluid bolus 1 L 03/05/2025 Creatinine improving Baseline creatinine mid 1s Avoid nephrotoxic medications Holding gabapentin for now Back to baseline # CAD (coronary artery disease), autologous vein bypass graft: Continue Plavix, aspirin, Coreg and Lipitor # Type 2 diabetes mellitus without complications: Accu-Cheks a.c. HS Home dose Lantus SSI Diabetic diet # COPD (chronic obstructive pulmonary disease): Continue home inhalers # Hypertension: Continue home antihypertensives # Depression: Continue home medications Time Spent with Patient Time attestation: Total time spent providing and/or coordinating discharge services:45 mins Exam Narrative: General: Chronically ill-appearing not in acute distress HEENT: normocephalic, atraumatic. Mucous membranes moist. Respiratory: Diminished breath sounds bilaterally. No respiratory distress. Cardiovascular: Regular rate and rhythm, normal S1-S2. No murmurs, rubs, or clicks. Abdomen: Soft, round, no pulsatile masses, nondistended and nontender. Extremities: No cyanosis, clubbing, or edema present. Pulses are palpable 2/2. Neuro: Alert and orientated x 3. PERRLA. Cranial nerves 2-12 intact without focal deficit. Skin: Warm, dry, and intact, without rash, erythema, or lesion. Psych: pleasant, cooperative, normal speech, normal affect, no hallucinations, no dysarthia DS: Data Data Completed and Pending Labs on day of discharge: Labs from last 24 hours 03/08/25 03/08/25 03/07/25 11:47 07:47 20:36 POC Capillary Glucose 234 H 154 H 277 H 03/07/25 03/07/25 16:39 12:08 POC Capillary Glucose 235 H 342 H Imaging Radiologist's impression: ITS Impressions Chest X-Ray 03/05/25 09:12 Impression: CHF. Chest X-Ray 03/06/25 06:22 IMPRESSION: 1. Developing interstitial pulmonary edema and/or pneumonitis. 2. Persistent retrocardiac atelectasis and/or airspace disease. Discharge Plan Discharge Attending physician on discharge: Castro Hedrick Discharging Clinician: Castro Hedrick Anticipated Discharge Date/Time: 03/08/25 12:38 Patient Disposition: NH Retirement/Asst Living Activity: as tolerated Diet: diabetic Patient Instructions: Antibiotic Form Patient Language: Nepali Stand Alone Forms: General Discharge Information, [facility] Discharge Follow-up/Referrals: Todd Lobo MD [Primary Care Provider, [facility]] - 1 Week Discharge Medications: New doxycycline hyclate 100 mg capsule 100 mg PO BID Qty: 8 0RF cefdinir 300 mg capsule 300 mg PO Q12H Qty: 8 0RF Continued acetaminophen 325 mg capsule 650 mg PO Q6H PRN (Reason: Pain (Scale Score 1-3)) simethicone [Gas Relief (simethicone)] 125 mg tablet,chewable 125 mg PO BID buspirone 7.5 mg tablet 7.5 mg PO BID melatonin 5 mg capsule 5 mg PO QHS trazodone 100 mg tablet 100 mg PO QHS PRN (Reason: insomnia) bupropion HCl 100 mg tablet 100 mg PO .q12hr duloxetine 60 mg capsule,delayed release(DR/EC) 60 mg PO DAILY empagliflozin 25 mg tablet 25 mg PO DAILY insulin glargine [Lantus U-100 Insulin] 100 unit/mL solution 36 unit SUBCUT HS tizanidine 2 mg tablet 2 mg PO TID PRN (Reason: muscle spasticity) multivitamin with iron Tablet 1 tablet PO DAILY Trelegy Ellipta 100-62.5-25 mcg blister with device 1 inh inhalation DAILY Orajel 3X Toothache-Gum 20-0.26-0.15 % gel See Rx Instructions mucous membrane .COMPLEX PRN (Reason: gum discomfort) Rx Instructions: to affected mucosal area PRN; to affected mucosal area; small amount PRN QID dextrose [Glucose Gel] 40 % Gel 10 g PO Q15M PRN (Reason: Hypoglycemia) Rx Instructions: if blood sugar 50 or below glucagon 1 mg Recon Soln 1 mg IM PRN PRN (Reason: hypoglemcia) nitroglycerin [Nitrostat] 0.4 mg Tablet, Sublingual 0.4 mg sublingual Q5MIN PRN (Reason: Chest Pain) Qty: 25 0RF famotidine [Pepcid] 20 mg tablet 20 mg PO DAILY Qty: 30 0RF insulin aspart U-100 [Novolog U-100 Insulin aspart] 100 unit/mL solution 2 unit subcut QACLUNCH oxycodone 5 mg tablet 5 mg PO Q6H furosemide [Lasix] 40 mg Tablet 40 mg PO DAILY ondansetron HCl [Zofran] 4 mg Tablet 4 mg PO Q8H PRN (Reason: Nausea) isosorbide mononitrate 30 mg Tablet Extended Release 24 Hr 30 mg PO DAILY clopidogrel [Plavix] 75 mg Tablet 75 mg PO DAILY losartan 25 mg Tablet 12.5 mg PO DAILY aspirin [Adult Low Dose Aspirin] 81 mg Tablet,Delayed Release (Dr/Ec) 81 mg PO DAILY spironolactone 25 mg Tablet 12.5 mg PO DAILY Rx Instructions: hold if BP is 90/50 or below Vitamin C 100 mg Tablet 500 mg PO DAILY polyethylene glycol 3350 [Miralax] 17 gram Powder In Packet 17 g PO QAM Qty: 30 0RF cetirizine [Zyrtec] 10 mg Tablet 10 mg PO DAILY montelukast 10 mg tablet 10 mg PO HS insulin aspart U-100 [Novolog FlexPen U-100 Insulin] 100 unit/mL (3 mL) insulin pen See Rx Instructions .ROUTE .COMPLEX Rx Instructions: if blood sugar 200-249, give 3 units. 250-300 give 6 units. 301-350 give 9 units. 351-400 give 12 units. 401-450 give 15 units. if greater than 450 give 20 units and call MD insulin aspart U-100 [Novolog FlexPen U-100 Insulin] 100 unit/mL (3 mL) insulin pen 2 unit SUBCUT QACDINNER insulin aspart U-100 [Novolog FlexPen U-100 Insulin] 100 unit/mL (3 mL) insulin pen See Rx Instructions .ROUTE .COMPLEX Rx Instructions: per sliding scale, at bedtime, if BS less than 60, call MD. if blood sugar 250-300 give 3 units. 301-350 give 6 units. 351-400 give 9 units. if 401-450, give 12 units sodium chloride 0.65 % Aerosol,Muir 2 spray INTRANASAL Q1H PRN (Reason: Congestion) Biofreeze (menthol) 10 % Cream 1 applic TOPICAL TID PRN (Reason: Pain) Rx Instructions: apply to painful areas atorvastatin 40 mg tablet 40 mg PO HS tamsulosin 0.4 mg Capsule 0.4 mg PO HS Qty: 30 0RF furosemide 20 mg tablet 20 mg PO 1400 Qty: 30 0RF gabapentin 300 mg capsule 600 mg PO TID insulin aspart U-100 [Novolog FlexPen U-100 Insulin] 100 unit/mL (3 mL) insulin pen 6 unit SUBCUT QACBREAK Rx Instructions: along with SSI carvedilol [Coreg] 25 mg tablet 25 mg PO BID Date of admission: 03/05/25 10:13 Primary Care Provider: Todd Lobo Admitting Provider: Michael Couch Attending physician on admission: Michael Couch Condition: Stable
[2025-03-08 14:00] VITALS: BP 121/54; PULSE 94; RESP 12; TEMP 36.1; O2SAT 97
[2025-03-08] MEDS: FUROSEMIDE 20 MG TABLET PO (14:35)
[2025-03-08 15:21] LABS: SARS-CoV-2 RNA PCR Negative (Negative)
== END 2025-03-08 17:20 | DRG 291 ==
LOC: ANHED 10:11 → ANH2MED 10:44
PROVIDERS: Nurse Practitioner Gerontology; Admitting Provider Internal Medicine; Emergency Provider Emergency Medicine; PCP Family Medicine; Visit Provider Internal Medicine
DX: I11.0 Hypertensive heart disease with heart failure (principal); I50.23 Acute on chronic systolic (congestive) heart failure; N39.0 Urinary tract infection, site not specified; N17.9 Acute kidney failure, unspecified; I25.810 Atherosclerosis of coronary artery bypass graft(s) without angina pectoris; E10.65 Type 1 diabetes mellitus with hyperglycemia; R09.02 Hypoxemia; E10.319 Type 1 diabetes mellitus with unspecified diabetic retinopathy without macular edema; J44.9 Chronic obstructive pulmonary disease, unspecified; I95.9 Hypotension, unspecified; F32.A Depression, unspecified; E86.0 Dehydration; G80.9 Cerebral palsy, unspecified; H35.00 Unspecified background retinopathy; Z66 Do not resuscitate; I25.2 Old myocardial infarction; Z95.820 Peripheral vascular angioplasty status with implants and grafts; Z95.1 Presence of aortocoronary bypass graft; Z90.710 Acquired absence of both cervix and uterus
CPT/HCPCS: 36415; 71045; 71046; 80048; 80053; 81001; 82948; 83605; 83735; 83880; 84145; 85025; 87040; 87086; 87635; 93005; 94640; 96360; 99285; A9270; J0696; J1815; J1938; J2405; J7120